=== PATIENT | female | born 1990 | race Caucasian/White ===

== ENCOUNTER 2024-07-06 20:15 | Outpatient (REF) | payer OTHER, SELFPAY ==
[2024-07-13 14:10] LABS: Age Gdln ACOG Testing Note (.); HPV Aptima Negative (Negative); IGP, Aptima HPV, rfx 16/18,45 Note (.)
== END 2024-07-06 20:16 | disposition home or self-care (01) ==
LOC: LAB 20:15
PROVIDERS: Visit Provider Obstetrics & Gynecology
DX: Z01.419 Encounter for gynecological examination (general) (routine) without abnormal findings (principal)
CPT/HCPCS: 87624; 88175

== ENCOUNTER 2025-06-18 15:32 | Outpatient (OUT) | payer OTHER, SELFPAY ==
--- OUTSIDE RECORDS SUMMARY | 2015-11-05 08:27 | XMS_ITS | Continuity of Care Document ---
Author [facility] Address [address] [place] [address] Phone Care Team Providers Care College Service Officer Name Role Phone Chris DOMINGUEZ, Higinio Unavailable Unavailable Allergies, Adverse Reactions, Alerts Substance Reaction Status Criticality No Known Drug Intolerances Active N o Information Medications Medication Instructions Dosage Effective Dates (start - stop) Status Comments Advair Diskus 250 mcg-50 mcg/dose powder for inhalation INHALE 1 PUFF BY INHALATION ROUTE 2 TIMES EVERY DAY IN THE MORNING AND EVENING APPROXIMATELY 12 HOURS APART 1.00 puff - Active Sprintec (28) 0.25 mg-35 mcg tablet take 1 tablet by oral route every day 1.00 tablet - Active albuterol sulfate HFA 90 mcg/actuation aerosol inhaler inhale 2 puff by inhalation route every 4 - 6 hours as needed - Active Singulair 10 mg tablet take 1 tablet by oral route every day in the evening 10 MG - Active Procedures Procedure Date URINALYSIS, AUTO, W/O SCOPE URINE TEST IMMUNIZATION ADMIN TDAP VACCINE >7 IM Doc meds verified w/pt or re TOBACCO NON-USER PREV VISIT, EST, AGE 18-39 OBTAINING PAP SMEAR BUNDLED SERVICE URINALYSIS, AUTO, W/O SCOPE OFFICE/OUTPATIENT VISIT, EST OFFICE/OUTPATIENT VISIT, EST OFFICE/OUTPATIENT VISIT, EST URINALYSIS, AUTO, W/O SCOPE URINE TEST URINALYSIS, AUTO, W/O SCOPE OFFICE/OUTPATIENT VISIT, EST URINALYSIS NONAUTO W/O SCOPE OFFICE/OUTPATIENT VISIT, EST PREV VISIT, EST, AGE 18-39 OBTAINING PAP SMEAR BUNDLED SERVICE Office/outpatient visit,est, mod 2011 OFFICE/OUTPATIENT VISIT, EST Office/outpatient visit,est, mod 2010 Office/outpatient visit,est, mod 2010 Office/outpatient visit,est, mod 2010 Infct antign, human papilvs, ampl Cult, pathgnc orgnsm, screen Chlamydia culture Screening Papanicolaou Smear Preventive checkup, est,18-39 yrs Office/outpatient visit,new, low 2010 Advance Directives Directive Yes / No Effective Date File Name No Information Encounters Encounter Description Practice Location Reason(s) For Visit Diagnoses Date Provider Providers Copied on Encounter [facility], [address] [place] [address], [id number] , tel:[phone] [facility] No Information 6 Chris Sylvester. [address] [place], [place], [id number], [place]. tel:[phone] [facility], [address] [place] [address], [id number] , [place] tel:[phone] [facility] No Information 5 No Information PREV VISIT, EST, AGE 18-39 [facility], [address] [place] [address], [id number] , [place] tel:[phone] [facility] PAP test (chief complaint) Cervical cancer screeningOral contraceptive prescribedRou burek physicl lab examRoutine Medical ExamHigh risk sexual behavior 4 Christie Rajan. [address] [place], [place], [id number], [place]. tel:[phone] Referring Provider: Mohini Soriano DNP, NP-C, [address] [place] [address] [facility] B, [place], [address]. tel:[phone] OFFICE/OUTPA TIENT VISIT, Anaqua Oacoma Haitaobei [facility], [address] [place] [address] [address], [place], [place], [id number] , [place] tel:[phone] Timoteo Vaughn [facility] burning on urination (chief complaint)c hronic conditions (chief complaint) AsthmaDyspare unia 7 4 Christie LITO AUTOMATIC PRESSER-C Mohini. [address] [place] [address] [facility] [address], [place], [place], [id number], [place]. tel:[phone] Referring Provider: Mohini COULTER, [address] [place] [address] B, [place], [address]. tel:[phone] OFFICE/OUTPA TIENT VISIT, Anaqua Oacoma Haitaobei [facility], [address] [place] [address] [address], [place], [place], [id number] , [place] tel:[phone] Timoteo Vaughn [facility] chronic conditions (chief complaint) Asthma 3201 3 Chrisite LITO Rajan. [address] [place] [address] B, [place], [place], [id number], [place]. tel:[phone] Referring Provider: Mohini COULTER, [address] [place] [address] B, [place], [address]. tel:[phone] OFFICE/OUTPA TIENT VISIT, Anaqua Oacoma Haitaobei [facility], [address] [place] [address] [address], [place], [place], [id number] , [place] tel: [phone] [facility] irregular periods (chief complaint) Post - coital bleedingVagin al odor 3 No Information OFFICE/OUTPA TIENT VISIT, Anaqua Oacoma Zarfo [facility], [address] [place] [address] [address], [place], [place], [address] , [place] tel: [phone] [facility] urinary frequency (chief complaint) Urinary frequency 3 Blickensderf er MEDICAL SOCIAL CONSULTANT [place]. [address], [place], [place], [address], [place]. tel:[phone] Referring Provider: [place] hernandez CNP, [address], [place], [address]. tel:[phone] OFFICE/OUTPA TIENT VISIT, [facility], [address] [place] [address] [address], [place], [place], [id number] , [place] tel:[phone] Timoteo Vaughn [facility] burning on urination (chief complaint) Urinary tract infection 2 Christie MROSE AUTOMATIC PRESSER-C Mohini. [facility] [address] [facility] [address], [place], [place], [id number], [place]. tel:[phone] Referring Provider: Mohini Soriano DNP AUTOMATIC PRESSER-C, Counts include 234 beds at the [facility] [address], [place], [address]. tel:[phone] PREV VISIT, [facility], AGE 18-39 [facility], [address] [place] [address] [address], [place], [place], [address] , [place] tel:[phone] Timoteo Vaughn [facility] preventive exam (chief complaint) Gynecological Examination Mar-0 2 Raz Ho. [facility], [place], [place], [id number], [place]. tel:[phone] Referring Provider: [place] hernandez CNP, [facility], [place], [address]. tel:[phone] Office/outpa tient visit,[facility], [facility], [address] [place] [address] [address], [place], [place], [id number] , [place] tel:[phone] Timoteo Vaughn [facility] chronic conditions (chief complaint)c hest pain (chief complaint)a llergies/ea r pain (chief complaint) AnxietyAsthma Epigastric painAllergic rhinitis Oct- 2 [facility] TORREY Ho. [facility], [place], [place], [address], [place]. tel:[phone] Referring Provider: [place] hernandez CNP, Counts include 234 beds at the [facility] [address], [place], [address]. tel:[phone] OFFICE/OUTPA TIENT VISIT, [facility] Zarfo [facility], [address] [place] [address] [address], [place], [place], [address] , tel:[phone] Timoteo Vaughn [facility] No Information 2 Denilson mary Ho. Counts include 234 beds at the [facility] [address], [place], [place], [address], [place]. tel:[phone] Referring Provider: [place] hernandez CNP, Counts include 234 beds at the [facility] [address] [facility] B, [place], [address]. tel:[phone] Office/outpa tient visit,[email or web address]] [employer] Oacoma Zarfo [facility], [address] [place] [address] [address], [place], [place], [address] , [place] [phone] Timoteo Vaughn [facility] chronic conditions (chief complaint) DEPRESSIONAnx iety 1 Raz Ho. Counts include 234 beds at the [facility] [address], [place], [place], [address], [place]. tel:[phone] Referring Provider: [place] hernandez CNP, Counts include 234 beds at the [facility] [address] [facility] B, [place], [address]. tel:[phone] Office/outpa tient visit,[email or web address]] [employer] Oacoma Zarfo [facility], [address] [place] [address] [address], [place], [place], [address] , [place] [phone] Timoteo Vaughn [facility] chronic conditions (chief complaint) AnxietyFatigu eDEPRESSION 1 Teressa Mak. [address], [address], [place]. tel:[phone] Referring Provider: Obdulio Gannon MD, [address], [address]. tel:[phone] Office/outpa tient visit,[email or web address]] [employer] Oacoma Zarfo [facility], [address] [place] [address] [address], [place], [place], [address] , [place] tel:[phone] [facility] anxiety (chief complaint) DEPRESSIONFat igue / Malaise 1 Teressa Mak. [address], [place], [address], [place]. tel:[phone] Referring Provider: Obdulio Gannon MD, [address], [place], [address]. [phone] Preventive checkup, [facility],18-39 [facility], [address] [place] [address] [address], [place], [place], [address] , tel: [phone] [facility] PAP test (chief complaint) Gynecological Examination 1 Sun Castillo. [facility], [place], [place], [address], . [phone] Referring Provider: Anna Britt, [address], [place], [address]. [phone] Office/outpa tient visit,[facility], [address] [place] [address] [address], [place], [place], [address] , tel: [phone] Timoteo Vaughn [facility] asthma (chief complaint) AsthmaAsthmaD EPRESSIONAnxi ety 1 Sun Castillo. [address], [place], [place], [address], . [phone] Referring Provider: Anna Britt, [address], [place], [address]. tel:[phone] Family History Family Member Type Diagnosis Age At Onset Father Problem (finding) No Family hist ory of No history of Hypertension Maternal grandfather Problem (finding) cancer of the e sophagus Mother Problem (finding) depression Paternal grandfather Problem (finding) Heart attack Brother x 3 Problem (finding) Alive and well Problem (finding) No family history of Al lergies Paternal grandmother Problem (finding) malignant neopl asm of lung Father Problem (finding) No Family hist ory of No history of Hyperlipidemia Immunizations Vaccine Date Status Comments Tdap administered Source: [place] un[place] Record Payers Payer name Insurance type Covered libertarian ID Shanna jaime(s) [facility] CI [id number] [facility] CI [id number] Social History Type Description Quantity Date Captured Comments Alcohol Use Details Unknown Caffeine Use Details Unknown Tobacco Use Status No Information Smoking Status No Information Sex Female Chief Complaint And Reason For Visit No Information Reason For Referral Reason For Referral No Information Plan Of Treatment Date Type Action Status Goal Depression screening. Due on due Goal URINALYSIS NONAU TO W/O SCOPE. Due on due Goal Pap liquid based for cytology. Due on due Goal OARRS. Due on du e Goal HPV, high+low-risk. Due on A due Goal COSMETOLOGY EDUCATOR/Breast exam. Due on due Goal Glucose. Due on due Goal Breast exam. Due on 015 due Goal H&P. Due on due Goal Influenza vaccine. Due on due Goal Influenza vaccine. Due on due Goal Tdap due Goal Breast exam. Due on 013 due Goal HPV (). Due on 4 due Goal Td vaccine. Due on 14 due Goal Breast exam. Due on 013 due Goal HPV (). Due on 4 due Goal Tdap. Due on due Goal H&P. Due on due Goal Influenza vaccine. Due on due Future Order: Lab Order Pap Liqu id Based For Cytology ([id number]), Collected on: Ordered History Of Present Illness Encounter Date Complaint History Of Prese nt Illness PAP test Currently pregna nt: no. Patient is not contemplating . The patient states she uses none for control. Last LMP was 02/28/2014. Her menses is regular with normal flow with a frequency of every 28 days. Negative for dysmenorrhea and menorrhagia. Negative for: breast discharge, breast lump(s) and breast pain. Positive for: breast self exam. Associated symptoms include difficulty falling sleep. Pertinent negatives include abnormal bleeding, anxiety, decreased libido, depression, dyspareunia, sexual dysfunction, sleep disturbances, urinary incontinence, urinary urgency, vaginal discharge and vaginal itching. She does not take calcium. She does not take Vitamin D. She does not take multivitamins. She does not take Folic acid.The patient states her exercise level is moderate. The patient does not use tobacco. She does drink alcohol. Additional information: Last pap 03/31/12. No Tdap in chart. Pt. would like Tdap today. Pt. is currently sexual axtive. Pt. does have new sexual partner. Does use condoms. Functional Status Date Functional Assessmen t No Information Instructions Date Instruction Additional Infor rich counseled on various control optionsshe decided on ocp-counseled on risks, benefitsno family history of clotting disorders and she does not smokept to f/u if negative side effects Related to Oral contraceptive prescribed will check for STI a nd f/u pending results Related to Routine physicl lab exam Pap/pelvic/breast ex am performedDiscussed daily multivitaminDiscussed importance of routine daily exerciseDiscussed importance of weight maintenance and obtaining optimal bmiVaccine schedule reviewed and updated-will update her tdap todaycounseled on safe sex practicesRoutine annual follow up recommended Related to Cervical cancer screening see my plan Related to Cervi elver cancer screening see my plan Related to Asthm a see my plan Related to Asthm a see plan details Related to Vagi nal odor Assessments Type Assessment Date No Information Patient Care Teams Name Effective Dates (start - stop) Status Members No Information
--- OUTSIDE RECORDS SUMMARY | 2025-06-07 09:40 | XMS_ITS | Encounter Summary ---
Author Organization [facility] Address [address], [address] [place] [address] Care Team Providers Care Anode Crew Supervisor Name Role Phone Skyler Kwon MD Primary Care Provider + Reason for Visit * ReasonCommentsCheck-UpPt presents for a check up and refills. Encounter Details DateTypeDepartmentCare Team (Latest Contact Info)Isnqplvyvyv56/13/2025 9:40 AM ESTOffice Visit [facility] [address] [place] [address] Georgia Nelson, VENETIAN BLIND MECHANIC - LOAF COUNTER [address] [place] [address] Hypertension, unspecified type (Primary Dx); Mild intermittent asthma, unspecified whether complicated; Depression with anxiety; Tachycardia; Class 2 severe obesity with serious comorbidity and body mass index (BMI) of 38.0 to 38.9 in adult,unspecified obesity type; Mild persistent asthma with acute exacerbation; H/O seasonal allergies Social History Tobacco UseTypesPacks/DayYears UsedDateSmoking Tobacco: NeverSmokeless Tobacco: NeverAlcohol UseStandard Drinks/WeekCommentsNo0 (1 standard drink = 0.6 oz pure alcohol)has a few drinks a monthOverall Financial Resource Strain (CARDIA)Answer Date RecordedHow hard is it for you to pay for the very basics like food, housing, medical care, and heating?Not very hard4PHQ-2AnswerDate RecordedPHQ-9 Total Mhplk19610/07/2023Hunger Vital SignAnswerDate RecordedWithin the past 12 months, you worried that your food would run out before you got the money to buymore.Never true10/07/2023Within the past 12 months, the food you bought just didn't last and you didn't have money to get more.Never true 10/07/2023RAPARE - TransportationAnswerDate RecordedLack of Transportation (Medical)Not on file10/07/2023In the past 12 months, has lack of transportation kept you from meetings, work, or from getting things needed for daily living?No 10/07/2023Housing Stability Vital SignAnswerDate RecordedUnable to Pay for Housing in the Last YearNot on file10/07/2023Number of Places Lived in the Last YearNot on file10/07/2023In the last 12 months, was there a time when you did not have a steady place to sleep or [place] ([place])?No 10/07/2023Food InsecurityAnswerDate RecordedWithin the past 12 months, you worried that your food would run out before you got the money to buymore.1 10/07/2023Within the past 12 months, the food you bought just didn't last and you didn't have money to get more.regnantCommentsNoSex and Gender InformationValueDate RecordedSex Assigned at IiopgXpliqp59/24/2025 4:03 PM EST Legal OdwPxydid17/10/2013 4:11 PM ESTGender IdentityNot on fileSexual OrientationNot on filedocumented as of this encounter Last Filed Vital Signs Vital SignReadingTime TakenCommentsBlood Zwalbejr255/9206/07/2025 9:57 AM EST Husev41837/13/2025 9:57 AM UXSWgebndzxzna88.2 ??C (97.1 ??F)06/07/2025 9:57 AM ESTRespiratory Youa540108/07/2024 9:57 AM ESTOxygen Yivguegodt25%06/07/2025 9:57 AM ESTInhaled Oxygen Concentration--Eezxol569.7 kg (233 lb)06/07/2025 9:57 AM CAFXuepdu980.1 cm (5' 5 )06/07/2025 9:57 AM ESTBody Mass Index38.7706/07/2025 9:57 AM ESTdocumented in this encounter Patient Instructions * Patient Instructions* Georgia Nelson APRN - CNP - 06/07/2025 10:22 AM EST Continue portion control, heart healthy diet Take inhaler 30 mins prior to bed to help with the sob/tightness Take Singular nightly * Attachments The following attachments cannot be sent through Care Everywhere. * BMI (Body Mass Index) (Cuban) * Calorie Restriction: General Info (Cuban) documented in this encounter Progress Notes * Georgia Nelson APRN - CNP - 06/07/2025 9:55 AM EST Images from the original note were not included. [facility] [address] [facility] [address] Dept: [phone] Loc: [phone] HPI: HPI Ayse Bass is a 35 y.o. female who presents today for follow up, has been out of Metoprolol, heart rate in office today 115. She is also having issues with more frequent asthma symptoms, Advair doesn't seem to be helping, she would like to try something different. She is having Fibroids removed next month and possible hysterectomy next year. She has lost weigh since our last visit, advised continue calorie restrictions, heart healthy diet. She has been having issues prior to bed, chesttightness/short of breath, she isn't using her rescue inhaler and not taking singular. She feels the ProAir does not help as much as the Ventolin Chief Complaint Patient presents with Check-Up Pt presents for a check up and refills. 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 Past Medical History: Diagnosis Date Asthma Past Surgical History: Procedure Laterality Date SECTION 10/03/2015 [facility] Family History Problem Relation Age of Onset High Blood Pressure Mother High Blood Pressure Father Heart Disease Father Social History Tobacco Use Smoking status: Never Smokeless tobacco: Never Substance Use Topics Alcohol use: No Comment: has a few drinks a month Current Outpatient Medications Medication Sig Dispense Refill HYDROcodone-acetaminophen (NORCO) 5-325 MG per tablet promethazine (PHENERGAN) 25 MG tablet Take 1 tablet by mouth every 6 hours as needed metoprolol tartrate (LOPRESSOR) 25 MG tablet Take 1 tablet by mouth 2 times daily 90 tablet 0 budesonide-formoterol (SYMBICORT) 160-4.5 MCG/ACT AERO Inhale 2 puffs into the lungs 2 times daily 30.6 g 1 albuterol sulfate HFA (VENTOLIN HFA) 108 (90 Base) MCG/ACT inhaler Inhale 2 puffs into the lungs 4 times daily as needed for Wheezing 18 g 0 montelukast (SINGULAIR) 10 MG tablet take 1 tablet by mouth once daily 90 tablet 1 buPROPion (WELLBUTRIN XL) 150 MG extended release tablet Take 1 tablet by mouth daily doxycycline hyclate (VIBRA-TABS) 100 MG tablet Take 1 tablet by mouth daily ibuprofen (ADVIL;MOTRIN) 600 MG tablet Take 1 tablet by mouth every 8 hours as needed metFORMIN (GLUCOPHAGE) 500 MG tablet Take 1 tablet by mouth 2 times daily (with meals) 60 tablet 2 fluticasone (FLONASE) 50 MCG/ACT nasal spray instill 1 spray into each nostril twice a day 48 g 0 ondansetron (ZOFRAN-ODT) 4 MG disintegrating tablet dissolve 1 tablet ON TONGUE every 8 hours if needed for nausea OR vomiting 30 tablet 0 No current facility-administered medications for this visit. Allergies Allergen Reactions Amoxicillin Adverse reaction of diarrhea, side effect and doesn't cure illness Health Maintenance Topic Date Due HIV screen Never done Hepatitis C screen Never done Hepatitis B vaccine (1 of 3 - 19+ 3-dose series) Never done Cervical cancer screen Never done Depression Monitoring 10/06/2024 Flu vaccine (1) 02/23/2025 COVID-19 Vaccine (1 - season) Never done Varicella vaccine (1 of 2 - 13+ 2-dose series) 11/13/2026 (Originally 2001) Pneumococcal 0-49 years Vaccine (1 of 2 - PCV) 11/13/2026 (Originally 2007) DTaP/Tdap/Td vaccine (1 - Tdap) 03/24/2027 (Originally 2007) HPV vaccine (No Doses Required) Completed Hepatitis A vaccine Aged Out Hib vaccine Aged Out Polio vaccine Aged Out Meningococcal (ACWY) vaccine Aged Out Meningococcal B vaccine Aged Out Depression Screen Discontinued ROS: Review of Systems Constitutional: Positive for fatigue. Negative for fever. HENT: Positive for congestion. Negative for ear pain, hearing loss, postnasal drip, sinus pain, tinnitus and trouble swallowing. Eyes: Negative for photophobia and visual disturbance. Respiratory: Positive for shortness of breath and wheezing. Negative for cough and chest tightness. Increased asthma symptoms Cardiovascular: Negative for chest pain, palpitations and leg swelling. Gastrointestinal: Negative for abdominal pain, constipation, diarrhea, nausea and vomiting. Endocrine: Negative for polydipsia, polyphagia and polyuria. Genitourinary: Negative for difficulty urinating, dysuria, frequency and urgency. Musculoskeletal: Negative for back pain, gait problem and neck pain. Skin: Negative for rash. Allergic/Immunologic: Negative for environmental allergies and food allergies. Neurological: Negative for dizziness, weakness, light-headedness, numbness and headaches. Hematological: Does not bruise/bleed easily. Psychiatric/Behavioral: Negative for agitation, confusion, dysphoric mood and sleep disturbance. The patient is not nervous/anxious and is not hyperactive. Clinical staff notes reviewed. Physical Exam: Physical Exam Vitals and nursing note reviewed. Constitutional: General: She is not in acute distress. Appearance: Normal appearance. She is well-developed. She is obese. She is not ill-appearing, toxic-appearing or diaphoretic. HENT: Head: Normocephalic and atraumatic. Right Ear: Tympanic membrane, ear canal and external ear normal. Left Ear: Tympanic membrane, ear canal and external ear normal. Nose: Nose normal. Mouth/Throat: Mouth: Mucous membranes are moist. Pharynx: Oropharynx is clear. Eyes: Extraocular Movements: Extraocular movements intact. Conjunctiva/sclera: Conjunctivae normal. Pupils: Pupils are equal, round, and reactive to light. Neck: Thyroid: No thyromegaly. Cardiovascular: Rate and Rhythm: Regular rhythm. Tachycardia present. Heart sounds: Normal heart sounds. Comments: Has been out of BP medication (metoprolol) Pulmonary: Effort: Pulmonary effort is normal. Breath sounds: Normal breath sounds. No wheezing or rales. Chest: Chest wall: No tenderness. Abdominal: General: Bowel sounds are normal. There is no distension. Palpations: Abdomen is soft. Tenderness: There is no abdominal tenderness. Genitourinary: Comments: deferred Musculoskeletal: General: No tenderness. Normal range of motion. Cervical back: Normal range of motion and neck supple. Right lower leg: No edema. Left lower leg: No edema. Skin: General: Skin is warm and dry. Capillary Refill: Capillary refill takes less than 2 seconds. Findings: No rash. Neurological: Mental Status: She is alert and oriented to person, place, and time. Psychiatric: Mood and Affect: Mood normal. Behavior: Behavior normal. Thought Content: Thought content normal. Judgment: Judgment normal. Continue portion control, heart healthy diet Take inhaler 30 mins prior to bed to help with the sob/tightness Take Singular nightly BP (!) 132/92 Pulse (!) 115 Temp 97.1 ??F (36.2 ??C) Resp 18 Ht 1.651 m (5' 5 ) Wt 105.7 kg (233 lb) SpO2 98% BMI 38.77 kg/m?? POCT: No results found for this visit on 06/07/25. Labs: No results found for: LABA1C Lab Results Component Value Date CHOL 216 12/02/2022 Lab Results Component Value Date HDL 76 (A) 12/02/2022 No components found for: LDLCALC Lab Results Component Value Date TRIG 230 12/02/2022 No results found for: CHOLHDL Lab Results Component Value Date WBC 8.8 12/02/2022 HGB 15.1 12/02/2022 HCT 45.5 12/02/2022 MCV 92.7 12/02/2022 PLT 443 12/02/2022 No results found for: INR , PROTIME Lab Results Component Value Date GLUCOSE 96 12/02/2022 CREATININE 0.54 12/02/2022 BUN 9 12/02/2022 NA 139 12/02/2022 K 4.3 12/02/2022 CL 102 12/02/2022 CO2 23 12/02/2022 Lab Results Component Value Date ALT 27 12/02/2022 AST 22 12/02/2022 ALKPHOS 103 12/02/2022 BILITOT 0.5 12/02/2022 No results found for: LABPROT , LABALBU No results found for: TSH , CBC Assessment and Plan: Ayse Manley was seen today for check-up. Diagnoses and all orders for this visit: Hypertension, unspecified type - metoprolol tartrate (LOPRESSOR) 25 MG tablet; Take 1 tablet by mouth 2 times daily Mild intermittent asthma, unspecified whether complicated - budesonide-formoterol (SYMBICORT) 160-4.5 MCG/ACT AERO; Inhale 2 puffs into the lungs 2 times daily Depression with anxiety Tachycardia - metoprolol tartrate (LOPRESSOR) 25 MG tablet; Take 1 tablet by mouth 2 times daily Class 2 severe obesity with serious comorbidity and body mass index (BMI) of 38.0 to 38.9 in adult,unspecified obesity type Mild persistent asthma with acute exacerbation - albuterol sulfate HFA (VENTOLIN HFA) 108 (90 Base) MCG/ACT inhaler; Inhale 2 puffs into the lungs4 times daily as needed for Wheezing - montelukast (SINGULAIR) 10 MG tablet; take 1 tablet by mouth once daily H/O seasonal allergies - montelukast (SINGULAIR) 10 MG tablet; take 1 tablet by mouth once daily Controlled Substance Monitoring: Acute and Chronic Pain Monitoring: RX Monitoring Periodic Controlled Substance Monitoring 07/05/2019 11:37 AM No signs of potential drug abuse or diversion identified. Data saved with a previous flowsheet row definition 1. Prior labs and health maintenance reviewed. 2. Discussed use, benefit, and side effects of prescribed medications. Barriers to medication compliance addressed. All her questionswere answered. Pt voiced understanding and agreed to treatment plan. Ayse will continue current medications,diet and exercise. Return in about 3 months (around 09/07/2025), or if symptoms worsen or fail to improve. Patient given educational materials - see patient instructions Patient Instructions Continue portion control, heart healthy diet Take inhaler 30 mins prior to bed to help with the sob/tightness Take Singular nightly documented in this encounter Plan of Treatment DateTypeDepartmentCare Team (Latest Contact Info)Tzdqqbyflpb72/12/2026 9:20 AM ESTOffice Visit [facility] [address] [place] [address] Georgia Nelson, MOR Tejada CNP [address] [place] [address] 3 MONTH F/Udocumented as of this encounter Visit Diagnoses Diagnosis Hypertension, unspecified type- Primary Mild intermittent asthma, unspecified whether complicated Depression with anxiety Dysthymic disorder Tachycardia Tachycardia, unspecified Class 2 severe obesity with serious comorbidity and body mass index (BMI) of 38.0 to 38.9 in adult,unspecified obesity type Mild persistent asthma with acute exacerbation Unspecified asthma, with exacerbation H/O seasonal allergies Other allergy, other than to medicinal agents documented in this encounter Care Teams Team MemberRelationshipSpecialtyStart DateEnd Date Skyler Kwon MD [address] [place] [address] PCP - GeneralFamily Medicine10/19/18documented as of this encounter
--- OUTSIDE RECORDS SUMMARY | 2025-06-18 13:50 | XMS_ITS | Encounter Summary ---
Author Organization [facility] Address [address] [place] [address] Care Team Providers Care Mammography Tech Name Role Phone Georgia Sage NP Primary Care Provider [phone] Reason for Visit * ReasonCommentsGynecologic ExamPre-op Visit Encounter Details DateTypeDepartmentCare Team (Latest Contact Info)Mohdtmzbwpd12/24/2025 1:50 PM ESTConsult SAIRA [facility]ak [facility] [address] [place] [address] Mick Coulter DO [address] Servando Novak, [facility]11 Pre-op examination; Adenomyosis; Cyst of ovary, unspecified laterality; PCOS (polycystic ovarian syndrome); Well woman exam with routine gynecological exam Social History Tobacco UseTypesPacks/DayYears UsedDateSmoking Tobacco: NeverSmokeless Tobacco: Never Tobacco Cessation:Counseling Given: Not Answered Alcohol UseStandard Drinks/WeekCommentsNot Currently0 (1 standard drink = 0.6 oz pure alcohol)CommentsNoSex and Gender InformationValueDate RecordedSex Assigned at BirthNot on fileLegal KcrPcwows76/15/2023 11:18 PM EDTGender IdentityNot on fileSexual OrientationNot on filedocumented as of this encounter Last Filed Vital Signs Vital SignReadingTime TakenCommentsBlood Uriujilb801/6806/18/2025 2:10 PM EST Pulse--Temperature--Respiratory Rate--Oxygen Saturation--Inhaled Oxygen Concentration--Tmqcgn168 kg (240 lb)06/18/2025 2:10 PM ESTHeight--Body Mass [...] DateEnd Date Georgia Sage, JUDE [address] [place] [address] PCP - GeneralFamily Zbsnlaqx23/14/24documented as of this encounter
--- OUTSIDE RECORDS SUMMARY | 2025-06-18 15:40 | XMS_ITS | Clinical Summary ---
Author Organization [facility] tem Address [id number] [address] [place] [address] Care Team Providers Care Supervisor [employer] Name Role Phone Georgia Nelson APRN-MOLDER FEEDER Primary Care P rovider Allergies Active AllergyReactionsCriticalityNoted QnfzRuzezlkjMsgrjsjpmmn61/27/2018 Adverse reaction of diarrhea, side effect and doesn't cure illness Medications MedicationSigDispense QuantityRefillsLast FilledStart DateEnd DateStatus albuterol sulfate 90 mcg/actuation aerosol powdr breath activated Inhale.Active mometasone/formoterol (DULERA INHL) Inhale.Active montelukast (SINGULAIR) 10 mg tablet Take 10 mg by mouth nightly.Active ondansetron ODT (ZOFRAN-ODT) 4 mg disintegrating tablet Indications:Non-intractable vomiting with nausea, unspecified vomiting type, Abdominal crampingDissolve 1 tablet (4 mg total) on tongue every 8 (eight) hours as needed for nausea or vomiting. 9 tablet 05/03/2019Active Additional Information Patient not taking.Reported on 05/01/2020 vitamins no.2 ( VITAMIN NO.2 ORAL) Take by mouth.Active albuterol (ACCUNEB) 0.63 mg/3 mL nebulizer solution Inhale 1 ampule by nebulization every 6 (six) hours as needed for wheezing. Active sertraline (ZOLOFT) 50 mg tablet Take 1 tablet (50 mg total) by mouth daily. 30 tablet Active valACYclovir (VALTREX) 500 mg tablet Take 1 tablet (500 mg total) by mouth daily. 30 tablet Active benzocaine-menthoL (CHLORASEPTIC SORE THROAT) 6-10 mg lozenge Dissolve 1 lozenge in the mouth every 2 (two) hours as needed for sore throat. 100 tablet 07/22/2022ctive albuterol (PROVENTIL HFA;VENTOLIN HFA) 90 mcg/actuation inhaler Indications:Mild persistent asthma, unspecified whether complicatedInhale 2 puffs every 4 (four) hours as needed for wheezing. 18 g ctive fluticasone propionate (FLONASE) 50 mcg/actuation nasal spray Administer 1 spray into each nostril in the morning. 16 g 07/22/2022ctive ibuprofen (MOTRIN) 600 mg tablet Take 1 tablet (600 mg total) by mouth every 8 (eight) hours as needed for pain or fever. 30 tablet 07/22/2022ctive acetaminophen (TYLENOL EXTRA STRENGTH) 500 mg tablet Take 2 tablets (1,000 mg total) by mouth every 6 (six) hours as needed for pain or fever. 30 tablet 07/22/2022ctive DULoxetine (CYMBALTA) 60 mg capsule Take 1 capsule (60 mg total) by mouth in the morning.Active lisinopril-hydroCHLOROthiazide (PRINZIDE,ZESTORETIC) 20-25 mg per tablet Take 1 tablet by mouth in the morning.Active metoprolol tartrate (LOPRESSOR) 25 mg tablet Take 1 tablet (25 mg total) by mouth in the morning and 1 tablet (25 mg total) before bedtime.Active methocarbamoL (ROBAXIN) 500 mg tablet Take 1 tablet (500 mg total) by mouth in the morning and 1 tablet (500 mg total) before bedtime. 20 tablet 4Active Active Problems ProblemNoted DateDiagnosed DateSusceptible to varicella (non-immune), currently uxlxrhro00/09/2020History of pclhiuu6905/03/2019Acute cystitis with hywygfksh00/01/2018Mild persistent ojgxlr4604/24/2016 Encounters DateTypeDepartmentCare QuqkQwvlultluyv20/15/2025 1:45 PM EDT - 05/09/2025 11:59 PM EDTHospital [facility] [address] [id number] Cyst of ovary, unspecified laterality Discharge Disposition: Home05/09/20254252Kuovzj25/09/2025 3:57 PM EDT - 05/03/2025 11:59 PM EDTHospital Encounter [facility] [address] [place] [id number] Hematuria, unspecified type Discharge Disposition: Home05/03/2025Travelfrom Last 3 Months Family History Medical HistoryRelationNameCommentsCancerFatherPROSTATEHeart attackFatherHigh CholesterolFatherHypertensionFatherEsophageal cancerMaternal Grandfather HypertensionMotherHeart attackPaternal GrandfatherLung cancerPaternal GrandmotherRelationNameStatusCommentsFatherAliveMaternal GrandfatherMotherAlive Paternal GrandfatherPaternal Grandmother Social History Tobacco UseTypesPacks/DayYears UsedDateSmoking Tobacco: NeverSmokeless Tobacco: Never Comments:at a young age Alcohol UseStandard Drinks/WeekCommentsNot Currently0 (1 standard drink = 0.6 oz pure alcohol)twice per monthAUDIT-CAnswerDate RecordedQ1: How often do you have a drink containing alcohol?Never12/20/2019Average Number of DrinksNot on file 12/20/2019Frequency of Binge DrinkingNot on file12/20/2019ChildcareAnswerDate XccddxqxLpxvpyzpkIddimth98/12/2019EmploymentAnswerDate RecordedEmploymentUnknown 01/04/2019Hunger ScreeningAnswerDate RecordedWithin the past 12 months we worried whether our food would run out before we got money to buy more.Never True01/07/2024Within the past 12 months the food we bought just didn't last and we didn't have money to get more.Never True4Purpose - LifeAnswerDate RecordedPurpose and direction in mdirGzflqgg01/25/2021CommentsNoSex and Gender InformationValueDate RecordedSex Assigned at BirthNot on fileLegal Sex Spswpr7802/28/2015 12:12 PM EDTGender IdentityNot on fileSexual OrientationNot on file Last Filed Vital Signs Vital SignReadingTime TakenCommentsBlood Bdpbexsx607/25740 10:15 AM EDT Altwf47001/14/2024 10:00 AM SAEZwezqneigkm79.8 ??C (98.3 ??F)01/07/2024 8:56 AM EDTRespiratory Sqap131001/07/2024 10:00 AM EDTOxygen Ttysogseye27%01/07/2024 10:15 AM EDTInhaled Oxygen Concentration--Jbmizw655.4 kg (250 lb)01/07/2024 8:56 AM UKTFpfbve621.1 cm (5' 5 )01/07/2024 8:56 AM EDTBody Mass Index41.6001/07/2024 8:56 AM EDT Plan of Treatment Health MaintenanceDue DateLast DoneCommentsDepression Rivgmjohr88/11/2000 DTaP,Tdap and Td Vaccines (1 - Tdap)2007Pap Smear, 10/06/2018Adult BMI Xijhgjpje22Tobacco Srfztkkon59/14/2025 01/07/2024Influenza Rdonhos55 Medical Devices Not on file Procedures Procedure NamePriorityDate/TimeAssociated DiagnosisCommentsUS PELVIC WITH PARSDDXNDGABPkwvgae61/15/2025 2:51 PM EDT Cyst of ovary, unspecified laterality CT ABDOMEN AND PELVIS WO TQEJKRBH28/09/2025 4:08 PM EDT Hematuria, unspecified type PAP TVKXQKkytywr10/14/2019 6:14 PM EDT Cervical smear, as part of routine gynecological examination from Last 3 Months or Most Recently Relevant to Health Maintenance Results * Ultrasound pelvic with transvaginal (05/09/2025 2:51 PM EDT)Anatomical Region LateralityModalityBody, PelvisUltrasoundSpecimen (Source)Anatomical Location / LateralityCollection Method / VolumeCollection TimeReceived Time05/10/2025 2:48 PM EDT Narrative 05/10/2025 2:50 PM EDT CLINICAL INFORMATION: Left ovarian cyst seen on CTA. Further characterization. COMPARISON: CT abdomen/pelvis dated 05/03/2025. FINDINGS: ?? Limited transabdominal and transvaginal ultrasound of the pelvis was performed. ? Suboptimal evaluation due to patient body habitus and overlying bowel gas. UTERUS: Size: 10.3 x 4.6 x 7.2 cm. Dual endometrial thickness: 1.0 cm. Heterogeneous myometrium. ?? OVARIES/ADNEXA: Right ovary: Size: 3.8 x 2.7 x 2.3 cm. No demonstrated worrisome/actionable lesion. Normal color Doppler flow. Left ovary: Size: 2.2 x 1.6 x 1.8 cm. No cystic focus appreciated. No demonstrated worrisome/actionable lesion. Normal color Doppler flow. ?? FREE FLUID: None. ? IMPRESSION: 1. ??Suboptimal evaluation due to overlying bowel gas and patient body habitus. 2. ??Unremarkable bilateral ovaries. No sonographic evidence of left adnexal cystic lesion. 3. ??Heterogeneous myometrium which may represent adenomyosis. Recommend clinical correlation. Finalized by Lisa Ramírez MD on 05/10/2025 2:50 PM Procedure Note Lisa Ramírez MD - 05/10/2025 CLINICAL INFORMATION: Left ovarian cyst seen on CTA. Further characterization. COMPARISON: CT abdomen/pelvis dated 05/03/2025. FINDINGS: Limited transabdominal and transvaginal ultrasound of the pelvis wasperformed. Suboptimal evaluation due to patient body habitus and overlying bowelgas. UTERUS: Size: 10.3 x 4.6 x 7.2 cm. Dual endometrial thickness: 1.0 cm. Heterogeneous myometrium. OVARIES/ADNEXA: Right ovary: Size: 3.8 x 2.7 x 2.3 cm. No demonstrated worrisome/actionable lesion. Normal color Doppler flow. Left ovary: Size: 2.2 x 1.6 x 1.8 cm. No cystic focus appreciated. No demonstrated worrisome/actionable lesion. Normal color Doppler flow. FREE FLUID: None. IMPRESSION: 1. Suboptimal evaluation due to overlying bowel gas and patient bodyhabitus. 2. Unremarkable bilateral ovaries. No sonographic evidence of leftadnexal cystic lesion. 3. Heterogeneous myometrium which may represent adenomyosis. Recommendclinical correlation. Finalized by Lisa Ramírez MD on 05/10/2025 2:50 PM Authorizing ProviderResult TypeResult StatusAmy Elizabeth Beatty [facility] US ORDERABLESFinal Result * CT abdomen and pelvis without contrast (05/03/2025 4:08 PM EDT)Anatomical RegionLateralityModalityBody, Abdomen, Body CoveraN/AComputed Tomography Specimen (Source)Anatomical Location / LateralityCollection Method / Volume Collection TimeReceived Time05/03/2025 5:17 PM EDT Narrative 05/03/2025 5:[address] ABDOMEN AND PELVIS WITHOUT CONTRAST COMPARISON: ??None. CLINICAL HISTORY: Hematuria, unspecified type. TECHNIQUE: Unenhanced axial images were obtained from the lung bases to the pubic symphysis with sagittal and coronal 2D reformatted images. Oral contrast administered: ??No. ??Automatic exposure control (AEC) was utilized. FINDINGS: ?? Evaluation of the abdomen and pelvis is significantly compromised without intravenous contrast, including but not limited to compromised evaluation of solid abdominal viscera and vasculature, decreased sensitivity in assessing for a malignant process including masses and lymphadenopathy, as well as decreased sensitivity in evaluating for infectious/inflammatory processes including abscesses. ??Ifclinical concern for occult pathology which may not be visualized on noncontrast CT, consider repeat scanning with intravenous contrast. ?? Lower chest: No evidence for focal consolidation. No pleural or pericardial effusion.. No hydronephrosis or urinary tract calculi. Gallbladder is contracted. Subcentimeter hypoattenuating left hepatic lobe lesion, too small to characterize but most likely a benign cyst or hemangioma. The liver, spleen, and pancreas demonstrate no acute abnormality given compromised evaluation without intravenous contrast. ??The adrenal glands appear within normal limits. There is no free intraperitoneal fluid or free intraperitoneal air. The appendix is visualized in the right lower quadrant and appears within normal limits. ?? There is no evidence for bowel obstruction. No evidence for enlarged lymph nodes in the abdomen or pelvis.. No abdominal aortic aneurysm. Prominent left ovary containing what appears to be a cystic structure measuring at least 2.5 cm, not well-characterized on noncontrast CT. No acute osseous abnormality. Small fat-containing right inguinal hernia. IMPRESSION: * ??No hydronephrosis or urinary tract calculi. * ??Asymmetric prominence of the left ovary with probable ovarian cyst, not well-characterized on noncontrast CT. Recommend follow-up pelvic ultrasound including transvaginal scanning for further evaluation. This can be performed as an outpatient unless patient has acute symptoms in this region. All CT scans at this facility use dose modulation, iterative reconstruction, and/or weight based dosing when appropriate to reduce radiation dose to as low as reasonably achievable. Finalized by Tho Melton MD on 05/03/2025 5:25 PM Procedure Note Tho Melton MD - 05/03/2025 CT ABDOMEN AND PELVIS WITHOUT CONTRAST COMPARISON: None. CLINICAL HISTORY: Hematuria, unspecified type. TECHNIQUE: Unenhanced axial images were obtained from the lung bases tothe pubic symphysis with sagittal and coronal 2D reformatted images. Oralcontrast administered: No. Automatic exposure control (AEC) wasutilized. FINDINGS: Evaluation of the abdomen and pelvis is significantly compromised without intravenous contrast, including but not limited to compromised evaluationof solid abdominal viscera and vasculature, decreased sensitivity inassessing for a malignant process including masses and lymphadenopathy, aswell as decreased sensitivity in evaluating for infectious/inflammatory processes including abscesses. If clinical concern for occult pathology which maynot be visualized on noncontrast CT, consider repeat scanning withintravenous contrast. Lower chest: No evidence for focal consolidation. No pleural orpericardial effusion.. No hydronephrosis or urinary tract calculi. Gallbladder is contracted. Subcentimeter hypoattenuating left hepatic lobe lesion, too small to characterize but most likely a benign cyst orhemangioma. The liver, spleen, and pancreas demonstrate no acuteabnormality given compromised evaluation without intravenous contrast.The adrenal glands appear within normal limits. There is no free intraperitoneal fluid or free intraperitoneal air. The appendix is visualized in the right lower quadrant and appears withinnormal limits. There is no evidence for bowel obstruction. No evidence for enlarged lymph nodes in the abdomen or pelvis.. No abdominal aortic aneurysm. Prominent left ovary containing what appears to be a cystic structuremeasuring at least 2.5 cm, not well-characterized on noncontrast CT. No acute osseous abnormality. Small fat-containing right inguinalhernia. IMPRESSION: * No hydronephrosis or urinary tract calculi. * Asymmetric prominence of the left ovary with probable ovarian cyst, notwell- characterized on noncontrast CT. Recommend follow-up pelvicultrasound including transvaginal scanning for further evaluation. Thiscan be performed as an outpatient unless patient has acute symptoms inthis region. All CT scans at this facility use dose modulation, iterativereconstruction, and/or weight based dosing when appropriate to reduceradiation dose to as low as reasonably achievable. Finalized by Tho Melton MD on 05/03/2025 5:25 PM Authorizing ProviderResult TypeResult StatusGilmerhemanth Sanford PAYROLL TAX SPECIALIST-CNPIMG CT ORDERABLESFinal Result * Pap Smear (10/06/2018 6:14 PM EDT)Specimen (Source)Anatomical Location / LateralityCollection Method / VolumeCollection TimeReceived TimeCervical TP 10/06/2018 6:14 PM EDT10/06/2018 6:53 PM EDT Narrative COPATH - 10/12/2018 1:[address] [facility] ? [address] [place] [address] ? [place] [address] ? Gynecologic Cytology Consultation ? Patient Name: AYSE PENNINGTON : 1990 (Age: 28) Gender: F Taken: 10/06/2018 Reported: 10/12/2018 Physician(s): Claudia Still CNP ([phone]) Copy To: ?? Med. Rec.#: [id number] Acct: # [id number] Final Cytologic Interpretation Cervical (with or without endocervical) ThinPrep: Satisfactory for evaluation. NEGATIVE FOR INTRAEPITHELIAL LESION OR MALIGNANCY. Comment: This specimen has been sent for HPV testing. The results are in a separate report. jmerrill/10/12/[address] [facility], [address] [place] [id number], License number: [id number]. Electronically Signed Out By ?KAYLA Shine (ASCP) Date of Last Menstrual Period: ? 09/30/2018 Other Clinical Conditions: Screening/Routine z01.419 Explosive Specialist exam wo/abn findings Source of Specimen ??Cervical (with or without endocervical) ThinPrep ? Thin Prep Pap (ADMISSION NURSE COORDINATOR) Fee Code(s): ?? G0145 The Pap test is a screening test with an inherent, but low, probability of error. The Pap test is primarily effective for the diagnosis and prevention of squamous cell carcinoma. Regular screening iscritical for prevention. ThinPrep liquid-based slides, which meet the Sole Layer Hand criteria for automated screening, have been screened by the [employer] [facility] (as of 04/11/07) along with an additional manual rescreening by a time signal wirer and, if indicated, by a pathologist.Claudia Still CNP 10/07/2018 Authorizing ProviderResult TypeResult StatusTrakay Still PAYROLL TAX SPECIALIST-[facility] PATHOLOGY/CYTOLOGY ORDERABLESFinal ResultPerforming OrganizationAddress City/State/ZIP CodePhone Number COPATH from Last 3 Months or Most Recently Relevant to Health Maintenance Insurance Care Teams Team MemberRelationshipSpecialtyStart DateEnd Date Georgia Nelson, PAYROLL TAX SPECIALIST-MOLDER FEEDER [address] [place] [address] [facility]05/09/25
--- OUTSIDE RECORDS SUMMARY | 2025-06-18 15:40 | XMS_ITS | Clinical Summary ---
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 Name Role Phone Unavailable Primary Care Provider Unavailabl e Source Comments The following information is NOT included in Care Everywhere downloads:Psychiatric notes, ECG results, Cardiac Rehab notes, Pulmonary Function notes, data from SmartForms (includes but not limited toPregnancy data,audiograms, eye exams, pre-surgical evaluation notes, well-child exam data).[facility] Allergies No known active allergies Medications MedicationSigDispense QuantityRefillsLast FilledStart DateEnd DateStatus chlorhexidine (PERIDEX) 0.12 % oral solution Take 15 mL by mouth 2 times daily for 10 days. Swish and spit 15ml BID after meals. Rinse for 30 seconds and then gently spit. Do not swallow. 473 mL 02/22/2024ctive Active Problems No known active problems Immunizations ImmunizationAdministration DatesNext DueInfluenza, unspecified formulation (CVX=88)05/08/2016 Social History Tobacco UseTypesPacks/DayYears UsedDateSmoking Tobacco: Never Assessed CommentsUnknownSex and Gender InformationValueDate RecordedSex Assigned at Not on fileLegal BwgXoqfvp01/02/2024 4:11 PM EDTGender IdentityNot on fileSexual OrientationNot on file Last Filed Vital Signs Vital SignReadingTime TakenCommentsBlood Qlkmrkbl216/8707 3:00 PM EDT Afpty694702/22/2024 3:00 PM EDTTemperature--Respiratory Rate--Oxygen Saturation-- Inhaled Oxygen Concentration--Arnbxb446.4 kg (250 lb)01/11/2024 3:32 PM EDT Mbrznp834.1 cm (5' 5 )01/11/2024 3:32 PM EDTBody Mass Index41.606 3:32 PM EDT Plan of Treatment Health MaintenanceDue DateLast DoneCommentsMammography (shared decision-making, age 35-39)1990Hepatitis C Egmcjfej75/11/2006Tdap Ltnvshz9405/05/2006 Hepatitis A (HAV) Vaccine (optional start 19+ years)2007Hepatitis B (HBV) Vaccine (1 of 3 - 19+ 3-dose series)2007Pap Smear2009HPV Vaccine (optional start 27-45 years)2015COVID-19 Vaccine (1 - 2024- season) 2025Influenza Vaccine (#1)Shingles (RZV) Vaccine (1 of 2)2038HIV YyogTgbbojpsd48/08/2020MammographyDiscontinuedPneumococcal Vaccine(s)Aged OutNo longer eligible based on patient's age to complete this topic Insurance * Guarantor: Gabriela Bass TypeRelation to PatientDate of BirthPhone Billing CmdmxybTrtlexetboiyjZdvz1990 [address] [place] [address]
--- OUTSIDE RECORDS SUMMARY | 2025-06-18 15:40 | XMS_ITS | Clinical Summary ---
Author Organization [facility] Address [address] [place] [address] Care Team Providers Care Clinical Registered Nurse Name Role Phone Georgia Sage NP Primary Care Provider [phone] Allergies Active AllergyReactionsCriticalityNoted QeugUylnackuCrwyhlmhbia92/27/2018 Adverse reaction of diarrhea, side effect and doesn't cure illness Medications MedicationSigDispense QuantityRefillsLast FilledStart DateEnd DateStatus metoprolol tartrate (Lopressor) 25 MG tablet Take 1 tablet by mouth in the morning and 1 tablet before bedtime.05/08/2024 Active Mometasone Furo-Formoterol Fum (Dulera) 50-5 MCG/ACT aerosol Inhale 50 mcg DailyActive buPROPion XL (Wellbutrin XL) 150 MG 24 hr tablet Indications:Weight loss counseling, encounter forTake 1 tablet (150 mg) by mouth Daily Do not crush, chew, or split. 30 tablet ctive metFORMIN XR (Glucophage-XR) 500 MG 24 hr tablet Indications:Weight loss counseling, encounter forTake 1 tablet (500 mg) by mouth in the morning and 1 tablet (500 mg) before bedtime. Do not crush, chew, or split.. 60 tablet ctive promethazine (Phenergan) 25 MG tablet Indications:Pelvic pain in femaleTake 1 tablet (25 mg) by mouth every 6 (six) hours if needed for nausea or vomiting for up to 20 doses 20 tablet 05/29/2025tive phentermine (Adipex-P) 37.5 MG tablet Indications:Encounter for weight managementTake 1 tablet (37.5 mg) by mouth in the morning. Take before meals. 90 tablet Discontinued(Therapy completed) docusate sodium (Colace) 100 MG capsule Indications:Constipation, unspecified constipation typeTake 1 capsule (100 mg) by mouth 2 (two) times a day as needed for constipation 30 capsule 50Expired HYDROcodone-acetaminophen ([place]) 5-325 MG tablet Indications:Pelvic pain in femaleTake 1 tablet by mouth every 6 (six) hours if needed for moderate pain or severe pain for up to 5 days 20 tablet Expired Encounters DateTypeDepartmentCare WqcnNtmujjjnhsv90/24/2025 1:50 [place] [id number] Mick Coulter DO Pre-op examination; Adenomyosis; Cyst of ovary, unspecified laterality; PCOS (polycystic ovarian syndrome); Well woman exam with routine gynecological exam06/18/2025[place] [address] Mick Coulter DO 05/29/2025 9:20 [place] [address] Lorene Beatty PA Pelvic pain in female (Primary Dx); Encounter for weight management; Follow-up encounter involving ovnhcltcol31/04/2025[place] [address] Lorene Beatty PA 05/28/20253732Eesoxm68/27/2025 9:50 [place] [address] Mick Coulter DO Cyst of ovary, unspecified laterality; Adenomyosis; PCOS (polycystic ovarian syndrome)05/21/2025[place] [address] Mick Coulter DO 05/17/20252870Wlnjzk66/21/2025Telephone [facility] [address] [place] [address] Hayley SinghZAHIDA 05/10/2025External Result Encounter [facility] [address] [place] [address] Lorene Beatty PA 05/08/2025 9:20 AM EDTOffice Visit [facility] [address] [place] [address] Lorene Beatty PA Cyst of ovary, unspecified augfuxdbus36/14/2025amboo flowsheet [facility] [address] [place] [address] oLrene Beatty PA from Last 3 Months Social History Tobacco UseTypesPacks/DayYears UsedDateSmoking Tobacco: NeverSmokeless Tobacco: Never Tobacco Cessation:Counseling Given: Not Answered Alcohol UseStandard Drinks/WeekCommentsNot Currently0 (1 standard drink = 0.6 oz pure alcohol)CommentsNoSex and Gender InformationValueDate RecordedSex Assigned at BirthNot on fileLegal OdcLetlpx62/15/2023 11:18 PM EDTGender IdentityNot on fileSexual OrientationNot on file Last Filed Vital Signs Vital SignReadingTime TakenCommentsBlood Vafbzadm208/6806/18/2025 2:10 PM EST Pulse--Temperature--Respiratory Rate--Oxygen Saturation--Inhaled Oxygen Concentration--Fgofoy981 kg (240 lb)06/18/2025 2:10 PM LDAYquzoc791.6 cm (5' 4 ) 06/08/2024 10:29 AM ESTBody Mass Index41. 10:29 AM EST Plan of Treatment Not on file Procedures Procedure NamePriorityDate/TimeAssociated DiagnosisCommentsUS PELVIS JIKWRTMXAYIY31/16/2025 2:51 PM EDT from Last 3 Months Results * US pelvis transvaginal (05/10/2025 2:51 PM EDT)Anatomical RegionLaterality ModalityPelvisUltrasoundSpecimen (Source)Anatomical Location / Laterality Collection Method / VolumeCollection TimeReceived Time05/10/2025 2:51 PM EDT Narrative 05/10/2025 2:50 PM EDT THIS EXAM WAS PERFORMED AT [facility] CLINICAL INFORMATION: Left ovarian cyst seen on CTA. Further characterization. COMPARISON: CT abdomen/pelvis dated 05/03/2025. FINDINGS: Limited transabdominal and transvaginal ultrasound of the pelvis was performed. Suboptimal evaluation due to patient body habitus [...] Doppler flow. FREE FLUID: None. IMPRESSION: 1. ??Suboptimal evaluation due to overlying bowel gas and patient body habitus. 2. ??Unremarkable bilateral ovaries. No sonographic evidence of left adnexal cystic lesion. 3. ??Heterogeneous myometrium which may represent adenomyosis. Recommend clinical correlation. Finalized by Lisa Ramírez MD on 05/10/2025 2:50 PM Procedure Note Radiology, Radiologist, MD - 05/10/2025 THIS EXAM WAS PERFORMED AT [facility] CLINICAL INFORMATION: Left ovarian cyst seen on [...] 05/10/2025 2:50 PM Authorizing ProviderResult TypeResult StatusAmy Jaci PAIMG US PROCEDURESFinal Result from Last 3 Months Insurance Care Teams Team MemberRelationshipSpecialtyStart DateEnd Date Gerogia Sage NP [address] [place] [address] PCP - GeneralFamily Oupgjzcq05/14/24
--- OUTSIDE RECORDS SUMMARY | 2025-06-18 15:40 | XMS_ITS | Encounter Summary ---
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 Primary Care Provider [phone] Encounter Details DateTypeDepartmentCare Team (Latest Contact Info)Xrtmliaasun20/24/2025amboo flowsheet [facility] [address] [place] [phone] Mick Coulter DO [address] Servando Novak, [facility] Social History Tobacco UseTypesPacks/DayYears UsedDateSmoking Tobacco: NeverSmokeless Tobacco: NeverAlcohol UseStandard Drinks/WeekCommentsNot Currently0 (1 standard drink = 0.6 oz pure alcohol)CommentsNoSex and Gender InformationValueDate RecordedSex Assigned at BirthNot on fileLegal JufLlrdwq64/15/2023 11:18 PM EDT Gender IdentityNot on fileSexual OrientationNot on filedocumented as of this encounter Plan of Treatment Not on file documented as of this encounter Visit Diagnoses Not on filedocumented in this encounter Care Teams Team MemberRelationshipSpecialtyStart DateEnd Date Georgia Sage, ROOM SERVICE FOOD SERVER [address] [place] [address] PCP - GeneralFamily Vektndhz09/14/24documented as of this encounter
--- OUTSIDE RECORDS SUMMARY | 2025-06-18 15:41 | XMS_ITS | CCD ---
Author Organization [facility] Care Team Providers Care Paraprofessional Aide Teacher Name Role Phone Skyler Nichols Primary Care Provider [phone] DIGNA GUEVARA Referring Unavailable SKYLER NICHOLS Primary Care Unavailabl e GEOVANNA ., MELIDA Consulting Unavailable SAUNDRAN ., MELIDA Attending Unavailable ROSIBEL KERN Primary Care Unavailable TAMLYN ., MELIDA Admitting Unavailable TAMISHANN ., MELIDA Attending Unavailable ROSIBEL KERN Primary Care Unavailable SAUNDRAN ., MELIDA Admitting Unavailable SAUNDRAN ., MELIDA Consulting Unavailable PAULO DIAZ Consulting Unavailable LAQUITA GORMAN Consulting Unavailable ELLA, NONE LISTED Primary Care Unavaila ble JACI ., LORENE Admitting Unavailable JACI ., LORENE Consulting Unavailable JACI ., LORENE Attending Unavailable Unavailable Primary Care Provider Unavailcamelia e PAIGE MATIAS Attending Unavailable PROVIDER, UNKNOWN Admitting Unavailable PAIGE MATIAS Attending Unavailable PROVIDER, UNKNOWN Admitting Unavailable Chu ROQUE, Rosibel Rice Primary Care Provider SHADY JESUS Referring Unavailable ROSIBEL GUSTAFSON Primary Care Unavail able LORENE AVERY Referring Unavailable ROSIBEL GUSTAFSON Primary Care Unavail able LORENE AVERY Attending Unavailable JACI, LORENE Attending Unavailable REMBERTO WATSON Attending Unavailable JACI, LORENE Attending Unavailable JACI, LORENE Attending Unavailable YFNPETROSY Attending Unavailable YFN, MICK Attending Unavailable YFN, MICK Attending Unavailable JACI, LORENE Attending Unavailable JACI, LORENE Attending Unavailable Allergies Allergy ClassificationReported Allergen(s)Allergy TypeDate of OnsetReaction(s) Facility (20 sources)Amoxicillin; Translations: [AMOXICILLIN]Drug [facility]zgu87-94-3458[facility] [place] [place] Medications Current Medications MedicationDrug Class(es)DatesSig (Normalized)Sig (Original)acetaminophen 325 mg oral tablet (3 sources)Start: 02-22-2024 End: 51-68-9271xbrl 2 tablets by mouth every six hours as needed for pain acetaminophen (TYLENOL) 325 mg tablet Take 2 Tablets by mouth every 6 hours as needed for Pain or Fever for up to 7 days. 56 Tablet 02/22/2024 02/29/2024 Activeacetaminophen 325 mg / HYDROcodone bitartrate 5 mg oral tablet (2 sources)Opioid AgonistStart: 05-08-2025 End: 52-24-8891ofjd 1 tablet by mouth every six hours for painHYDROcodone- acetaminophen ([place]) 5-325 MG tablet Indications: Cyst of ovary, unspecified laterality Take 1 tablet by mouth every 6 (six) hours if needed for moderate pain or severe pain for up to 5 days 20 tablet 05/08/2025 05/13/2025 Bmmlsi947 actuat albuterol 0.09 mg/actuat metered dose inhaler (1 source)beta2-Adrenergic AgonistStart: 50-82-0178gtpf 2 puff(s) by inhalation every six hours as needed for wheezingalbuterol sulfate HFA (PROVENTIL HFA) 108 (90 Base) MCG/ACT inhaler Inhale 2 puffs into the lungs every 6 hours as needed for Wheezing 1 Inhaler 3 10/19/2018 Ficifj22 hr buPROPion hydrochloride 150 mg extended release oral tablet (20 sources)AminoketoneStart: 06-08-2024 End: 95-29-2225fwnd 1 tablet by mouth once dailybuPROPion XL (Wellbutrin XL) 150 MG 24 hr tablet Indications: Weight loss counseling, encounter forTake 1 tablet (150 mg) by mouth Daily Do not crush, chew, or split. 30 tablet 11 06/08/2024 06/08/2025 Activechlorhexidine gluconate 1.2 mg/ml mouthwash (3 sources)Start: 02-22-2024 End: 23-78-5895zcteqhzkgbeba (PERIDEX) 0.12 % oral solution Take 15 mL by mouth 2 times daily for 10 days. Swish and spit 15ml BID after meals. Rinse for 30 seconds and then gently spit. Do not swallow. 473 mL 02/22/2024 03/03/2024 Activedoxycycline hyclate 100 mg oral tablet (20 sources)Tetracycline-class Drug End: 23-98-5884ifkq 1 tablet by mouth once dailydoxycycline (Vibra-Tabs) 100 MG tablet Take 1 tablet by mouth Daily 05/08/2025 Discontinuedfluticasone propionate 0.05 mg/actuat metered dose nasal spray (2 sources)CorticosteroidStart: 84-09-2046lizcypfffiu (FLONASE) 50 MCG/ACT nasal spray 1 spray by Nasal route 2 times daily 1 Bottle 1 09/23/2017 Dscmvf02 actuat formoterol fumarate 0.005 mg/actuat / mometasone furoate 0.2 mg/actuat metered dose inhaler (20 sources)Corticosteroid, beta2-Adrenergic AgonistStart: 06-14-1571xhxy 2 puff(s) by inhalation every twelve hoursmometasone-formoterol (DULERA) 200-5 MCG/ACT inhaler INHALE 2 PUFFS EVERY 12 HOURS 13 g 3 10/19/2018 ActiveMometasone Furo-Formoterol Fum (Dulera) 50-5 MCG/ACT aerosol Inhale 50 mcg Daily Active ibuprofen 600 mg oral tablet (3 sources)Nonsteroidal Anti-inflammatory DrugStart: 02-22-2024 End: 14-52-7072jevw 1 tablet by mouth every six hours as needed for pain ibuprofen (MOTRIN) 600 MG tablet Take 1 Tablet by mouth every 6 hours as needed for Pain for up to 7 days. 28 Tablet 02/22/2024 02/29/2024 Activeketorolac tromethamine 10 mg oral tablet (2 sources)Nonsteroidal Anti-inflammatory Drug, Cyclooxygenase InhibitorStart: 05-08-2025 End: 28-75-0947ixca 1 tablet by mouth every six hours for painketorolac (Toradol) 10 MG tablet Indications: Cyst of ovary, unspecified laterality Take 1 tablet (10 mg) by mouth every 6 (six) hours if needed for moderate pain for up to 5 days 20 tablet 05/08/2025 05/13/2025 Njstcb18 hr metFORMIN hydrochloride 500 mg extended release oral tablet (20 sources)BiguanideStart: 08-20-2022 End: 77-06-9527hnyp 1 tablet by mouth every twenty-four hours in the morning metFORMIN XR (Glucophage-XR) 500 MG 24 hr tablet Indications: Weight loss counseling, encounter forTake 1 tablet (500 mg) by mouth in the morning and 1 tablet (500 mg) before bedtime. Do not crush, chew, or split.. 60 tablet 11 06/08/2024 Activemetoprolol tartrate 25 mg oral tablet (20 sources)beta-Adrenergic BlockerStart: 98-48-5905sdtw 1 tablet by mouth in the morningmetoprolol tartrate (Lopressor) 25 MG tablet Take 1 tablet by mouth in the morning and 1 tablet before bedtime. 05/08/2024 ActivemetroNIDAZOLE 0.0075 mg/mg vaginal gel (10 sources)Nitroimidazole AntimicrobialStart: 12-14-2024 End: 26-60-0755wkhyxMPQFOWIP (Metrogel) 0.75 % vaginal gel Indications: BV (bacterial vaginosis) 1 applicator fulldaily for 5 days. 70 g 12/14/2024 05/08/2025 DiscontinuedStart: 07-06-2024 End: 69-68-5719bwwx 1 tablet by mouth in the morningmetroNIDAZOLE (Flagyl) 500 MG tablet Indications: Vaginal discharge Take 1 tablet (500 mg) by mouthin the morning and 1 tablet (500 mg) before bedtime. Do all this for 7 days. 14 tablet 07/06/2024 07/13/2024 Activemontelukast 10 mg oral tablet (1 source)Leukotriene Receptor AntagonistStart: 72-40-5655xtkp 1 tablet by mouth once dailymontelukast (SINGULAIR) 10 MG tablet take 1 tablet by mouth once daily 30 tablet 3 05/13/2017 Activenitrofurantoin, macrocrystals 25 mg / nitrofurantoin, monohydrate 75 mg oral capsule (1 source)Nitrofuran AntibacterialStart: 05-27-2019 End: 64-47-5502msvn 1 capsule by mouth twice dailynitrofurantoin, macrocrystal- monohydrate, (MACROBID) 100 MG capsule Indications: UTI symptoms , Urinary tract infection without hematuria, site unspecified Take 1 capsule by mouth 2 times daily for 7days 14 capsule 0 05/27/2019 06/03/2019 Activephenazopyridine hydrochloride 100 mg oral tablet (1 source)Start: 05-27-2019 End: 94-14-9705vsro 1 tablet by mouth three times daily as needed for pain phenazopyridine (PYRIDIUM) 100 MG tablet Indications: UTI symptoms , Urinary tract infection without hematuria, site unspecified Take 1 tablet by mouth 3 times daily as needed for Pain 9 tablet 0 05/27/2019 05/30/2019 Active phentermine hydrochloride 37.5 mg oral tablet (20 sources)Sympathomimetic Amine AnorecticStart: 11-28-2024 End: 57-00-1336gnhr 1 tablet by mouth before mealtimephentermine (Adipex-P) 37.5 MG tablet Indications: Encounter for weight management Take 1 tablet (37.5 mg) by mouth in the morning. Take before meals. 90 tablet 02/20/2025 05/29/2025 Discontinued (Therapy completed)Start: 07-06-2024 End: 57-41-7138nqqi 1 tablet by mouth before mealtimephentermine (Adipex-P) 37.5 MG tablet Indications: Encounter for weight management Take 1 tablet (37.5 mg) by mouth in the morning. Take before meals. 90 tablet 08/31/2024 08/31/2024 Discontinued (Other) Completed/Discontinued Medications MedicationDrug Class(es)DatesSig (Normalized)Sig (Original)docusate sodium 100 mg oral capsule (8 sources)Start: 02-20-2025 End: 70-52-2748mihh 1 capsule by mouth twice daily as needed for constipation docusate sodium (Colace) 100 MG capsule Indications: Constipation, unspecified constipation type Take 1 capsule (100 mg) by mouth 2 (two) times a day as needed for constipation 30 capsule 5 02/20/2025 05/21/2025 Expiredfluconazole 150 mg oral tablet (2 sources)Azole AntifungalStart: 07-06-2024 End: 47-16-7314wbjm 1 tablet by mouth oncefluconazole (Diflucan) 150 MG tablet Indications: Vaginal discharge Take 1 tablet (150 mg) by mouth1 (one) time for 1 dose 1 tablet 07/06/2024 07/06/2024 Problems Active Problems Problem ClassificationProblemDateDocumented DateEpisodic/Chronic Administrative/social admission (17 sources)Patient encounter status; Translations: [Dietary counseling and surveillance]56-33-7107UdfdqtxyBjeozz (2 sources)Mild persistent asthma; Translations: [Unspecified asthma, uncomplicated]Onset: 333795-75-7041HebzqluNiaesydck of teeth and jaw (12 sources)Tooth eruption disorder; Translations: [Disturbances in tooth eruption]Onset: 887579-00-5171ZvxffwvtJsyxfbgkgwqln (2 sources)Uterine adenomyosis; Translations: [Adenomyosis]17-76-5707Qlshnfe Genitourinary symptoms and ill-defined conditions (2 sources)Urinary symptoms ; Translations: [Hematuria, unspecified]Onset: 71-16-1251ZwofvfstPnvkwirltyf (5 sources)Residual hemorrhoidal skin tags; Translations: [RESIDUAL HEMORRHOIDAL SKIN TAGS]Onset: 58-66-3125TividqeuMmbzbkmsytkxl and screening for infectious disease (5 sources)Encounter for screening for human papillomavirus (HPV); Translations: [Exposure to sexually transmissible disorder]Onset: 369490-38-4551Euutqddy Inflammatory diseases of female pelvic organs (2 sources)Bacterial vaginosis; Translations: [Acute vaginitis]12-11-2024 EpisodicOther aftercare (1 source)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; Translations: [OTH CREATIVE LEAD CURRENT DRUG THERAPY]Onset: 15-29-6059SyexjiywYrtct aftercare (1 source)dedicated intermodal truck driver (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 hypoglycemic drugs; Translations: [CREATIVE LEAD USE ORAL HYPOGLYCEMIC DX]Onset: 53-82-7202NnpcbxgiMwpdz endocrine disorders (2 sources)Polycystic ovary syndrome; Translations: [Polycystic ovarian syndrome]10-73-3201PhivkqlNfnfy female genital disorders (2 sources)Vaginal discharge; Translations: [Other specified noninflammatory disorders of vagina]41-54-8960VqagzjbwBabuv female genital disorders (2 sources)Vaginal odor; Translations: [Other specified noninflammatory disorders of vagina]33-02-9329FztmoqrtBzvbf gastrointestinal disorders (2 sources)Constipation; Translations: [Constipation, unspecified]02-20-2025 EpisodicOther nutritional; endocrine; and metabolic disorders (3 sources)Weight increased; Translations: [Abnormal weight gain]08-03-2024 EpisodicOther screening for suspected conditions (not mental disorders or infectious disease) (4 sources)Encounter for screening for malignant neoplasm of cervix; Translations: [ENC SCREENING MALIG NEOPLASM CERV]Onset: 20-57-5433[place] Ovarian cyst (5 sources)Cyst of ovary; Translations: [Unspecified ovarian cyst, unspecified side]Onset: 004277-45-8376Ogkjncgl Past or Other Problems Problem ClassificationProblemDateDocumented DateEpisodic/ChronicOther lower respiratory disease (1 source)Cough; Translations: [Cough]Onset: 08-11-2017 Resolved: 506846-25-7478DfgajziuKwhncqk tract infections (1 source)Acute cystitis; Translations: [Acute cystitis with hematuria]Onset: 132041-46-7391Mbbjgoub Results Test NameValueInterpretationReference RangeFacilityUS PELVIC WITH TRANSVAGINALon 61-98-8128ZI PELVIC WITH TRANSVAGINALUS PELVIC WITH TRANSVAGINAL CLINICAL INFORMATION: Left ovarian cyst seen on [...] bowel gas and patient body habitus. 2. Unremarkable bilateral ovaries. No sonographic evidence of left adnexal cystic lesion. 3. Heterogeneous myometrium which may represent adenomyosis. Recommend clinical correlation. Finalized by Lisa Ramírez MD on 05/10/2025 2:50 PMNormalProMedica Ohio State Health SystemCT ABDOMEN AND PELVIS WO CONTon 48-84-1753UE ABDOMEN AND PELVIS WO CONTCT ABDOMEN AND PELVIS WO CONT CT ABDOMEN AND PELVIS WITHOUT CONTRAST COMPARISON: None. CLINICAL HISTORY: Hematuria, unspecified type. TECHNIQUE: Unenhanced axial images were obtained from the lung bases to the pubic symphysis with sagittal and coronal 2D reformatted images. Oral contrast administered: No. Automatic exposure control(AEC) was utilized. FINDINGS: Evaluation of the abdomen and pelvis is significantly compromised without intravenous contrast, including but not limited to compromised evaluation of solid abdominal viscera and vasculature, decreased sensitivity in assessing for a malignant process including masses and lymphadenopathy, as well asdecreased sensitivity in evaluating for infectious/inflammatory processes including abscesses. If clinical concern for occult pathology which may not be visualized on noncontrast CT, consider repeat scanning with intravenous contrast. Lower chest: No evidence for focal consolidation. No pleural or pericardial effusion.. No hydronephrosis or urinary tract calculi. Gallbladder is contracted. Subcentimeter hypoattenuating left hepatic lobe lesion, too small to characterize but most likely a benign cyst or hemangioma. The liver, spleen, and pancreas demonstrate no acute abnormality given compromised evaluation without intravenous contrast. The adrenal glands appear within normal limits. There is no free intraperitoneal fluid or free intraperitoneal air. The appendix is visualized in the right lower quadrant and appears within normal limits. There is no evidence for bowel obstruction. No evidence for enlarged lymph nodes in the abdomen or pelvis.. No abdominal aortic aneurysm. Prominent left ovary containing what appears to be a cystic structure measuring at least 2.5 cm, not well-characterized on noncontrast CT. No acute osseous abnormality. Small fat-containing right inguinal hernia. IMPRESSION: * No hydronephrosis or urinary tract calculi. * Asymmetric prominence of the left ovary with probable ovarian cyst, not well- characterized on noncontrast CT. Recommend follow-up pelvic ultrasound including transvaginal scanning for further evaluation. This can be performed as an outpatient unless patient has acute symptoms in this region. All CT scans at this facility use dose modulation, iterative reconstruction, and/or weight based dosing when appropriate to reduce radiation dose to as low as reasonably achievable. Finalized by Tho Melton MD on 05/03/2025 5:25 PMNormalProMedica Community Medical Center-ClovisUrinalysis macro (dipstick) panel (U)on 55-76-9042Fortwbsll, UANegative Negative - 4(70) +++ mg/dLNOMS HealthcareBlood, UAPositiveNegative - 50 Alexander/mcL NOMS HealthcareComment on above:traceClarity, UAClearNOMS HealthcareColor, UA AmberNOMS HealthcareGlucose, UANegativeNegative - 1999(110) ++++ mg/dLNOMS HealthcareInterpretation and review of laboratory resultsAbnormalNOIL Healthcare Ketones, UAPositiveNegative - 160(16) ++++ mg/dLNOMS HealthcareComment on above: traceLeukocytes, UANegativeNegative - 500+++ Chanelle/mcLNOMS HealthcareNitrite, UA NegativeNegative - PositiveNOMS HealthcarepH, UA8.55 - 9NOMS HealthcareProtein, UAPositiveNegative - 2000(20) ++++ mg/dLNOMS HealthcareComment on above:30 mg Spec Grav, UA1.0151 - 1.03NOMS HealthcareUrobilinogen, UA1.00.2 - 12 mg/dLNOMS HealthcareNOMS HealthcareIGP,APTIMA HPV,AGE GDLNon 12-35-5588QKF GDLN ACOG TESTINGNote.NOMS HealthcareComment on above:TESTS RESULT FLAG UNITS REF RANGE LAB Clinician Provided Cytology Information Source.............Cervix;Endocervix No. of containers..01 ThinPrep Vial Age Algo ACOG Carmen... FLAG LEGEND: L-Low Normal,H-High Normal,LL-Alert Low,HH-Alert High <-Panic Low,>-Panic High,A-Abnormal,AA-Critical Abnormal Performed at: 01 =[address] [place] [address] Gabriella Chris MD, HPV APTIMANegativeNegativeNOMS HealthcareComment on above:This nucleic acid amplification test detects fourteen high- risk HPV types (16,18,31,33,35,39,45,51,52,56,58,59,66,68) without differentiation. Performed at: [facility], [place] [id number] Security Nurse: Gabriella Chris MD, Phone: [phone] Performed at: [address], [place] [id number] Security Nurse: Gabriella Chris MD, Phone: [phone] IGP, APTIMA HPV, RFX 16/18,45Note.NOMS HealthcareComment on above:TESTS RESULT FLAG UNITS REF RANGE LAB DIAGNOSIS: 02 NEGATIVE FOR INTRAEPITHELIAL LESION OR MALIGNANCY. Specimen adequacy: 02 Satisfactory for evaluation. No endocervical component is identified. Performed by: Oleg Hampton, Disaster Recovery Coordinator (ASCP) . 02 Note: Note 02 The Pap smear is a screening test designed to aid in the detection of premalignant and malignant conditions of the uterine cervix. It is not a diagnostic procedure and should not be used as the sole means of detecting cervical cancer. Both false-positive and false-negative reports do occur. Test Methodology: Note 02 The EPIS(R) Statistical Reporting Analyst was unable to read this specimen. Therefore a manual review was performed. FLAG LEGEND: L-Low Normal,H-High Normal,LL-Alert Low,HH-Alert High <-Panic Low,>-Panic High,A-Abnormal,AA-Critical Abnormal Performed at: [address] [address] Gabriella Chris MD, HPV Genotype Reflex Note 02 Criteria not met, HPV Genotype not performed. Criteria not met, HPV Genotype not performed. BRUSH-SPATULA CERVIX ENDOCERVIX CLINISYNCNOMS HealthcareRECURRENT VAGINITIS (HTRX)on 36-62-9705OKMJNWZXN VAGINAE 30.744AbnormalNOMS HealthcareATOPOBIUM VAGINAEDetectedAbnormalNOMS Healthcare BVAB 2,3 (BACTERIAL VAGINOSIS ASSOCIATED BACTERIA 2, 3); MOBILUNCUS [id number] HealthcareBVAB 2,3 (BACTERIAL VAGINOSIS ASSOCIATED BACTERIA 2, 3); MOBILUNCUS SPPNot detectedNOMS HealthcareCANDIDA ALBICANS, PARAPSILOSIS, [id number] HealthcareCANDIDA ALBICANS, PARAPSILOSIS, TROPICALISNot detectedNOMS Healthcare KELLEN [id number] HealthcareCANDIDA GLABRATANot detectedNOMS Healthcare KELLEN [id number] HealthcareCANDIDA KRUSEINot detectedNOMS HealthcareCHLAMYDIA [id number] HealthcareCHLAMYDIA TRACHOMATISNot detectedNOMS Healthcare GARDNERELLA [id number] HealthcareGARDNERELLA VAGINALISNot detectedNOMS HealthcareInterpretation and review of laboratory resultsAbnormalNOMS Healthcare MEGASPHAERA (TYPES 1, 2)0NOMS HealthcareMEGASPHAERA (TYPES 1, 2)Not detectedNOMS HealthcareMYCOPLASMA [id number] HealthcareMYCOPLASMA GENITALIUMNot detected NOMS HealthcareNEISSERIA [id number] HealthcareNEISSERIA GONORRHOEAENot detectedNOMS HealthcareTRICHOMONAS [id number] HealthcareTRICHOMONAS VAGINALISNot detectedNOMS HealthcareNOMS HealthcareAddendum Noteon 02-23-2024 [employer] Authentication Interface Message TextAddended by: APRIL LINDSAY on: 02/23/2024 07:55 AM Modules accepted: MasterNoTimeline Labs / TLLroEcovision SystemAddendum Noteon 02-22-2024 [employer] Authentication Interface Message TextAddended by: APRIL LINDSAY on: 02/22/2024 04:24 PM Modules accepted: Orders, Level of ServiceNorm4-Telle YesweplayroEcovision System [employer] Authentication Interface Message TextAddended by: APRIL LINDSAY on: 02/22/2024 04:05 PM Modules accepted: OrdersNorm4-Telle YesweplayroEcovision SystemPatient Instructionson 59-45-8851Jrvemcsgvyrds Authentication Interface Message TextDental extraction Instructions Biting on Gauze to Control Bleeding Bleeding may occur for some time after you extraction. In most cases this bleeding can be easily controlled by placing a piece of clean gauze DIRECTLY over the empty tooth socket. Then make sure that you bite firmly on this gauze for 30 to 60 minutes. Use the gauze we supplied to you in the bag. Wash your hands with soap and water before touching the gauze and placing it in your mouth. Place the used gauze from your mouth in a plastic bag and dispose the bag in a trash container. Make sure to wash your hands again when you are done touching the used gauze and before touching anything else. If a small amount of bleeding continues after 45 minutes then repeat these instructions. Sometimes biting a tea bag may be helpful in controlling minor bleeding. Very light bleeding for 2 days is not uncommon. If heavy bleeding is still persistent during normal clinic hours than call the Clinic where the extraction was done to speak with an oral surgeon. [facility] [phone]. HELPING THE HEALING PROCESS AND STOPPING THE BLEEDING FOR THE NEXT 24 HOURS (1 DAY) AFTER THE EXTRACTION: DO NOT RINSE YOUR MOUTH OR SPIT 2. DO NOT DRINK ANY HOT LIQUIDS SUCH SOUP, COFFEE, TEA, HOT CHOCOLATE AVOID HEAVY LIFTING, BENDING OR OTHER STENUOUS EXERCISES SLEEP WITH 2 PILLOWS OR IN A RECLINER CHAIR. KEEPING HEAD ELEVATED WILL REDUCE SWELLING. SUTURE WILL DISSOLVE IN 7-10 DAYS FOR THE NEXT 72 HOURS (3 DAYS) AFTER THE EXTRACTION: DO NOT SMOKE OR DRINK ALCOHOL DO NOT DRINK OR SUCK FROM A STRAW OR ANYTHING ELSEDO NOT DRINK. Stitches may have been placed to help healing. Your surgeon will advise you if you need to return to have them removed. TOOTH BRUSHING On the day of the extraction it is best to avoid brushing the teeth right next to the extraction site. On the next day you can start brushing ALL your teeth but in a gentle fashion. Remember to not rinse strongly because it may cause you to start bleeding from the extraction site again. SWELLING AND PAIN After the extraction you may feel some pain and experience some swelling. An ice pack of unopened bag of frozen peas of corn applied to the area should keep the swelling down. Put the ice pack on you face for 10 minutes and then leave it off for the next 20 minutes. You can repeat this patter as you feel is necessary for up to 24 hours after the extraction. To avoid injury, make sure that adults or children avoid biting or chewing on their lips of cheeks, which may be numb following an extraction. If your pain or swelling seems to be getting worse or you feel as though something is not right then call your dentist, as directed above. ANTIBIOTICS AND PAIN MEDICATION If antibiotics have been prescribed then you should take them as directed; this includes taking all the antibiotic (or liquid) pills that were prescribed. If you don't finish them completely a serious infection could result. You may have little of no discomfort after the extraction. If you have minor pain then you may want to take acetaminophen (Tylenol) or ibuprofen (Motrin). It is very important that before taking any medications that you read and follow the directions and warnings that come with these products so you know whether they are right for you and you situation. If you have any questions on whether these medications are right for you, first talk to your doctor or pharmacist before taking the medication. Your surgeon may have given you a written prescription for pain relief. It is important that if you decide to take it you read and understand all the precautions, warnings and directions that come with the medication. If you have any questions on whether the medication is right for you, first talk to your doctor or pharmacist before taking the medication. The pain medication prescription that your dentist gave you may contain a narcotic (like codeine). If so, most narcotic pain medications may upset your stomach. If so, then it is best to take them with food. The pain medication prescription that you were given can also make you drowsy or make you act strangely. If so, you should limit or stop activities such as driving a motor vehicle, operate machinery or other activities that require your full attention. EATING AND DRINKING A soft or liquid diet may be best for you after a difficult extraction. For a simpler extraction just make sure you do your chewing with those teeth that are NOT near the extraction site. POSTOPERATIVE INSTRUCTION AFTER SEDATION / GENERAL ANESTHESIA If you had general anesthesia of IV sedation, do not drive or operate machinery for 24 hours. A responsible adult should be with you for the remainder of the day. When starting oral intake, be sure to consume CLEAR LIQUIDS first. Clear liquids consist of water, Sprite, te jacob, Jell-O, and non-pulp containing juices such as c (more content not included)...NormalThe Starr Regional Medical CenterEcovision SystemProgress Noteson [id number] Authentication Interface Message TextOMFS PATIENT VISIT CHIEF COMPLAINT: Pain and [place] Teeth HISTORY OF PRESENT ILLNESS: Pt is a 33yoF with pmhx of HTN, Asthma, and Depression, presenting to [facility] clinic from referral for eval/removal of #17. Pt endorses waxing and waning pain originating from the tooth listed on the referral that limits her ability to chew, function normally, and perform oral hygiene. PAST MEDICAL HISTORY: Asthma, HTN, Depression No past medical history on file. There is no problem list on file for this patient. REVIEW OF SYSTEMS: A 12-point review of systems was completed. Negative unless otherwise stated in HPI. MEDICATIONS: No current outpatient medications on file. No current facility-administered medications for this visit. ALLERGIES: Patient has no allergy information on record. SURGICAL HX: No past surgical history on file. SOCIAL HX: No Significant findings CLINICAL EXAMINATION Extraoral examination: No significant findings No s/s of infection, redness or tenderness to palpation No facial asymmetry or swelling No appreciable LAD No popping/clicking/crepitus of TMJ b/l No tenderness to palpation of temporalis or masseter asymptomatic function Range of motion WNL CN V and VII intact Inferior border of the mandible palpable Intraoral examination: Tenderness to palpation of gingiva covering tooth #17 which is not visible in the mouth, no purulent dischcarge noted upon palpation. Moist, pink mucosa Oropharynx clear No pathological soft lesions appreciated Oral cancer screen negative Occlusion stable Oral hygiene: fair RADIOGRAPHIC INTERPRETATION: [employer] Film taken on 01/11/2024, and Retained in our clinic files Impacted teeth #1 AND #16 noted Impacted tooth #17 noted DIAGNOSIS: Impacted wisdom teeth ASSESSMENT: Pt is a 33yoF with pmhx of HTN, Asthma, and Depression, presenting to [facility] clinic and requires removal of tooth #17 due to hx of waxing and waning pain originating from the tooth listed on the referral that limits her ability to chew, function normally, and perform oral hygiene. PLAN: Our plan is Surgical extraction of partial bony impacted tooth #17 under ALINA Lindsay DMDAllen County HospitalEcovision SystemTranscription Authentication Interface Message TextNoHenry County Hospital SystemTelephone Encounteron [phone] Authentication Interface Message TextPt currently has abscess around tooth 17 and is in severe pain. Pt is unable to chew due t pain. Pt has a lot of extra skin back near tooth and it often swells and pt bites on skin and it will bleed Pt has spread to left side jaw and down into throat as well Please call pt back at Phone numbers To [facility] SystemPOINT OF CARE GLUCOSEon [id number] [Mass/Vol]113 mg/dLCritically wora50-311HukBrecksville Va / Crille HospitalComment on above: Performed By: #### POCGLUC #### [facility] [address] [place] [address] Dr. Shilpa ThomasPREChacha HCG QUALon [id number], QUALNegativeNormalNEGATIVE The [facility] HospitalComment on above:Performed By: #### PREG #### [facility] [address] [place] [address] Dr. Shilpa Villanueva ACOG PANEL 2: 30 to 65on 11-04-2022..NormalBrecksville Va / Crille HospitalComment on above:Result Comment: Performed at: WBPerformed By: #### [id number] #### [facility] [address] [place] [address] Dr. Shilpa Marti Gdln ACOG Epydekc19-71JwslmlPbjCleveland Clinic Medina HospitalComment on above:Performed By: #### [id number] #### [facility] [address] [place] [address] Dr. Shilpa ThomasDIAGNOSIS:CommentGuernsey Memorial Hospital on above: Result Comment: NEGATIVE FOR INTRAEPITHELIAL LESION OR MALIGNANCY. THIS SPECIMEN WAS RESCREENED PART OF OUR HAMPER MAKER PROGRAM. Performed at: WBPerformed By: #### [id number] #### [facility] [address] [place] [address] Dr. Shilpa ThomasHPV AptimaNegativeNormalNegativeThe [facility] on above:Result Comment: This nucleic acid amplification test detects fourteen high-risk HPV types (16,18,31,33,35,39,45,51,52,56,58,59,66,68) without differentiation. Performed at: =GPerformed By: #### [id number] #### [facility] [address] [place] [address] Dr. Shilpa Han Genotype ReflexCommentGuernsey Memorial Hospital on above:Result Comment: Criteria not met, HPV Genotype not performed. Performed at: WBPerformed By: #### [id number] #### [facility] [address] [place] [address] Dr. Shilpa ThomasMethodology:CommentGuernsey Memorial Hospital on above: Result Comment: This liquid based ThinPrep(R) pap test was screened with the use of an image guided system. Performed at: WBPerformed By: #### [id number] #### [facility] [address] [place] [address] Dr. Shilpa ThomasNote:CommentNoMercy Memorial Hospital on above:Result Comment: The Pap smear is a screening test designed to aid in the detection of premalignant and malignant conditions of the uterine cervix. It is not a diagnostic procedure and should not be used as the sole means of detecting cervical cancer. Both false-positive and false-negative reports do occur. . Performed at: WBPerformed By: #### [id number] #### [facility] [address] [place] [address] Dr. Shilpa ThomasPerformed by:CommentGuernsey Memorial Hospital on above: Result Comment: Agapito Peacock, Disaster Recovery Coordinator (ASCP) Performed at: WBPerformed By: #### [id number] #### [facility] [address] [place] [address] Dr. Shilpa Matta reviewed by:CommentGuernsey Memorial Hospital on above:Result Comment: Liliya Mittal, Disaster Recovery Coordinator (ASCP) Performed at: WBPerformed By: #### [id number] #### [facility] [address] [place] [address] Dr. Shilpa ThomasSpecimen adequacy:CommentGuernsey Memorial Hospital on above:Result Comment: Satisfactory for evaluation. Endocervical and/or squamous metaplastic cells (endocervical component) are present. Performed at: WBPerformed By: #### [id number] #### [facility] [address] [place] [address] Dr. Shilpa ThomasUA w/Reflex Cultureon [id number] Acid,UrNegativeNormal NEGLima City HospitalComment on above:Performed By: #### UAX #### [facility] [address] [address] Security Nurse: Sandor Muir MDBilirubin, SemiQt,UrNegativeNormalNEGLima City HospitalComment on above:Performed By: #### UAX #### [facility] [address] [place] [address] Security Nurse: BETTY Brownolor (U)DARK YELLOWAbnormalYELMerAlmshouse San FranciscoComment on above:Performed By: #### UAX #### [facility] [address] [place] [address] Security Nurse: BETTY BrownomticoMicroscopic exam not performed based on chemical results unless requested inNKettering Health – Soin Medical Center Comment on above:Result Comment: original order.Performed By: #### UAX #### [facility] [address] [place] [address] Security Nurse: Sandor Muir MDGlucose Ql (U)NegativeNormalNEGLima City HospitalComment on above:Performed By: #### UAX #### [address] [address] Security Nurse: Sandor Muir MDHemoglobin, UrNegativeNormalNEGLima City HospitalComment on above:Performed By: #### UAX #### [address] [address] Security Nurse: Sandor Muir MDLeukocyte esterase Test strip Ql (U)Negative NormalNEGLima City HospitalComment on above:Performed By: #### UAX #### [address] [address] Security Nurse: Sandor Muir MDNitrite,UrNegativeNormalNEGLima City HospitalComment on above:Performed By: #### UAX #### [address] [address] Security Nurse: Aurora BrownH (U)7.5 [pH]Normal5.0-8.0Lima City HospitalComment on above:Performed By: #### UAX #### [address] [address] Security Nurse: AURORA Brownrotein Ql (U)NegativeNormalNEGLima City HospitalComment on above:Performed By: #### UAX #### [address] [address] Security Nurse: DALLIN Brownpecific gravity (U) [Rel density]1.020Normal 1.005-1.030Lima City HospitalComment on above:Performed By: #### UAX #### [address] [address] Security Nurse: Sandor Muir MDTurbidityCLEARNormalCLEARMerAlmshouse San FranciscoComment on above:Performed By: #### UAX #### [facility] [address] [place], [place] [id number] Security Nurse: Sandor Muir MDUrobilbrian,UrNormalNormalNORMMercy Los Robles Hospital & Medical CenterComment on above:Performed By: #### UAX #### [facility] [address] [place], [place] [id number] Security Nurse: Sandor Muir MDUrinalysis Reflex to Cultureon 05-27-2019 Bilirubin UrineNegativeNEGATIVEMercy Health- [place], KYColor, UADARK YELLOWAbnormal YELLOWMercy Health- [place], KYGlucose, UrNegativeNEGATIVEMercy Health- [place], [place] Interpretation and review of laboratory resultsAbnormalMercy Health- [place], [place] Ketones Ql (U)NegativeNEGATIVEMercy Health- [place], KYLeukocyte esterase Test strip Ql (U)NegativeNEGATIVEMercy Health- [place], KYNitrite, UrineNegativeNEGATIVEMercy Health- [place], KYpH, UA7.5[facility]- [place], KYProtein (U) [Mass/Vol]Negative NEGATIVEMercy Health- [place], KYSpecific Onaway, UA1.020[facility] Turbidity UACLEARCLEARMercy Health- [place], KYUrinalysis CommentsMicroscopic exam not performed based on chemical results unless requested in original order.[facility]- [place], KYUrine HgbNegativeNEGATIVEMercy Health- [place], KYUrobilinogen, Urine NormalNormalMercy Health- [place], [place] Vital Signs Date TimeVital SignValuePerforming DwqhrzloiIrsckged62-41-4211 09:52-0500Body mass index (BMI) [Ratio]40.3 kg/m2Lorene BARRETO Work Phone: [facility] HospitalZdafkatnrj90-13-7116 09:52-0500Body xrnnym485.5 kgLorene BARRETO Work Phone: [facility] HospitalBstotzwoyo09-64-2138 09:52-0500Diastolic blood mm[Hg]Lorene Jaci PA Work Phone: [facility] HospitalIpccskmygv48-35-8667 09:52-0500Systolic blood pvfzmact393 mm[Hg]Lorene BARRETO Work Phone: [phone]-[facility] HospitalQsbpbexsuy46-72-4965 10:06-0400Body mass index (BMI) [Ratio]40.34 kg/d0Gczju Yfn DO Work Phone: [facility] HospitalPbtxbyxwue14-90-1261 10:06-0400Body ptreuz270.59 kgCorey Yfn DO Work Phone: [phone] [place], [place] [address]Jsmivrnjpu86-34-5008 10:06-0400Diastolic blood elenyxkv01 mm[Hg]Mick Yfn DO Work Phone: [phone] [place], [place] [address]Yubdjikftg89-60-5898 10:06-0400Systolic blood caurxgis314 mm[Hg]Mickvernell Navaso DO Work Phone: [phone] [place], [place] [address]Erpktdmdaf09-97-7750 09:39-0400Body mass index (BMI) [Ratio]40.25 kg/m2Amy Jaci PA Work Phone: [phone] [place], [place] [address]Opyaykbnox57-20-8296 09:39-0400Body lgbbqa358.37 kgLorene Avery PA Work Phone: [phone] [place], [place] [address]Lyhvjrlgat82-92-7560 09:39-0400Diastolic blood yjrwedca13 mm[Hg]Lorene BARRETO Work Phone: [phone] [place], [place] [address]Wgzxwsfswe90-18-5538 09:39-0400Systolic blood tdlzdgec174 mm[Hg]Lorene BARRETO Work Phone: [phone] [place], [place] [address]Fzkzosfkot44-71-2359 13:40-0400Body mass index (BMI) [Ratio]40.9 kg/m2Lorene Avery PA Work Phone: [phone] [place], [place] [address]Shltbmphbb92-48-1653 13:40-0400Body .07 kgAmy Jaci PA Work Phone: [phone]-[facility] HospitalNhffmcwupy31-36-8244 13:40-0400Diastolic blood qekoqyxf22 mm[Hg]Lorene BARRETO Work Phone: [phone] [place], [place] [address]Kbtmjzymcq95-90-6066 13:40-0400Systolic blood qxigugtq643 mm[Hg]Lorene Avery PA Work Phone: [phone] [place], [place] [address]Tagfeykana24-86-5964 15:39-0400Body mass index (BMI) [Ratio]41.54 kg/q9FneudjxfRemberto Watson CARDIAC CATHETERIZATION TECHNICIAN Work Phone: [phone]-[facility] HospitalUltbybgpau02-33-2622 15:39-0400Body samjtl229.77 kgRemberto Walter CARDIAC CATHETERIZATION TECHNICIAN Work Phone: [phone] [place], [place] [address]Wbtqqramlv54-36-6025 15:39-0400Diastolic blood mydlvxfi92 mm[Hg]Remberto Walter CARDIAC CATHETERIZATION TECHNICIAN Work Phone: [phone] [place], [place] [address]Vbztsekckl21-78-2559 15:39-0400Systolic blood mgqsgyjj695 mm[Hg]Remberto Stephenserly CARDIAC CATHETERIZATION TECHNICIAN Work Phone: [phone] [place], [place] [address]Mffnyymnkd24-09-5779 13:18-0400Body mass index (BMI) [Ratio]41.54 kg/m2Amy [place] PA Work Phone: [phone] [place], [place] [address]Kmxibnghia60-00-5155 13:18-0400Body ypfgfe774.77 kgAmy [place] PA Work Phone: [phone] [place], [place] [address]Jzacmfzjpa72-19-6524 13:18-0400Diastolic blood udhwkpdq93 mm[Hg]Lorene Avery PA Work Phone: [phone] [place], [place] [address]Knslfnztxk15-46-5423 13:18-0400Systolic blood sdgqdebq042 mm[Hg]Lorene Avery PA Work Phone: [phone] [place], [place] [address]Oatlcqdked94-27-4176 13:40-0500Body mass index (BMI) [Ratio]43.74 kg/m2Amy [place] PA Work Phone: [phone] [place], [place] [address]Fuendgodzt96-42-3946 13:40-0500Body zouknb005.58 kgAmy [place] PA Work Phone: [phone]-[facility] HospitalJfgmarvvii26-97-4377 13:40-0500Diastolic blood xmlipiai61 mm[Hg]Lorene Avery PA Work Phone: [phone] [place], [place] [address]Dazofqlyqm50-06-6553 13:40-0500Systolic blood ewvclbnp141 mm[Hg]Lorene BARRETO Work Phone: [phone]-[facility] HospitalKjmgkzgnme31-83-7857 13:15-0500Body mass index (BMI) [Ratio]44.29 kg/m2Lorene Aminbeatriz BARRETO Work Phone: [phone]-[facility] HospitalEykrvgxloq97-27-6960 13:15-0500Body kmtaif203.03 kgLorene Aminbeatriz BARRETO Work Phone: [phone] [place], [place] [address]Ncerxofgad16-71-0112 13:15-0500Diastolic blood sssegxcr24 mm[Hg]Lorene Aminbeatriz BARRETO Work Phone: [phone] [place], [place] [address]Wwqfhbpgzl05-99-3225 13:15-0500Systolic blood muarnttk352 mm[Hg]Lorene Aminbeatriz BARRETO Work Phone: [phone] [place], [place] [address]Yzquqwtnvd28-84-7712 11:10-0500Body mass index (BMI) [Ratio]45.28 kg/v3Usucs Yfn DO Work Phone: [phone] [place], [place] [address]Afgdjdhmub13-30-3954 11:10-0500Body xitaoz026.66 kgCorey Yfn DO Work Phone: [phone] [place], [place] [address]Hdpxulzgey80-92-2194 11:10-0500Diastolic blood ihhhllsh11 mm[Hg]Mick Yfn DO Work Phone: [phone] [place], [place] [address]Gothrdpwdo58-51-7510 11:10-0500Systolic blood cwpymebk005 mm[Hg]Mick Yfn DO Work Phone: [phone] [place], [place] [address]Kgccvmfdct66-68-0671 10:29-0500Body brvuab034.6 cmCorey Yfn DO Work Phone: [phone] [place], [place] [address]Haxqjbxizn39-67-8563 10:29-0500Body mass index (BMI) [Ratio]45.28 kg/s0Gfybr Yfn DO Work Phone: [phone] [place] [address]-14-2024 10:29-0500Body doipno050.66 kgCorey Yfn DO Work Phone: [phone] [place] [address]-14-2024 10:29-0500Diastolic blood cqeffgtl44 mm[Hg]Mick Yfn DO Work Phone: NOSaint [facility] HospitalPfmpzqciyi85-76-3509 10:29-0500Systolic blood icptuttv002 mm[Hg]Mick Yfn DO Work Phone: NOSaint [facility] HospitalBjyhaqyoaq50-69-4135 15:00-0400Diastolic blood tnykvlfc80 mm[Hg]Paige Matias DDS Work Phone: DownwXkpoqn55-800582UzkaiWnlkor60-68-0666 15:00-0400Heart rate94 /minPaige Matias DDS Work Phone: BrvoiRwsrrv02-099611SytcnBkzlob39-09-6839 15:00-0400Systolic blood paahgwsp199 mm[Hg]Paige Matias DDS Work Phone: KiqhhMsekxd39-236528HilopLmvujk72-04-7384 15:32-0400Body mvnhou296.1 cm Paige Matias DDS Work Phone: SxujsJckbxm80-434331IjqrnKeblfv63-26-3181 15:32-0400Body mass index (BMI) [Ratio]41.6 kg/m2Paige Matias DDS Work Phone: IkighByqssg01-266651YzvnrLkmfvq83-33-1216 15:32-0400Body lgpcee946.4 kg Paige Matias DDS Work Phone: [facility] Encounters Encounter DateEncounter TypeCare ProviderFacilityStart: 05-29-2025 End: 38-00-1144Bxifhmmorgan BARRETO Work Phone: [facility]BGYNStart: 05-29-2025 End: 64-76-0938Xticypshyann BARRETO Work Phone: [facility]BGYNStart: 05-29-2025 End: 59-34-2154cauveeegvcHTQ RAMEYNot AvailableStart: 05-29-2025 End: 58-11-7260Wlgyiv outpatient visit 15 minutesLorene BARRETO Work Phone: [facility] OBGYNComment on above:Encounter for weight management; Follow-up encounter involving medicationStart: 05-21-2025 End: 94-37-1679Gwuylx flowsheetCorey Yfn DO Work Phone: [facility]BGYNStart: 05-21-2025 End: 53-86-9691Pppsen flowsheetCorey Yfn DO Work Phone: [facility]BGYNStart: 05-21-2025 End: 63-97-2800zgmrayzbysBULCL FAZIONot AvailableStart: 05-21-2025 End: 18-85-6587Jeekxb outpatient visit 15 minutesCorey Yfn DO Work Phone: [facility]BGYNComment on above:Cyst of ovary, unspecified laterality; Adenomyosis; PCOS (polycystic ovarian syndrome)Start: 05-09-2025 End: 60-27-8390pvjaudqfglPTQ Elizabeth AVERYCleveland Clinic [facility] HospitalStart: 05-08-2025 End: 08-20-3894Vjcxpz Axel BARRETO Work Phone: [facility]BGYNStart: 05-08-2025 End: 04-83-0459Fobvhs Axel BARRETO Work Phone: [facility]BGYNStart: 05-08-2025 End: 89-78-3833qiijwhpveuJVR RAMEYNot AvailableStart: 05-08-2025 End: 90-43-5751Owhncm outpatient visit 15 minutesLorene BARRETO Work Phone: [facility] OBGYNComment on above:Cyst of ovary, unspecified lateralityStart: 05-03-2025 End: 04-94-8845yyjjozgcjfRZIDDHColumbia Hospital for Women HospitalStart: 02-20-2025 End: 67-69-6448Sominu Axel BARRETO Work Phone: [facility]BGYNStart: 02-20-2025 End: 19-47-9197Klwivm Axel BARRETO Work Phone: [facility]BGYNStart: 02-20-2025 End: 53-63-4871ngixtdgcnsSKZ RAMEYNot AvailableStart: 02-20-2025 End: 12-39-4178Prldml outpatient visit 15 minutesAmy Jaci PA Work Phone: [facility] OBGYNComment on above:Encounter for weight management; Constipation, unspecified constipation typeStart: 12-11-2024 End: 54-13-7025Ekbfvx outpatient visit 15 minutesRemberto Watson NP Work Phone: [facility] BCP OBComment on above:Exposure to STD; BV (bacterial vaginosis); Vaginal odorStart: 12-11-2024 End: 35-44-9590ymigzmuhrlCLIVFYQR EBERLYNot AvailableStart: 12-11-2024 End: 51-52-7561Ispvpe Supriya Watson CARDIAC CATHETERIZATION TECHNICIAN Work Phone: [facility] OBStart: 12-11-2024 End: 94-43-4785Qfqdjd flowsRanjit Watson CARDIAC CATHETERIZATION TECHNICIAN Work Phone: [facility] OBStart: 11-28-2024 End: 30-15-3496Debtfs Axel Avery PA Work Phone: NOKD BCP OBStart: 11-28-2024 End: 22-15-3583Gsawec Axel Avery PA Work Phone: [facility] OBStart: 11-28-2024 End: 27-35-4150xifumvgurfKME RAMEYNot AvailableStart: 11-28-2024 End: 23-51-7512Xqeqyf outpatient visit 15 minutesAmy Jaci BARRETO Work Phone: [facility] BCP OBComment on above:Weight gain; Encounter for weight managementStart: 08-31-2024 End: 69-22-9571Nfccew Axel Avery PA Work Phone: [facility] OBStart: 08-31-2024 End: 65-04-5045Lsunsc flowsJayden Avery PA Work Phone: [facility]CP OBStart: 08-31-2024 End: 21-20-7177Vpmxwu outpatient visit 15 minutesAmy Jaci BARRETO Work Phone: [facility] BCP OBComment on above:Encounter for weight managementStart: 08-31-2024 End: 96-91-4133npgfgnkigcBRB RAMEYNot AvailableStart: 08-03-2024 End: 28-60-5351Yawgic flowsheetLorene BARRETO Work Phone: [facility] OBStart: 08-03-2024 End: 20-18-3196Qxmvkb flowsJayden BARRETO Work Phone: [facility] OBStart: 08-03-2024 End: 65-00-1323Iadkgir encounter procedureLorene BARRETO Work Phone: [facility] BCP OBComment on above:Weight gain; Encounter for weight managementStart: 08-03-2024 End: 48-74-3949lkedubalubRPQ RAMEYNot AvailableStart: 07-06-2024 End: 95-66-4209Zujjve flowsheetCorey Yfn DO Work Phone: [facility] OBStart: 07-06-2024 End: 99-09-4936Goohtn flowsheetCorey Yfn DO Work Phone: [facility] OBStart: 07-06-2024 End: 53-22-6717Djjfavnos Result EncounterCorey Yfn DO Work Phone: [facility] External Department UnsolicitedStart: 07-06-2024 End: 85-79-0913Oubfiiyu Result EncounterCorey Yfn DO Work Phone: [facility] External Department UnsolicitedStart: 07-06-2024 End: 80-17-6536caleayayxyOTFQR FAZIONot AvailableStart: 07-06-2024 End: 20-62-6027Jattvse encounter procedureCorey Yfn DO Work Phone: [facility] Work Phone: Start: 07-06-2024 End: 52-58-5599Qtptzlpp preventive med est patient 18-39 yrsCorey Yfn DO Work Phone: noms BCP OBComment on above:Well woman exam with routine gynecological exam; Weight loss counseling, encounter for; Exposure to STD; Vaginal discharge; Encounter for weight managementStart: 06-08-2024 End: 76-97-1276Lcbqlj flowsheetCorey Yfn DO Work Phone: [facility] BCP OBStart: 06-08-2024 End: 75-99-8221Ocejhj flowsheetCorey Yfn DO Work Phone: [facility] BCP OBStart: 06-08-2024 End: 03-66-0671lncaonusndNCBFC FAZIONot AvailableStart: 06-08-2024 End: 43-00-7041Cezoed outpatient visit 15 minutesCorey Yfn DO Work Phone: noms BCP OBComment on above:Weight loss counseling, encounter forStart: 02-22-2024 End: 22-66-6972Nyxlmgb encounter Gabby Matias DDS Work Phone: [employer] [facility]) Oral SurgeryComment on above:Tooth pain (Primary Dx)Tooth pain (Primary Dx); Abnormal tooth eruptionStart: 52-33-1144buyjijzktsXDAMSravan MATIAS Facility:[facility]Start: 01-11-2024 End: 73-21-5304Wgzcucz encounter Gabby Matias DDS Work Phone: [employer] ([facility]) Oral SurgeryComment on above:Abnormal tooth eruption (Primary Dx)Start: 56-78-6815wisynuoudsGCUYSravan MATIAS Facility:[facility]ROHealthStart: 12-15-2022 End: 73-48-2919furesymaizWQWZ TAMLYN .Facility:N8Lzjzx: 08-36-8613Zbnkumcxd for preprocedural cardiovascular examinationTODD GEOVANNA SethSamaritan North Health Centertart: 11-19-2022 End: 43-92-4868rdjftxbsptDMAF TAMLYN .Facility:X1Arlvz: 11-19-2022 End: 04-00-4208Crbpmeetb for preprocedural cardiovascular examinationMELIDA AUSTIN .Facility:H8Vymfd: 10-27-2022 End: 34-58-9566yumupguwrsZZ NONE LISTED REQUESTFacility:A1Zuejl: 05-27-2019 End: 38-78-0911Hhgrxhi encounter procedureDARA ISMAELToledo Hospitaltart: 05-27-2019 End: 28-12-7707Qcnayrcnvo hospital visit by physicianSkyler Rivero [place] LAB DOCTORComment on above:UTI symptoms Procedures DateProcedureProcedure DetailPerforming ClinicianStart: 15-62-7304Hwjfo dip stick/tablet rgnt non-auto w/o micrscpRemberto Watson CARDIAC CATHETERIZATION TECHNICIAN Work Phone: Start: 06-67-4200MXDNFJMVT VAGINITIS (HTRX)Mick Yfn DO Work Phone: Start: 79-54-1023LCF,APTIMA HPV,AGE GDLNCorey Yfn DO Work Phone: Start: 58-85-2215kmsmdrmrls, erupted tooth or exposed root (elevation and/or forceps removal)April Quick DMD Work Phone: Start: 76-40-9168avpyzsitn radiographic imageForrest Quick DMD Work Phone: Start: 94-99-4032Rpmqm dip stick/tablet rgnt auto w/o microscopyDARA PEOPLES HOSPITALStart: 14-00-2606Ikfln dip stick/tablet rgnt auto w/o microscopyFormerly [facility] Work Phone: Plan of Treatment DateCare ActivityDetailAuthorStart: 55-20-3419Ibylfcuj (RZV) Vaccine (1 of 2) Shingles (RZV) Vaccine (1 of 2)[facility]HealthStart: 24-37-5860PBfF/Tdap/Td vaccine (1 - Tdap)DTaP/Tdap/Td vaccine (1 - Tdap)[facility] [place]Comment on above: Postponed from 2007 (Not Indicated)Start: 06-25-2025 End: 20-70-6928Zkezayv encounter kgprdcgvy25/01/2025 9:30 AM EST Office Visit [facility] [address] [place] [id number] Lorene Avery PA [address] [place] [address] [facility]: 06-18[facility]2025 End: 70-54-2658Abhdfkt encounter ttwtekbzh77/24/2025 1:50 PM EST Consult [facility] [address] [address] [place] [phone] Mick Coulter DO [address] [address] [place] [address] [facility]: 05-23-2025 End: 25-56-2373Dreepnh encounter nwarvregh96/29/2025 9:40 AM EDT Office Visit [facility] [address] [place] [address] Lorene Avery, PA [address] [place] [address] [facility]: 05-21-2025 End: 27-89-8165BDTPBVSU Lab Routine PCOS (polycystic ovarian syndrome) Expected: 05/21/2025 (Approximate), Expires: 05/21/2026[facility] HealthcareComment on above: Expected: 05/21/2025 (Approximate), Expires: 05/21/2026Start: 05-09-2025 End: 42-50-3779Rbgyaklxbdmr / ancillary services msmojzdmki47/15/2025 11:00 AM EDT Ancillary Procedure [facility] [address] [facility] [place] [phone] [facility]: 05-08-2025 End: 65-33-1583BZ PelvisUS Pelvis w/ TV Imaging Routine Cyst of ovary, unspecified laterality Expected: 05/08/2025, Expires: 11/06/2025[facility] Work Phone: comment on above:Expected: 05/08/2025, Expires: 11/06/2025Start: 02-20-2025 End: 46-75-8028Sgeyzye encounter /29/2025 1:30 PM EDT Office Visit [facility] [address] [facility] [place] [phone] Lorene Avery, PA [address] [place] [address] [place], [place] [id number] [facility] OBStart: 12-11-2024 End: 70-98-1908Pjmpajj encounter xlyqmjwwt06/19/2025 3:30 PM EDT Office Visit [facility] [address] [facility] [place] [address] Remberto Watson, CARDIAC CATHETERIZATION TECHNICIAN [address] [facility] [place] [address] ArrivedNOIL BCP OBComment on above: ArrivedStart: 11-28-2024 End: 45-88-4883Slhqnhe encounter tddnshkho57/06/2025 1:00 PM EDT Office Visit [facility] [address] [facility] [place] [address] Lorene Avery, PA [address] [facility] [place] [address] [facility] OBStart: 08-31-2024 End: 41-87-8761Vmdveua encounter oaafnqaey36/06/2025 1:30 PM EST Office Visit [facility] [address] [facility] [place] [address] Lorene Avery, PA [address] [place] [address] [place] [address] ArrivedNOMS BCP OBComment on above:ArrivedStart: 08-03-2024 End: 44-48-0013Wiyrtxy encounter procedureNOMS BCP OBComment on above:Arrived Start: 07-06-2024 End: 33-95-8635Smcofha encounter melqnlvin23/12/2024 10:20 AM EST Office Visit [facility] [address] [facility] [place] [phone] Mick Coulter, DO [address] [facility] [place] [address] [facility] OBStart: 45-62-5184Efiodjhlp vaccination Influenza Vaccine (#1)[facility]: 02-22-2024 End: 59-32-0772Gkusgtu encounter /30/2024 3:00 PM EDT Office Visit [facility] [address] [place] [address] Paige Matias, DDS [address] [place] [address] [facility]: 12-47-1496VYVGZ-19 Vaccine ( season)COVID-19 Vaccine ( season)[facility] Start: 06-41-0741Kvkfhvpzm vaccinationFlu vaccine (#1)[facility]: 25-73-4732QMS Vaccine (optional start 27-45 years)HPV Vaccine (optional start 27-45 years)[facility]: 52-25-8696Baytow[place] cancer screenCervical cancer screenBethesda North Hospital: 84-42-1033Tataxxvwm for malignant neoplasm of cervixPap SmearMetroHealthStart: 02-49-9427Xmumayodd A (HAV) Vaccine (optional start 19+ years)Hepatitis A (HAV) Vaccine (optional start 19+ years)[facility] Start: 33-59-3582Dcvbefbli B vaccinationHepatitis B (HBV) Vaccine (1 of 3 - 19+ 3-dose series)[facility]: 02-78-0686Zzjetwyoz C screeningHepatitis C AntibodyMetroHealthStart: 14-79-6530Bapnzmn + diphtheria + acellular pertussis vaccine (product)Tdap BoosterMetroHealthStart: 48-00-4652YRU screenHIV screen [facility]: 05-51-6564Trotosvsq Vaccine (1 of 2 - 13+ 2-dose series)Varicella Vaccine (1 of 2 - 13+ 2-dose series)[facility]: 14-36-7098Rwwhxmbrtoct 0-64 years Vaccine (1 of 1 - PPSV23)Pneumococcal 0-64 years Vaccine (1 of 1 - PPSV23)[facility]: 36-30-0529Kcwqmcdvu for malignant neoplasm of breastMammography shared decision making (35 through 39 years)[facility]HealthCBC W Auto Differential panel - BloodCBC and differential Lab Routine PCOS (polycystic ovarian syndrome) Ordered: 05/21/2025[facility] HealthcareComment on above:Ordered: 05/21/2025HLAMYDIA TRACHOMATIS (GENITO/STI) CHLAMYDIA TRACHOMATIS (GENITO/STI) Lab Routine Exposure to STD Ordered: 07/06/2024[facility] HealthcareComment on above:Ordered: 07/06/2024HLAMYDIA TRACHOMATIS (GENITO/STI)CHLAMYDIA TRACHOMATIS (GENITO/STI) Lab Routine Exposure to STD Ordered: 12/11/2024[facility] HealthcareComment on above:Ordered: 12/11/2024 Cytology Cervical or vaginal smear or scraping studyPap Smear Pathology and Cytology Routine Well woman exam with routine gynecological exam Ordered: [facility] Healthcare Work Phone: comment on above:Ordered: 07/06/2024HEA-sulfateDHEA- sulfate Lab Routine PCOS (polycystic ovarian syndrome) Ordered: 05/21/2025[facility] HealthcareComment on above:Ordered: 05/21/2025Follicle stimulating hormone Follicle stimulating hormone Lab Routine PCOS (polycystic ovarian syndrome) Ordered: 05/21/2025[facility] HealthcareComment on above:Ordered: 05/21/2025hCG, quantitative, pregnancyhCG, quantitative, Lab Routine PCOS (polycystic ovarian syndrome) Ordered: 05/21/2025[facility] Healthcare Work Phone: comment on above:Ordered: 05/21/2025Hemoglobin A1c/Hemoglobin.total in BloodHemoglobin A1c Lab Routine Cyst of ovary, unspecified laterality Adenomyosis Ordered: 05/21/2025[place] HealthcareComment on above:Ordered: 05/21/2025Human papilloma virus DNA [Presence] in Unspecified specimen by Probe with amplificationHPV DNA probe, amplified Microbiology Routine Well woman exam with routine gynecological exam Ordered: 07/06/2024[facility] HealthcareComment on above:Ordered: 07/06/2024Luteinizing hormoneLuteinizing hormone Lab Routine PCOS (polycystic ovarian syndrome) Ordered: 05/21/2025[facility] HealthcareComment on above:Ordered: 05/21/2025Neisseria gonorrhoeae DNA [Presence] in Unspecified specimen by ROME with probe detectionNeisseria gonorrhea DNA probe, direct Lab Routine Exposure to STD Ordered: 07/06/2024[facility] HealthcareComment on above:Ordered: 07/06/2024Neisseria gonorrhoeae DNA [Presence] in Unspecified specimen by ROME with probe detectionNeisseria gonorrhea DNA probe, direct Lab Routine Exposure to STD Ordered: 12/11/2024[facility] HealthcareComment on above:Ordered: 12/11/2024SURESWAB(R) ADVANCED VAGINITIS PLUS, TMASURESWAB(R) ADVANCED VAGINITIS PLUS, TMA Pathology and Cytology Routine Vaginal discharge Ordered: 07/06/2024[facility] HealthcareComment on above:Ordered: 07/06/2024SURESWAB(R) ADVANCED VAGINITIS PLUS, TMASURESWAB(R) ADVANCED VAGINITIS PLUS, TMA Pathology and Cytology Routine Exposure to STD BV (bacterial vaginosis) Vaginal odor Ordered: 12/11/2024[facility] Healthcare Work Phone: comment on above:Ordered: 12/11/2024Thyrotropin [Units/volume] in Serum or PlasmaTSH Lab Routine PCOS (polycystic ovarian syndrome) Ordered: 05/21/2025[facility] HealthcareComment on above:Ordered: 05/21/2025 Thyroxine (T4) free [Mass/volume] in Serum or PlasmaT4, free Lab Routine PCOS (polycystic ovarian syndrome) Ordered: 05/21/2025[facility] HealthcareComment on above:Ordered: 05/21/2025 Immunizations Immunization DateImmunizationNotesCare FzppdbdmDsghkqji28-36-0463mobhiomdm virus vaccine, unspecified formulationPaige Matias DDS Work Phone: [facility] Payers DatePayer CategoryPayerPolicy ID2021Medicaid [id number] Health Insurance [id number] [id number] 13-03-7048QkrmkynMEOFBDB [facility] xxxxxxxxxxxx 2018-Present [phone] [address] [place] [address]zjlzzjbyzosx [id number] [id number] 2.0.1.053518.3.57[id number] 2.0.1.029760.3.57[id number] 2.0.1.828177.3.57[id number] 2.840.1.203259.3.57[id number] 2.0.1.489130.3.57[id number] 2.16840.1.408515.3.57[id number] 2.840.1.113733.3.57[id number] 2.16.840.1.992859.3.57[id number] 2.16.840.1.721031.3.57[id number] 2.16.840.1.183298.3.57[id number] 2.16.840.1.692002.3.57[id number] 2.16.840.1.823906.3.57[id number] 2.16.840.1.597097.3.57[id number] 2.16.840.1.255619.3.57[id number] 2.16.840.1.037321.3.57[id number] 2.16.840.1.890172.3.579.[id number] 2.16.0.1.310547.3.57[id number] 2..1.099031.3.579.2.[id number] Social History DateTypeDetailFacilityStart: 01-22-2128Vleatsu smoking status NHISNever smoker [facility]: 89-28-8372Golqqow intakeNoBethesda [facility] Hospital: 44-84-1833Aiuphen Commenthas a few drinks a monthBethesda North Hospital: 83-38-6929Hda Assigned At BirthNot on [facility] smoking status NHISTobacco smoking consumption unknownNOMS HealthcareStart: 10-07-2022 [facility] Clinical Notes 01-11-2024 to 05-29-2025 Note Date & DtflCsprDilbtfys05-70-3941 History of Present illness Narrative* MARY LOU King - 05/29/2025 9:20 AM EST Reason for Appointment: Patient ID: Ayse Bass is a 35 y.o. female who presents for No chief complaint on file. Patient presents today for Weight Management Consult. MEDICATIONS Current Outpatient Medications Medication Instructions buPROPion XL (WELLBUTRIN XL) 150 mg, Oral, Daily, Do not crush, chew, or split. metFORMIN XR (GLUCOPHAGE-XR) 500 mg, Oral, 2 times daily, Do not crush, chew, or split. metoprolol tartrate (Lopressor) 25 MG tablet 1 tablet, 2 times daily Mometasone Furo-Formoterol Fum (Dulera) 50-5 MCG/ACT aerosol 50 mcg, Daily phentermine (ADIPEX-P) 37.5 mg, Oral, Daily before breakfast ALLERGIES Allergies Allergen Reactions Amoxicillin Adverse reaction of diarrhea, side effect and doesn't cure illness PROBLEMS Active Ambulatory Problems Diagnosis Date Noted No Active Ambulatory Problems Resolved Ambulatory Problems Diagnosis Date Noted No Resolved Ambulatory Problems No Additional Past Medical History HISTORY PAST MEDICAL HISTORY SOCIAL HISTORY No past medical history on file. Social History Tobacco Use Smoking status: Not on file Smokeless tobacco: Not on file Substance Use Topics Alcohol use: Not on file Drug use: Not on file FAMILY HISTORY No family history on file. SURGICAL HISTORY Past Surgical History: Procedure Laterality Date SECTION, LOW TRANSVERSE 12/04/2020 TUBAL LIGATION Bilateral 12/04/2020 REVIEW OF SYSTEMS Review of Systems: Review of Systems Constitutional: Negative. HENT: Negative. Eyes: Negative. Respiratory: Negative. Cardiovascular: Negative. Gastrointestinal: Negative. Genitourinary: Positive for pelvic pain. Musculoskeletal: Negative. Skin: Negative. Neurological: Negative. All other systems reviewed and are negative. Hematological: Negative. Endocrine: Negative. Allergic/Immunologic: Negative. OBJECTIVE Objective: Physical Exam Constitutional: Appearance: Normal appearance. She is well-developed. Cardiovascular: Rate and Rhythm: Normal rate and regular rhythm. Pulmonary: Effort: Pulmonary effort is normal. Breath sounds: Normal breath sounds. Abdominal: General: Bowel sounds are normal. There is no distension. Palpations: Abdomen is soft. Tenderness: There is no abdominal tenderness. There is no guarding or rebound. Musculoskeletal: General: No swelling. Normal range of motion. Right lower leg: No edema. Left lower leg: No edema. Neurological: Mental Status: She is alert and oriented to person, place, and time. Skin: General: Skin is warm and dry. Psychiatric: Mood and Affect: Mood normal. Behavior: Behavior normal. Vitals and nursing note reviewed. Exam conducted with a house director present. Vitals: Estimated body mass index is 40.34 kg/m as calculated from the following: Height as of 06/08/24: 5' 4 . Weight as of 05/21/25: 235 lb. BP: Patient's last menstrual period was 05/11/2025 (approximate). Assessment/Plan ICD-10-CM 1. Encounter for weight management Z76.89 2. Follow-up encounter involving medication Z79.899 Patient presents to office today for 3 month follow up Adipex. Patient voiced that she has not taken Adipex for about 2-3 weeks due to other issues going on and being scheduled for an upcoming surgery. Patient voiced that she thinks she would like to take a little time off and focus on healing fromsurgeries & after she has healed would like to readdress weight management. Documented by Hayley Singh LPN on behalf of: MARY LOU King documented in this encounterChristian [id number] History of Present illness Narrative* Hayley Singh LPN - 05/21/2025 9:50 AM EDT Reason for Appointment: Patient ID: Ayse Bass is a 35 y.o. female who presents for ovary cyst Patient presents today for Consult appointment. MEDICATIONS Current Outpatient Medications Medication Instructions buPROPion XL (WELLBUTRIN XL) 150 mg, Oral, Daily, Do not crush, chew, or split. docusate sodium (COLACE) 100 mg, Oral, 2 times daily PRN metFORMIN XR (GLUCOPHAGE-XR) 500 mg, Oral, 2 times daily, Do not crush, chew, or split. metoprolol tartrate (Lopressor) 25 MG tablet 1 tablet, 2 times daily Mometasone Furo-Formoterol Fum (Dulera) 50-5 MCG/ACT aerosol 50 mcg, Daily phentermine (ADIPEX-P) 37.5 mg, Oral, Daily before breakfast ALLERGIES Allergies Allergen Reactions Amoxicillin Adverse reaction of diarrhea, side effect and doesn't cure illness PROBLEMS Active Ambulatory Problems Diagnosis Date Noted No Active Ambulatory Problems Resolved Ambulatory Problems Diagnosis Date Noted No Resolved Ambulatory Problems No Additional Past Medical History HISTORY PAST MEDICAL HISTORY SOCIAL HISTORY History reviewed. No pertinent past medical history. Social History Tobacco Use Smoking status: Not on file Smokeless tobacco: Not on file Substance Use Topics Alcohol use: Not on file Drug use: Not on file FAMILY HISTORY No family history on file. SURGICAL HISTORY Past Surgical History: Procedure Laterality Date SECTION, LOW TRANSVERSE 12/04/2020 TUBAL LIGATION Bilateral 12/04/2020 REVIEW OF SYSTEMS Review of Systems: Review of Systems Constitutional: Negative. Negative for fever. HENT: Negative. Eyes: Negative. Respiratory: Negative. Cardiovascular: Negative. Gastrointestinal: Negative. Negative for nausea and vomiting. Genitourinary: Positive for pelvic pain. Negative for dysuria and frequency. Musculoskeletal: Negative. Negative for arthralgias and myalgias. Skin: Negative. Neurological: Negative. Negative for headaches. All other systems reviewed and are negative. Hematological: Negative. Endocrine: Negative. Allergic/Immunologic: Negative. OBJECTIVE Objective: OBGyn Exam Vitals: Estimated body mass index is 40.34 kg/m as calculated from the following: Height as of 06/08/24: 5' 4 . Weight as of this encounter: 235 lb. BP: 110/66 Patient's last menstrual period was 05/11/2025 (approximate). Assessment/Plan ICD-10-CM 1. Cyst of ovary, unspecified laterality N83.209 2. Adenomyosis N80.03 Patinet presents to office today to review US results and discuss plan of care. Discussed with patient that with what US showed a diagnostic scope would be beneficial to see if this is what is causing pain. Informed patient that this could not be causing the pain and it would not be a guaranteed. Patient to have labs drawn and placed on scheduled DX Lap/ Hysteroscopy D&C. Documented by Hayley Singh LPN on behalf of: Mick Coulter DO documented in this encounterChristian [id number] History of Present illness Narrative* MARY LOU King - 05/08/2025 9:20 AM EDT Reason for Appointment: Patient ID: Ayse Bass is a 35 y.o. female who presents for Follow-up Patient presents today for Acute Visit. Follow up urgent care visit for back pain and lower abd pain MEDICATIONS Current Outpatient Medications Medication Instructions buPROPion XL (WELLBUTRIN XL) 150 mg, Oral, Daily, Do not crush, chew, or split. docusate sodium (COLACE) 100 mg, Oral, 2 times daily PRN HYDROcodone-acetaminophen ([place]) 5-325 MG tablet 1 tablet, Oral, Every 6 hours PRN ketorolac (TORADOL) 10 mg, Oral, Every 6 hours PRN metFORMIN XR (GLUCOPHAGE-XR) 500 mg, Oral, 2 times daily, Do not crush, chew, or split. metoprolol tartrate (Lopressor) 25 MG tablet 1 tablet, 2 times daily Mometasone Furo-Formoterol Fum (Dulera) 50-5 MCG/ACT aerosol 50 mcg, Daily phentermine (ADIPEX-P) 37.5 mg, Oral, Daily before breakfast ALLERGIES Allergies[1] PROBLEMS Active Ambulatory Problems Diagnosis Date Noted No Active Ambulatory Problems Resolved Ambulatory Problems Diagnosis Date Noted No Resolved Ambulatory Problems No Additional Past Medical History HISTORY PAST MEDICAL HISTORY SOCIAL HISTORY Medical History[2] Social History Tobacco Use Smoking status: Not on file Smokeless tobacco: Not on file Substance Use Topics Alcohol use: Not on file Drug use: Not on file FAMILY HISTORY Family History[3] SURGICAL HISTORY Surgical History[4] REVIEW OF SYSTEMS Review of Systems: Review of Systems Constitutional: Negative. HENT: Negative. Eyes: Negative. Respiratory: Negative. Cardiovascular: Negative. Gastrointestinal: Positive for abdominal pain. Llq Genitourinary: Negative. Musculoskeletal: Positive for back pain. Skin: Negative. Neurological: Negative. All other systems reviewed and are negative. Hematological: Negative. Endocrine: Negative. Allergic/Immunologic: Negative. OBJECTIVE Objective: Physical Exam Constitutional: Appearance: Normal appearance. She is normal weight. HENT: Head: Normocephalic. Cardiovascular: Rate and Rhythm: Normal rate. Pulses: Normal pulses. Pulmonary: Effort: Pulmonary effort is normal. Breath sounds: Normal breath sounds. Abdominal: General: Bowel sounds are normal. Palpations: Abdomen is soft. Tenderness: There is abdominal tenderness. Comments: llq Musculoskeletal: General: Normal range of motion. Comments: Left flank pain Neurological: General: No focal deficit present. Mental Status: She is alert and oriented to person, place, and time. Skin: General: Skin is warm. Psychiatric: Mood and Affect: Mood normal. Behavior: Behavior normal. Thought Content: Thought content normal. Judgment: Judgment normal. Vitals and nursing note reviewed. Vitals: Estimated body mass index is 40.25 kg/m as calculated from the following: Height as of 24: 5' 4 . Weight as of this encounter: 234 lb 8 oz. BP: 132/90 Patient's last menstrual period was 04/06/2025 (approximate). ASSESSMENT & PLAN ICD-10-CM 1. Cyst of ovary, unspecified laterality N83.209 US Pelvis w/ TV ketorolac (Toradol) 10 MG tablet HYDROcodone-acetaminophen ([place]) 5-325 MG tablet Patient presents for left ovarian cyst and back pain. Pt exhibiting pain to left lower lumbar and tenderness to llq. She has report of CT abd and pelvis showing a 2 cm ovarian cyst with recommendation for follow up US. We will order pelvic US today and follow up in several weeks. Patient given small script or toradal and norco. She will call if pain worsens or follow up as scheduled Documented by MARY LOU King on behalf of: MARY LOU King [1] Allergies Allergen Reactions Amoxicillin Adverse reaction of diarrhea, side effect and doesn't cure illness [2] No past medical history on file. [3] No family history on file. [4] Past Surgical History: Procedure Laterality Date SECTION, LOW TRANSVERSE 12/04/2020 TUBAL LIGATION Bilateral 12/04/2020 documented in this encounterChristian [id number] History of Present illness Narrative* MARY LOU King - 02/20/2025 1:30 PM EDT Reason for Appointment: Patient ID: Ayse Bass is a 34 y.o. female who presents for Weight Management Patient presents today for Weight Management Consult. MEDICATIONS Current Outpatient Medications Medication Instructions buPROPion XL (WELLBUTRIN XL) 150 mg, Oral, Daily, Do not crush, chew, or split. docusate sodium (COLACE) 100 mg, Oral, 2 times daily PRN doxycycline (Vibra-Tabs) 100 MG tablet 1 tablet, Daily metFORMIN XR (GLUCOPHAGE-XR) 500 mg, Oral, 2 times daily, Do not crush, chew, or split. metoprolol tartrate (Lopressor) 25 MG tablet 1 tablet, 2 times daily metroNIDAZOLE (Metrogel) 0.75 % vaginal gel 1 applicator full daily for 5 days. Mometasone Furo-Formoterol Fum (Dulera) 50-5 MCG/ACT aerosol 50 mcg, Daily phentermine (ADIPEX-P) 37.5 mg, Oral, Daily before breakfast ALLERGIES Allergies Allergen Reactions Amoxicillin Adverse reaction of diarrhea, side effect and doesn't cure illness PROBLEMS Active Ambulatory Problems Diagnosis Date Noted No Active Ambulatory Problems Resolved Ambulatory Problems Diagnosis Date Noted No Resolved Ambulatory Problems No Additional Past Medical History HISTORY PAST MEDICAL HISTORY SOCIAL HISTORY No past medical history on file. Social History Tobacco Use Smoking status: Not on file Smokeless tobacco: Not on file Substance Use Topics Alcohol use: Not on file Drug use: Not on file FAMILY HISTORY No family history on file. SURGICAL HISTORY Past Surgical History: Procedure Laterality Date SECTION, LOW TRANSVERSE 12/04/2020 TUBAL LIGATION Bilateral 12/04/2020 REVIEW OF SYSTEMS Review of Systems: Review of Systems Constitutional: Negative. HENT: Negative. Eyes: Negative. Respiratory: Negative. Cardiovascular: Negative. Gastrointestinal: Negative. Genitourinary: Negative. Musculoskeletal: Negative. Skin: Negative. Neurological: Negative. All other systems reviewed and are negative. Hematological: Negative. Endocrine: Negative. Allergic/Immunologic: Negative. OBJECTIVE Objective: Physical Exam Constitutional: Appearance: Normal appearance. She is normal weight. HENT: Head: Normocephalic. Cardiovascular: Rate and Rhythm: Normal rate. Pulses: Normal pulses. Pulmonary: Effort: Pulmonary effort is normal. Breath sounds: Normal breath sounds. Abdominal: Palpations: Abdomen is soft. Musculoskeletal: General: Normal range of motion. Neurological: General: No focal deficit present. Mental Status: She is alert and oriented to person, place, and time. Psychiatric: Mood and Affect: Mood normal. Behavior: Behavior normal. Thought Content: Thought content normal. Judgment: Judgment normal. Vitals and nursing note reviewed. Vitals: Estimated body mass index is 40.9 kg/m as calculated from the following: Height as of 24: 5' 4 . Weight as of this encounter: 238 lb 4 oz. BP: 126/80 No LMP recorded. ASSESSMENT & PLAN ICD-10-CM 1. Encounter for weight management Z76.89 phentermine (Adipex-P) 37.5 MG tablet 2. Constipation, unspecified constipation type K59.00 docusate sodium (Colace) 100 MG capsule Patient presents today for Adipex prescription. Patient desires additional weigh loss and she is currently taking metformin along with working out. Weight and blood pressure has been captured and it has been discussed/reiterated the importance of keeping a food journal, proper nutrition/diet, and exercise regimen. Patient verbalized understanding. Patient has lost more than 5% of her initial bodyweight Follow Up: Patient is to follow up in 3 months Documented by MARY LOU King on behalf of: MARY LOU King documented in this encounterChristian [id number] History of Present illness Narrative* Remberto Watson NP - 12/11/2024 3:30 PM EDT Reason for Appointment: Patient ID: Ayse Bass is a 34 y.o. female who presents for STI Screening (Pt present today for cx's. Pt tested +BV on 06/2024 and feels it has not gone away.) Patient presents today for STD Check. MEDICATIONS Current Outpatient Medications Medication Instructions buPROPion XL (WELLBUTRIN XL) 150 mg, Oral, Daily, Do not crush, chew, or split. doxycycline (Vibra-Tabs) 100 MG tablet 1 tablet, Daily metFORMIN XR (GLUCOPHAGE-XR) 500 mg, Oral, 2 times daily, Do not crush, chew, or split. metoprolol tartrate (Lopressor) 25 MG tablet 1 tablet, 2 times daily Mometasone Furo-Formoterol Fum (Dulera) 50-5 MCG/ACT aerosol 50 mcg, Daily phentermine (ADIPEX-P) 37.5 mg, Oral, Daily before breakfast ALLERGIES Allergies Allergen Reactions Amoxicillin Adverse reaction of diarrhea, side effect and doesn't cure illness PROBLEMS Active Ambulatory Problems Diagnosis Date Noted No Active Ambulatory Problems Resolved Ambulatory Problems Diagnosis Date Noted No Resolved Ambulatory Problems No Additional Past Medical History HISTORY PAST MEDICAL HISTORY SOCIAL HISTORY No past medical history on file. Social History Tobacco Use Smoking status: Not on file Smokeless tobacco: Not on file Substance Use Topics Alcohol use: Not on file Drug use: Not on file FAMILY HISTORY No family history on file. SURGICAL HISTORY Past Surgical History: Procedure Laterality Date SECTION, LOW TRANSVERSE 12/04/2020 TUBAL LIGATION Bilateral 12/04/2020 REVIEW OF SYSTEMS Review of Systems: Review of Systems Constitutional: Negative. HENT: Negative. Eyes: Negative. Respiratory: Negative. Cardiovascular: Negative. Gastrointestinal: Negative. Genitourinary: Positive for vaginal discharge. Musculoskeletal: Negative. Skin: Negative. Neurological: Negative. All other systems reviewed and are negative. Hematological: Negative. Endocrine: Negative. Allergic/Immunologic: Negative. OBJECTIVE Objective: Physical Exam Constitutional: Appearance: Normal appearance. Genitourinary: Right Adnexa: not tender and no mass present. Left Adnexa: not tender and no mass present. No cervical discharge. Breasts: Breasts are soft. Right: Normal. Left: Normal. HENT: Head: Normocephalic. Nose: Nose normal. Mouth/Throat: Mouth: Mucous membranes are moist. Cardiovascular: Rate and Rhythm: Normal rate. Pulmonary: Effort: Pulmonary effort is normal. Abdominal: General: Bowel sounds are normal. Palpations: Abdomen is soft. Musculoskeletal: General: Normal range of motion. Cervical back: Normal range of motion. Neurological: General: No focal deficit present. Mental Status: She is alert. Skin: General: Skin is warm and dry. Psychiatric: Mood and Affect: Mood normal. Vitals and nursing note reviewed. Exam conducted with a house director present. Vitals: Estimated body mass index is 41.54 kg/m as calculated from the following: Height as of 06/08/24: 5' 4 . Weight as of 11/28/24: 242 lb. BP: Patient's last menstrual period was 11/01/2024 (approximate). ASSESSMENT & PLAN ICD-10-CM 1. Exposure to STD Z20.2 POCT urinalysis dipstick manually resulted SURESWAB(R) ADVANCED VAGINITIS PLUS, TMA CHLAMYDIA TRACHOMATIS (GENITO/STI) Neisseria gonorrhea DNA probe, direct 2. BV (bacterial vaginosis) N76.0 SURESWAB(R) ADVANCED VAGINITIS PLUS, TMA B96.89 3. Vaginal odor N89.8 SURESWAB(R) ADVANCED VAGINITIS PLUS, TMA Pt states BV has not gone away completely since her last visit w/our office in 06/2024. Pt complains of having some odor and vaginal discharge w/some vaginal itching every time she showers. Pt statesgurpreet has the same partner for 7 years and has always had BV/UTI issues in the past. Pt just finishedher menstrual cycle 3 days ago. Pt is requesting cultures at today's visit. Cx's were collected by Remberto and Urine was collected and tested for UTI. Patient with concerns for recurrent BV additional treatment may be indicated after cultures return. Documented by Bianca Cardozo MA on behalf of: Remberto Watson NP documented in this encounterChristian [id number] History of Present illness Narrative* MARY LOU King - 11/28/2024 1:00 PM EDT Reason for Appointment: Patient ID: Ayse Bass is a 34 y.o. female who presents for Weight Management (Pt present today for Adipex #5 visit.) Patient presents today for a weight management consultation. Patient has been prescribed Adipex andgurpreet is here for her 2nd prescription. Today's Vitals: Estimated body mass index is 41.54 kg/m as calculated from the following: Height as of 24: 5' 4 . Weight as of this encounter: 242 lb. Previous Weight/BMI: Wt Readings from Last 2 Encounters: 11/28/24 242 lb 08/31/24 254 lb 12.8 oz BMI Readings from Last 2 Encounters: 11/28/24 41.54 kg/m 08/31/24 43.74 kg/m Allergies as of 11/28/2024 - Reviewed 11/28/2024 Allergen Reaction Noted Amoxicillin 05/21/2018 No past medical history on file. Past Surgical History: Procedure Laterality Date SECTION, LOW TRANSVERSE 12/04/2020 TUBAL LIGATION Bilateral 12/04/2020 Assessment/Plan Encounter Diagnosis Name Primary? Weight gain Adipex: Patient presents today for 5th Adipex prescription. Patients weight and blood pressure has been captured and discussed with the patient. I have discussed/reiterated the importance of keeping a food journal, proper nutrition/diet, and exercise regimen while taking Adipex. Patient verbalized understanding and was given a printed prescription signed by provider to take to their local pharmacy. Follow Up: Patient is to return to the office in 3 months for further evaluation to assess patient progress. Weight and blood pressure will need to be obtained in order for patient to receive 7th prescription. Documented by: Bianca Cardozo MA on behalf of MARY LOU King documented in this encounterChristian [id number] History of Present illness Narrative* MARY LOU King - 08/31/2024 1:30 PM EST Reason for Appointment: Patient ID: Ayse Bass is a 34 y.o. female who presents for encounter for weight management Patient presents today for Weight Management Consult. MEDICATIONS Current Outpatient Medications Medication Instructions buPROPion XL (WELLBUTRIN XL) 150 mg, Oral, Daily, Do not crush, chew, or split. doxycycline (Vibra-Tabs) 100 MG tablet 1 tablet, Daily metFORMIN XR (GLUCOPHAGE-XR) 500 mg, Oral, 2 times daily, Do not crush, chew, or split. metoprolol tartrate (Lopressor) 25 MG tablet 1 tablet, 2 times daily Mometasone Furo-Formoterol Fum (Dulera) 50-5 MCG/ACT aerosol 50 mcg, Daily ALLERGIES Allergies Allergen Reactions Amoxicillin Adverse reaction of diarrhea, side effect and doesn't cure illness PROBLEMS Active Ambulatory Problems Diagnosis Date Noted No Active Ambulatory Problems Resolved Ambulatory Problems Diagnosis Date Noted No Resolved Ambulatory Problems No Additional Past Medical History HISTORY PAST MEDICAL HISTORY SOCIAL HISTORY History reviewed. No pertinent past medical history. Social History Tobacco Use Smoking status: Not on file Smokeless tobacco: Not on file Substance Use Topics Alcohol use: Not on file Drug use: Not on file FAMILY HISTORY No family history on file. SURGICAL HISTORY History reviewed. No pertinent surgical history. REVIEW OF SYSTEMS Review of Systems: Review of Systems Constitutional: Negative. HENT: Negative. Eyes: Negative. Respiratory: Negative. Cardiovascular: Negative. Gastrointestinal: Negative. Genitourinary: Negative. Musculoskeletal: Negative. Skin: Negative. Neurological: Negative. All other systems reviewed and are negative. Hematological: Negative. Endocrine: Negative. Allergic/Immunologic: Negative. OBJECTIVE Objective: Physical Exam Constitutional: Appearance: Normal appearance. She is normal weight. HENT: Head: Normocephalic. Cardiovascular: Rate and Rhythm: Normal rate. Pulses: Normal pulses. Pulmonary: Effort: Pulmonary effort is normal. Breath sounds: Normal breath sounds. Abdominal: Palpations: Abdomen is soft. Musculoskeletal: General: Normal range of motion. Neurological: General: No focal deficit present. Mental Status: She is alert and oriented to person, place, and time. Psychiatric: Mood and Affect: Mood normal. Behavior: Behavior normal. Thought Content: Thought content normal. Judgment: Judgment normal. Vitals and nursing note reviewed. Vitals: Estimated body mass index is 43.74 kg/m as calculated from the following: Height as of 24: 5' 4 . Weight as of this encounter: 254 lb 12.8 oz. BP: 124/76 Patient's last menstrual period was 08/20/2024 (approximate). ASSESSMENT & PLAN ICD-10-CM 1. Encounter for weight management Z76.89 DISCONTINUED: phentermine (Adipex-P) 37.5 MG tablet DISCONTINUED: phentermine (Adipex-P) 37.5 MG tablet Patient presents today for Adipex prescription. Patient desires additional weigh loss and she is currently taking metformin along with working out to achieve further results. Weight and blood pressure has been captured and it has been discussed/reiterated the importance of keeping a food journal, proper nutrition/diet, and exercise regimen. Patient verbalized understanding. Patient continues to lose weight monthy, we will send in a 90 day supply and pt will follow up in 3 months Follow Up: Follow up in 3 moths for weight loss assessment Documented by MARY LOU King on behalf of: MARY LOU King documented in this encounterChristian [id number] History of Present illness Narrative* Bianca Cardozo MA - 08/03/2024 1:00 PM EST Reason for Appointment: Patient ID: Ayse Bass is a 34 y.o. female who presents for Weight Management (Pt present today for Adipex #2 visit) Patient presents today for a weight management consultation. Patient has been prescribed Adipex andshe is here for her 2nd prescription. Today's Vitals: Estimated body mass index is 45.28 kg/m as calculated from the following: Height as of 06/08/24: 5' 4 . Weight as of 07/06/24: 263 lb 12.8 oz. Previous Weight/BMI: Wt Readings from Last 2 Encounters: 07/06/24 263 lb 12.8 oz 06/08/24 263 lb 12.8 oz BMI Readings from Last 2 Encounters: 07/06/24 45.28 kg/m 06/08/24 45.28 kg/m Allergies as of 08/03/2024 - Reviewed 08/03/2024 Allergen Reaction Noted Amoxicillin 05/21/2018 No past medical history on file. No past surgical history on file. Assessment/Plan Encounter Diagnosis Name Primary? Weight gain Adipex: Patient presents today for 2nd Adipex prescription. Patients weight and blood pressure has been captured and discussed with the patient. I have discussed/reiterated the importance of keeping a food journal, proper nutrition/diet, and exercise regimen while taking Adipex. Patient verbalized understanding and was given a printed prescription signed by provider to take to their local pharmacy. Follow Up: Patient is to return to the office in 1 month for further evaluation to assess patient progress. Weight and blood pressure will need to be obtained in order for patient to receive 3rd prescription. Documented by: Bianca Cardozo MA on behalf of MARY LOU King documented in this encounterChristian [id number] History of Present illness Narrative* Olinda Galdamez LPN - 07/06/2024 10:20 AM EST Reason for Appointment: Patient ID: Ayse Bass is a 34 y.o. female who presents for Well Women Visit and Encounterfor Weight management (Adipex #1) Patient presents today for Annual Exam. and Weight Management Consult. MEDICATIONS Current Outpatient Medications Medication Instructions buPROPion XL (WELLBUTRIN XL) 150 mg, Oral, Daily, Do not crush, chew, or split. doxycycline (Vibra-Tabs) 100 MG tablet 1 tablet, Daily metFORMIN XR (GLUCOPHAGE-XR) 500 mg, Oral, 2 times daily, Do not crush, chew, or split. metoprolol tartrate (Lopressor) 25 MG tablet 1 tablet, 2 times daily Mometasone Furo-Formoterol Fum (Dulera) 50-5 MCG/ACT aerosol 50 mcg, Daily phentermine (ADIPEX-P) 37.5 mg, Oral, Daily before breakfast ALLERGIES Allergies Allergen Reactions Amoxicillin Adverse reaction of diarrhea, side effect and doesn't cure illness PROBLEMS Active Ambulatory Problems Diagnosis Date Noted No Active Ambulatory Problems Resolved Ambulatory Problems Diagnosis Date Noted No Resolved Ambulatory Problems No Additional Past Medical History HISTORY PAST MEDICAL HISTORY SOCIAL HISTORY History reviewed. No pertinent past medical history. Social History Tobacco Use Smoking status: Not on file Smokeless tobacco: Not on file Substance Use Topics Alcohol use: Not on file Drug use: Not on file FAMILY HISTORY No family history on file. SURGICAL HISTORY History reviewed. No pertinent surgical history. REVIEW OF SYSTEMS Review of Systems: Review of Systems Constitutional: Negative. HENT: Negative. Eyes: Negative. Respiratory: Negative. Cardiovascular: Negative. Gastrointestinal: Negative. Genitourinary: Positive for vaginal discharge. Musculoskeletal: Negative. Skin: Negative. Neurological: Negative. All other systems reviewed and are negative. Hematological: Negative. Endocrine: Negative. Allergic/Immunologic: Negative. OBJECTIVE Objective: Physical Exam Constitutional: Appearance: Normal appearance. She is well-developed. Genitourinary: Vulva normal. Breasts: Breasts are soft. Right: Normal. Left: Normal. Cardiovascular: Rate and Rhythm: Normal rate and regular rhythm. Pulmonary: Effort: Pulmonary effort is normal. Breath sounds: Normal breath sounds. Abdominal: General: Bowel sounds are normal. There is no distension. Palpations: Abdomen is soft. Tenderness: There is no abdominal tenderness. There is no guarding or rebound. Musculoskeletal: General: No swelling. Normal range of motion. Right lower leg: No edema. Left lower leg: No edema. Neurological: Mental Status: She is alert and oriented to person, place, and time. Skin: General: Skin is warm and dry. Psychiatric: Mood and Affect: Mood normal. Behavior: Behavior normal. Vitals and nursing note reviewed. Exam conducted with a house director present. Vitals: Estimated body mass index is 45.28 kg/m as calculated from the following: Height as of 24: 5' 4 . Weight as of this encounter: 263 lb 12.8 oz. BP: 120/70 Patient's last menstrual period was 06/09/2024. ASSESSMENT & PLAN ICD-10-CM 1. Well woman exam with routine gynecological exam Z01.419 Pap Smear HPV DNA probe, amplified 2. Weight loss counseling, encounter for Z71.3 3. Exposure to STD Z20.2 CHLAMYDIA TRACHOMATIS (GENITO/STI) Neisseria gonorrhea DNA probe, direct 4. Vaginal discharge N89.8 SURESWAB(R) ADVANCED VAGINITIS PLUS, TMA 5. Encounter for weight management Z76.89 phentermine (Adipex-P) 37.5 MG tablet Annual Exam: Patient presents today for an annual exam. Patient states she is doing well and has complaints of vaginal odor. Cultures obtained, rx for flagyl and diflucan faxed to pharmacy. . Pap was obtained without difficulty. Orders Placed This Encounter Procedures HPV DNA probe, amplified CHLAMYDIA TRACHOMATIS (GENITO/STI) Neisseria gonorrhea DNA probe, direct Follow Up: Patient is to return in one year for annual unless needed otherwise. Documented by Olinda Galdamez LPN on behalf of: Mick Coulter DO documented in this encounterChristian [id number] History of Present illness Narrative* Hayley Singh LPN - 06/08/2024 10:10 AM EST Reason for Appointment: Patient ID: Ayse Bass is a 34 y.o. female who presents for encounter for weight loss medication Patient presents today for Consult appointment. and Weight Management Consult. MEDICATIONS Current Outpatient Medications Medication Instructions doxycycline (Vibra-Tabs) 100 MG tablet 1 tablet, Oral, Daily metFORMIN XR (GLUCOPHAGE-XR) 500 mg, Every 24 hours metoprolol tartrate (Lopressor) 25 MG tablet 1 tablet, 2 times daily Mometasone Furo-Formoterol Fum (Dulera) 50-5 MCG/ACT aerosol 50 mcg, Inhalation, Daily ALLERGIES Allergies Allergen Reactions Amoxicillin Adverse reaction of diarrhea, side effect and doesn't cure illness PROBLEMS Active Ambulatory Problems Diagnosis Date Noted No Active Ambulatory Problems Resolved Ambulatory Problems Diagnosis Date Noted No Resolved Ambulatory Problems No Additional Past Medical History HISTORY PAST MEDICAL HISTORY SOCIAL HISTORY History reviewed. No pertinent past medical history. Social History Tobacco Use Smoking status: Not on file Smokeless tobacco: Not on file Substance Use Topics Alcohol use: Not on file Drug use: Not on file FAMILY HISTORY No family history on file. SURGICAL HISTORY History reviewed. No pertinent surgical history. REVIEW OF SYSTEMS Review of Systems: Review of Systems All other systems reviewed and are negative. OBJECTIVE Objective: Physical Exam Constitutional: Appearance: Normal appearance. She is well-developed. Cardiovascular: Rate and Rhythm: Normal rate and regular rhythm. Pulmonary: Effort: Pulmonary effort is normal. Breath sounds: Normal breath sounds. Abdominal: General: Bowel sounds are normal. There is no distension. Palpations: Abdomen is soft. Tenderness: There is no abdominal tenderness. There is no guarding or rebound. Musculoskeletal: General: No swelling. Normal range of motion. Right lower leg: No edema. Left lower leg: No edema. Neurological: Mental Status: She is alert and oriented to person, place, and time. Skin: General: Skin is warm and dry. Psychiatric: Mood and Affect: Mood normal. Behavior: Behavior normal. Vitals and nursing note reviewed. Exam conducted with a house director present. Vitals: Estimated body mass index is 45.28 kg/m as calculated from the following: Height as of this encounter: 5' 4 . Weight as of this encounter: 263 lb 12.8 oz. BP: 118/76 Patient's last menstrual period was 05/04/2024. ASSESSMENT & PLAN ICD-10-CM 1. Weight loss counseling, encounter for Z71.3 Patient presents today to discuss weight management and mental health. Patient voiced that she previously stopped her medication and was dismissed by her PCP. Discussed with patient that Prozac and Wellbutrin work well for mental health and weight loss. Discussed Adipex as well and what could be done after completing Adipex regimen. Patient voiced that she stopped medication as she was having different side effects with acne and weight and wanted to start with a clean slate. Discussed with patient coping methods and mindfulness. Return to clinic in 1 month for Adipex #1 and Annual. Documented by Hayley Singh LPN on behalf of: Mick Coulter DO documented in this encounterChristian [id number] Note* Addendum Note - April Lindsay DMD - 02/23/2024 7:55 AM EDTAddended by: APRIL LINDSAY on: 02/23/2024 07:55 AM Modules accepted: Orders [id number] Miscellaneous Notes* Addendum Note - April Lindsay DMD - 02/23/2024 7:55 AM EDTAddended by: APRIL LINDSAY on: 02/23/2024 07:55 AM Modules accepted: Orders * Addendum Note - April Lindsay DMD - 02/22/2024 4:24 PM EDTAddended by: APRIL LINDSAY on: 02/22/2024 04:24 PM Modules accepted: Orders, Level of Service * Addendum Note - April Lindsay DMD - 02/22/2024 4:05 PM EDTAddended by: APRIL LINDSAY on: 02/22/2024 04:05 PM Modules accepted: Orders documented in this [id number] Note* Addendum Note - April Lindsay DMD - 02/22/2024 4:24 PM EDTAddended by: APRIL LINDSAY on: 02/22/2024 04:24 PM Modules accepted: Orders, Level of Service [id number] Note* Addendum Note - April Lindsay DMD - 02/22/2024 4:24 PM EDTAddended by: APRIL LINDSAY on: 02/22/2024 04:24 PM Modules accepted: Orders, Level of Service [id number] Miscellaneous Notes* Addendum Note - April Lindsay DMD - 02/22/2024 4:24 PM EDTAddended by: APRLI LINDSAY on: 02/22/2024 04:24 PM Modules accepted: Orders, Level of Service * Addendum Note - April Lindsay DMD - 02/22/2024 4:05 PM EDTAddended by: APRIL LINDSAY on: 02/22/2024 04:05 PM Modules accepted: Orders documented in this [id number] NoteORAL SURGERY PROCEDURE ROOM NOTE [facility] Surgical Product(s): Extract soft tissue impacted # 17 PMH: Reviewed, no change. Antibiotic prophylaxis indicated/taken: not applicable Discussed risks, benefits, and alternatives of treatment. All of the patient's questions were answered, and informed consent was obtained: yes Pre-op Diagnosis: Tooth pain [[id number]] Caries and Impacted wisdom teeth PROCEDURE TIME OUT CHECK LIST 1. Radiograph is correctly matched to the patient,diagnostic quality, correctly oriented for laterality: Yes 2. Time out performed confirming correct surgical site and/or involved teeth verified by the patient and the surgeon: Yes Anesthesia: 20% topical Benzocaine paste on oral mucosa, 2% Xylocaine with 1/100,000 epinephrine: 1 carpules, and 4% Articaine with 1/100,000 epinephrine 2 carpules, infiltration administration only Attending: Paige Matias DDS Resident: April Lindsay DMD Assistants: MANUEL Rene Procedure in Detail: Local anesthesia administered via LL CHUCK/LB block w/xylocaine and local infiltration w/articaine to site of intended extraction. Soft tissue released and FTMP flap created around teeth # 17. Created buccal trough and sectioned tooth into 2 pieces. Tooth # 17 was elevated and delivered with forceps. Sockets curetted to remove any dental follicles, pathology, or bone/root fragments. Irrigated sockets thoroughly w/NS. CHUCK visualized intact. Placed 3-0 chromic gut suture to re-approximate tissue primarily. Sites hemostatic. Gauze placed over extraction sites. Complications: none Specimens: None Estimated blood loss: Minimal (<5 ml) Disposition: Home [facility]MD[facility] Note* Addendum Note - April Lindsay DMD - 02/22/2024 4:05 PM EDTAddended by: APRIL LINDSAY on: 02/22/2024 04:05 PM Modules accepted: [facility] [id number] Note* Addendum Note - April Lindsay DMD - 02/22/2024 4:05 PM EDTAddended by: APRIL LIDNSAY on: 02/22/2024 04:05 PM Modules accepted: [id number] Note* Addendum Note - April Lindsay DMD - 02/22/2024 4:05 PM EDTAddended by: APRIL LINDSAY on: 02/22/2024 04:05 PM Modules accepted: [facility] [id number] History of Present illness Narrative* April Lindsay DMD - 02/22/2024 4:05 PM EDT ORAL SURGERY PROCEDURE ROOM NOTE [facility] Surgical Product(s): Extract soft tissue impacted # 17 PMH: Reviewed, no change. Antibiotic prophylaxis indicated/taken: not applicable Discussed risks, benefits, and alternatives of treatment. All of the patient s questions were answered, and informed consent was obtained: yes Pre-op Diagnosis: Tooth pain [[id number]] Caries and Impacted wisdom teeth PROCEDURE TIME OUT CHECK LIST 1. Radiograph is correctly matched to the patient,diagnostic quality, correctly oriented for laterality: Yes 2. Time out performed confirming correct surgical site and/or involved teeth verified by the patient and the surgeon: Yes Anesthesia: 20% topical Benzocaine paste on oral mucosa, 2% Xylocaine with 1/100,000 epinephrine: 1carpules, and 4% Articaine with 1/100,000 epinephrine 2 carpules, infiltration administration only Attending: Paige Matias DDS Resident: April Lindsay DMD Assistants: MANUEL Rene Procedure in Detail: Local anesthesia administered via LL CHUCK/LB block w/xylocaine and local infiltration w/articaine tosite of intended extraction. Soft tissue released and FTMP flap created around teeth # 17. Created buccal trough and sectioned tooth into 2 pieces. Tooth # 17 was elevated and delivered with forceps.Sockets curetted to remove any dental follicles, pathology, or bone/root fragments. Irrigated sockets thoroughly w/NS. CHUCK visualized intact. Placed 3-0 chromic gut suture to re-approximate tissue primarily. Sites hemostatic. Gauze placed over extraction sites. Complications: none Specimens: None Estimated blood loss: Minimal (<5 ml) Disposition: Home April Lindsay DMD documented in this [id number] Miscellaneous Notes* Addendum Note - April Lindsay DMD - 02/22/2024 4:05 PM EDTAddended by: APRIL LINDSAY on: 02/22/2024 04:05 PM Modules accepted: Orders documented in this [id number] Instructions* Patient Instructions* April Lindsay DMD - 02/22/2024 3:52 PM EDT Dental extraction Instructions Biting on Gauze to Control Bleeding Bleeding may occur for some time after you extraction. In most cases this bleeding can be easily controlled by placing a piece of clean gauze DIRECTLY over the empty tooth socket. Then make sure thatyou bite firmly on this gauze for 30 to 60 minutes. Use the gauze we supplied to you in the bag. Wash your hands with soap and water before touching the gauze and placing it in your mouth. Place the used gauze from your mouth in a plastic bag and dispose the bag in a trash container. Make sure to wash your hands again when you are done touching the used gauze and before touching anything else. If a small amount of bleeding continues after 45 minutes then repeat these instructions. Sometimes biting a tea bag may be helpful in controlling minor bleeding. Very light bleeding for 2 days is not uncommon. If heavy bleeding is still persistent during normal clinic hours than call the Clinic where the extraction was done to speak with an oral surgeon. [facility] [phone]. HELPING THE HEALING PROCESS AND STOPPING THE BLEEDING FOR THE NEXT 24 HOURS (1 DAY) AFTER THE EXTRACTION: DO NOT RINSE YOUR MOUTH OR SPIT 2. DO NOT DRINK ANY HOT LIQUIDS SUCH SOUP, COFFEE, TEA, HOT CHOCOLATE AVOID HEAVY LIFTING, BENDING OR OTHER STENUOUS EXERCISES SLEEP WITH 2 PILLOWS OR IN A RECLINER CHAIR. KEEPING HEAD ELEVATED WILL REDUCE SWELLING. SUTURE WILL DISSOLVE IN 7-10 DAYS FOR THE NEXT 72 HOURS (3 DAYS) AFTER THE EXTRACTION: DO NOT SMOKE OR DRINK ALCOHOL DO NOT DRINK OR SUCK FROM A STRAW OR ANYTHING ELSEDO NOT DRINK. Stitches may have been placed to help healing. Your surgeon will advise you if you need to return to have them removed. TOOTH BRUSHING On the day of the extraction it is best to avoid brushing the teeth right next to the extraction site. On the next day you can start brushing ALL your teeth but in a gentle fashion. Remember to not rinse strongly because it may cause you to start bleeding from the extraction site again. SWELLING AND PAIN After the extraction you may feel some pain and experience some swelling. An ice pack of unopened bag of frozen peas of corn applied to the area should keep the swelling down. Put the ice pack on youface for 10 minutes and then leave it off for the next 20 minutes. You can repeat this patter as you feel is necessary for up to 24 hours after the extraction. To avoid injury, make sure that adults or children avoid biting or chewing on their lips of cheeks, which may be numb following an extraction. If your pain or swelling seems to be getting worse or you feel as though something is not right then call your dentist, as directed above. ANTIBIOTICS AND PAIN MEDICATION If antibiotics have been prescribed then you should take them as directed; this includes taking allthe antibiotic (or liquid) pills that were prescribed. If you don't finish them completely a serious infection could result. You may have little of no discomfort after the extraction. If you have minor pain then you may wantto take acetaminophen (Tylenol) or ibuprofen (Motrin). It is very important that before taking any medications that you read and follow the directions and warnings that come with these products so you know whether they are right for you and you situation. If you have any questions on whether these medications are right for you, first talk to your doctor or pharmacist before taking the medication. Your surgeon may have given you a written prescription for pain relief. It is important that if youdecide to take it you read and understand all the precautions, warnings and directions that come with the medication. If you have any questions on whether the medication is right for you, first talk to your doctor or pharmacist before taking the medication. The pain medication prescription that your dentist gave you may contain a narcotic (like codeine). If so, most narcotic pain medications may upset your stomach. If so, then it is best to take them with food. The pain medication prescription that you were given can also make you drowsy or make you act strangely. If so, you should limit or stop activities such as driving a motor vehicle, operate machinery or other activities that require your full attention. EATING AND DRINKING A soft or liquid diet may be best for you after a difficult extraction. For a simpler extraction just make sure you do your chewing with those teeth that are NOT near the extraction site. POSTOPERATIVE INSTRUCTION AFTER SEDATION / GENERAL ANESTHESIA If you had general anesthesia of IV sedation, do not drive or operate machinery for 24 hours. A responsible adult should be with you for the remainder of the day. When starting oral intake, be sure to consume CLEAR LIQUIDS first. Clear liquids consist of water, Sprite, te jacob, Jell-O, and non-pulp containing juices such as cranberry and apple juice. Once tolerating clear-liquids, you may advance your diet. Be sure to follow the specific diet instructions from your doctor according to the type of surgery you have had. It is important that you take any narcotic containing pain medications with food. Patients should not participate in any strenuous activity. Standing and sitting up too quickly following surgery can also result in dizziness and exacerbate these problems. It is also important that patients be supervised for an appropriate amount of time following sedation in order to ensure that they remain safe in the post- operative period. Under NO circumstances should a patient drive the day of surgery or participate in any important decisions. NAUSEA & VOMITING Nausea is not uncommon after surgery. Sometimes pain medications may be the cause. In the event of nausea and/or vomiting following surgery, do not take anything by mouth for at least an hour including the prescribed medicine. You should then sip on Coke, tea, or te jacob. You should sip slowly over a 15- minute period. When the nausea subsides, you can begin taking solid foods and the prescribed medicine. You may take the anti-nausea medication if prescribed. If the above is not helpful, contact your surgeon. Please if you have any questions or concerns please contact us: [facility] . Ask for the behavioral health specialist marketing rotation associate (after hours). asset recovery specialist Clinic Hours: Mon-Fri 8:30 am to 4:30 pm. documented in this [id number] Instructions* Patient Instructions* April Lindsay DMD - 02/22/2024 3:52 PM EDT Dental extraction Instructions Biting on Gauze to Control Bleeding Bleeding may occur for some time after you extraction. In most cases this bleeding can be easily controlled by placing a piece of clean gauze DIRECTLY over the empty tooth socket. Then make sure thatyou bite firmly on this gauze for 30 to 60 minutes. Use the gauze we supplied to you in the bag. Wash your hands with soap and water before touching the gauze and placing it in your mouth. Place the used gauze from your mouth in a plastic bag and dispose the bag in a trash container. Make sure to wash your hands again when you are done touching the used gauze and before touching anything else. If a small amount of bleeding continues after 45 minutes then repeat these instructions. Sometimes biting a tea bag may be helpful in controlling minor bleeding. Very light bleeding for 2 days is not uncommon. If heavy bleeding is still persistent during normal clinic hours than call the Clinic where the extraction was done to speak with an oral surgeon. [facility] [phone]. HELPING THE HEALING PROCESS AND STOPPING THE BLEEDING FOR THE NEXT 24 HOURS (1 DAY) AFTER THE EXTRACTION: DO NOT RINSE YOUR MOUTH OR SPIT 2. DO NOT DRINK ANY HOT LIQUIDS SUCH SOUP, COFFEE, TEA, HOT CHOCOLATE AVOID HEAVY LIFTING, BENDING OR OTHER STENUOUS EXERCISES SLEEP WITH 2 PILLOWS OR IN A RECLINER CHAIR. KEEPING HEAD ELEVATED WILL REDUCE SWELLING. SUTURE WILL DISSOLVE IN 7-10 DAYS FOR THE NEXT 72 HOURS (3 DAYS) AFTER THE EXTRACTION: DO NOT SMOKE OR DRINK ALCOHOL DO NOT DRINK OR SUCK FROM A STRAW OR ANYTHING ELSEDO NOT DRINK. Stitches may have been placed to help healing. Your surgeon will advise you if you need to return to have them removed. TOOTH BRUSHING On the day of the extraction it is best to avoid brushing the teeth right next to the extraction site. On the next day you can start brushing ALL your teeth but in a gentle fashion. Remember to not rinse strongly because it may cause you to start bleeding from the extraction site again. SWELLING AND PAIN After the extraction you may feel some pain and experience some swelling. An ice pack of unopened bag of frozen peas of corn applied to the area should keep the swelling down. Put the ice pack on youface for 10 minutes and then leave it off for the next 20 minutes. You can repeat this patter as you feel is necessary for up to 24 hours after the extraction. To avoid injury, make sure that adults or children avoid biting or chewing on their lips of cheeks, which may be numb following an extraction. If your pain or swelling seems to be getting worse or you feel as though something is not right then call your dentist, as directed above. ANTIBIOTICS AND PAIN MEDICATION If antibiotics have been prescribed then you should take them as directed; this includes taking allthe antibiotic (or liquid) pills that were prescribed. If you don't finish them completely a serious infection could result. You may have little of no discomfort after the extraction. If you have minor pain then you may wantto take acetaminophen (Tylenol) or ibuprofen (Motrin). It is very important that before taking any medications that you read and follow the directions and warnings that come with these products so you know whether they are right for you and you situation. If you have any questions on whether these medications are right for you, first talk to your doctor or pharmacist before taking the medication. Your surgeon may have given you a written prescription for pain relief. It is important that if youdecide to take it you read and understand all the precautions, warnings and directions that come with the medication. If you have any questions on whether the medication is right for you, first talk to your doctor or pharmacist before taking the medication. The pain medication prescription that your dentist gave you may contain a narcotic (like codeine). If so, most narcotic pain medications may upset your stomach. If so, then it is best to take them with food. The pain medication prescription that you were given can also make you drowsy or make you act strangely. If so, you should limit or stop activities such as driving a motor vehicle, operate machinery or other activities that require your full attention. EATING AND DRINKING A soft or liquid diet may be best for you after a difficult extraction. For a simpler extraction just make sure you do your chewing with those teeth that are NOT near the extraction site. POSTOPERATIVE INSTRUCTION AFTER SEDATION / GENERAL ANESTHESIA If you had general anesthesia of IV sedation, do not drive or operate machinery for 24 hours. A responsible adult should be with you for the remainder of the day. When starting oral intake, be sure to consume CLEAR LIQUIDS first. Clear liquids consist of water, Sprite, te jacob, Jell-O, and non-pulp containing juices such as cranberry and apple juice. Once tolerating clear-liquids, you may advance your diet. Be sure to follow the specific diet instructions from your doctor according to the type of surgery you have had. It is important that you take any narcotic containing pain medications with food. Patients should not participate in any strenuous activity. Standing and sitting up too quickly following surgery can also result in dizziness and exacerbate these problems. It is also important that patients be supervised for an appropriate amount of time following sedation in order to ensure that they remain safe in the post- operative period. Under NO circumstances should a patient drive the day of surgery or participate in any important decisions. NAUSEA & VOMITING Nausea is not uncommon after surgery. Sometimes pain medications may be the cause. In the event of nausea and/or vomiting following surgery, do not take anything by mouth for at least an hour including the prescribed medicine. You should then sip on Coke, tea, or te jacob. You should sip slowly over a 15- minute period. When the nausea subsides, you can begin taking solid foods and the prescribed medicine. You may take the anti-nausea medication if prescribed. If the above is not helpful, contact your surgeon. Please if you have any questions or concerns please contact us: [facility] . Ask for the behavioral health specialist marketing rotation associate (after hours). asset recovery specialist Clinic Hours: Mon-Fri 8:30 am to 4:30 pm. documented in this [id number] Instructions* Patient Instructions* April Lindsay DMD - 02/22/2024 3:52 PM EDT Dental extraction Instructions Biting on Gauze to Control Bleeding Bleeding may occur for some time after you extraction. In most cases this bleeding can be easily controlled by placing a piece of clean gauze DIRECTLY over the empty tooth socket. Then make sure thatyou bite firmly on this gauze for 30 to 60 minutes. Use the gauze we supplied to you in the bag. Wash your hands with soap and water before touching the gauze and placing it in your mouth. Place the used gauze from your mouth in a plastic bag and dispose the bag in a trash container. Make sure to wash your hands again when you are done touching the used gauze and before touching anything else. If a small amount of bleeding continues after 45 minutes then repeat these instructions. Sometimes biting a tea bag may be helpful in controlling minor bleeding. Very light bleeding for 2 days is not uncommon. If heavy bleeding is still persistent during normal clinic hours than call the Clinic where the extraction was done to speak with an oral surgeon. [facility] [phone]. HELPING THE HEALING PROCESS AND STOPPING THE BLEEDING FOR THE NEXT 24 HOURS (1 DAY) AFTER THE EXTRACTION: DO NOT RINSE YOUR MOUTH OR SPIT 2. DO NOT DRINK ANY HOT LIQUIDS SUCH SOUP, COFFEE, TEA, HOT CHOCOLATE AVOID HEAVY LIFTING, BENDING OR OTHER STENUOUS EXERCISES SLEEP WITH 2 PILLOWS OR IN A RECLINER CHAIR. KEEPING HEAD ELEVATED WILL REDUCE SWELLING. SUTURE WILL DISSOLVE IN 7-10 DAYS FOR THE NEXT 72 HOURS (3 DAYS) AFTER THE EXTRACTION: DO NOT SMOKE OR DRINK ALCOHOL DO NOT DRINK OR SUCK FROM A STRAW OR ANYTHING ELSEDO NOT DRINK. Stitches may have been placed to help healing. Your surgeon will advise you if you need to return to have them removed. TOOTH BRUSHING On the day of the extraction it is best to avoid brushing the teeth right next to the extraction site. On the next day you can start brushing ALL your teeth but in a gentle fashion. Remember to not rinse strongly because it may cause you to start bleeding from the extraction site again. SWELLING AND PAIN After the extraction you may feel some pain and experience some swelling. An ice pack of unopened bag of frozen peas of corn applied to the area should keep the swelling down. Put the ice pack on youface for 10 minutes and then leave it off for the next 20 minutes. You can repeat this patter as you feel is necessary for up to 24 hours after the extraction. To avoid injury, make sure that adults or children avoid biting or chewing on their lips of cheeks, which may be numb following an extraction. If your pain or swelling seems to be getting worse or you feel as though something is not right then call your dentist, as directed above. ANTIBIOTICS AND PAIN MEDICATION If antibiotics have been prescribed then you should take them as directed; this includes taking allthe antibiotic (or liquid) pills that were prescribed. If you don't finish them completely a serious infection could result. You may have little of no discomfort after the extraction. If you have minor pain then you may wantto take acetaminophen (Tylenol) or ibuprofen (Motrin). It is very important that before taking any medications that you read and follow the directions and warnings that come with these products so you know whether they are right for you and you situation. If you have any questions on whether these medications are right for you, first talk to your doctor or pharmacist before taking the medication. Your surgeon may have given you a written prescription for pain relief. It is important that if youdecide to take it you read and understand all the precautions, warnings and directions that come with the medication. If you have any questions on whether the medication is right for you, first talk to your doctor or pharmacist before taking the medication. The pain medication prescription that your dentist gave you may contain a narcotic (like codeine). If so, most narcotic pain medications may upset your stomach. If so, then it is best to take them with food. The pain medication prescription that you were given can also make you drowsy or make you act strangely. If so, you should limit or stop activities such as driving a motor vehicle, operate machinery or other activities that require your full attention. EATING AND DRINKING A soft or liquid diet may be best for you after a difficult extraction. For a simpler extraction just make sure you do your chewing with those teeth that are NOT near the extraction site. POSTOPERATIVE INSTRUCTION AFTER SEDATION / GENERAL ANESTHESIA If you had general anesthesia of IV sedation, do not drive or operate machinery for 24 hours. A responsible adult should be with you for the remainder of the day. When starting oral intake, be sure to consume CLEAR LIQUIDS first. Clear liquids consist of water, Sprite, te jacob, Jell-O, and non-pulp containing juices such as cranberry and apple juice. Once tolerating clear-liquids, you may advance your diet. Be sure to follow the specific diet instructions from your doctor according to the type of surgery you have had. It is important that you take any narcotic containing pain medications with food. Patients should not participate in any strenuous activity. Standing and sitting up too quickly following surgery can also result in dizziness and exacerbate these problems. It is also important that patients be supervised for an appropriate amount of time following sedation in order to ensure that they remain safe in the post- operative period. Under NO circumstances should a patient drive the day of surgery or participate in any important decisions. NAUSEA & VOMITING Nausea is not uncommon after surgery. Sometimes pain medications may be the cause. In the event of nausea and/or vomiting following surgery, do not take anything by mouth for at least an hour including the prescribed medicine. You should then sip on Coke, tea, or te jacob. You should sip slowly over a 15- minute period. When the nausea subsides, you can begin taking solid foods and the prescribed medicine. You may take the anti-nausea medication if prescribed. If the above is not helpful, contact your surgeon. Please if you have any questions or concerns please contact us: [facility] . Ask for the behavioral health specialist marketing rotation associate (after hours). asset recovery specialist Clinic Hours: Mon-Fri 8:30 am to 4:30 pm. documented in this [id number] NoteI was personally present for the atkins portions of the procedure. NAHEED Lesterhe [facility]07-01-2024 History of Present illness Narrative* Paige Matias DDS - 01/24/2024 10:19 AM EDT I was personally present for the atkins portions of the procedure. Paige Matias DDS * April Lindsay DMD - 01/11/2024 8:06 PM EDT [facility] PATIENT VISIT CHIEF COMPLAINT: Pain and [place] Teeth HISTORY OF PRESENT ILLNESS: Pt is a 33yoF with pmhx of HTN, Asthma, and Depression, presenting to [facility] clinic from referral for eval/removal of #17. Pt endorses waxing and waning pain originating from the tooth listed on the referral that limits her ability to chew, function normally, and perform oral hygiene. PAST MEDICAL HISTORY: Asthma, HTN, Depression No past medical history on file. There is no problem list on file for this patient. REVIEW OF SYSTEMS: A 12-point review of systems was completed. Negative unless otherwise stated in HPI. MEDICATIONS: No current outpatient medications on file. No current facility-administered medications for this visit. ALLERGIES: Patient has no allergy information on record. SURGICAL HX: No past surgical history on file. SOCIAL HX: No Significant findings CLINICAL EXAMINATION Extraoral examination: No significant findings No s/s of infection, redness or tenderness to palpation No facial asymmetry or swelling No appreciable LAD No popping/clicking/crepitus of TMJ b/l No tenderness to palpation of temporalis or masseter asymptomatic function Range of motion WNL CN V and VII intact Inferior border of the mandible palpable Intraoral examination: Tenderness to palpation of gingiva covering tooth #17 which is not visible in the mouth, no purulent dischcarge noted upon palpation. Moist, pink mucosa Oropharynx clear No pathological soft lesions appreciated Oral cancer screen negative Occlusion stable Oral hygiene: fair RADIOGRAPHIC INTERPRETATION: [employer] Film taken on 01/11/2024, and Retained in our clinic files Impacted teeth #1 & #16 noted Impacted tooth #17 noted DIAGNOSIS: Impacted wisdom teeth ASSESSMENT: Pt is a 33yoF with pmhx of HTN, Asthma, and Depression, presenting to [facility] clinic and requires removal of tooth #17 due to hx of waxing and waning pain originating from the tooth listed on the referral that limits her ability to chew, function normally, and perform oral hygiene. PLAN: Our plan is Surgical extraction of partial bony impacted tooth #17 under ALINA Lindsay DMD * Pooja Brady - 01/11/2024 3:34 PM EDT Images from the original note were not included. documented in this [id number] History of Present illness Narrative* April Lindsay DMD - 01/11/2024 8:06 PM EDT [facility] PATIENT VISIT CHIEF COMPLAINT: Pain and [place] Teeth HISTORY OF PRESENT ILLNESS: Pt is a 33yoF with pmhx of HTN, Asthma, and Depression, presenting to [facility] clinic from referral for eval/removal of #17. Pt endorses waxing and waning pain originating from the tooth listed on the referral that limits her ability to chew, function normally, and perform oral hygiene. PAST MEDICAL HISTORY: Asthma, HTN, Depression No past medical history on file. There is no problem list on file for this patient. REVIEW OF SYSTEMS: A 12-point review of systems was completed. Negative unless otherwise stated in HPI. MEDICATIONS: No current outpatient medications on file. No current facility-administered medications for this visit. ALLERGIES: Patient has no allergy information on record. SURGICAL HX: No past surgical history on file. SOCIAL HX: No Significant findings CLINICAL EXAMINATION Extraoral examination: No significant findings No s/s of infection, redness or tenderness to palpation No facial asymmetry or swelling No appreciable LAD No popping/clicking/crepitus of TMJ b/l No tenderness to palpation of temporalis or masseter asymptomatic function Range of motion WNL CN V and VII intact Inferior border of the mandible palpable Intraoral examination: Tenderness to palpation of gingiva covering tooth #17 which is not visible in the mouth, no purulent dischcarge noted upon palpation. Moist, pink mucosa Oropharynx clear No pathological soft lesions appreciated Oral cancer screen negative Occlusion stable Oral hygiene: fair RADIOGRAPHIC INTERPRETATION: [employer] Film taken on 01/11/2024, and Retained in our clinic files Impacted teeth #1 & #16 noted Impacted tooth #17 noted DIAGNOSIS: Impacted wisdom teeth ASSESSMENT: Pt is a 33yoF with pmhx of HTN, Asthma, and Depression, presenting to [facility] clinic and requires removal of tooth #17 due to hx of waxing and waning pain originating from the tooth listed on the referral that limits her ability to chew, function normally, and perform oral hygiene. PLAN: Our plan is Surgical extraction of partial bony impacted tooth #17 under ALINA Lindsay DMD * Pooja Brady - 01/11/2024 3:34 PM EDT Images from the original note were not included. [facility] Diagnosis Abnormal tooth eruption- Primary Disturbances in tooth eruption [facility] Diagnosis Abnormal tooth eruption- Primary Disturbances in tooth eruption [facility]* Diagnosis Tooth pain- Primary Unspecified disorder of the teeth and supporting structures [facility]* Diagnosis Tooth pain- Primary Unspecified disorder of the teeth and supporting structures [facility]* Diagnosis Tooth pain- Primary Unspecified disorder of the teeth and supporting structures [facility]* Diagnosis Tooth pain- Primary Unspecified disorder of the teeth and supporting structures Abnormal tooth eruption Disturbances in tooth eruption [facility]* Diagnosis Tooth pain- Primary Unspecified disorder of the teeth and supporting structures Abnormal tooth eruption Disturbances in tooth eruption [facility]* Diagnosis Weight loss counseling, encounter for [facility] Diagnosis Well woman exam with routine gynecological exam Routine gynecological examination Weight loss counseling, encounter for Exposure to STD Vaginal discharge Leukorrhea, not specified as infective Encounter for weight management [facility] Diagnosis Weight gain Other symptoms concerning nutrition, metabolism, and development Encounter for weight management [facility] Diagnosis Encounter for weight management [facility] Diagnosis Weight gain Other symptoms concerning nutrition, metabolism, and development Encounter for weight management [facility] Diagnosis Exposure to STD BV (bacterial vaginosis) Unspecified vaginitis and vulvovaginitis Vaginal odor Unspecified symptom associated with female genital organs [facility] Diagnosis Encounter for weight management Constipation, unspecified constipation type [facility]* Diagnosis Cyst of ovary, unspecified laterality [facility]* Diagnosis Cyst of ovary, unspecified laterality Adenomyosis Endometriosis of uterus PCOS (polycystic ovarian syndrome) Polycystic ovaries [facility]* Diagnosis Encounter for weight management Follow-up encounter involving medication documented in this encounter [facility] Diagnosis UTI symptoms Advance Directives No Advanced Directives Records FoundDocuments on File TypeDate RecordedPatient RepresentativeExplanationAdvance Directives and Living WillPower of [employer] Official Summary Purpose Family History No Family History Records FoundNo Family History Records FoundNo Family History Records FoundNo Family History Records FoundNo Family History Records FoundNo Family History Records Found Reason for Referral SpecialtyDiagnoses / ProceduresReferred By ContactReferred To ContactOral Surgery Diagnoses Tooth pain Procedures SURG EXTRACTION ERUPTED TOOTH Paige Matias, DDS [address] [place] [address] Referral IDStatusReasonStart DateExpiration DateVisits RequestedVisits [id number] Scheduling Instructions If your in-clinic procedure was not scheduled for you today, please call (option 2) during normal business hours (8 am to 5 pm) on to schedule. Please allow 4 weeks time between the day of your consult to scheduling your procedure to allow the system time to process the order and receive insurance authorization. If your insurance denies all or part of your procedure, you will be contacted with [id number] costs or next steps. All self-pay payments will need to be collected in full prior to having the procedure. Please arrive 30 minutes prior to your procedure. If you are having a local anesthesia procedure: No diet restrictions the day before or day of the procedure. You may take your normal medications as instructed. No covid testing needed. You may drive yourself home afterward. If you are prescribed anxiety reducing medications for the procedure: You also MUST have a warehouse associate driver/escort >18yrs old present to take you home after. If your provider has proposed an IV sedation procedure: Please refer to the instructions given to you at your consult appointment. You will receive a call from a nurse roughly 1 week prior to your procedure to go over any/all instructions. QuestionAnswer What is the procedure for? Dental Please specify: Extractions Please specify: Surgical Extraction Surgical Extraction--please list tooth number(s): #17 Is Sedation Needed? Local Anesthesia Procedure Length: 60 Which area is this procedure for? Clinic Additional Source Comments INFORMATION SOURCE (unrecogn ized section and content) DATE CREATED AUTHOR 05/28/2019 [facility] DATE CREATED AUTHOR AUTHOR'S ORGANIZ ATION 01/01/2023 [facility] DATE CREATED AUTHOR AUTHOR'S ORGANIZ ATION 02/29/2024 [facility] DATE CREATED AUTHOR AUTHOR'S ORGANIZ ATION 05/06/2025 [facility] DATE CREATED AUTHOR AUTHOR'S ORGANIZ ATION 05/11/2025 [facility] DATE CREATED AUTHOR AUTHOR'S ORGANIZ ATION 05/30/2025 [facility] EPIC Reason for Visit (unrecogniz ed section and content) ReasonCommentsProcedureReasonCommentsProcedureReasonCommentsencounter for weight loss medicationReasonCommentsWell Women VisitEncounter for Weight management Adipex #1ReasonCommentsWeight ManagementPt present today for Adipex #2 visit ReasonCommentsencounter for weight managementReasonCommentsWeight ManagementPt present today for Adipex #5 visit.ReasonCommentsSTI ScreeningPt present today for cx's. Pt tested +BV on 06/2024 and feels it has not gone away.ReasonComments Weight ManagementReasonCommentsFollow-upReasonCommentsovary cyst Care Teams (unrecognized sec tion and content) Team MemberRelationshipSpecialtyStart DateEnd Date Rosibel Kern, CARDIAC CATHETERIZATION TECHNICIAN [address] [place] [address] PCP - [facility]06/08/24Te MemberRelationshipSpecialtyStart Date End Date Rosibel Kern NP [address] [place] [address] PCP - [facility]06/08/24Te MemberRelationshipSpecialtyStart Date End Date Rosibel Kern CARDIAC CATHETERIZATION TECHNICIAN [address] [place] [address] PCP - [facility]06/08/24Te MemberRelationshipSpecialtyStart Date End Date Rosibel Kern CARDIAC CATHETERIZATION TECHNICIAN [address] [place] [address] PCP - [facility]06/08/24Te MemberRelationshipSpecialtyStart Date End Date Rosibel Kern, CARDIAC CATHETERIZATION TECHNICIAN [address] [place] [address] PCP - [facility]06/08/24Te MemberRelationshipSpecialtyStart Date End Date Rosibel Kern CARDIAC CATHETERIZATION TECHNICIAN [address] [place] [address] PCP - GeneralFamily Jumpsauc45/14/24Team MemberRelationshipSpecialtyStart Date End Date Rosibel Kern, CARDIAC CATHETERIZATION TECHNICIAN [address] [place] [address] PCP - GeneralFamily Vclhbkhc97/14/24Team MemberRelationshipSpecialtyStart Date End Date Rosibel Kern, CARDIAC CATHETERIZATION TECHNICIAN [address] [place] [address] PCP - GeneralFamily [id number]/14/24Team MemberRelationshipSpecialtyStart Date End Date Rosibel Kern, CARDIAC CATHETERIZATION TECHNICIAN [address] [place] [address] PCP - GeneralFamily Jrszhbza13/14/24Team MemberRelationshipSpecialtyStart Date End Date Rosibel Kern, CARDIAC CATHETERIZATION TECHNICIAN [address] [place] [address] PCP - GeneralFamily Lilvnlmf86/14/24Team MemberRelationshipSpecialtyStart Date End Date Rosibel Kern, CARDIAC CATHETERIZATION TECHNICIAN [address] [place] [address] PCP - GeneralFamily [id number]/14/24Team MemberRelationshipSpecialtyStart Date End Date Rosibel Kern, CARDIAC CATHETERIZATION TECHNICIAN [address] [place] [address] PCP - GeneralFamily Nzxhwkvb34/14/24Team MemberRelationshipSpecialtyStart Date End Date Rosibel Kern, CARDIAC CATHETERIZATION TECHNICIAN [address] [place] [address] [facility] - [facility]06/08/24Te MemberRelationshipSpecialtyStart Date End Date Rosibel Kern, CARDIAC CATHETERIZATION TECHNICIAN [address] [place] [address] [facility]06/08/24Te MemberRelationshipSpecialtyStart Date End Date Rosibel Kern, CARDIAC CATHETERIZATION TECHNICIAN [address] [place] [address] [facility]06/08/24Te MemberRelationshipSpecialtyStart Date End Date Rosibel Kern, CARDIAC CATHETERIZATION TECHNICIAN [address] [place] [address] [facility]06/08/24Te MemberRelationshipSpecialtyStart Date End Date Rosibel Kern, CARDIAC CATHETERIZATION TECHNICIAN [address] [place] [address] [facility]06/08/24 FOR RECORDS PERTAINING TO PATIENTS WHO ARE OR HAVE BEEN ENROLLED IN A CHEMICAL DEPENDENCY/SUBSTANCEABUSE PROGRAM, SOME INFORMATION MAY BE OMITTED. This clinical summary was aggregated from multiple sources. Caution should be exercised in using it in the provision of clinical care. This summary normalizes information from multiple sources, and as a consequence, information in this document may materially change the coding, format and clinical context of patient data. In addition, data may be omitted in some cases. CLINICAL DECISIONS SHOULD BE BASED ON THE PRIMARY CLINICAL RECORDS. [facility]. provides no warranty or guarantee of the accuracy or completeness of information in this document.
[2025-06-18 16:10] LABS: Hematocrit 38.7 % (36.0-48.0); Hemoglobin 12.7 g/dL (12.0-16.0); Immature Granulocytes Abs Auto 0.03 10^3/uL (0.00-0.03); Immature Granulocytes Pct Auto 0.3 % (0.0-0.5); Lymphocytes Absolute Auto 1.9 10^3/uL (1.2-3.8); Mean Corpuscular HGB Conc 32.8 g/dL (29.9-35.2); Mean Corpuscular Hemoglobin 31.4 pg (26.7-34.0); Mean Corpuscular Volume 95.8 fL (81.0-99.0); Platelet Count 401 10^3/uL (150-450); Red Blood Count 4.04 10^6/uL (4.20-5.40); White Blood Count 8.7 10^3/uL (4.0-11.0)
[2025-06-18 16:26] LABS: Thyroid Stimulating Hormone 2.074 uIU/mL (0.358-3.740)
[2025-06-20 04:09] LABS: FSH 4.3 mIU/mL (.)
== END 2025-06-18 15:33 | disposition home or self-care (01) ==
PROVIDERS: PCP Obstetrics & Gynecology; Visit Provider Obstetrics & Gynecology
DX: E28.2 Polycystic ovarian syndrome (principal)
CPT/HCPCS: 36415; 82626; 82627; 83001; 83002; 83036; 84439; 84443; 84702; 85025

== ENCOUNTER 2025-06-18 20:38 | Outpatient (REF) | payer OTHER, SELFPAY ==
--- OUTSIDE RECORDS SUMMARY | 2015-11-05 08:27 | XMS_ITS | Continuity of Care Document ---
Author [facility] [employer] Address [address] [facility] [place] [address] Phone Care Team Providers Care Mixing And Dispensing Supervisor Name Role Phone Chris DOMINGUEZ, Higinio Unavailable [...] Diagnoses Date Provider Providers Copied on Encounter [facility], [address] [place] [address], [id number] , tel:[phone] [facility] No Information 6 Chris Sylvester. [address], [place], [id number], [place]. tel:[phone] [facility], [address] [place] [address], [id number] , [place] tel:[phone] [facility] No Information 5 No Information PREV VISIT, EST, AGE 18-39 [facility], [address] [place] [address], [id number] , [place] tel:[phone] [facility] PAP test (chief complaint) Cervical cancer screeningOral contraceptive prescribedRou burke physicl lab examRoutine Medical ExamHigh risk sexual behavior 4 Christie Rajan. [address] [place], [place], [id number], [place]. tel:[phone] Referring Provider: Mohini Soriano DNP, NP-C, [address] [place] [address] [facility], [place], [address]. tel:[phone] OFFICE/OUTPA TIENT VISIT, [facility], [address] [place] [address] [address], [place], [place], [id number] , [place] tel:[phone] [facility] burning on urination (chief complaint)c hronic conditions (chief complaint) AsthmaDyspare unia 7 4 Christie LITO JOB HAND-C Mohini. [address] [place] [address] [facility], [place], [place], [id number], [place]. tel:[phone] Referring Provider: Mohini COULTER, [address] [place] [address] B, [place], [address]. tel:[phone] OFFICE/OUTPA TIENT VISIT, [facility], [address] [place] [address] [address], [place], [place], [id number] , [place] [phone] [facility] chronic conditions (chief complaint) Asthma 3201 3 Christie LITO Rajan. [address] [place] [address] B, [place], [place], [id number], [place]. tel:[phone] Referring Provider: Mohini COULTER, [address] [place] [address] B, [place], [address]. tel:[phone] OFFICE/OUTPA TIENT VISIT, [facility], [address] [place] [address] [address], [place], [place], [id number] , [place] tel: [phone] [facility] irregular periods (chief complaint) Post - coital bleedingVagin al odor 3 No Information OFFICE/OUTPA TIENT VISIT, [facility] [facility], [address] [place] [address] [address], [place], [place], [id number] , [place] tel: [phone] [facility] urinary frequency (chief complaint) Urinary frequency 3 Blickensderf er SONG WRITER [place]. [address], [place], [place], [id number], [place]. tel:[phone] Referring Provider: [place] hernandez CNP, [address], [place], [address]. tel:[phone] OFFICE/OUTPA TIENT VISIT, [facility], [address] [place] [address] [address], [place], [place], [id number] , [place] tel:[phone] [facility] burning on urination (chief complaint) Urinary tract infection 2 Christie MORSE JOB HAND-C [facility]. [facility] [address] [address], [place], [place], [id number], [place]. tel:[phone] Referring Provider: Mohini Soriano DNP JOB HAND-C, [facility] [address], [place], [address]. tel:[phone] PREV VISIT, [facility], AGE 18-39 [facility], [address] [place] [address] [address], [place], [place], [id number] , [place] tel:[phone] [facility] preventive exam (chief complaint) Gynecological Examination Mar-0 2 Raz Ho. [facility], [place], [place], [id number], [place]. tel:[phone] Referring Provider: [place] hernandez CNP, [facility], [place], [address]. tel:[phone] Office/outpa [facility]ient visit,[facility], [facility], [address] [place] [address] [address], [place], [place], [id number] , [place] tel:[phone] [facility] chronic conditions (chief complaint)c hest pain (chief complaint)a llergies/ea r pain (chief complaint) AnxietyAsthma Epigastric painAllergic rhinitis Oct- 2 [facility]. [facility], [place], [place], [id number], [place]. tel:[phone] Referring Provider: [place] hernandez CNP, [facility] [address], [place], [address]. tel:[phone] OFFICE/OUTPA TIENT VISIT, [facility], [address] [place] [address] [address], [place], [place], [id number] , tel:[phone] [facility] No Information 2 Denilson mary Ho. [facility] [address], [place], [place], [id number], [place]. tel:[phone] Referring Provider: [place] hernandez CNP, [facility] [address] [facility], [place], [address]. tel:[phone] Office/outpa tient visit,[facility] Ogilvie [facility], [address] [place] [address] [address], [place], [place], [id number] , [place] [phone] [facility] chronic conditions (chief complaint) DEPRESSIONAnx iety 1 Raz Ho. [facility] [address], [place], [place], [id number], [place]. tel:[phone] Referring Provider: [place] hernandez CNP, [facility] [address] [facility], [place], [address]. tel:[phone] Office/outpa tient visit,[facility] Ogilvie [facility], [address] [place] [address] [address], [place], [place], [id number] , [place] [phone] [facility] chronic conditions (chief complaint) AnxietyFatigu eDEPRESSION 1 Teressa Mak. [address], [address], [place]. tel:[phone] Referring Provider: Obdulio Gannon MD, [address], [address]. tel:[phone] Office/outpa tient visit,[facility] [employer] Ogilvie [facility], [address] [place] [address] [address], [place], [place], [id number] , [place] tel:[phone] [facility] anxiety (chief complaint) DEPRESSIONFat igue / Malaise 1 Teressa Mak. [address], [place], [address], [place]. tel:[phone] Referring Provider: Obdulio Gannon MD, [address], [place], [address]. [phone] Preventive checkup, [facility],18-39 [facility], [address] [place] [address] [address], [place], [place], [id number] , tel: [phone] [facility] PAP test (chief complaint) Gynecological Examination 1 Sun Castillo. [facility], [place], [place], [id number], . [phone] Referring Provider: Anna Britt, [address], [place], [address]. [phone] Office/outpa tient visit,[facility], [address] [place] [address] [address], [place], [place], [id number] , tel: [phone] [facility] asthma (chief complaint) AsthmaAsthmaD EPRESSIONAnxi ety 1 Sun Castillo. [address], [place], [place], [id number], . [phone] Referring Provider: Anna Britt, [address], [place], [address]. tel:[phone] Family History Family Member Type Diagnosis Age [...] Record Payers Payer name Insurance type Covered republican ID Shanna jaime(s) [facility] CI [id number] [facility] CI [id number] Social History Type Description Quantity Date Captured [...] HPV, high+low-risk. 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 Due on due Goal Glucose. Due on due Goal Breast exam. Due on 015 due Goal H&P. Due on due Goal Influenza vaccine. Due on due Goal Influenza vaccine. Due on due Goal Tdap due Goal Breast exam. Due on 013 due Goal HPV (). Due on 4 due Goal H&P. Due on due Goal Breast exam. Due on 013 due Goal HPV (). Due on 4 due Goal Td vaccine. Due on 14 due Goal Tdap. Due on due Goal Influenza vaccine. Due on due Future Order: Lab Order Pap Liqu id Based For Cytology ([id number]), Collected on: Ordered History Of Present Illness [...]
--- OUTSIDE RECORDS SUMMARY | 2025-06-07 09:40 | XMS_ITS | Encounter Summary ---
Author Organization [facility] Address [address], [address] [place] [address] Care Team Providers Care Locum Tenens Name Role Phone Skyler Kwon MD Primary Care Provider + Reason for Visit * ReasonCommentsCheck-UpPt presents for a check up and refills. Encounter Details DateTypeDepartmentCare Team (Latest Contact Info)Udlskeindsg76/13/2025 9:40 AM ESTOffice Visit [facility] [address] [place] [address] Georgia Nelson, JOIST SETTER - BURNISHER AND BUMPER [address] [place] [address] Hypertension, unspecified type (Primary Dx); Mild intermittent [...] care, and heating?Not very hard4PHQ-2AnswerDate RecordedPHQ-9 Total Dtknw37010/07/2023Hunger Vital SignAnswerDate RecordedWithin the past 12 months, [...] steady place to sleep or slept in [place] (including now)?No 10/07/2023Food InsecurityAnswerDate RecordedWithin the past 12 months, you worried that your food would run out before you got the money to buymore.1 10/07/2023Within the past 12 months, the food you bought just didn't last and you didn't have money to get more.regnantCommentsNoSex and Gender InformationValueDate RecordedSex Assigned at JomzbVbbkgo38/24/2025 4:03 PM EST Legal QfyFachpz98/10/2013 4:11 PM ESTGender IdentityNot on fileSexual OrientationNot on filedocumented as of this encounter Last Filed Vital Signs Vital SignReadingTime TakenCommentsBlood Vrvsqngk351/9206/07/2025 9:57 AM EST Olvmo77658/13/2025 9:57 AM SKEBjcogxvrwze99.2 ??C (97.1 ??F)06/07/2025 9:57 AM ESTRespiratory Vttk234308/07/2024 9:57 AM ESTOxygen Talxcjelzd24%06/07/2025 9:57 AM ESTInhaled Oxygen Concentration--Qyvxtg693.7 kg (233 lb)06/07/2025 9:57 AM XZYChzgyy914.1 cm (5' 5 )06/07/2025 9:57 AM ESTBody [...] Care Everywhere. * BMI (Body Mass Index) (Cambodian) * Calorie Restriction: General Info (Cambodian) documented in this encounter Progress Notes * Georgia Nelson APRN - CNP - 06/07/2025 9:55 AM EST Images from the original note were not included. 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 Past Medical History: Diagnosis Date Asthma Past Surgical History: Procedure Laterality Date SECTION 10/03/2015 [facility] Family History Problem Relation Age of Onset [...] Plan of Treatment DateTypeDepartmentCare Team (Latest Contact Info)Zobmnmuudgi64/12/2026 9:20 AM ESTOffice Visit [facility] [address] [place] [address] Georgia Nelson, MOR Tejada CNP [address] [place] [address] 3 MONTH F/Udocumented as of this encounter [...] Kwon MD [address] [place] [address] PCP - GeneralFamily Medicine10/19/18documented as of this encounter
--- OUTSIDE RECORDS SUMMARY | 2025-06-18 13:50 | XMS_ITS | Encounter Summary ---
Author Organization [facility] Address [address] [place] [address] Care Team Providers Care Director Of Pharmacy Name Role Phone Georgia Sage NP Primary Care Provider [phone] Reason for Visit * ReasonCommentsGynecologic ExamPre-op Visit Encounter Details DateTypeDepartmentCare Team (Latest Contact Info)Paupmopfwsh35/24/2025 1:50 PM ESTConsult SAIR[facility] [address] [place] [address] Mick Coulter DO [address] Servando Novak, [facility] Pre-op examination; Adenomyosis; Cyst of ovary, unspecified laterality; PCOS (polycystic ovarian syndrome); Well woman exam with routine gynecological exam Social History Tobacco UseTypesPacks/DayYears UsedDateSmoking Tobacco: NeverSmokeless Tobacco: Never Tobacco Cessation:Counseling Given: Not Answered Alcohol UseStandard Drinks/WeekCommentsNot Currently0 (1 standard drink = 0.6 oz pure alcohol)CommentsNoSex and Gender InformationValueDate RecordedSex Assigned at BirthNot on fileLegal VnoGpmmou10/15/2023 11:18 PM EDTGender IdentityNot on fileSexual OrientationNot on filedocumented as of this encounter Last Filed Vital Signs Vital SignReadingTime TakenCommentsBlood Pkcjhkyc374/6806/18/2025 2:10 PM EST Pulse--Temperature--Respiratory Rate--Oxygen Saturation--Inhaled Oxygen Concentration--Gwzziv578 kg (240 lb)06/18/2025 2:10 PM ESTHeight--Body Mass Index41. 10:29 AM ESTdocumented in this encounter Plan of Treatment NameTypePriorityAssociated DiagnosesOrder SchedulePap SmearPathology and CytologyRoutine Well woman exam with routine gynecological exam Ordered: 06/18/2025HPV DNA probe, amplifiedMicrobiologyRoutine Well woman exam with routine gynecological exam Ordered: 06/18/2025documented as of this encounter Visit Diagnoses Diagnosis Pre-op examination Adenomyosis Endometriosis of uterus Cyst of ovary, unspecified laterality PCOS (polycystic ovarian syndrome) Polycystic ovaries Well woman exam with routine gynecological exam Routine gynecological examination documented in this encounter Care Teams Team MemberRelationshipSpecialtyStart DateEnd Date Georgia Sage, JUDE [address] [place] [address] PCP - GeneralFamily Kayfzugh60/14/24documented as of this encounter
--- OUTSIDE RECORDS SUMMARY | 2025-06-18 20:41 | XMS_ITS | CCD ---
Author Organization [facility] Care Team Providers Care Bathing Suit Maker Name Role Phone Skyler Nichols Primary Care Provider [phone] DIGNA GUEVARA Referring Unavailable SKYLER NICHOLS Primary Care Unavailabl e GEOVANNA ., MELIDA Consulting Unavailable SAUNDRAN ., MELIDA Attending Unavailable ROSIBEL KERN Primary Care Unavailable TAMLYN ., MELIDA Admitting Unavailable TAMISHANN ., MELIDA Attending Unavailable ROSIBEL KERN Primary Care Unavailable SAUNDRAN ., MELIDA Admitting Unavailable SAUNDRAN ., MELIDA Consulting Unavailable PAULO DIAZ Consulting Unavailable LAQUITA GORMAN Consulting Unavailable LELA, NONE LISTED Primary Care Unavaila ble JACI [...] of OnsetReaction(s) Facility (20 sources)Amoxicillin; Translations: [AMOXICILLIN]Drug Crtzkop76-73-3117[facility] [place] [place] Medications Current Medications MedicationDrug Class(es)DatesSig (Normalized)Sig (Original)acetaminophen 325 mg oral tablet (3 sources)Start: 02-22-2024 End: 18-72-5600zrqc 2 tablets by mouth every six hours as needed for pain acetaminophen (TYLENOL) 325 mg tablet Take 2 Tablets by mouth every 6 hours as needed for Pain or Fever for up to 7 days. 56 Tablet 02/22/2024 02/29/2024 Activeacetaminophen 325 mg / HYDROcodone bitartrate 5 mg oral tablet (2 sources)Opioid AgonistStart: 05-08-2025 End: 04-53-9168tilq 1 tablet by mouth every six hours for painHYDROcodone- acetaminophen ([place]) 5-325 MG tablet Indications: Cyst of ovary, unspecified laterality Take 1 tablet by mouth every 6 (six) hours if needed for moderate pain or severe pain for up to 5 days 20 tablet 05/08/2025 05/13/2025 Sakywf475 actuat albuterol 0.09 mg/actuat metered dose inhaler (1 source)beta2-Adrenergic AgonistStart: 42-44-3874hqps 2 puff(s) by inhalation every six hours as needed for wheezingalbuterol sulfate HFA (PROVENTIL HFA) 108 (90 Base) MCG/ACT inhaler Inhale 2 puffs into the lungs every 6 hours as needed for Wheezing 1 Inhaler 3 10/19/2018 Rjwyjr66 hr buPROPion hydrochloride 150 mg extended release oral tablet (20 sources)AminoketoneStart: 06-08-2024 End: 42-72-0576uyrr 1 tablet by mouth once dailybuPROPion XL (Wellbutrin XL) 150 MG 24 hr tablet Indications: Weight loss counseling, encounter forTake 1 tablet (150 mg) by mouth Daily Do not crush, chew, or split. 30 tablet 11 06/08/2024 06/08/2025 Activechlorhexidine gluconate 1.2 mg/ml mouthwash (3 sources)Start: 02-22-2024 End: 85-70-8069okuqcvsejlzuc (PERIDEX) 0.12 % oral solution Take 15 mL by mouth 2 times daily for 10 days. Swish and spit 15ml BID after meals. Rinse for 30 seconds and then gently spit. Do not swallow. 473 mL 02/22/2024 03/03/2024 Activedoxycycline hyclate 100 mg oral tablet (20 sources)Tetracycline-class Drug End: 09-51-8125scqw 1 tablet by mouth once dailydoxycycline (Vibra-Tabs) 100 MG tablet Take 1 tablet by mouth Daily 05/08/2025 Discontinuedfluticasone propionate 0.05 mg/actuat metered dose nasal spray (2 sources)CorticosteroidStart: 58-51-6004qdljhuesuep (FLONASE) 50 MCG/ACT nasal spray 1 spray by Nasal route 2 times daily 1 Bottle 1 09/23/2017 Mridxz08 actuat formoterol fumarate 0.005 mg/actuat / mometasone furoate 0.2 mg/actuat metered dose inhaler (20 sources)Corticosteroid, beta2-Adrenergic AgonistStart: 07-26-4316yuwf 2 puff(s) by inhalation every twelve hoursmometasone-formoterol (DULERA) 200-5 MCG/ACT inhaler INHALE 2 PUFFS EVERY 12 HOURS 13 g 3 10/19/2018 ActiveMometasone Furo-Formoterol Fum (Dulera) 50-5 MCG/ACT aerosol Inhale 50 mcg Daily Active ibuprofen 600 mg oral tablet (3 sources)Nonsteroidal Anti-inflammatory DrugStart: 02-22-2024 End: 35-03-5472gvvt 1 tablet by mouth every six hours as needed for pain ibuprofen (MOTRIN) 600 MG tablet Take 1 Tablet by mouth every 6 hours as needed for Pain for up to 7 days. 28 Tablet 02/22/2024 02/29/2024 Activeketorolac tromethamine 10 mg oral tablet (2 sources)Nonsteroidal Anti-inflammatory Drug, Cyclooxygenase InhibitorStart: 05-08-2025 End: 25-63-1245jhvx 1 tablet by mouth every six hours for painketorolac (Toradol) 10 MG tablet Indications: Cyst of ovary, unspecified laterality Take 1 tablet (10 mg) by mouth every 6 (six) hours if needed for moderate pain for up to 5 days 20 tablet 05/08/2025 05/13/2025 Yenxyk03 hr metFORMIN hydrochloride 500 mg extended release oral tablet (20 sources)BiguanideStart: 08-20-2022 End: 55-82-2833wdel 1 tablet by mouth every twenty-four hours in the morning metFORMIN XR (Glucophage-XR) 500 MG 24 hr tablet Indications: Weight loss counseling, encounter forTake 1 tablet (500 mg) by mouth in the morning and 1 tablet (500 mg) before bedtime. Do not crush, chew, or split.. 60 tablet 11 06/08/2024 Activemetoprolol tartrate 25 mg oral tablet (20 sources)beta-Adrenergic BlockerStart: 25-30-4447shxp 1 tablet by mouth in the morningmetoprolol tartrate (Lopressor) 25 MG tablet Take 1 tablet by mouth in the morning and 1 tablet before bedtime. 05/08/2024 ActivemetroNIDAZOLE 0.0075 mg/mg vaginal gel (10 sources)Nitroimidazole AntimicrobialStart: 12-14-2024 End: 53-51-6354zcrgeKSNAAMSY (Metrogel) 0.75 % vaginal gel Indications: BV (bacterial vaginosis) 1 applicator fulldaily for 5 days. 70 g 12/14/2024 05/08/2025 DiscontinuedStart: 07-06-2024 End: 55-78-3753xcos 1 tablet by mouth in the morningmetroNIDAZOLE (Flagyl) 500 MG tablet Indications: Vaginal discharge Take 1 tablet (500 mg) by mouthin the morning and 1 tablet (500 mg) before bedtime. Do all this for 7 days. 14 tablet 07/06/2024 07/13/2024 Activemontelukast 10 mg oral tablet (1 source)Leukotriene Receptor AntagonistStart: 19-44-6857sjhv 1 tablet by mouth once dailymontelukast (SINGULAIR) 10 MG tablet take 1 tablet by mouth once daily 30 tablet 3 05/13/2017 Activenitrofurantoin, macrocrystals 25 mg / nitrofurantoin, monohydrate 75 mg oral capsule (1 source)Nitrofuran AntibacterialStart: 05-27-2019 End: 71-45-9725xlvg 1 capsule by mouth twice dailynitrofurantoin, macrocrystal- monohydrate, (MACROBID) 100 MG capsule Indications: UTI symptoms , Urinary tract infection without hematuria, site unspecified Take 1 capsule by mouth 2 times daily for 7days 14 capsule 0 05/27/2019 06/03/2019 Activephenazopyridine hydrochloride 100 mg oral tablet (1 source)Start: 05-27-2019 End: 71-32-3523appk 1 tablet by mouth three times daily as needed for pain phenazopyridine (PYRIDIUM) 100 MG tablet Indications: UTI symptoms , Urinary tract infection without hematuria, site unspecified Take 1 tablet by mouth 3 times daily as needed for Pain 9 tablet 0 05/27/2019 05/30/2019 Active phentermine hydrochloride 37.5 mg oral tablet (20 sources)Sympathomimetic Amine AnorecticStart: 11-28-2024 End: 67-13-6952chkv 1 tablet by mouth before mealtimephentermine (Adipex-P) 37.5 MG tablet Indications: Encounter for weight management Take 1 tablet (37.5 mg) by mouth in the morning. Take before meals. 90 tablet 02/20/2025 05/29/2025 Discontinued (Therapy completed)Start: 07-06-2024 End: 31-27-6314jehm 1 tablet by mouth before mealtimephentermine (Adipex-P) 37.5 MG tablet Indications: Encounter for weight management Take 1 tablet (37.5 mg) by mouth in the morning. Take before meals. 90 tablet 08/31/2024 08/31/2024 Discontinued (Other) Completed/Discontinued Medications MedicationDrug Class(es)DatesSig (Normalized)Sig (Original)docusate sodium 100 mg oral capsule (8 sources)Start: 02-20-2025 End: 94-38-4639xevn 1 capsule by mouth twice daily as needed for constipation docusate sodium (Colace) 100 MG capsule Indications: Constipation, unspecified constipation type Take 1 capsule (100 mg) by mouth 2 (two) times a day as needed for constipation 30 capsule 5 02/20/2025 05/21/2025 Expiredfluconazole 150 mg oral tablet (2 sources)Azole AntifungalStart: 07-06-2024 End: 73-28-1002sdsx 1 tablet by mouth oncefluconazole (Diflucan) 150 MG tablet Indications: Vaginal discharge Take 1 tablet (150 mg) by mouth1 (one) time for 1 dose 1 tablet 07/06/2024 07/06/2024 Problems Active Problems Problem ClassificationProblemDateDocumented DateEpisodic/Chronic Administrative/social admission (17 sources)Patient encounter status; Translations: [Dietary counseling and surveillance]95-95-4183BghseyalBxrsei (2 sources)Mild persistent asthma; Translations: [Unspecified asthma, uncomplicated]Onset: 667359-85-2462DedcwzhPgdprksaw of teeth and jaw (12 sources)Tooth eruption disorder; Translations: [Disturbances in tooth eruption]Onset: 950618-73-7132BvlhjoegLsarurmvpfaqh (2 sources)Uterine adenomyosis; Translations: [Adenomyosis]19-44-3387Vksbdbm Genitourinary symptoms and ill-defined conditions (2 sources)Urinary symptoms ; Translations: [Hematuria, unspecified]Onset: 14-17-1710ZvlwlcfkRfhtzpwpvzi (5 sources)Residual hemorrhoidal skin tags; Translations: [RESIDUAL HEMORRHOIDAL SKIN TAGS]Onset: 36-48-6743WrnkcaerHognqjusebrcc and screening for infectious disease (5 sources)Encounter for screening for human papillomavirus (HPV); Translations: [Exposure to sexually transmissible disorder]Onset: 386349-43-3270Ykmifnmp Inflammatory diseases of female pelvic organs (2 sources)Bacterial vaginosis; Translations: [Acute vaginitis]12-11-2024 EpisodicOther aftercare (1 source)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; Translations: [OTH 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 CURRENT DRUG THERAPY]Onset: 19-46-8208ByuwlplgFqzjg aftercare (1 source)roasterman (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 hypoglycemic drugs; Translations: [AIRPLANE WOODWORKER USE ORAL HYPOGLYCEMIC DX]Onset: 89-77-6884MhejrkytEzwps endocrine disorders (2 sources)Polycystic ovary syndrome; Translations: [Polycystic ovarian syndrome]86-51-1474EuceisbYlhvm female genital disorders (2 sources)Vaginal discharge; Translations: [Other specified noninflammatory disorders of vagina]57-86-3810UlzaabuyOfymo female genital disorders (2 sources)Vaginal odor; Translations: [Other specified noninflammatory disorders of vagina]79-26-6004JfqkrabeLjdfm gastrointestinal disorders (2 sources)Constipation; Translations: [Constipation, unspecified]02-20-2025 EpisodicOther nutritional; endocrine; and metabolic disorders (3 sources)Weight increased; Translations: [Abnormal weight gain]08-03-2024 EpisodicOther screening for suspected conditions (not mental disorders or infectious disease) (4 sources)Encounter for screening for malignant neoplasm of cervix; Translations: [ENC SCREENING MALIG NEOPLASM CERV]Onset: 44-39-3000Xsfknvqi Ovarian cyst (5 sources)Cyst of ovary; Translations: [Unspecified ovarian cyst, unspecified side]Onset: 403052-26-6832Yizdzgtb Past or Other Problems Problem ClassificationProblemDateDocumented DateEpisodic/ChronicOther lower respiratory disease (1 source)Cough; Translations: [Cough]Onset: 08-11-2017 Resolved: 858474-64-2170UxqlxjoeVhwruch tract infections (1 source)Acute cystitis; Translations: [Acute cystitis with hematuria]Onset: 339362-02-4818Xnuyiszo Results Test NameValueInterpretationReference RangeFacilityUS PELVIC WITH TRANSVAGINALon 06-08-4664CK PELVIC WITH TRANSVAGINALUS PELVIC WITH TRANSVAGINAL CLINICAL [...] Lisa Ramírez MD on 05/10/2025 2:50 PMNormalProMedica Miami Valley HospitalCT ABDOMEN AND PELVIS WO CONTon 53-26-1607ZZ ABDOMEN AND PELVIS WO CONTCT ABDOMEN AND [...] Tho Melton MD on 05/03/2025 5:25 PMNormalProMedica Mount Zion CampusUrinalysis macro (dipstick) panel (U)on 84-84-9003Seksgqlvw, UANegative Negative - 4(70) +++ mg/dLNOMS HealthcareBlood, UAPositiveNegative - 50 Alexander/mcL NOMS HealthcareComment on above:traceClarity, UAClearNOMS HealthcareColor, UA AmberNOMS HealthcareGlucose, UANegativeNegative - 1999(110) ++++ mg/dLNOMS HealthcareInterpretation and review of laboratory resultsAbnormalNOWY Healthcare Ketones, UAPositiveNegative - 160(16) ++++ mg/dLNOMS HealthcareComment on above: traceLeukocytes, UANegativeNegative - 500+++ Chanelle/mcLNOMS HealthcareNitrite, UA NegativeNegative - PositiveNOMS HealthcarepH, UA8.55 - 9NOMS HealthcareProtein, UAPositiveNegative - 2000(20) ++++ mg/dLNOMS HealthcareComment on above:30 mg Spec Grav, UA1.0151 - 1.03NOMS HealthcareUrobilinogen, UA1.00.2 - 12 mg/dLNOMS HealthcareNOMS HealthcareIGP,APTIMA HPV,AGE GDLNon 81-08-0471YZT GDLN ACOG TESTINGNote.NOMS HealthcareComment on above:TESTS RESULT FLAG UNITS REF RANGE LAB Clinician Provided Cytology Information Source.............Cervix;Endocervix No. of containers..01 ThinPrep Vial Age Algo ACOG Carmen... FLAG LEGEND: L-Low Normal,H-High Normal,LL-Alert Low,HH-Alert High <-Panic Low,>-Panic High,A-Abnormal,AA-Critical Abnormal Performed at: 01 =[address] [place] [address] Gabriella Chris MD, HPV APTIMANegativeNegativeNOMS HealthcareComment on above:This nucleic acid amplification test detects fourteen high- risk HPV types (16,18,31,33,35,39,45,51,52,56,58,59,66,68) without differentiation. Performed at: =[facility], [place] [id number] Shop Router: Gabriella Chris MD, Phone: [phone] Performed at: [address], [place] [id number] Shop Router: Gabriella Chris MD, Phone: [phone] IGP, APTIMA HPV, RFX 16/18,45Note.NOMS HealthcareComment on above:TESTS RESULT FLAG UNITS REF RANGE LAB DIAGNOSIS: 02 NEGATIVE FOR INTRAEPITHELIAL LESION OR MALIGNANCY. Specimen adequacy: 02 Satisfactory for evaluation. No endocervical component is identified. Performed by: Oleg Hampton, It Application Development Manager (ASCP) . 02 Note: Note 02 The Pap smear is a screening test designed to aid in the detection of premalignant and malignant conditions of the uterine cervix. It is not a diagnostic procedure and should not be used as the sole means of detecting cervical cancer. Both false-positive and false-negative reports do occur. Test Methodology: Note 02 The [employer](R) Systems Support Specialist was unable to read this specimen. Therefore a manual review was performed. FLAG LEGEND: L-Low Normal,H-High Normal,LL-Alert Low,HH-Alert High <-Panic Low,>-Panic High,A-Abnormal,AA-Critical Abnormal Performed at: [address] [address] Gabriella Chris MD, HPV Genotype Reflex Note 02 Criteria not met, HPV Genotype not performed. Criteria not met, HPV Genotype not performed. BRUSH-SPATULA CERVIX ENDOCERVIX CLINISYNCNOMS HealthcareRECURRENT VAGINITIS (HTRX)on 81-15-2826CNAFBUNOD VAGINAE 30.744AbnormalNOMS HealthcareATOPOBIUM VAGINAEDetectedAbnormalNOMS Healthcare BVAB 2,3 (BACTERIAL VAGINOSIS ASSOCIATED BACTERIA 2, 3); MOBILUNCUS HTT3KLIT HealthcareBVAB 2,3 (BACTERIAL VAGINOSIS ASSOCIATED BACTERIA 2, 3); MOBILUNCUS SPPNot detectedNOMS HealthcareCANDIDA ALBICANS, PARAPSILOSIS, QNOCDODFCP6EHHQ HealthcareCANDIDA ALBICANS, PARAPSILOSIS, TROPICALISNot detectedNOMS Healthcare KELLEN HWRQQNZJ6VGFM HealthcareCANDIDA GLABRATANot detectedNOMS Healthcare KELLEN YOHVAP4ZSNC HealthcareCANDIDA KRUSEINot detectedNOMS HealthcareCHLAMYDIA ERFFBXUPLWE2FYBF HealthcareCHLAMYDIA TRACHOMATISNot detectedNOMS Healthcare GARDNERELLA IZQMIJITD8HEPB HealthcareGARDNERELLA VAGINALISNot detectedNOMS HealthcareInterpretation and review of laboratory resultsAbnormalNOMS Healthcare MEGASPHAERA (TYPES 1, 2)0NOMS HealthcareMEGASPHAERA (TYPES 1, 2)Not detectedNOMS HealthcareMYCOPLASMA PHDFQHRAME5WZYJ HealthcareMYCOPLASMA GENITALIUMNot detected NOMS HealthcareNEISSERIA AKKVWSGRADS5IAFP HealthcareNEISSERIA GONORRHOEAENot detectedNOMS HealthcareTRICHOMONAS DPBACWZXX6WEHG HealthcareTRICHOMONAS VAGINALISNot detectedNOMS HealthcareNOMS HealthcareAddendum Noteon 02-23-2024 Currency Exchange Specialist Authentication Interface Message TextAddended by: APRIL LINDSAY on: 02/23/2024 07:55 AM Modules accepted: MasterNoVILOOProTrema Group SystemAddendum Noteon 02-22-2024 Currency Exchange Specialist Authentication Interface Message TextAddended by: APRIL LINDSAY on: 02/22/2024 04:24 PM Modules accepted: Orders, Level of ServiceNormTrader Same Movie MouthroTrema Group System Currency Exchange Specialist Authentication Interface Message TextAddended by: APRIL LINDSAY on: 02/22/2024 04:05 PM Modules accepted: OrdersNormTrader Same Movie MouthroTrema Group SystemPatient Instructionson 84-01-2100Axzjginsxacxc Authentication Interface Message TextDental extraction Instructions Biting [...] done to speak with an oral surgeon. [facility] [phone]. HELPING THE HEALING PROCESS AND STOPPING THE [...] such as c (more content not included)...NormalThe [facility], [place], Operated By Covenant HealthTrema Group SystemProgress Noteson 18-69-2587Dnvtwtylwxrcw Authentication Interface Message TextOMFS PATIENT VISIT CHIEF COMPLAINT: Pain and Goehner Teeth HISTORY OF PRESENT ILLNESS: Pt is a 33yoF with pmhx of HTN, Asthma, and Depression, presenting to [facility] clinic from referral for eval/removal of #17. [...] of HTN, Asthma, and Depression, presenting to [facility] clinic and requires removal of tooth #17 due to hx of waxing and waning pain originating from the tooth listed on the referral that limits her ability to chew, function normally, and perform oral hygiene. PLAN: Our plan is Surgical extraction of partial bony impacted tooth #17 under ALINA Lindsay DMDWichita County Health CenterTrema Group SystemTranscription Authentication Interface Message TextNoParkview Health Montpelier Hospital SystemTelephone Encounteron [phone] Authentication Interface Message TextPt currently has abscess [...] call pt back at Phone numbers To [facility] SystemPOINT OF CARE GLUCOSEon 54-95-0630Kwxqegx [Mass/Vol]113 mg/dLCritically maxn34-879FsbKindred Hospital DaytonComment on above: Performed By: #### POCGLUC #### [facility] [address] [place] [address] Dr. Shilpa ThomasPREChacha HCG QUALon 55-39-5933WPMBYPRWN, QUALNegativeNormalNEGATIVE The [facility] Rittman Medical CenterComment on above:Performed By: #### PREG #### [facility] [address] [place] [address] Dr. Shilpa Villanueva ACOG PANEL 2: 30 to 65on 11-04-2022..NormalKindred Hospital DaytonComment on above:Result Comment: Performed at: WBPerformed By: #### [id number] #### [facility] [address] [place] [address] Dr. Shilpa Marti Gdln ACOG Wgqndnu10-03ZoeiceIiiHolzer Health SystemComment on above:Performed By: #### [id number] #### [facility] [address] [place] [address] Dr. Shilpa ThomasDIAGNOSIS:CommentMercy Health St. Charles Hospital on above: Result Comment: NEGATIVE FOR INTRAEPITHELIAL LESION OR MALIGNANCY. THIS SPECIMEN WAS RESCREENED PART OF OUR POLICE DETENTION ATTENDANT PROGRAM. Performed at: WBPerformed By: #### [id number] #### [facility] [address] [place] [address] Dr. Shilpa ThomasHPV AptimaNegativeNormalNegativeThe [facility] on above:Result Comment: This nucleic acid amplification test detects fourteen high-risk HPV types (16,18,31,33,35,39,45,51,52,56,58,59,66,68) without differentiation. Performed at: =GPerformed By: #### [id number] #### [facility] [address] [place] [address] Dr. Shilpa Han Genotype ReflexCommentMercy Health St. Charles Hospital on above:Result Comment: Criteria not met, HPV Genotype not performed. Performed at: WBPerformed By: #### [id number] #### [facility] [address] [place] [address] Dr. Shilpa ThomasMethodology:CommentMercy Health St. Charles Hospital on above: Result Comment: This liquid based ThinPrep(R) pap test was screened with the use of an image guided system. Performed at: WBPerformed By: #### [id number] #### [facility] [address] [place] [address] Dr. Shilpa ThomasNote:CommentNoUC Health on above:Result Comment: The Pap smear is a screening test designed to aid in the detection of premalignant and malignant conditions of the uterine cervix. It is not a diagnostic procedure and should not be used as the sole means of detecting cervical cancer. Both false-positive and false-negative reports do occur. . Performed at: WBPerformed By: #### [id number] #### [facility] [address] [place] [address] Dr. Shilpa ThomasPerformed by:CommentMercy Health St. Charles Hospital on above: Result Comment: Agapito Peacock, It Application Development Manager (ASCP) Performed at: WBPerformed By: #### [id number] #### [facility] [address] [place] [address] Dr. Shilpa Matta reviewed by:CommentMercy Health St. Charles Hospital on above:Result Comment: Liliya Mittal, It Application Development Manager (ASCP) Performed at: WBPerformed By: #### [id number] #### [facility] [address] [place] [address] Dr. Shilpa ThomasSpecimen adequacy:CommentMercy Health St. Charles Hospital on above:Result Comment: Satisfactory for evaluation. Endocervical and/or squamous metaplastic cells (endocervical component) are present. Performed at: WBPerformed By: #### [id number] #### [facility] [address] [place] [address] Dr. Shilpa ThomasUA w/Reflex Cultureon 84-98-3302Vcaifbozjkm Acid,UrNegativeNormal NEGFairfield Medical CenterComment on above:Performed By: #### UAX #### [facility] [address] [address] Shop Router: Sandor Muir MDBilirubin, SemiQt,UrNegativeNormalNEGFairfield Medical CenterComment on above:Performed By: #### UAX #### [facility] [address] [place] [address] Shop Router: BETTY Brownolor (U)DARK YELLOWAbnormalYELMerHerrick CampusComment on above:Performed By: #### UAX #### [facility] [address] [place] [address] Shop Router: BETTY BrownomticoMicroscopic exam not performed based on chemical results unless requested inNMercy Health Perrysburg Hospital Comment on above:Result Comment: original order.Performed By: #### UAX #### [facility] [address] [place] [address] Shop Router: Sandor Muir MDGlucose Ql (U)NegativeNormalNEGFairfield Medical CenterComment on above:Performed By: #### UAX #### [address] [address] Shop Router: Sandor Muir MDHemoglobin, UrNegativeNormalNEGFairfield Medical CenterComment on above:Performed By: #### UAX #### [address] [address] Shop Router: Sandor Muir MDLeukocyte esterase Test strip Ql (U)Negative NormalNEGFairfield Medical CenterComment on above:Performed By: #### UAX #### [address] [address] Shop Router: Sandor Muir MDNitrite,UrNegativeNormalNEGFairfield Medical CenterComment on above:Performed By: #### UAX #### [address] [address] Shop Router: Aurora BrownH (U)7.5 [pH]Normal5.0-8.0Fairfield Medical CenterComment on above:Performed By: #### UAX #### [address] [address] Shop Router: AURORA Brownrotein Ql (U)NegativeNormalNEGFairfield Medical CenterComment on above:Performed By: #### UAX #### [address] [address] Shop Router: DALLIN Brownpecific gravity (U) [Rel density]1.020Normal 1.005-1.030Fairfield Medical CenterComment on above:Performed By: #### UAX #### [address] [address] Shop Router: Sandor Muir MDTurbidityCLEARNormalCLEARMerHerrick CampusComment on above:Performed By: #### UAX #### [facility] [address] [place], [place] [id number] Shop Router: Sandor Muir MDUrobilbrian,UrNormalNormalNORMMercy Banning General HospitalComment on above:Performed By: #### UAX #### [facility] [address] [place], [place] [id number] Shop Router: Sandor Muir MDUrinalysis Reflex to Cultureon 05-27-2019 Bilirubin UrineNegativeNEGATIVEMercy Health- [place], KYColor, UADARK YELLOWAbnormal YELLOWMercy Health- [place], KYGlucose, UrNegativeNEGATIVEMercy Health- [place], [place] Interpretation and review of laboratory resultsAbnormalMercy Health- [place], [place] Ketones Ql (U)NegativeNEGATIVEMercy Health- [place], KYLeukocyte esterase Test strip Ql (U)NegativeNEGATIVEMercy Health- [place], KYNitrite, UrineNegativeNEGATIVEMercy Health- [place], KYpH, UA7.5[facility]- [place], KYProtein (U) [Mass/Vol]Negative NEGATIVEMercy Health- [place], KYSpecific Lucas, UA1.020[facility] [place] Turbidity UACLEARCLEARMercy Health- [place], KYUrinalysis CommentsMicroscopic exam not performed based on chemical results unless requested in original order.[facility] [place], [place]Urine HgbNegativeNEGATIVEMercy Health- [place], [place]Urobilinogen, Urine NormalNormalMercy Health- [place], [place] Vital Signs Date TimeVital SignValuePerforming BqcjpkpntDnvpdntg31-42-7706 09:52-0500Body mass index (BMI) [Ratio]40.3 kg/m2Lorene BARRETO Work Phone: [facility] HealthcareBjwjkakdss87-65-8768 09:52-0500Body .5 kgLorene BARERTO Work Phone: [facility] HealthcareAykwdsqmik60-38-1899 09:52-0500Diastolic blood tspymrhb76 mm[Hg]Lorene Jaci PA Work Phone: [facility] HealthcareEnapgqftxr59-30-1312 09:52-0500Systolic blood slzzfuna972 mm[Hg]Lorene BARRETO Work Phone: [phone]-Critical access hospitalThree Rivers HealthcareDeusfdnxbi53-25-7341 10:06-0400Body mass index (BMI) [Ratio]40.34 kg/n4Plzka Yfn DO Work Phone: [facility] HealthcareCyjuytzhse43-84-6694 10:06-0400Body xzhoum700.59 kgCorey Yfn DO Work Phone: [phone] [place], [place] [address]Lumwamgtfv63-04-8381 10:06-0400Diastolic blood mgmotsrf46 mm[Hg]Mick Yfn DO Work Phone: [phone])134-[address] [place], [place] [address]Orzgitnshp82-59-3457 10:06-0400Systolic blood mm[Hg]Mickvernell Navaso DO Work Phone: [phone] [place], [place] [address]Vqwozhxjgg06-65-4694 09:39-0400Body mass index (BMI) [Ratio]40.25 kg/m2Amy Jaci PA Work Phone: [phone] [place], [place] [address]Hgekgbdipz58-15-5146 09:39-0400Body xepfow548.37 kgLorene Avery PA Work Phone: [phone] [place], [place] [address]Zjxxcpnwut54-91-1613 09:39-0400Diastolic blood lvpbuytt29 mm[Hg]Lorene BARRETO Work Phone: [phone] [place], [place] [address]Uozqnkcqdv27-10-3931 09:39-0400Systolic blood uqwyqpya982 mm[Hg]Lorene BARRETO Work Phone: [phone] [place], [place] [address]Iejnfxtsmt86-34-2055 13:40-0400Body mass index (BMI) [Ratio]40.9 kg/m2Lorene Avery PA Work Phone: [phone] [place], [place] [address]Xllgpwehvk01-12-9399 13:40-0400Body offkvu832.07 kgAmy Jaci PA Work Phone: [phone]-Critical access hospital9[facility] HealthcareAunsvpvqjq55-81-9878 13:40-0400Diastolic blood mm[Hg]Lorene BARRETO Work Phone: [phone] [place], [place] [address]Mtymdlaenu20-15-2414 13:40-0400Systolic blood zpmroczo014 mm[Hg]Lorene Avery PA Work Phone: [phone])360-[address] [place], [place] [address]Vbjbfaiesv77-37-1840 15:39-0400Body mass index (BMI) [Ratio]41.54 kg/o1CdhtanzqRemberto Watson SHOE SPRAYER Work Phone: [phone]-Critical access hospital9[facility] HealthcareWuhozdufqp40-21-3882 15:39-0400Body vaovel944.77 kgRemberto Walter SHOE SPRAYER Work Phone: [phone])236-[address] [place], [place] [address]Cdwwgdsbow27-22-8084 15:39-0400Diastolic blood mm[Hg]Remberto Walter SHOE SPRAYER Work Phone: [phone] [place], [place] [address]Mgbfpoqkyc31-04-7443 15:39-0400Systolic blood sxejefln904 mm[Hg]Remberto Stephenserly SHOE SPRAYER Work Phone: [phone] [place], [place] [address]Gupjerxlfc42-73-6975 13:18-0400Body mass index (BMI) [Ratio]41.54 kg/m2Amy [place] G[place] PA Work Phone: [phone] [place], [place] [address]Dteqjlyeyv61-15-7930 13:18-0400Body vwledu984.77 kgAmy [place] PA Work Phone: [phone] [place], [place] [address]Ezcevwkrzw68-43-3003 13:18-0400Diastolic blood doagnpid51 mm[Hg]Lorene Avery PA Work Phone: [phone])019-[address] [place], [place] [address]Eweitxtyqt72-38-3830 13:18-0400Systolic blood lkfbojeh180 mm[Hg]Lorene Avery PA Work Phone: [phone])016-[address] [place], [place] [address]Ypcjvudkyq74-57-7245 13:40-0500Body mass index (BMI) [Ratio]43.74 kg/m2Amy [place] PA Work Phone: [phone] [place], [place] [address]Hdvmlzjvtd05-55-8759 13:40-0500Body oxyrsf289.58 kgAmy [place] PA Work Phone: [phone]-Critical access hospital6[facility] HealthcareGhuldenavo28-19-3009 13:40-0500Diastolic blood gkpolwdj83 mm[Hg]Lorene Avery PA Work Phone: 1(722)146-[address] [place], [place] [address]Awadiygqtc53-56-2691 13:40-0500Systolic blood ixvvdmdw494 mm[Hg]Lorene BARRETO Work Phone: [phone]-Critical access hospital7[facility] HealthcareNmtndntpkg11-73-8917 13:15-0500Body mass index (BMI) [Ratio]44.29 kg/m2Lorene Aminbeatriz BARRETO Work Phone: [phone]-Critical access hospital7[facility] HealthcareNhyeeicrtd78-15-7555 13:15-0500Body jhtagb235.03 kgLorene Aminbeatriz BARRETO Work Phone: [phone])603-[address] [place], [place] [address]Dlgwrirkhs82-17-3503 13:15-0500Diastolic blood laeqpuuz95 mm[Hg]Lorene Aminbeatriz BARRTEO Work Phone: [phone] [place], [place] [address]Gkmgsatirj09-13-0282 13:15-0500Systolic blood zxbjzbco395 mm[Hg]Lorene Aminbeatriz BARRETO Work Phone: [phone] [place], [place] [address]Hpbloacooc05-63-4114 11:10-0500Body mass index (BMI) [Ratio]45.28 kg/u9Qycpw Yfn DO Work Phone: [phone] [place], [place] [address]Whupajxqcj15-59-5050 11:10-0500Body djfigv588.66 kgCorey Yfn DO Work Phone: [phone] [place], [place] [address]Mzuwkhlfaf09-97-9418 11:10-0500Diastolic blood vgutrtkb10 mm[Hg]Mick Yfn DO Work Phone: [phone])399-[address] [place], [place] [address]Rrvhjjedko20-45-3934 11:10-0500Systolic blood qyzkyqzy593 mm[Hg]Mick Yfn DO Work Phone: 1([phone] [place], [place] [address]Ypgblpbytj00-64-1578 10:29-0500Body sdbmib411.6 cmCorey Yfn DO Work Phone: [phone])256-[address] [place], [place] [address]Myijwrtkix57-35-6266 10:29-0500Body mass index (BMI) [Ratio]45.28 kg/l6Sudno Yfn DO Work Phone: [phone] [place] [address]-14-2024 10:29-0500Body ulxvuy289.66 kgCorey Yfn DO Work Phone: [phone] [place] [address]-14-2024 10:29-0500Diastolic blood dnyuztbl04 mm[Hg]Mick Yfn DO Work Phone: [facility]-SullivanEchrtydnqq43-19-0147 10:29-0500Systolic blood nielvqdt470 mm[Hg]Mick Yfn DO Work Phone: [facility]-SullivanAtmldveaxt47-78-3947 15:00-0400Diastolic blood vyamhfrt42 mm[Hg]Paige Matias DDS Work Phone: TmyfeLolmqg24-856914OelwqUgexjt62-18-1640 15:00-0400Heart rate94 /minPaige Matias DDS Work Phone: JuqwxRdybyl93-861171CmjxsUnvnjh06-49-4893 15:00-0400Systolic blood lshuxorq343 mm[Hg]Paige Matias DDS Work Phone: IiheySvkoxk86-930978LyotrVqleoe58-24-3238 15:32-0400Body ittzyy059.1 cm Paige Matias DDS Work Phone: FixqgOkrbtc87-452248GphfiOdezit79-13-1716 15:32-0400Body mass index (BMI) [Ratio]41.6 kg/m2Paige Matias DDS Work Phone: KmqaxRdwbax82-464531XaeqbUmfvju25-46-7437 15:32-0400Body .4 kg Paige Matias DDS Work Phone: [facility] Encounters Encounter DateEncounter TypeCare ProviderFacilityStart: 05-29-2025 End: 51-87-4323Tfdxzrmorgan BARRETO Work Phone: [facility]YNStart: 05-29-2025 End: 30-98-1742Etaoyoshyann BARRETO Work Phone: [facility]BGYNStart: 05-29-2025 End: 22-69-9822hlndzqdybqSFE RAMEYNot AvailableStart: 05-29-2025 End: 36-40-4832Znycgn outpatient visit 15 minutesLorene BARRETO Work Phone: [facility] OBGYNComment on above:Encounter for weight management; Follow-up encounter involving medicationStart: 05-21-2025 End: 14-04-5912Jqyvsc flowsheetCorey Yfn DO Work Phone: [facility]BGYNStart: 05-21-2025 End: 24-80-0365Kqsuuh flowsheetCorey Yfn DO Work Phone: [facility]BGYNStart: 05-21-2025 End: 18-26-2707mrldsvfpqrKBQVH FAZIONot AvailableStart: 05-21-2025 End: 37-49-2672Kacvwb outpatient visit 15 minutesCorey Yfn DO Work Phone: [facility]BGYNComment on above:Cyst of ovary, unspecified laterality; Adenomyosis; PCOS (polycystic ovarian syndrome)Start: 05-09-2025 End: 05-59-6481lcayplixkhBUP Elizabeth AVERYMet[facility]Health [facility] HospitalStart: 05-08-2025 End: 65-32-0635Bhybnn Axel BARRETO Work Phone: [facility]BGYNStart: 05-08-2025 End: 25-50-1875Qxzqhl Axel BARRETO Work Phone: [facility]BGYNStart: 05-08-2025 End: 36-41-6042hoedcauttbEMV RAMEYNot AvailableStart: 05-08-2025 End: 80-86-5756Yffimp outpatient visit 15 minutesLorene BARRETO Work Phone: [facility] OBGYNComment on above:Cyst of ovary, unspecified lateralityStart: 05-03-2025 End: 96-39-5192pnsaomzsyrLGHMCGSt. Elizabeths Hospital HospitalStart: 02-20-2025 End: 31-56-0960Lgujbk Axel BARRETO Work Phone: [facility]BGYNStart: 02-20-2025 End: 67-90-4418Nadhxs Axel BARRETO Work Phone: [facility]BGYNStart: 02-20-2025 End: 71-80-9687bqwmxkjfsbFUI RAMEYNot AvailableStart: 02-20-2025 End: 04-93-0619Ctrcwz outpatient visit 15 minutesAmy Jaci PA Work Phone: NOKF [facility] OBGYNComment on above:Encounter for weight management; Constipation, unspecified constipation typeStart: 12-11-2024 End: 47-00-7252Xzlzbr outpatient visit 15 minutesRemberto Watson NP Work Phone: [facility]CP OBComment on above:Exposure to STD; BV (bacterial vaginosis); Vaginal odorStart: 12-11-2024 End: 56-82-3045xvmbvvupwwMSJYMFZT EBERLYNot AvailableStart: 12-11-2024 End: 49-40-6950Mihlkv Supriya Watson SHOE SPRAYER Work Phone: [facility] OBStart: 12-11-2024 End: 75-78-3143Portkj flowsRanjit Watson SHOE SPRAYER Work Phone: [facility] OBStart: 11-28-2024 End: 11-75-8277Wkesdu Axel Avery PA Work Phone: NOHT BCP OBStart: 11-28-2024 End: 14-20-9916Nyecqs Axel Avery PA Work Phone: [facility] OBStart: 11-28-2024 End: 82-41-5957seraeiatawKWO RAMEYNot AvailableStart: 11-28-2024 End: 08-56-7498Fdwdgw outpatient visit 15 minutesAmy Jaci BARRETO Work Phone: [facility] OBComment on above:Weight gain; Encounter for weight managementStart: 08-31-2024 End: 74-77-8055Vxmcoe Axel Avery PA Work Phone: [facility] OBStart: 08-31-2024 End: 66-98-2477Nljzbu flowsJayden Avery PA Work Phone: [facility] OBStart: 08-31-2024 End: 02-59-2802Vxwctm outpatient visit 15 minutesAmy Jaci BARRETO Work Phone: [facility] OBComment on above:Encounter for weight managementStart: 08-31-2024 End: 82-45-9322nlttvtmfzdQXX RAMEYNot AvailableStart: 08-03-2024 End: 45-84-3619Dgzdxk flowsheetLorene BARRETO Work Phone: [facility] OBStart: 08-03-2024 End: 29-36-0676Bwyxtf flowsJayden BARRETO Work Phone: [facility] OBStart: 08-03-2024 End: 41-37-3672Gdhkhwp encounter procedureLorene BARRETO Work Phone: [facility] OBComment on above:Weight gain; Encounter for weight managementStart: 08-03-2024 End: 50-08-2546moitwjnuebLOR RAMEYNot AvailableStart: 07-06-2024 End: 69-50-4903Gbjqak flowsheetCorey Yfn DO Work Phone: [facility] OBStart: 07-06-2024 End: 31-08-5843Ewbpvd flowsheetCorey Yfn DO Work Phone: [facility] OBStart: 07-06-2024 End: 97-70-7475Ameijdtql Result EncounterCorey Yfn DO Work Phone: [facility] External Department UnsolicitedStart: 07-06-2024 End: 59-38-5637Tkpdbnug Result EncounterCorey Yfn DO Work Phone: [facility] External Department UnsolicitedStart: 07-06-2024 End: 23-51-2259ndpjsgvwixSTNWZ FAZIONot AvailableStart: 07-06-2024 End: 95-53-1942Budzylb encounter procedureCorey Yfn DO Work Phone: [facility] Work Phone: Start: 07-06-2024 End: 18-77-0947Rsgovjaj preventive med est patient 18-39 yrsCorey Yfn DO Work Phone: noms BCP OBComment on above:Well woman exam with routine gynecological exam; Weight loss counseling, encounter for; Exposure to STD; Vaginal discharge; Encounter for weight managementStart: 06-08-2024 End: 86-98-9765Meyofc flowsheetCorey Yfn DO Work Phone: [facility]CP OBStart: 06-08-2024 End: 58-15-1457Jxwwvt flowsheetCorey Yfn DO Work Phone: [facility] OBStart: 06-08-2024 End: 99-18-5809ebyorbhuiiTWUFX FAZIONot AvailableStart: 06-08-2024 End: 11-16-2097Pnpyci outpatient visit 15 minutesCorey Yfn DO Work Phone: [facility] BCP OBComment on above:Weight loss counseling, encounter forStart: 02-22-2024 End: 81-97-2983Bpnrlfp encounter Gabby Matias DDS Work Phone: [facility] SurgeryComment on above:Tooth pain (Primary Dx)Tooth pain (Primary Dx); Abnormal tooth eruptionStart: 35-25-1697jgnqwgmmpuNGRBSravan MATIAS Facility:[facility]Start: 01-11-2024 End: 57-13-9417Dujzfme encounter Gabby Matias DDS Work Phone: [facility] SurgeryComment on above:Abnormal tooth eruption (Primary Dx)Start: 91-11-3259yrmfuhcjowKEYXSravan MATIAS Facility:[facility]HealthStart: 12-15-2022 End: 33-08-1574wnwobsutgbPDPP TAMLYN .Facility:N1Tflzd: 68-56-2394Hzrxsykye for preprocedural cardiovascular examinationTODD GEOVANNA SethAultman Orrville Hospitaltart: 11-19-2022 End: 28-11-3259ggnfjbostcDBZV TAMLYN .Facility:O3Dnuil: 11-19-2022 End: 20-72-0321Zmznpumcc for preprocedural cardiovascular examinationMELIDA AUSTIN .Facility:B6Avbwh: 10-27-2022 End: 92-67-6806wmyuemesyzMG NONE LISTED REQUESTFacility:J4Lcvrk: 05-27-2019 End: 49-43-2540Ppsxaya encounter procedureDARA ISMAELHenry County Hospitaltart: 05-27-2019 End: 49-73-5206Zpkdqmvqjk hospital visit by physicianSkyler Rivero [place] LAB DOCTORComment on above:UTI symptoms Procedures DateProcedureProcedure DetailPerforming ClinicianStart: 37-79-2570Gysnl dip stick/tablet rgnt non-auto w/o micrscpRemberto Watson SHOE SPRAYER Work Phone: Start: 98-76-3076LORUHLXAN VAGINITIS (HTRX)Mick Yfn DO Work Phone: Start: 23-50-7872ZKE,APTIMA HPV,AGE GDLNCorey Yfn DO Work Phone: Start: 31-80-2227rtprbrqbeq, erupted tooth or exposed root (elevation and/or forceps removal)April Quick DMD Work Phone: Start: 08-77-4670bdywezdxb radiographic imageForrest Quick DMD Work Phone: Start: 06-52-7355Kzscl dip stick/tablet rgnt auto w/o microscopyDARA [facility] HOSPITALStart: 44-50-0336Ulvan dip stick/tablet rgnt auto w/o microscopySouthwest Regional Rehabilitation Center Work Phone: Plan of Treatment DateCare ActivityDetailAuthorStart: 45-89-9126Ikyqwjbg (RZV) Vaccine (1 of 2) Shingles (RZV) Vaccine (1 of 2)[facility]HealthStart: 33-82-6738CSkT/Tdap/Td vaccine (1 - Tdap)DTaP/Tdap/Td vaccine (1 - Tdap)[facility] [place], KYComment on above: Postponed from 2007 (Not Indicated)Start: 06-25-2025 End: 17-99-2587Pnepagg encounter xvqcyfqci81/01/2025 9:30 AM EST Office Visit [facility] [address] [place] [address] Lorene Avery PA [address] [place] [address] [facility]YNStart: 06-18-2025 End: 63-01-4012Opuvooc encounter hwhettldr00/24/2025 1:50 PM EST Consult [facility] [address] [address] Mick Coulter DO [address] [place] [address] [facility]YNStart: 05-23-2025 End: 73-67-6827Wcgkvjs encounter hvvkiqboe62/29/2025 9:40 AM EDT Office Visit [facility] [address] [place] [address] Lorene Avery, PA [address] [place] [address] [facility]YNStart: 05-21-2025 End: 46-96-4693VBEBQKQV Lab Routine PCOS (polycystic ovarian syndrome) Expected: 05/21/2025 (Approximate), Expires: 05/21/2026[facility] HealthcareComment on above: Expected: 05/21/2025 (Approximate), Expires: 05/21/2026Start: 05-09-2025 End: 03-75-5030Brxzvkcywqos / ancillary services fdvvvuughz40/15/2025 11:00 AM EDT Ancillary Procedure [facility] [address] [place] [address] [facility]BGYNStart: 05-08-2025 End: 44-11-0268PK PelvisUS Pelvis w/ TV Imaging Routine Cyst of ovary, unspecified laterality Expected: 05/08/2025, Expires: 11/06/2025[facility] Work Phone: comment on above:Expected: 05/08/2025, Expires: 11/06/2025Start: 02-20-2025 End: 98-16-7794Fkbkbog encounter rwptiprfb65/29/2025 1:30 PM EDT Office Visit [facility] [address] [place] [address] Lorene Avery, PA [address] [place] [address] [place], [place] [address] [facility] OBStart: 12-11-2024 End: 32-49-5859Uiwgttw encounter pmsmeazzm70/19/2025 3:30 PM EDT Office Visit [facility] [address] [address] Remberto Watson, SHOE SPRAYER [address] [place] [address] ArrivedNOWY BCP OBComment on above: ArrivedStart: 11-28-2024 End: 74-61-5448Gevewlh encounter pywnjnmrp94/06/2025 1:00 PM EDT Office Visit [facility] [address] [place] [address] Lorene Avery, PA [address] [place] [address] [facility] OBStart: 08-31-2024 End: 97-69-0142Yfdghuw encounter xbkziaexi64/06/2025 1:30 PM EST Office Visit [facility] [address] [place] [address] Lorene Avery, PA [address] [place] [address] [place] [address] ArrivedNOMS BCP OBComment on above:ArrivedStart: 08-03-2024 End: 96-21-6022Mcyhkzd encounter procedureNOMS BCP OBComment on above:Arrived Start: 07-06-2024 End: 14-84-1692Swwjrkm encounter obvykltze92/12/2024 10:20 AM EST Office Visit [facility] [address] [place] [phone] Mick Coulter, DO [address] [place] [address] [facility] OBStart: 73-30-8262Ivwegnxpn vaccination Influenza Vaccine (#1)[facility]Start: 02-22-2024 End: 49-72-1210Lusqdae encounter vwiegnccc46/30/2024 3:00 PM EDT Office Visit [facility] [address] [place] [address] Paige Matias, DDS [address] [place] [address] [facility] SurgeryStart: 90-02-8859NTUWI-19 Vaccine ( season)COVID-19 Vaccine ( season)[facility] Start: 95-84-1385Peenxltne vaccinationFlu vaccine (#1)[facility]: 17-35-7707PFZ Vaccine (optional start 27-45 years)HPV Vaccine (optional start 27-45 years)[facility]HealthStart: 27-76-3681Jlropdsp cancer screenCervical cancer screenBrown Memorial Hospital: 55-27-5862Kwtpugoxn for malignant neoplasm of cervixPap SmearMetroHealthStart: 10-50-0795Dczuzvlbp A (HAV) Vaccine (optional start 19+ years)Hepatitis A (HAV) Vaccine (optional start 19+ years)[facility] Start: 29-15-8996Bmhjeoyhd B vaccinationHepatitis B (HBV) Vaccine (1 of 3 - 19+ 3-dose series)[facility]HealthStart: 50-86-6328Judrksfyx C screeningHepatitis C AntibodyMetroHealthStart: 14-28-3789Mnuwwck + diphtheria + acellular pertussis vaccine (product)Tdap BoosterMetroHealthStart: 68-40-7783WPO screenHIV screen [facility]: 97-33-5614Czgvyycea Vaccine (1 of 2 - 13+ 2-dose series)Varicella Vaccine (1 of 2 - 13+ 2-dose series)[facility]: 27-21-0741Pybofeayozza 0-64 years Vaccine (1 of 1 - PPSV23)Pneumococcal 0-64 years Vaccine (1 of 1 - PPSV23)[facility]: 53-15-5795Uejsgtejv for malignant neoplasm of breastMammography shared decision making (35 through 39 years)[facility]roHealthCBC W Auto Differential panel - BloodCBC and differential Lab Routine PCOS (polycystic ovarian syndrome) Ordered: 05/21/2025[facility] HealthcareComment on above:Ordered: 05/21/2025HLAMYDIA TRACHOMATIS (GENITO/STI) CHLAMYDIA TRACHOMATIS (GENITO/STI) Lab Routine Exposure to STD Ordered: 07/06/2024[facility] HealthcareComment on above:Ordered: 07/06/2024HLAMYDIA TRACHOMATIS (GENITO/STI)CHLAMYDIA TRACHOMATIS (GENITO/STI) Lab Routine Exposure to STD Ordered: 12/11/2024[facility] HealthcareComment on above:Ordered: 12/11/2024 Cytology Cervical or vaginal smear or scraping studyPap Smear Pathology and Cytology Routine Well woman exam with routine gynecological exam Ordered: [facility] Work Phone: comment on above:Ordered: 07/06/2024HEA-sulfateDHEA- sulfate Lab Routine PCOS (polycystic ovarian syndrome) Ordered: 05/21/2025[facility] HealthcareComment on above:Ordered: 05/21/2025Follicle stimulating hormone Follicle stimulating hormone Lab Routine PCOS (polycystic ovarian syndrome) Ordered: 05/21/2025[facility] HealthcareComment on above:Ordered: 05/21/2025hCG, quantitative, pregnancyhCG, quantitative, Lab Routine PCOS (polycystic ovarian syndrome) Ordered: 05/21/2025[facility] Work Phone: comment on above:Ordered: 05/21/2025Hemoglobin A1c/Hemoglobin.total in BloodHemoglobin A1c Lab Routine Cyst of ovary, unspecified laterality Adenomyosis Ordered: 05/21/2025[place] HealthcareComment on above:Ordered: 05/21/2025Human papilloma virus DNA [Presence] in Unspecified specimen by Probe with amplificationHPV DNA probe, amplified Microbiology Routine Well woman exam with routine gynecological exam Ordered: 07/06/2024[facility] HealthcareComment on above:Ordered: 07/06/2024Luteinizing hormoneLuteinizing hormone Lab Routine PCOS (polycystic ovarian syndrome) Ordered: 05/21/2025[facility] HealthcareComment on above:Ordered: 05/21/2025Neisseria gonorrhoeae DNA [Presence] in Unspecified specimen by ROME with probe detectionNeisseria gonorrhea DNA probe, direct Lab Routine Exposure to STD Ordered: 07/06/2024[facility] HealthcareComment on above:Ordered: 07/06/2024Neisseria gonorrhoeae DNA [Presence] in Unspecified specimen by ROME with probe detectionNeisseria gonorrhea DNA probe, direct Lab Routine Exposure to STD Ordered: 12/11/2024[facility] HealthcareComment on above:Ordered: 12/11/2024SURESWAB(R) ADVANCED VAGINITIS PLUS, TMASURESWAB(R) ADVANCED VAGINITIS PLUS, TMA Pathology and Cytology Routine Vaginal discharge Ordered: 07/06/2024[facility] HealthcareComment on above:Ordered: 07/06/2024SURESWAB(R) ADVANCED VAGINITIS PLUS, TMASURESWAB(R) ADVANCED VAGINITIS PLUS, TMA Pathology and Cytology Routine Exposure to STD BV (bacterial vaginosis) Vaginal odor Ordered: 12/11/2024[facility] Work Phone: comment on above:Ordered: 12/11/2024Thyrotropin [Units/volume] in Serum or PlasmaTSH Lab Routine PCOS (polycystic ovarian syndrome) Ordered: 05/21/2025[facility] HealthcareComment on above:Ordered: 05/21/2025 Thyroxine (T4) free [Mass/volume] in Serum or PlasmaT4, free Lab Routine PCOS (polycystic ovarian syndrome) Ordered: 05/21/2025[facility] HealthcareComment on above:Ordered: 05/21/2025 Immunizations Immunization DateImmunizationNotesCare ObjjnercIcjoexuj20-72-7355xizwbtlxm virus vaccine, unspecified formulationPaige Matias DDS Work Phone: [facility] Payers DatePayer CategoryPayerPolicy ID2021Medicaid [id number] Health Insurance [id number] [id number] [facility] xxxxxxxxxxxx 2018-Present [phone] [address] [place] [address]krgmhpaqlwnf [id number] [id number] 2.0.1.425635.3.57[id number] 2.0.1.233537.3.57[id number] 2.0.1.635624.3.57[id number] 2.840.1.797237.3.57[id number] 2.0.1.687900.3.579.[id number] 2.16840.1.484238.3.579.[id number] 2.840.1.766759.3.579.[id number] 2.16.840.1.619413.3.57[id number] 2.16.840.1.947506.3.579.[id number] 2.16.840.1.752715.3.579.2.259[id number] 2.16.840.1.487533.3.579.[id number] 2.16.840.1.524652.3.57[id number] 2.16.840.1.197689.3.57[id number] 2.16.840.1.524213.3.57[id number] 2.16.840.1.959411.3.579.2.881075-69-0689Kfjcnyt4873308 2.16.840.1.231558.3.579.[id number] 2.16.0.1.966453.3.57[id number] 2..1.131788.3.579.2.155[id number] Social History DateTypeDetailFacilityStart: 53-20-3326Ijwggwd smoking status NHISNever smoker [facility]: 98-98-2540Tbwafqd intakeNoBrown Memorial Hospital: 20-11-9256Uachqau Commenthas a few drinks a monthBrown Memorial Hospital: 33-16-2882Cgn Assigned At BirthNot on [facility] NHISTobacco smoking consumption unknownNOMS HealthcareStart: 10-07-2022 [facility] Clinical Notes 01-11-2024 to 05-29-2025 Note Date & ZimqJfbcHzglvohl30-07-0310 History of Present illness Narrative* MARY LOU [...] nursing note reviewed. Exam conducted with a aircraft cabin cleaner present. Vitals: Estimated body mass index is [...] of: MARY LOU King documented in this encounterThree Rivers HealthcareBvqztzwyrz31-15-2063 History of Present illness Narrative* Hayley Singh [...] of: Mick Coulter DO documented in this encounterThree Rivers He[id number] History of Present illness Narrative* MARY LOU Kign - 05/08/2025 9:20 AM EDT Reason for Appointment: Patient ID: yAse Bass is a 35 y.o. female who presents for Follow-up Patient presents today for Acute Visit. Follow up urgent care visit for back pain and lower abd pain MEDICATIONS Current Outpatient Medications Medication Instructions buPROPion XL (WELLBUTRIN XL) 150 mg, Oral, Daily, Do not crush, chew, or split. docusate sodium (COLACE) 100 mg, Oral, 2 times daily PRN HYDROcodone-acetaminophen ([place]) 5-325 MG tablet 1 tablet, Oral, Every [...] TV ketorolac (Toradol) 10 MG tablet HYDROcodone-acetaminophen ([place]) 5-325 MG tablet Patient presents for left [...] TUBAL LIGATION Bilateral 12/04/2020 documented in this encounterThree Rivers HealthcareAnkhklkcko88-63-5776 History of Present illness Narrative* MARY LOU [...] of: MARY LOU King documented in this encounterThree Rivers HealthcareNkqhcylcks52-22-4731 History of Present illness Narrative* Remberto Watson [...] nursing note reviewed. Exam conducted with a aircraft cabin cleaner present. Vitals: Estimated body mass index is [...] of: Remberto Watson NP documented in this encounterThree Rivers HealthcareQwmvcwkjla53-34-4776 History of Present illness Narrative* MARY LOU [...] of MARY LOU King documented in this encounterThree Rivers HealthcareXepgiiswak23-80-1800 History of Present illness Narrative* MARY LOU [...] of: MARY LOU King documented in this encounterThree Rivers HealthcareOrjwqdvenu27-29-5062 History of Present illness Narrative* Bianca Cardozo [...] of MARY LOU King documented in this encounterThree Rivers HealthcareYrxcespnmi85-10-4054 History of Present illness Narrative* Olinda Galdamez [...] nursing note reviewed. Exam conducted with a aircraft cabin cleaner present. Vitals: Estimated body mass index is [...] of: Mick Coulter DO documented in this encounterThree Rivers HealthcareTujpvztfjg39-61-4276 History of Present illness Narrative* Hayley Singh [...] nursing note reviewed. Exam conducted with a aircraft cabin cleaner present. Vitals: Estimated body mass index is [...] of: Mick Coulter DO documented in this encounterThree Rivers HealthcareWpikhcdxiv63-63-5529 Note* Addendum Note - April Lindsay DMD - 02/23/2024 7:55 AM EDTAddended by: APRIL LINDSAY on: 02/23/2024 07:55 AM Modules accepted: Orders [id number] Miscellaneous Notes* Addendum Note - April Lindsay [...] PM Modules accepted: Orders documented in this [id number] Note* Addendum Note - April Lindsay DMD - 02/22/2024 4:24 PM EDTAddended by: APRIL LINDSAY on: 02/22/2024 04:24 PM Modules accepted: Orders, Level of Service JzftjBfjjny77-94-8793 Note* Addendum Note - April Lindsay DMD - 02/22/2024 4:24 PM EDTAddended by: APRIL LINDSAY on: 02/22/2024 04:24 PM Modules accepted: Orders, Level of Service SgarbXuwsep02-53-3964 Miscellaneous Notes* Addendum Note - April Lindsay DMD - 02/22/2024 4:24 PM EDTAddended by: APRIL LINDSAY on: 02/22/2024 04:24 PM Modules accepted: Orders, Level of Service * Addendum Note - April Lindsay DMD - 02/22/2024 4:05 PM EDTAddended by: APRIL LINDSAY on: 02/22/2024 04:05 PM Modules accepted: Orders documented in this [id number] NoteORAL SURGERY PROCEDURE ROOM NOTE [facility] Surgical Product(s): Extract soft tissue impacted # 17 PMH: Reviewed, no change. Antibiotic prophylaxis indicated/taken: not applicable Discussed risks, benefits, and alternatives of treatment. All of the patient's questions were answered, and informed consent was obtained: yes Pre-op Diagnosis: Tooth pain [[id number]] Caries and Impacted wisdom teeth PROCEDURE TIME [...] Minimal (<5 ml) Disposition: [facility] Note* Addendum Note - April Lindsay DMD - 02/22/2024 4:05 PM EDTAddended by: APRIL LINDSAY on: 02/22/2024 04:05 PM Modules accepted: [facility] CenterSpmxfVfemks19-04-0897 Note* Addendum Note - April Lindsay DMD - 02/22/2024 4:05 PM EDTAddended by: APRIL LINDSAY on: 02/22/2024 04:05 PM Modules accepted: Orders [id number] Note* Addendum Note - April Lindsay DMD - 02/22/2024 4:05 PM EDTAddended by: APRIL LINDSAY on: 02/22/2024 04:05 PM Modules accepted: Orders [facility] CenterGkidxRwehna82-99-7068 History of Present illness Narrative* April Lindsay DMD - 02/22/2024 4:05 PM EDT ORAL SURGERY PROCEDURE ROOM NOTE [facility] Surgical Product(s): Extract soft tissue impacted # 17 PMH: Reviewed, no change. Antibiotic prophylaxis indicated/taken: not applicable Discussed risks, benefits, and alternatives of treatment. All of the patient s questions were answered, and informed consent was obtained: yes Pre-op Diagnosis: Tooth pain [[id number]] Caries and Impacted wisdom teeth PROCEDURE TIME [...] Home April Lindsay DMD documented in this [id number] Miscellaneous Notes* Addendum Note - April Lindsay DMD - 02/22/2024 4:05 PM EDTAddended by: APRIL LINDSAY on: 02/22/2024 04:05 PM Modules accepted: Orders documented in this [id number] Instructions* Patient Instructions* April Lindsay DMD - [...] done to speak with an oral surgeon. [facility] [phone]. HELPING THE HEALING PROCESS AND STOPPING THE [...] any questions or concerns please contact us: [facility] . Ask for the morals squad police officer commissions analyst (after hours). plastic sheeting cutter Clinic Hours: Mon-Fri 8:30 am to 4:30 pm. documented in this [id number] Instructions* Patient Instructions* April Lindsay DMD - [...] done to speak with an oral surgeon. [facility] [phone]. HELPING THE HEALING PROCESS AND STOPPING THE [...] any questions or concerns please contact us: [facility] . Ask for the morals squad police officer commissions analyst (after hours). plastic sheeting cutter Clinic Hours: Mon-Fri 8:30 am to 4:30 pm. documented in this [id number] Instructions* Patient Instructions* April Lindsay DMD - [...] done to speak with an oral surgeon. [facility] [phone]. HELPING THE HEALING PROCESS AND STOPPING THE [...] any questions or concerns please contact us: [facility] . Ask for the morals squad police officer commissions analyst (after hours). plastic sheeting cutter Clinic Hours: Mon-Fri 8:30 am to 4:30 pm. documented in this [id number] NoteI was personally present for the atkins portions of the procedure. NAHEED Lesterhe [facility]07-01-2024 History of Present illness Narrative* Paige Matias DDS - 01/24/2024 10:19 AM EDT I was personally present for the atkins portions of the procedure. Paige Matias DDS * April Lindsay DMD - 01/11/2024 8:06 PM EDT OMFS PATIENT VISIT CHIEF COMPLAINT: Pain and Goehner Teeth HISTORY OF PRESENT ILLNESS: Pt is [...] of HTN, Asthma, and Depression, presenting to [facility] clinic and requires removal of tooth #17 [...] note were not included. documented in this [id number] History of Present illness Narrative* April Lindsay DMD - 01/11/2024 8:06 PM EDT OMFS PATIENT VISIT CHIEF COMPLAINT: Pain and Goehner Teeth HISTORY OF PRESENT ILLNESS: Pt is a 33yoF with pmhx of HTN, Asthma, and Depression, presenting to [facility] clinic from referral for eval/removal of #17. [...] RecordedPatient RepresentativeExplanationAdvance Directives and Living WillPower of Asbestos Siding Mechanic Summary Purpose Family History No Family History Records FoundNo Family History Records FoundNo Family History Records FoundNo Family History Records FoundNo Family History Records FoundNo Family History Records Found Reason for Referral SpecialtyDiagnoses / ProceduresReferred By ContactReferred To ContactOral Surgery Diagnoses Tooth pain Procedures SURG EXTRACTION ERUPTED TOOTH Paige Matias, DDS [address] [place] [address] Referral IDStatusReasonStart DateExpiration DateVisits RequestedVisits [id number] Scheduling Instructions If your in-clinic procedure was [...] your procedure, you will be contacted with ahq-kp-hjqmgek costs or next steps. All self-pay payments [...] the procedure: You also MUST have a swing driver/escort >18yrs old present to take you [...] section and content) DATE CREATED AUTHOR 05/28/2019 [facility] DATE CREATED AUTHOR AUTHOR'S ORGANIZ ATION 01/01/2023 [facility] DATE CREATED AUTHOR AUTHOR'S ORGANIZ ATION 02/29/2024 [facility] DATE CREATED AUTHOR AUTHOR'S ORGANIZ ATION 05/06/2025 [facility] DATE CREATED AUTHOR AUTHOR'S ORGANIZ ATION 05/11/2025 [facility] DATE CREATED AUTHOR AUTHOR'S ORGANIZ ATION 05/30/2025 [facility] EPIC Reason for Visit (unrecogniz [...] content) Team MemberRelationshipSpecialtyStart DateEnd Date Rosibel Kern, SHOE SPRAYER [address] [place] [place] [address] [facility]06/08/24Te MemberRelationshipSpecialtyStart Date End Date Rosibel Kern NP [address] [place] [address] PCP - [facility]06/08/24Te MemberRelationshipSpecialtyStart Date End Date Rosibel Kern SHOE SPRAYER [address] [place] [address] PCP - [facility]06/08/24Te MemberRelationshipSpecialtyStart Date End Date Rosibel Kern SHOE SPRAYER [address] [place] [address] PCP - [facility]06/08/24Te MemberRelationshipSpecialtyStart Date End Date Rosibel Kern, SHOE SPRAYER [address] [place] [address] PCP - [facility]06/08/24Te MemberRelationshipSpecialtyStart Date End Date Rosibel Kern SHOE SPRAYER [address] [place] [address] PCP - GeneralFamily Lmkspwsg09/14/24Team MemberRelationshipSpecialtyStart Date End Date Rosibel Kern, SHOE SPRAYER [address] [place] [address] PCP - GeneralFamily Qleeosqt66/14/24Team MemberRelationshipSpecialtyStart Date End Date Rosibel Kern, SHOE SPRAYER [address] [place] [address] PCP - GeneralFamily Xxpipgzj51/14/24Team MemberRelationshipSpecialtyStart Date End Date Rosibel Kern, SHOE SPRAYER [address] [place] [address] PCP - GeneralFamily Lnnasgud84/14/24Team MemberRelationshipSpecialtyStart Date End Date Rosibel Kern, SHOE SPRAYER [address] [place] [address] PCP - GeneralFamily Kxjvamhs74/14/24Team MemberRelationshipSpecialtyStart Date End Date Rosibel Kern, SHOE SPRAYER [address] [place] [address] PCP - GeneralFamily Tpnjczud33/14/24Team MemberRelationshipSpecialtyStart Date End Date Rosibel Kern, SHOE SPRAYER [address] [place] [address] PCP - GeneralFamily Zdhtycoi02/14/24Team MemberRelationshipSpecialtyStart Date End Date Rosibel Kern, SHOE SPRAYER [address] [place] [address] [facility]06/08/24Te MemberRelationshipSpecialtyStart Date End Date Roisbel Kern, SHOE SPRAYER [address] [place] [address] [facility]06/08/24Te MemberRelationshipSpecialtyStart Date End Date Rosibel Kern, SHOE SPRAYER [address] [place] [address] [facility]06/08/24Te MemberRelationshipSpecialtyStart Date End Date Rosibel Kern, SHOE SPRAYER [address] [place] [address] [facility]06/08/24Te MemberRelationshipSpecialtyStart Date End Date Rosibel Kern, SHOE SPRAYER [address] [place] [address] [facility]06/08/24 FOR RECORDS PERTAINING TO PATIENTS WHO ARE [...] BE BASED ON THE PRIMARY CLINICAL RECORDS. [facility] [employer] [facility]. provides no warranty or guarantee of the accuracy or completeness of information in this document.
--- OUTSIDE RECORDS SUMMARY | 2025-06-18 20:43 | XMS_ITS | Clinical Summary ---
Author Organization [facility] Healthcare Address [address] [place] [address] Care Team Providers Care Automatic Nailing Machine Feeder Name Role Phone Georgia Sage NP Primary Care Provider [phone] Allergies Active AllergyReactionsCriticalityNoted ZwrzCtizfxtwEuercztryyb65/27/2018 Adverse reaction of diarrhea, side effect and [...] day as needed for constipation 30 capsule Expired HYDROcodone-acetaminophen ([place]) 5-325 MG tablet Indications:Pelvic pain in femaleTake 1 tablet by mouth every 6 (six) hours if needed for moderate pain or severe pain for up to 5 days 20 tablet Expired Encounters DateTypeDepartmentCare FknpPleuxctfiod42/24/2025 1:50 PM [place] [address] Mick Coulter DO Pre-op examination; Adenomyosis; Cyst of ovary, unspecified laterality; PCOS (polycystic ovarian syndrome); Well woman exam with routine gynecological exam06/18/2025linisync Result Encounter [facility] External Department Unsolicited Mick Coulter, DO 06/18/2025amb flowsheet [facility] [address] [place] [address] Mick Coulter, 05/29/2025 9:20 AM [place]Office [place] [address] Lorene Beatty PA Pelvic pain in female (Primary Dx); Encounter for weight management; Follow-up encounter involving tpbdmpilee69/04/2025ambmorgan flowsheet [facility] [address] [place] [address] Lorene Beatty PA 05/28/20252707Nbzxdp46/27/2025 9:50 AM EDTOffice [place] [phone] Mick Coulter, DO Cyst of ovary, unspecified laterality; Adenomyosis; PCOS (polycystic ovarian syndrome)05/21/2025amboo flowsheet [facility] [address] [place] [address] Mick Coulter DO 05/17/20253245Runttk58/21/2025Telephone [facility] [address] [address] Hayley Singh LPN 05/10/2025External Result Encounter [facility] [address] [place] [address] [place] [address] Lorene Beatty PA 05/08/2025 9:20 AM EDTOffice Visit [facility] [address] [place] [address] [place] [address] Lorene Beatty PA Cyst of ovary, unspecified ufjpjfxsbx05/14/2025amboo flowsheet [facility] [address] [place] [address] [place] [address] Lorene Beatty PA from Last 3 Months Social History Tobacco UseTypesPacks/DayYears UsedDateSmoking Tobacco: NeverSmokeless Tobacco: Never Tobacco Cessation:Counseling Given: Not Answered Alcohol UseStandard Drinks/WeekCommentsNot Currently0 (1 standard drink = 0.6 oz pure alcohol)CommentsNoSex and Gender InformationValueDate RecordedSex Assigned at BirthNot on fileLegal GbbOpishe26/15/2023 11:18 PM EDTGender IdentityNot on fileSexual OrientationNot on file Last Filed Vital Signs Vital SignReadingTime TakenCommentsBlood Jluqowhq993/6806/18/2025 2:10 PM EST Pulse--Temperature--Respiratory Rate--Oxygen Saturation--Inhaled Oxygen Concentration--Wjxwec219 kg (240 lb)06/18/2025 2:10 PM QJCVgvnjy693.6 cm (5' 4 ) 06/08/2024 10:29 AM ESTBody Mass Index41. 10:29 AM EST Plan of Treatment Not on file Procedures Procedure NamePriorityDate/TimeAssociated DiagnosisCommentsALL THYROXINE (T4) YGVOTcfyiep50/24/2025 3:49 PM EST TBH PREG QUANT ILYDexidgz35/24/2025 3:49 PM EST ALL THYROID STIM NTHVCKBFaejzbi49/24/2025 3:49 PM EST MLR HEMOGLOBIN N0VSjfvprn99/24/2025 3:49 PM EST ALL CBC WITH AUTO FYZXZoumndj62/24/2025 3:49 PM EST US PELVIS SPQPVACVLYVE54/16/2025 2:51 PM EDT from Last 3 Months Results * TBH PREG QUANT HCG (06/18/2025 3:49 PM EST)ComponentValueRef RangeTest Method Analysis TimePerformed AtPathologist SignatureHCG QUANTITATIVE<1mIU/mLTBH Comment: 5-50 ? 0.2-1 WEEK 50-500 ? 1-2 WEEKS 100-5,000 ?2-3 WEEKS 500-10,000 ? 3-4 WEEKS 1,000-50,000 ?? 4-5 WEEKS 10,000-100,000 5-6 WEEKS 15,000-200,000 6-8 WEEKS 10,000-100,000 2-3 MONTHS Specimen (Source)Anatomical Location / LateralityCollection Method / Volume Collection TimeReceived Time06/18/2025 3:49 PM EST06/18/2025 3:59 PM EST Narrative [facility] - 06/18/2025 4:27 PM EST Authorizing ProviderResult TypeResult StatusCorey Yfn DOCLINISYNCFinal Result Performing OrganizationAddressCity/State/ZIP CodePhone Number [facility] * MLR HEMOGLOBIN A1C (06/18/2025 3:49 PM EST)ComponentValueRef RangeTest Method Analysis TimePerformed AtPathologist SignatureGLYCOHEMOGLOBIN A1C5.44.5 - 6.2 %TBHComment: ADA RECOMMENDED LIMIT 4.0 - 6.0 ADA THERAPEUTIC TARGET < 7.0 ACTION SUGGESTED > 7.0 ESTIMATED AVERAGE ODXZFTB599bf/dLTBHSpecimen (Source)Anatomical Location / LateralityCollection Method / VolumeCollection TimeReceived Time06/18/2025 3:49 PM EST06/18/2025 3:59 PM EST Narrative [facility] - 06/18/2025 4:27 PM EST Authorizing ProviderResult TypeResult StatusCorey Yfn DOCLINISYNCFinal Result Performing OrganizationAddressCity/State/ZIP CodePhone Number [facility] * ALL THYROXINE (T4) FREE (06/18/2025 3:49 PM EST)ComponentValueRef RangeTest MethodAnalysis TimePerformed AtPathologist SignatureFREE T40.810.76 - 1.46 ng/dLTBHSpecimen (Source)Anatomical Location / LateralityCollection Method / VolumeCollection TimeReceived Time06/18/2025 3:49 PM EST06/18/2025 3:59 PM EST Narrative [facility] - 06/18/2025 5:03 PM EST Authorizing ProviderResult TypeResult StatusCorey Yfn DOCLINISYNCFinal Result Performing OrganizationAddressCity/State/ZIP CodePhone Number [facility] * ALL THYROID STIM HORMONE (06/18/2025 3:49 PM EST)ComponentValueRef RangeTest MethodAnalysis TimePerformed AtPathologist SignatureTHYROID STIMULATING HORMONE2.0740.358 - 3.740 uIU/mLTBHSpecimen (Source)Anatomical Location / LateralityCollection Method / VolumeCollection TimeReceived Time06/18/2025 3:49 PM EST06/18/2025 3:59 PM EST Narrative [facility] - 06/18/2025 4:27 PM EST Authorizing ProviderResult TypeResult StatusCorey Yfn DOCLINISYNCFinal Result Performing OrganizationAddressty/State/ZIP CodePhone Number [facility] * (ABNORMAL) ALL CBC WITH AUTO DIFF (06/18/2025 3:49 PM EST)ComponentValueRef RangeTest MethodAnalysis TimePerformed AtPathologist SignatureTBH WBC8.74.0 - 11.0 10 3/uLTBHTBH RBC4.04(L)4.20 - 5.40 10 6/uLTBHTBH HGB12.712.0 - 16.0 g/dL TBHTBH HCT38.736.0 - 48.0 %TBHTBH MCV95.881.0 - 99.0 fLTBHTBH MCH31.426.7 - 34.0 pgTBHTBH MCHC32.829.9 - 35.2 g/dLTBHTBH RDW12.711.0 - 15.0 %TBHTBH KRD061 150 - 450 10 3/uLTBHTBH MPV8.8(L)9.5 - 13.5 fLTBHNEUTROPHILS PERCENT AUTO68.2 43.0 - 75.0 %TBHLYMPHOCYTES PERCENT AUTO21.320.5 - 60.0 %TBHMONOCYTES PERCENT AUTO5.61.7 - 12.0 %TBHTBH EO %3.90.9 - 7.0 %TBHBASOPHILS PERCENT AUTO0.70.2 - 2.0 %TBHIMMATURE GRANULOCYTES PCT AUTO0.30.0 - 0.5 %TBHNEUTROPHILS ABSOLUTE AUTO5.91.4 - 6.5 10 3/uLTBHLYMPHOCYTES ABSOLUTE AUTO1.91.2 - 3.8 10 3/uLTBH MONOCYTES ABSOLUTE AUTO0.50.3 - 0.8 10 3/uLTBHTBH EO #0.30.0 - 0.7 10 3/uLTBH BASOPHILS ABSOLUTE AUTO0.10.0 - 0.1 10 3/uLTBHIMMATURE GRANULOCYTES ABS AUTO 0.030.00 - 0.03 10 3/uLTBHSpecimen (Source)Anatomical Location / Laterality Collection Method / VolumeCollection TimeReceived Time06/18/2025 3:49 PM EST 06/18/2025 3:59 PM EST Narrative [facility] - 06/18/2025 4:12 PM EST Authorizing ProviderResult TypeResult StatusCorey Yfn DOCLINISYNCFinal Result Performing OrganizationAddressCity/State/ZIP CodePhone Number [facility] * pelvis transvaginal (05/10/2025 2:51 PM EDT)Anatomical RegionLaterality [...] DateEnd Date Georgia Sage, [address] [place] [address] PCP - GeneralFamily Wvkqqbhw45/14/24
--- OUTSIDE RECORDS SUMMARY | 2025-06-18 20:43 | XMS_ITS | Encounter Summary ---
Author Organization [facility] Address [address] [place] [address] Care Team Providers Care Embossing Machine Operator Name Role Phone Georgia Sage NP Primary Care Provider [phone] Encounter Details DateTypeDepartmentCare Team (Latest Contact Info)Admpukyzqhh43/24/2025linisync Result Encounter [facility] External Department Unsolicited Mick Coulter, DO [address] [place], [place] [address] Social History Tobacco UseTypesPacks/DayYears UsedDateSmoking Tobacco: NeverSmokeless Tobacco: NeverAlcohol UseStandard Drinks/WeekCommentsNot Currently0 (1 standard drink = 0.6 oz pure alcohol)CommentsNoSex and Gender InformationValueDate RecordedSex Assigned at BirthNot on fileLegal EepXrfnaz47/15/2023 11:18 PM EDT Gender IdentityNot on fileSexual OrientationNot on filedocumented as of this encounter Plan of Treatment Not on file documented as of this encounter Procedures Procedure NamePriorityDate/TimeAssociated DiagnosisCommentsTBH PREG QUANT HCG Cxkdznt1606/18/2025 3:49 PM EST MLR HEMOGLOBIN W0UBfmlzck19/24/2025 3:49 PM EST ALL THYROXINE (T4) PHRZXkurgie01/24/2025 3:49 PM EST ALL THYROID STIM RVMGRBZUoirtro43/24/2025 3:49 PM EST ALL CBC WITH AUTO KKIEFfnyktk29/24/2025 3:49 PM EST documented in this encounter Results * ALL THYROXINE (T4) FREE (06/18/2025 3:49 PM EST)ComponentValueRef RangeTest MethodAnalysis TimePerformed AtPathologist SignatureFREE T40.810.76 - 1.46 ng/dLTBHSpecimen (Source)Anatomical Location / LateralityCollection Method / VolumeCollection TimeReceived Time06/18/2025 3:49 PM EST06/18/2025 3:59 PM EST Narrative [facility] - 06/18/2025 5:03 PM EST Authorizing ProviderResult TypeResult StatusCorey Yfn DOCLINISYNCFinal Result Performing OrganizationAddressCity/State/ZIP CodePhone Number [facility] * TBH PREG QUANT HCG (06/18/2025 3:49 [...] Yfn DOCLINISYNCFinal Result Performing OrganizationAddressCity/State/ZIP CodePhone Number [facility] * ALL THYROID STIM HORMONE (06/18/2025 3:49 PM EST)ComponentValueRef RangeTest MethodAnalysis TimePerformed AtPathologist SignatureTHYROID STIMULATING HORMONE2.0740.358 - 3.740 uIU/mLTBHSpecimen (Source)Anatomical Location / LateralityCollection Method / VolumeCollection TimeReceived Time06/18/2025 3:49 PM EST06/18/2025 3:59 PM EST Narrative [facility] - 06/18/2025 4:27 PM EST Authorizing ProviderResult TypeResult StatusCorey Yfn DOCLINISYNCFinal Result Performing OrganizationAddressCity/State/ZIP CodePhone Number [facility] * MLR HEMOGLOBIN A1C (06/18/2025 3:49 PM EST)ComponentValueRef RangeTest Method Analysis TimePerformed AtPathologist SignatureGLYCOHEMOGLOBIN A1C5.44.5 - 6.2 %TBHComment: ADA RECOMMENDED LIMIT 4.0 - 6.0 ADA THERAPEUTIC TARGET < 7.0 ACTION SUGGESTED > 7.0 ESTIMATED AVERAGE EEQSXYF766ly/dLTBHSpecimen (Source)Anatomical Location / LateralityCollection Method / VolumeCollection TimeReceived Time06/18/2025 3:49 PM EST06/18/2025 3:59 PM EST Narrative [facility] - 06/18/2025 4:27 PM EST Authorizing ProviderResult TypeResult StatusCorey Yfn DOCLINISYNCFinal Result Performing OrganizationAddressCity/State/ZIP CodePhone Number [facility] * (ABNORMAL) ALL CBC WITH AUTO DIFF (06/18/2025 3:49 PM EST)ComponentValueRef RangeTest MethodAnalysis TimePerformed AtPathologist SignatureTBH WBC8.74.0 - 11.0 10 3/uLTBHTBH RBC4.04(L)4.20 - 5.40 10 6/uLTBHTBH HGB12.712.0 - 16.0 g/dL TBHTBH HCT38.736.0 - 48.0 %TBHTBH MCV95.881.0 - 99.0 fLTBHTBH MCH31.426.7 - 34.0 pgTBHTBH MCHC32.829.9 - 35.2 g/dLTBHTBH RDW12.711.0 - 15.0 %TBHTBH XEH345 150 - 450 10 3/uLTBHTBH MPV8.8(L)9.5 - [...] DOCLINISYNCFinal Result Performing OrganizationAddressCity/State/ZIP CodePhone Number [facility] documented in this encounter Visit Diagnoses Not on filedocumented in this encounter Care Teams Team MemberRelationshipSpecialtyStart DateEnd Date Georgia Sage, [address] [place] [address] PCP - GeneralFamily Ddtayqyk44/14/24documented as of this encounter
--- OUTSIDE RECORDS SUMMARY | 2025-06-18 20:43 | XMS_ITS | Clinical Summary ---
Author Organization [facility] Address [address], [address] [place] [address] Care Team Providers Care Pick Up Worker Name Role Phone Skyler Kwon MD Primary Care Provider + Allergies Active AllergyReactionsCriticalityNoted RnooCdmiyrsiPbecypkjwlb66/27/2018 Adverse reaction of diarrhea, side effect and doesn't cure illness Medications MedicationSigDispense QuantityRefillsLast FilledStart DateEnd DateStatus ondansetron (ZOFRAN-ODT) 4 MG disintegrating tablet Indications:Shortness of breath,BMI 40.0-44.9, adult (HCC),Nauseadissolve 1 tablet ON TONGUE every 8 hours if needed for nausea OR vomiting 30 tablet 09/15/2022ctive fluticasone (FLONASE) 50 MCG/ACT nasal spray Indications:H/O seasonal allergiesinstill 1 spray into each nostril twice a day 48 g 05/24/2023ctive metFORMIN (GLUCOPHAGE) 500 MG tablet Take 1 tablet by mouth 2 times daily (with meals) 60 tablet ctive ibuprofen (ADVIL;MOTRIN) 600 MG tablet Take 1 tablet by mouth every 8 hours as rnywyl6007/22/2022ctive doxycycline hyclate (VIBRA-TABS) 100 MG tablet Take 1 tablet by mouth dailyActive buPROPion (WELLBUTRIN XL) 150 MG extended release tablet Take 1 tablet by mouth daily06/08/2024ctive HYDROcodone-acetaminophen (NORCO) 5-325 MG per tablet 05/29/2025tive promethazine (PHENERGAN) 25 MG tablet Take 1 tablet by mouth every 6 hours as azjcdt385Active metoprolol tartrate (LOPRESSOR) 25 MG tablet Indications:Hypertension, unspecified type,TachycardiaTake 1 tablet by mouth 2 times daily 90 tablet 5Active albuterol sulfate HFA (VENTOLIN HFA) 108 (90 Base) MCG/ACT inhaler Indications:Mild persistent asthma with acute exacerbationInhale 2 puffs into the lungs 4 times daily as needed for Wheezing 18 g 5Active montelukast (SINGULAIR) 10 MG tablet Indications:Mild persistent asthma with acute exacerbation,H/O seasonal allergiestake 1 tablet by mouth once daily 90 tablet 5Active SYMBICORT 160-4.5 MCG/ACT AERO Indications:Mild intermittent asthma, unspecified whether complicatedInhale 2 puffs into the lungs 2 times daily 10.2 g 5Active montelukast (SINGULAIR) 10 MG tablet Indications:H/O seasonal allergies,Mild persistent asthma with acute exacerbationtake 1 tablet by mouth once daily 90 tablet /Discontinued(REORDER) albuterol sulfate (PROAIR RESPICLICK) 108 (90 Base) MCG/ACT aerosol powder inhalation Indications:Shortness of breath,Mild persistent asthma with acute exacerbation Inhale 2 puffs into the lungs every 6 hours as needed for Wheezing or Shortness of Breath 3 each Discontinued(Alternate therapy) albuterol sulfate HFA (VENTOLIN HFA) 108 (90 Base) MCG/ACT inhaler Indications:Mild persistent asthma with acute exacerbationInhale 2 puffs into the lungs 4 times daily as needed for Wheezing 18 g Discontinued fluticasone-salmeterol (ADVAIR DISKUS) 250-50 MCG/ACT AEPB diskus inhaler Indications:Mild intermittent asthma, unspecified whether complicatedInhale 1 puff into the lungs in the morning and 1 puff in the evening. 60 each Discontinued(Alternate therapy) metoprolol tartrate (LOPRESSOR) 25 MG tablet Indications:Hypertension, unspecified type,TachycardiaTAKE 1 TABLET BY MOUTH 2 TIMES A DAY 90 tablet Discontinued(REORDER) budesonide-formoterol (SYMBICORT) 160-4.5 MCG/ACT AERO Indications:Mild intermittent asthma, unspecified whether complicatedInhale 2 puffs into the lungs 2 times daily 30.6 g Discontinued(Cost of medication) Active Problems ProblemNoted DateDiagnosed DateMorbid obesity with BMI of 40.0-44.9, adult 06/07/2025lass 2 severe obesity with serious comorbidity and body mass index (BMI) of 38.0 to 38.9 in adult06/07/2025Unspecified fall, initial encounter 01/07/2024Left knee pain01/07/2024Spinal stenosis, lumbar region without neurogenic dirysnbswoam14/13/2024Other prison (current) drug therapy 12/23/2022Long term (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 hypoglycemic drugs12/23/2022 Eroedsxsrsw37/01/2023Mild persistent asthma with acute khljetahpxok82/30/2016 Resolved Problems ProblemNoted DateDiagnosed DateResolved DateContusion of knee and lower leg, left, initial xemrdjxfz86/08/20234701Uhtf77Encounter for screening for malignant neoplasm of pbxeom46cute cystitis with seexoacpp98ough Encounters DateTypeDepartmentCare EbxdOcfjfqeqner96/13/2025 9:40 AM ESTOffice Visit [facility] [address] [place] [address] Georgia Nelson, CLEAN RICE GRADER AND REEL TENDER - CORPORATE COMMUNICATIONS SPECIALIST Hypertension, unspecified type (Primary Dx); Mild intermittent asthma, unspecified whether complicated; Depression with anxiety; Tachycardia; Class 2 severe obesity with serious comorbidity and body mass index (BMI) of 38.0 to 38.9 in adult,unspecified obesity type; Mild persistent asthma with acute exacerbation; H/O seasonal allergiesfrom Last 3 Months Immunizations ImmunizationAdministration DatesNext DueInfluenza Virus Oetbveh7205/08/2016 Influenza, FLUCELVAX, (age 6 mo+), MDCK, Quadv PF, 0.5mL05/08/2016 Family History Medical HistoryRelationNameCommentsHeart DiseaseFatherHigh Blood PressureFather High Blood PressureMotherRelationNameStatusCommentsFatherAliveMotherAlive Social History Tobacco UseTypesPacks/DayYears UsedDateSmoking Tobacco: NeverSmokeless Tobacco: Never Tobacco Cessation:Counseling Given: Not Answered Alcohol UseStandard Drinks/WeekCommentsNo0 (1 standard drink = 0.6 oz pure alcohol)has a few drinks a monthOverall Financial Resource Strain (CARDIA)Answer Date RecordedHow hard is it for you to pay for the very basics like food, housing, medical care, and heating?Not very hard10/07/2023HQ-2AnswerDate RecordedPHQ-9 Total Lentf01510/07/2023Hunger Vital SignAnswerDate RecordedWithin the past 12 months, [...] steady place to sleep or slept in ashelter (including now)?No 10/07/2023Food InsecurityAnswerDate RecordedWithin the past 12 months, you worried that your food would run out before you got the money to buymore.1 10/07/2023Within the past 12 months, the food you bought just didn't last and you didn't have money to get more.regnantCommentsNoSex and Gender InformationValueDate RecordedSex Assigned at MiipwYtbvbb63/24/2025 4:03 PM EST Legal WobPnmcfi21/10/2013 4:11 PM ESTGender IdentityNot on fileSexual OrientationNot on file Last Filed Vital Signs Vital SignReadingTime TakenCommentsBlood Ilkkhiul345/9211 9:57 AM EST Kcmar11413/13/2025 9:57 AM NASPxsqnmlcvzy80.2 ??C (97.1 ??F)06/07/2025 9:57 AM ESTRespiratory Eybg515708/07/2024 9:57 AM ESTOxygen Kdqtokhomi00%06/07/2025 9:57 AM ESTInhaled Oxygen Concentration--Iubqrh638.7 kg (233 lb)06/07/2025 9:57 AM WKBQrpzsn872.1 cm (5' 5 )06/07/2025 9:57 AM ESTBody Mass Index38.7706/07/2025 9:57 AM EST Plan of Treatment DateTypeDepartmentCare Team (Latest Contact Info)Wvwdruwkayr19/12/2026 9:20 AM ESTOffice [facility] [address] [place] [address] Georgia Nelson, CLEAN RICE GRADER AND REEL TENDER - CORPORATE COMMUNICATIONS SPECIALIST [address] [place] [address] 3 MONTH F/UHealth MaintenanceDue DateLast DoneCommentsHIV ketixj3905/05/2003 Hepatitis C ykpimk3805/05/2006Hepatitis B vaccine (1 of 3 - 19+ 3-dose series) 2007Pap smear2009Cervical cancer pcawpm6005/05/2018HPV (without or with Pap)2018Depression Ubmldjffer48Flu vaccine (#1) , 05/08/2016COVID-19 Vaccine (1 - season)2025 Pneumococcal 0-49 years Vaccine (1 of 2 - PCV)11/13/2026Postponed from 2007 (Patient Refused)Varicella vaccine (1 of 2 - 13+ 2-dose series) 11/13/2026Postponed from 2001 (Patient Refused)DTaP/Tdap/Td vaccine (1 - Tdap)03/24/2027Postponed from 2007 (Not Indicated)Depression Screen Dujxvhyijmid59/14/2024HPV vaccine (No Doses Required)CompletedHepatitis A vaccineAged OutNo longer eligible based on patient's age to complete this topic Hib vaccineAged OutNo longer eligible based on patient's age to complete this topicMeningococcal (ACWY) vaccineAged OutNo longer eligible based on patient's age to complete this topicMeningococcal B vaccineAged OutNo longer eligible based on patient's age to complete this topicPolio vaccineAged OutNo longer eligible based on patient's age to complete this topic Insurance Care Teams Team MemberRelationshipSpecialtyStart DateEnd Date Skyler Kwon MD [address] [place] [address] PCP - GeneralFawily Medicine10/19/18
--- OUTSIDE RECORDS SUMMARY | 2025-06-18 20:43 | XMS_ITS | Clinical Summary ---
Author Organization [employer] [facility] Address [facility] [id number] [place] [address] Care Team Providers Care Manager Environmental Health Name Role Phone Georgia Nelson APRN-LOG INSPECTOR Primary Care P rovider Allergies Active AllergyReactionsCriticalityNoted KozkAmoogvqnLnpiyftfroj34/27/2018 Adverse reaction of diarrhea, side effect and [...] ProblemNoted DateDiagnosed DateSusceptible to varicella (non-immune), currently vtgdiuga00/09/2020History of xirvsti2905/03/2019Acute cystitis with qrfsojnbe83/01/2018Mild persistent invthg4704/24/2016 Encounters DateTypeDepartmentCare ZwafEelwpmxussj92/15/2025 1:45 PM EDT - 05/09/2025 11:59 PM EDTHospital Encounter [facility] [address] [phone] Cyst of ovary, unspecified laterality Discharge Disposition: Home05/09/20259459Avkmlx25/09/2025 3:57 PM EDT - 05/03/2025 11:59 PM EDTHospital Encounter [facility] [address] [place] [phone] Hematuria, unspecified type Discharge Disposition: Home05/03/2025Travelfrom Last [...] file 12/20/2019Frequency of Binge DrinkingNot on file12/20/2019ChildcareAnswerDate JnrpcvbsXjtqpawrdDrvzvwh78/12/2019EmploymentAnswerDate RecordedEmploymentUnknown 01/04/2019Hunger ScreeningAnswerDate RecordedWithin the past 12 months we worried whether our food would run out before we got money to buy more.Never True01/07/2024Within the past 12 months the food we bought just didn't last and we didn't have money to get more.Never True4Purpose - LifeAnswerDate RecordedPurpose and direction in spuhGzrfiyj64/25/2021CommentsNoSex and Gender InformationValueDate RecordedSex Assigned at BirthNot on fileLegal Sex Xqegur3702/28/2015 12:12 PM EDTGender IdentityNot on fileSexual OrientationNot on file Last Filed Vital Signs Vital SignReadingTime TakenCommentsBlood Catedihh585/75070 10:15 AM EDT Chjbe59528/14/2024 10:00 AM NBWXdhdrriiive60.8 ??C (98.3 ??F)01/07/2024 8:56 AM EDTRespiratory Shlb294001/07/2024 10:00 AM EDTOxygen Ogerqvenxy66%01/07/2024 10:15 AM EDTInhaled Oxygen Concentration--Bvjhcq629.4 kg (250 lb)01/07/2024 8:56 AM KPFHeapoj099.1 cm (5' 5 )01/07/2024 8:56 AM EDTBody Mass Index41.6001/07/2024 8:56 AM EDT Plan of Treatment Health MaintenanceDue DateLast DoneCommentsDepression Fpkkmeyxf35/11/2000 DTaP,Tdap and Td Vaccines (1 - Tdap)2007Pap Smear, 10/06/2018Adult BMI Gwjralysw20Tobacco Vqmsjaqrq47/14/2025 01/07/2024Influenza Dnurjqg18 Medical Devices Not on file Procedures Procedure NamePriorityDate/TimeAssociated DiagnosisCommentsUS PELVIC WITH IJYHSKNXKISWMzeuyfz17/15/2025 2:51 PM EDT Cyst of ovary, unspecified laterality CT ABDOMEN AND PELVIS WO FXTEDQFA17/09/2025 4:08 PM EDT Hematuria, unspecified type PAP EKBKMRhfkual87/14/2019 6:14 PM EDT Cervical smear, as part [...] adenomyosis. Recommend clinical correlation. Finalized by Lisa Rmaírez MD on 05/10/2025 2:50 PM Procedure Note [...] PM Authorizing ProviderResult TypeResult StatusAmy Elizabeth Beatty [facility] US ORDERABLESFinal Result * CT [...] 5:25 PM Authorizing ProviderResult TypeResult StatusGilmerhemanth Sanford ELECT[employer]ICIAN CRANE MAINTENANCE-CNPIMG CT ORDERABLESFinal Result * Pap Smear (10/06/2018 6:14 PM EDT)Specimen (Source)Anatomical Location / LateralityCollection Method / VolumeCollection TimeReceived TimeCervical TP 10/06/2018 6:14 PM EDT10/06/2018 6:53 PM EDT Narrative COPATH - 10/12/2018 1:29 PM EDT [facility] ? [address] [place] [address] ? [place] [address] ? Gynecologic Cytology Consultation ? Patient Name: AYSE PENNINGTON : 1990 (Age: 28) Gender: F Taken: 10/06/2018 Reported: 10/12/2018 Physician(s): Claudia Still CNP ([phone]) Copy To: ?? Med. Rec.#: [id number] Acct: # [id number] Final Cytologic Interpretation Cervical (with or without endocervical) ThinPrep: Satisfactory for evaluation. NEGATIVE FOR INTRAEPITHELIAL LESION OR MALIGNANCY. Comment: This specimen has been sent for HPV testing. The results are in a separate report. jmerrill/10/12/2018 Interpretation performed at [facility], [address] [place] [id number], License number: [id number]. Electronically Signed Out By ?KAYLA Shine (ASCP) Date of Last Menstrual Period: ? 09/30/2018 Other Clinical Conditions: Screening/Routine z01.419 Manager Environmental Health exam wo/abn findings Source of Specimen ??Cervical (with or without endocervical) ThinPrep ? Thin Prep Pap (TAPE CONTROLLED MACHINE STITCHER) Fee Code(s): ?? G0145 The Pap test is a screening test with an inherent, but low, probability of error. The Pap test is primarily effective for the diagnosis and prevention of squamous cell carcinoma. Regular screening iscritical for prevention. ThinPrep liquid-based slides, which meet the Field Administrator criteria for automated screening, have been screened by the RecorridoPrep Imaging System (as of 04/11/07) along with an additional manual rescreening by a gem technician and, if indicated, by a pathologist.Claudia Still CNP 10/07/2018 Authorizing ProviderResult TypeResult StatusTrakay Still ELECTRICIAN CRANE MAINTENANCE-[facility] PATHOLOGY/CYTOLOGY ORDERABLESFinal ResultPerforming OrganizationAddress City/State/ZIP CodePhone Number COPATH from Last 3 Months or Most Recently Relevant to Health Maintenance Insurance Care Teams Team MemberRelationshipSpecialtyStart DateEnd Date Georgia Nelson, ELECTRICIAN CRANE MAINTENANCE-LOG INSPECTOR [address] [place] [address] [facility]05/09/25
--- OUTSIDE RECORDS SUMMARY | 2025-06-18 20:43 | XMS_ITS | Encounter Summary ---
Author Organization [facility] Address [address] [place] [address] Care Team Providers Care Tea Taster Name Role Phone Georgia Sage CUSTODIAL MANAGER Primary Care Provider [phone] Encounter Details DateTypeDepartmentCare Team (Latest Contact Info)Pegbxmghatp89/24/2025amboo flowsheet [facility] [address] [phone] Mick Coulter DO [address] Servando Novak, [facility] Social History Tobacco UseTypesPacks/DayYears UsedDateSmoking Tobacco: NeverSmokeless Tobacco: NeverAlcohol UseStandard Drinks/WeekCommentsNot Currently0 (1 standard drink = 0.6 oz pure alcohol)CommentsNoSex and Gender InformationValueDate RecordedSex Assigned at BirthNot on fileLegal UbgJostoe98/15/2023 11:18 PM EDT Gender IdentityNot on fileSexual OrientationNot on filedocumented as of this encounter Plan of Treatment Not on file documented as of this encounter Visit Diagnoses Not on filedocumented in this encounter Care Teams Team MemberRelationshipSpecialtyStart DateEnd Date Georgia Sage, CUSTODIAL MANAGER [address] [place] [address] PCP - GeneralFamily Txkxerjg73/14/24documented as of this encounter
--- OUTSIDE RECORDS SUMMARY | 2025-06-18 20:43 | XMS_ITS | Clinical Summary ---
Author Organization [facility] Address [address] [facility] [address] [place] [address] Care Team Providers Care Government Relations Manager Name Role Phone Unavailable Primary Care Provider Unavailabl e Source Comments The following information is NOT included in Care Everywhere downloads:Psychiatric notes, ECG results, Cardiac Rehab notes, Pulmonary Function notes, data from SmartForms (includes but not limited toPregnancy data,audiograms, eye exams, pre-surgical evaluation notes, well-child exam data).[facility] Allergies No known active allergies [...] InformationValueDate RecordedSex Assigned at Not on fileLegal DddErmcth75/02/2024 4:11 PM EDTGender IdentityNot on fileSexual OrientationNot on file Last Filed Vital Signs Vital SignReadingTime TakenCommentsBlood Mtrqjmbw147/8707 3:00 PM EDT Pinhw053302/22/2024 3:00 PM EDTTemperature--Respiratory Rate--Oxygen Saturation-- Inhaled Oxygen Concentration--Pjxape940.4 kg (250 lb)01/11/2024 3:32 PM EDT Anvxrv387.1 cm (5' 5 )01/11/2024 3:32 PM EDTBody Mass Index41.606 3:32 PM EDT Plan of Treatment Health MaintenanceDue DateLast DoneCommentsMammography (shared decision-making, age 35-39)1990Hepatitis C Vgfushjv58/11/2006Tdap Zrinvcg4905/05/2006 Hepatitis A (HAV) Vaccine (optional start 19+ years)2007Hepatitis B (HBV) Vaccine (1 of 3 - 19+ 3-dose series)2007Pap Smear2009HPV Vaccine (optional start 27-45 years)2015COVID-19 Vaccine (1 - 2024- season) 2025Influenza Vaccine (#1)Shingles (RZV) Vaccine (1 of 2)2038HIV NxulLsikfkwsj56/08/2020MammographyDiscontinuedPneumococcal Vaccine(s)Aged OutNo longer eligible based on patient's age to complete this topic Insurance * Guarantor: Gabriela Bass TypeRelation to PatientDate of BirthPhone Billing LoomjiwFqozbuxxejshlNawr1990 [address] [place] [address]
== END 2025-06-18 20:39 | disposition home or self-care (01) ==
LOC: LAB 20:38
PROVIDERS: PCP Obstetrics & Gynecology; Visit Provider Obstetrics & Gynecology
DX: Z01.419 Encounter for gynecological examination (general) (routine) without abnormal findings (principal); E28.2 Polycystic ovarian syndrome
CPT/HCPCS: 36415; 82626; 82627; 83001; 83002; 83036; 84439; 84443; 84702; 85025; 88175

== ENCOUNTER 2025-07-06 12:38 | Outpatient (OUT) | payer OTHER, SELFPAY ==
--- OUTSIDE RECORDS SUMMARY | 2025-07-06 12:43 | XMS_ITS | CCD ---
Author Organization [facility] Care Team Providers Care Defensive Driving Instructor Name Role Phone Skyler Nichols Primary Care Provider [phone] DIGNA GUEVARA Referring Unavailable SKYLER NICHOLS Primary [...] of OnsetReaction(s) Facility (20 sources)Amoxicillin; Translations: [AMOXICILLIN]Drug [facility]vcxz85-89-3571[facility] [place] [place] Medications Current Medications MedicationDrug Class(es)DatesSig (Normalized)Sig (Original)acetaminophen 325 mg oral tablet (3 sources)Start: 02-22-2024 End: 29-73-1364lxmm 2 tablets by mouth every six hours as needed for pain acetaminophen (TYLENOL) 325 mg tablet Take 2 Tablets by mouth every 6 hours as needed for Pain or Fever for up to 7 days. 56 Tablet 02/22/2024 02/29/2024 Activeacetaminophen 325 mg / HYDROcodone bitartrate 5 mg oral tablet (2 sources)Opioid AgonistStart: 05-08-2025 End: 70-98-1191plcv 1 tablet by mouth every six hours for painHYDROcodone- acetaminophen (Snyder) 5-325 MG tablet Indications: Cyst of ovary, unspecified laterality Take 1 tablet by mouth every 6 (six) hours if needed for moderate pain or severe pain for up to 5 days 20 tablet 05/08/2025 05/13/2025 Xixqjj207 actuat albuterol 0.09 mg/actuat metered dose inhaler (1 source)beta2-Adrenergic AgonistStart: 19-61-7730zbmo 2 puff(s) by inhalation every six hours as needed for wheezingalbuterol sulfate HFA (PROVENTIL HFA) 108 (90 Base) MCG/ACT inhaler Inhale 2 puffs into the lungs every 6 hours as needed for Wheezing 1 Inhaler 3 10/19/2018 Lfrhdv08 hr buPROPion hydrochloride 150 mg extended release oral tablet (20 sources)AminoketoneStart: 06-08-2024 End: 42-07-3101rowl 1 tablet by mouth once dailybuPROPion XL (Wellbutrin XL) 150 MG 24 hr tablet Indications: Weight loss counseling, encounter forTake 1 tablet (150 mg) by mouth Daily Do not crush, chew, or split. 30 tablet 11 06/08/2024 06/08/2025 Activechlorhexidine gluconate 1.2 mg/ml mouthwash (3 sources)Start: 02-22-2024 End: 67-02-5638etfqyobznxsga (PERIDEX) 0.12 % oral solution Take 15 mL by mouth 2 times daily for 10 days. Swish and spit 15ml BID after meals. Rinse for 30 seconds and then gently spit. Do not swallow. 473 mL 02/22/2024 03/03/2024 Activedoxycycline hyclate 100 mg oral tablet (20 sources)Tetracycline-class Drug End: 26-33-2620zjiq 1 tablet by mouth once dailydoxycycline (Vibra-Tabs) 100 MG tablet Take 1 tablet by mouth Daily 05/08/2025 Discontinuedfluticasone propionate 0.05 mg/actuat metered dose nasal spray (2 sources)CorticosteroidStart: 48-85-5047kfslbwzfnjv (FLONASE) 50 MCG/ACT nasal spray 1 spray by Nasal route 2 times daily 1 Bottle 1 09/23/2017 Vzmxrh07 actuat formoterol fumarate 0.005 mg/actuat / mometasone furoate 0.2 mg/actuat metered dose inhaler (20 sources)Corticosteroid, beta2-Adrenergic AgonistStart: 09-31-7373hbvb 2 puff(s) by inhalation every twelve hoursmometasone-formoterol (DULERA) 200-5 MCG/ACT inhaler INHALE 2 PUFFS EVERY 12 HOURS 13 g 3 10/19/2018 ActiveMometasone Furo-Formoterol Fum (Dulera) 50-5 MCG/ACT aerosol Inhale 50 mcg Daily Active ibuprofen 600 mg oral tablet (3 sources)Nonsteroidal Anti-inflammatory DrugStart: 02-22-2024 End: 47-87-4696esah 1 tablet by mouth every six hours as needed for pain ibuprofen (MOTRIN) 600 MG tablet Take 1 Tablet by mouth every 6 hours as needed for Pain for up to 7 days. 28 Tablet 02/22/2024 02/29/2024 Activeketorolac tromethamine 10 mg oral tablet (2 sources)Nonsteroidal Anti-inflammatory Drug, Cyclooxygenase InhibitorStart: 05-08-2025 End: 39-79-2478zklq 1 tablet by mouth every six hours for painketorolac (Toradol) 10 MG tablet Indications: Cyst of ovary, unspecified laterality Take 1 tablet (10 mg) by mouth every 6 (six) hours if needed for moderate pain for up to 5 days 20 tablet 05/08/2025 05/13/2025 Mntvei59 hr metFORMIN hydrochloride 500 mg extended release oral tablet (20 sources)BiguanideStart: 08-20-2022 End: 83-39-9614knyo 1 tablet by mouth every twenty-four hours in the morning metFORMIN XR (Glucophage-XR) 500 MG 24 hr tablet Indications: Weight loss counseling, encounter forTake 1 tablet (500 mg) by mouth in the morning and 1 tablet (500 mg) before bedtime. Do not crush, chew, or split.. 60 tablet 11 06/08/2024 Activemetoprolol tartrate 25 mg oral tablet (20 sources)beta-Adrenergic BlockerStart: 58-17-7873vkaa 1 tablet by mouth in the morningmetoprolol tartrate (Lopressor) 25 MG tablet Take 1 tablet by mouth in the morning and 1 tablet before bedtime. 05/08/2024 ActivemetroNIDAZOLE 0.0075 mg/mg vaginal gel (10 sources)Nitroimidazole AntimicrobialStart: 12-14-2024 End: 66-81-1433nyzodSZGAZRUR (Metrogel) 0.75 % vaginal gel Indications: BV (bacterial vaginosis) 1 applicator fulldaily for 5 days. 70 g 12/14/2024 05/08/2025 DiscontinuedStart: 07-06-2024 End: 48-01-3958qhxa 1 tablet by mouth in the morningmetroNIDAZOLE (Flagyl) 500 MG tablet Indications: Vaginal discharge Take 1 tablet (500 mg) by mouthin the morning and 1 tablet (500 mg) before bedtime. Do all this for 7 days. 14 tablet 07/06/2024 07/13/2024 Activemontelukast 10 mg oral tablet (1 source)Leukotriene Receptor AntagonistStart: 69-37-1166iaqo 1 tablet by mouth once dailymontelukast (SINGULAIR) 10 MG tablet take 1 tablet by mouth once daily 30 tablet 3 05/13/2017 Activenitrofurantoin, macrocrystals 25 mg / nitrofurantoin, monohydrate 75 mg oral capsule (1 source)Nitrofuran AntibacterialStart: 05-27-2019 End: 51-77-7453yxol 1 capsule by mouth twice dailynitrofurantoin, macrocrystal- monohydrate, (MACROBID) 100 MG capsule Indications: UTI symptoms , Urinary tract infection without hematuria, site unspecified Take 1 capsule by mouth 2 times daily for 7days 14 capsule 0 05/27/2019 06/03/2019 Activephenazopyridine hydrochloride 100 mg oral tablet (1 source)Start: 05-27-2019 End: 51-86-0923dbud 1 tablet by mouth three times daily as needed for pain phenazopyridine (PYRIDIUM) 100 MG tablet Indications: UTI symptoms , Urinary tract infection without hematuria, site unspecified Take 1 tablet by mouth 3 times daily as needed for Pain 9 tablet 0 05/27/2019 05/30/2019 Active phentermine hydrochloride 37.5 mg oral tablet (20 sources)Sympathomimetic Amine AnorecticStart: 11-28-2024 End: 36-85-6002gwlq 1 tablet by mouth before mealtimephentermine (Adipex-P) 37.5 MG tablet Indications: Encounter for weight management Take 1 tablet (37.5 mg) by mouth in the morning. Take before meals. 90 tablet 02/20/2025 05/29/2025 Discontinued (Therapy completed)Start: 07-06-2024 End: 99-56-9774opqe 1 tablet by mouth before mealtimephentermine (Adipex-P) 37.5 MG tablet Indications: Encounter for weight management Take 1 tablet (37.5 mg) by mouth in the morning. Take before meals. 90 tablet 08/31/2024 08/31/2024 Discontinued (Other) Completed/Discontinued Medications MedicationDrug Class(es)DatesSig (Normalized)Sig (Original)docusate sodium 100 mg oral capsule (8 sources)Start: 02-20-2025 End: 39-83-3021oali 1 capsule by mouth twice daily as needed for constipation docusate sodium (Colace) 100 MG capsule Indications: Constipation, unspecified constipation type Take 1 capsule (100 mg) by mouth 2 (two) times a day as needed for constipation 30 capsule 5 02/20/2025 05/21/2025 Expiredfluconazole 150 mg oral tablet (2 sources)Azole AntifungalStart: 07-06-2024 End: 16-07-5423hbtm 1 tablet by mouth oncefluconazole (Diflucan) 150 MG tablet Indications: Vaginal discharge Take 1 tablet (150 mg) by mouth1 (one) time for 1 dose 1 tablet 07/06/2024 07/06/2024 Problems Active Problems Problem ClassificationProblemDateDocumented DateEpisodic/Chronic Administrative/social admission (17 sources)Patient encounter status; Translations: [Dietary counseling and surveillance]48-98-0980ShshpeinMpnoeh (2 sources)Mild persistent asthma; Translations: [Unspecified asthma, uncomplicated]Onset: 799375-82-3151CvspotfMsbnortla of teeth and jaw (12 sources)Tooth eruption disorder; Translations: [Disturbances in tooth eruption]Onset: 784357-72-8078IqvisprySekmylaokxuog (2 sources)Uterine adenomyosis; Translations: [Adenomyosis]51-09-2483Dthnrvk Genitourinary symptoms and ill-defined conditions (2 sources)Urinary symptoms ; Translations: [Hematuria, unspecified]Onset: 90-09-2714CaimnravQjhwpkdbqit (5 sources)Residual hemorrhoidal skin tags; Translations: [RESIDUAL HEMORRHOIDAL SKIN TAGS]Onset: 19-31-0381PdnuveikXibsrpcdbbjit and screening for infectious disease (5 sources)Encounter for screening for human papillomavirus (HPV); Translations: [Exposure to sexually transmissible disorder]Onset: 443176-90-7936Pazinxfa Inflammatory diseases of female pelvic organs (2 sources)Bacterial vaginosis; Translations: [Acute vaginitis]12-11-2024 EpisodicOther aftercare (1 source)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; Translations: [OTH HAIR MACHINE OPERATOR CURRENT DRUG THERAPY]Onset: 84-15-6488BstjgacjIairj aftercare (1 source)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 (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 hypoglycemic drugs; Translations: [HAIR MACHINE OPERATOR USE ORAL HYPOGLYCEMIC DX]Onset: 78-43-4843MgfslgcaEofbw endocrine disorders (2 sources)Polycystic ovary syndrome; Translations: [Polycystic ovarian syndrome]82-68-9792EdvkvsvUhujw female genital disorders (2 sources)Vaginal discharge; Translations: [Other specified noninflammatory disorders of vagina]87-33-9827QforyfyiIgsqn female genital disorders (2 sources)Vaginal odor; Translations: [Other specified noninflammatory disorders of vagina]66-83-5689CrchidwhMfqdp gastrointestinal disorders (2 sources)Constipation; Translations: [Constipation, unspecified]02-20-2025 EpisodicOther nutritional; endocrine; and metabolic disorders (3 sources)Weight increased; Translations: [Abnormal weight gain]08-03-2024 EpisodicOther screening for suspected conditions (not mental disorders or infectious disease) (4 sources)Encounter for screening for malignant neoplasm of cervix; Translations: [ENC SCREENING MALIG NEOPLASM CERV]Onset: 43-02-2299Sgvqikmc Ovarian cyst (5 sources)Cyst of ovary; Translations: [Unspecified ovarian cyst, unspecified side]Onset: 508746-90-9445Nwsrdjxb Past or Other Problems Problem ClassificationProblemDateDocumented DateEpisodic/ChronicOther lower respiratory disease (1 source)Cough; Translations: [Cough]Onset: 08-11-2017 Resolved: 688362-02-7087HtcmsiixUmrpzku tract infections (1 source)Acute cystitis; Translations: [Acute cystitis with hematuria]Onset: 689196-11-5147Amklwezl Results Test NameValueInterpretationReference RangeFacilityUS PELVIC WITH TRANSVAGINALon 66-72-2719CU PELVIC WITH TRANSVAGINALUS PELVIC WITH TRANSVAGINAL CLINICAL [...] Lisa Ramírez MD on 05/10/2025 2:50 PMNormalProMedica Morrow County HospitalCT ABDOMEN AND PELVIS WO CONTon 68-27-4340RK ABDOMEN AND PELVIS WO CONTCT ABDOMEN AND [...] Tho Melton MD on 05/03/2025 5:25 PMNormalProMedica San Jose Medical CenterUrinalysis macro (dipstick) panel (U)on 63-56-2617Acgyjihae, UANegative Negative - 4(70) +++ mg/dLNOMS HealthcareBlood, UAPositiveNegative - 50 Alexander/mcL NOMS HealthcareComment on above:traceClarity, UAClearNOMS HealthcareColor, UA AmberNOMS HealthcareGlucose, UANegativeNegative - 1999(110) ++++ mg/dLNOMS HealthcareInterpretation and review of laboratory resultsAbnormalNONJ Healthcare Ketones, UAPositiveNegative - 160(16) ++++ mg/dLNOMS HealthcareComment on above: traceLeukocytes, UANegativeNegative - 500+++ Chanelle/mcLNOMS HealthcareNitrite, UA NegativeNegative - PositiveNOMS HealthcarepH, UA8.55 - 9NOMS HealthcareProtein, UAPositiveNegative - 2000(20) ++++ mg/dLNOMS HealthcareComment on above:30 mg Spec Grav, UA1.0151 - 1.03NOMS HealthcareUrobilinogen, UA1.00.2 - 12 mg/dLNOMS HealthcareNOMS HealthcareIGP,APTIMA HPV,AGE GDLNon 85-30-1536KIL GDLN ACOG TESTINGNote.NOMS HealthcareComment on above:TESTS RESULT FLAG UNITS REF RANGE LAB Clinician Provided Cytology Information Source.............Cervix;Endocervix No. of containers..01 ThinPrep Vial Age Algo ACOG Carmen... FLAG LEGEND: L-Low Normal,H-High Normal,LL-Alert Low,HH-Alert High <-Panic Low,>-Panic High,A-Abnormal,AA-Critical Abnormal Performed at: 01 =[address] [place] [address] Gabriella Chris MD, HPV APTIMANegativeNegativeNOMS HealthcareComment on above:This nucleic acid amplification test detects fourteen high- risk HPV types (16,18,31,33,35,39,45,51,52,56,58,59,66,68) without differentiation. Performed at: =[facility], [place] [id number] Adult Caregiver: Gabriella Chris MD, Phone: [phone] Performed at: [address], [place] [id number] Adult Caregiver: Gabriella Chris MD, Phone: [phone] IGP, APTIMA HPV, RFX 16/18,45Note.NOMS HealthcareComment on above:TESTS RESULT FLAG UNITS REF RANGE LAB DIAGNOSIS: 02 NEGATIVE FOR INTRAEPITHELIAL LESION OR MALIGNANCY. Specimen adequacy: 02 Satisfactory for evaluation. No endocervical component is identified. Performed by: Oleg Hmapton, Heavy Equipment Sales Associate (ASCP) . 02 Note: Note 02 The Pap smear is a screening test designed to aid in the detection of premalignant and malignant conditions of the uterine cervix. It is not a diagnostic procedure and should not be used as the sole means of detecting cervical cancer. Both false-positive and false-negative reports do occur. Test Methodology: Note 02 [employer]) Api Architect was unable to read this specimen. Therefore a manual review was performed. FLAG LEGEND: L-Low Normal,H-High Normal,LL-Alert Low,HH-Alert High <-Panic Low,>-Panic High,A-Abnormal,AA-Critical Abnormal Performed at: [address] [address] Gabriella Chris MD, HPV Genotype Reflex Note 02 Criteria not met, HPV Genotype not performed. Criteria not met, HPV Genotype not performed. BRUSH-SPATULA CERVIX ENDOCERVIX CLINISYNCNOMS HealthcareRECURRENT VAGINITIS (HTRX)on 90-55-2382AWCHIWENX VAGINAE 30.744AbnormalNOMS HealthcareATOPOBIUM VAGINAEDetectedAbnormalNOMS Healthcare BVAB 2,3 (BACTERIAL VAGINOSIS ASSOCIATED BACTERIA 2, 3); MOBILUNCUS MMS4TKLU HealthcareBVAB 2,3 (BACTERIAL VAGINOSIS ASSOCIATED BACTERIA 2, 3); MOBILUNCUS SPPNot detectedNOMS HealthcareCANDIDA ALBICANS, PARAPSILOSIS, KCCXKDRDEK1HTHD HealthcareCANDIDA ALBICANS, PARAPSILOSIS, TROPICALISNot detectedNOMS Healthcare KELLEN UNUDNJFX2ZRYL HealthcareCANDIDA GLABRATANot detectedNOMS Healthcare KELLEN LUOLGW0JMTK HealthcareCANDIDA KRUSEINot detectedNOMS HealthcareCHLAMYDIA KJZFKRSAXSH3RMEZ HealthcareCHLAMYDIA TRACHOMATISNot detectedNOMS Healthcare GARDNERELLA KQOTCXANM8ZYDT HealthcareGARDNERELLA VAGINALISNot detectedNOMS HealthcareInterpretation and review of laboratory resultsAbnormalNOMS Healthcare MEGASPHAERA (TYPES 1, 2)0NOMS HealthcareMEGASPHAERA (TYPES 1, 2)Not detectedNOMS HealthcareMYCOPLASMA GKJIVHWJCN4UKNO HealthcareMYCOPLASMA GENITALIUMNot detected NOMS HealthcareNEISSERIA GIMDJFBFNDT9LUEB HealthcareNEISSERIA GONORRHOEAENot detectedNOMS HealthcareTRICHOMONAS EELRUXTWT3JXYF HealthcareTRICHOMONAS VAGINALISNot detectedNOMS HealthcareNOMS HealthcareAddendum Noteon 02-23-2024 Power Brake Operator Authentication Interface Message TextAddended by: APRIL LINDSAY on: 02/23/2024 07:55 AM Modules accepted: MasterNoRestorandoroAVA.ai SystemAddendum Noteon 02-22-2024 Power Brake Operator Authentication Interface Message TextAddended by: APRIL LINDSAY on: 02/22/2024 04:24 PM Modules accepted: Orders, Level of ServiceNormYoombae Vurv TechnologyroAVA.ai System Power Brake Operator Authentication Interface Message TextAddended by: APRIL LINDSAY on: 02/22/2024 04:05 PM Modules accepted: OrdersNormYoombae Vurv TechnologyroAVA.ai SystemPatient Instructionson 34-55-5458Pkzsavomdusyj Authentication Interface Message TextDental extraction Instructions Biting [...] done to speak with an oral surgeon. [facility] [phone]. HELPING THE HEALING PROCESS AND STOPPING THE [...] such as c (more content not included)...NormalThe Saint Thomas - Midtown HospitalAVA.ai SystemProgress Noteson 04-20-1460Ahdyitruoyuop Authentication Interface Message TextOMFS PATIENT VISIT CHIEF COMPLAINT: Pain and Moody Teeth HISTORY OF PRESENT ILLNESS: Pt is a 33yoF with pmhx of HTN, Asthma, and Depression, presenting to [facility] clinic from referral for eval/removal of #17. [...] of HTN, Asthma, and Depression, presenting to [facility] clinic and requires removal of tooth #17 due to hx of waxing and waning pain originating from the tooth listed on the referral that limits her ability to chew, function normally, and perform oral hygiene. PLAN: Our plan is Surgical extraction of partial bony impacted tooth #17 under ALINA Lindsay DMDAnthony Medical CenterAVA.ai SystemTranscription Authentication Interface Message TextNoProvidence Hospital SystemTelephone Encounteron 07-28-8136Ntjrceqdqonxm Authentication Interface Message TextPt currently has abscess [...] call pt back at Phone numbers To [facility] SystemPOINT OF CARE GLUCOSEon 90-85-9924Hjclckg [Mass/Vol]113 mg/dLCritically mgvz67-363CcwEast Liverpool City HospitalComment on above: Performed By: #### POCGLUC #### [facility] [address] [place] [address] Dr. Shilpa ThomasPREChacha HCG QUALon 06-47-5474JMWSJTEMV, QUALNegativeNormalNEGATIVE The [facility] CompanyComment on above:Performed By: #### PREG #### [facility] [address] [place] [address] Dr. Shilpa Villanueva ACOG PANEL 2: 30 to 65on 11-04-2022..NormalEast Liverpool City HospitalComment on above:Result Comment: Performed at: WBPerformed By: #### [id number] #### [facility] [address] [place] [address] Dr. Shilpa Marti Gdln ACOG Okzkbmm36-42LlhffuQeyCleveland Clinic Akron GeneralComment on above:Performed By: #### [id number] #### [facility] [address] [place] [address] Dr. Shilpa ThomasDIAGNOSIS:CommentMercy Health St. [facility] on above: Result Comment: NEGATIVE FOR INTRAEPITHELIAL LESION OR MALIGNANCY. THIS SPECIMEN WAS RESCREENED PART OF OUR WARRANTY MANAGER PROGRAM. Performed at: WBPerformed By: #### [id number] #### [facility] [address] [place] [address] Dr. Shilpa ThomasHPV AptimaNegativeNormalNegativeThe [facility] on above:Result Comment: This nucleic acid amplification test detects fourteen high-risk HPV types (16,18,31,33,35,39,45,51,52,56,58,59,66,68) without differentiation. Performed at: =GPerformed By: #### [id number] #### [facility] [address] [place] [address] Dr. Shilpa Han Genotype ReflexCommentMercy Health St. [facility] Hospital on above:Result Comment: Criteria not met, HPV Genotype not performed. Performed at: WBPerformed By: #### [id number] #### [facility] [address] [place] [address] Dr. Shilpa ThomasMethodology:CommentMercy Health St. Elizabeth [facility] Hospital on above: Result Comment: This liquid based ThinPrep(R) pap test was screened with the use of an image guided system. Performed at: WBPerformed By: #### [id number] #### [facility] [address] [place] [address] Dr. Shilpa ThomasNote:CommentNoParkwood Hospital on above:Result Comment: The Pap smear is a screening test designed to aid in the detection of premalignant and malignant conditions of the uterine cervix. It is not a diagnostic procedure and should not be used as the sole means of detecting cervical cancer. Both false-positive and false-negative reports do occur. . Performed at: WBPerformed By: #### [id number] #### [facility] [address] [place] [address] Dr. Shilpa ThomasPerformed by:CommentMercy Health St. [facility] Hospital on above: Result Comment: Agapito Peacock, Heavy Equipment Sales Associate (ASCP) Performed at: WBPerformed By: #### [id number] #### [facility] [address] [place] [address] Dr. Shilpa Matta reviewed by:CommentMercy Health St. [facility] on above:Result Comment: Liliya Mittal, Heavy Equipment Sales Associate (ASCP) Performed at: WBPerformed By: #### [id number] #### [facility] [address] [place] [address] Dr. Shilpa ThomasSpecimen adequacy:CommentMercy Health St. [facility] on above:Result Comment: Satisfactory for evaluation. Endocervical and/or squamous metaplastic cells (endocervical component) are present. Performed at: WBPerformed By: #### [id number] #### [facility] [address] [place] [address] Dr. Shilpa ThomasUA w/Reflex Cultureon 54-99-8180Doylcmuktjk Acid,UrNegativeNormal NEGSelect Medical Specialty Hospital - Southeast OhioComment on above:Performed By: #### UAX #### [facility] [address] [address] Adult Caregiver: Sandor Muir MDBilirubin, SemiQt,UrNegativeNormalNEGSelect Medical Specialty Hospital - Southeast OhioComment on above:Performed By: #### UAX #### [facility] [address] [place] [address] Adult Caregiver: BETTY Brownolor (U)DARK YELLOWAbnormalYELMerPomona Valley Hospital Medical CenterComment on above:Performed By: #### UAX #### [facility] [address] [place] [address] Adult Caregiver: BETTY BrownomticoMicroscopic exam not performed based on chemical results unless requested inNSelect Medical Specialty Hospital - [facility]ron Comment on above:Result Comment: original order.Performed By: #### UAX #### [facility] [address] [place] [address] Adult Caregiver: Sandor Muir MDGlucose Ql (U)NegativeNormalNEGSelect Medical Specialty Hospital - Southeast OhioComment on above:Performed By: #### UAX #### [address] [address] Adult Caregiver: Sandor Muir MDHemoglobin, UrNegativeNormalNEGSelect Medical Specialty Hospital - Southeast OhioComment on above:Performed By: #### UAX #### [address] [address] Adult Caregiver: Sandor Muir MDLeukocyte esterase Test strip Ql (U)Negative NormalNEGSelect Medical Specialty Hospital - Southeast OhioComment on above:Performed By: #### UAX #### [address] [address] Adult Caregiver: Sandor Muir MDNitrite,UrNegativeNormalNEGSelect Medical Specialty Hospital - Southeast OhioComment on above:Performed By: #### UAX #### [address] [address] Adult Caregiver: Aurora BrownH (U)7.5 [pH]Normal5.0-8.0[facility] - Southeast OhioComment on above:Performed By: #### UAX #### [address] [address] Adult Caregiver: AURORA Brownrotein Ql (U)NegativeNormalNEGSelect Medical Specialty Hospital - Southeast OhioComment on above:Performed By: #### UAX #### [address] [address] Adult Caregiver: DALLIN Brownpecific gravity (U) [Rel density]1.020Normal 1.005-1.030[facility] - Southeast OhioComment on above:Performed By: #### UAX #### [address] [address] Adult Caregiver: Sandor Muir MDTurbidityCLEARNormalCLEARMerPomona Valley Hospital Medical CenterComment on above:Performed By: #### UAX #### [facility] [address] [place], [place] [id number] Adult Caregiver: Sandor Muir MDUrobilbrian,UrNormalNormalNORMMercy Chino Valley Medical CenterComment on above:Performed By: #### UAX #### [facility] [address] [place], [place] [id number] Adult Caregiver: Sandor Muir MDUrinalysis Reflex to Cultureon 05-27-2019 Bilirubin UrineNegativeNEGATIVEMercy Health- [place], KYColor, UADARK YELLOWAbnormal YELLOWMercy Health- [place], KYGlucose, UrNegativeNEGATIVEMercy Health- [place], [place] Interpretation and review of laboratory resultsAbnormalMercy Health- [place], [place] Ketones Ql (U)NegativeNEGATIVEMercy Health- [place], KYLeukocyte esterase Test strip Ql (U)NegativeNEGATIVEMercy Health- [place], KYNitrite, UrineNegativeNEGATIVEMercy Health- [place], KYpH, UA7.5[facility]- [place], KYProtein (U) [Mass/Vol]Negative NEGATIVEMercy Health- [place], KYSpecific Berkley, UA1.020[facility] [place] Turbidity UACLEARCLEARMercy Health- [place], KYUrinalysis CommentsMicroscopic exam not performed based on chemical results unless requested in original order.[facility]- [place], KYUrine HgbNegativeNEGATIVEMercy Health- [place], KYUrobilinogen, Urine NormalNormalMercy Health- [place], [place] Vital Signs Date TimeVital SignValuePerforming AgqigjcrlXlrjhmmv98-01-8831 09:52-0500Body mass index (BMI) [Ratio]40.3 kg/m2Lorene BARRETO Work Phone: [facility] HospitalQaozyzetjl44-53-2601 09:52-0500Body .5 kgLorene BARRETO Work Phone: [facility] HospitalFmeglwglsy14-93-8925 09:52-0500Diastolic blood sxievyba43 mm[Hg]Lorene Jaci PA Work Phone: [facility] HospitalPygtzztqdd29-46-1854 09:52-0500Systolic blood bdpiynfb017 mm[Hg]Lorene BARRETO Work Phone: [phone] by [facility] HospitalRjjwillhpz73-97-2469 10:06-0400Body mass index (BMI) [Ratio]40.34 kg/v1Dbuqm Yfn DO Work Phone: [facility] HospitalErzyqhpmap11-02-5237 10:06-0400Body tirclv855.59 kgCorey Yfn DO Work Phone: [phone] [place], [place] [address]Ucvlxrmrgm54-48-9902 10:06-0400Diastolic blood zoazvaii89 mm[Hg]Mick Yfn DO Work Phone: [phone] [place], [place] [address]Ukixexbdfw85-09-1588 10:06-0400Systolic blood tizyblup197 mm[Hg]Mickvernell Navaso DO Work Phone: [phone] [place], [place] [address]Wvqxbwnfhd15-05-3023 09:39-0400Body mass index (BMI) [Ratio]40.25 kg/m2Amy Jaci PA Work Phone: [phone] [place], [place] [address]Rhhkxbpuhi17-17-2904 09:39-0400Body .37 kgLorene Avery PA Work Phone: [phone] [place], [place] [address]Jfaiwdgetf97-37-7732 09:39-0400Diastolic blood uzawyxdr61 mm[Hg]Lorene BARRETO Work Phone: [phone] [place], [place] [address]Ipnszxjrpu40-65-8484 09:39-0400Systolic blood qwjruife686 mm[Hg]Lorene BARRETO Work Phone: [phone] [place], [place] [address]Xaceouqkmm40-03-8396 13:40-0400Body mass index (BMI) [Ratio]40.9 kg/m2Lorene Avery PA Work Phone: [phone] [place], [place] [address]Zvwyogkwqp24-48-2579 13:40-0400Body entkqi307.07 kgAmy Jaci PA Work Phone: [phone] by [facility] HospitalDzkiohkrmw00-19-9599 13:40-0400Diastolic blood fabpdrky32 mm[Hg]Lorene BARRETO Work Phone: [phone])563-[address] [place], [place] [address]Gawlnzftud41-00-9955 13:40-0400Systolic blood vmpggnua462 mm[Hg]Lorene Avery PA Work Phone: [phone] [place], [place] [address]Zjsagpzrtb71-38-5013 15:39-0400Body mass index (BMI) [Ratio]41.54 kg/b3MzsirkomRemberto Watson [employer] Work Phone: [phone] by [facility] HospitalXyexfllkgk35-76-1375 15:39-0400Body sqdjou973.77 kgRemberto Walter [employer] Work Phone: [phone] [place], [place] [address]Tdjwpjwkou60-32-3338 15:39-0400Diastolic blood ygkrhwgn55 mm[Hg]Remberto Walter [employer] Work Phone: [phone] [place], [place] [address]Rvsmbdspnq08-13-0675 15:39-0400Systolic blood dasstubf805 mm[Hg]Remberto Stephenserly [employer] Work Phone: [phone] [place], [place] [address]Yfdjzqybla14-53-5418 13:18-0400Body mass index (BMI) [Ratio]41.54 kg/m2Amy Lagrange PA Work Phone: [phone] [place], [place] [address]Jyfmwwxnzs78-98-5300 13:18-0400Body .77 kgAmy Lagrange PA Work Phone: [phone] [place], [place] [address]Igkppbdeko56-81-9085 13:18-0400Diastolic blood aloagynq78 mm[Hg]Lorene Avery PA Work Phone: [phone] [place], [place] [address]Ccxpjetuok06-72-0415 13:18-0400Systolic blood mm[Hg]Lorene Avery PA Work Phone: [phone] [place], [place] [address]Olpfhuvqwy11-08-2408 13:40-0500Body mass index (BMI) [Ratio]43.74 kg/m2Amy Lagrange PA Work Phone: [phone] [place], [place] [address]Fhgsdlnlat55-07-9129 13:40-0500Body btzixi636.58 kgAmy Lagrange PA Work Phone: [phone]-Replaced by [facility] HospitalFbfyossvnb79-64-6058 13:40-0500Diastolic blood mm[Hg]Lorene Avery PA Work Phone: [phone] [place], [place] [address]Cvmplrbkcj37-23-3882 13:40-0500Systolic blood jibtphhg767 mm[Hg]Lorene BARRETO Work Phone: [phone] by [facility] HospitalCesmeogqxw03-53-2830 13:15-0500Body mass index (BMI) [Ratio]44.29 kg/m2Lorene Aminbeatriz BARRETO Work Phone: [phone] by [facility] HospitalAoggoavasa85-37-8732 13:15-0500Body .03 kgLorene Aminbeatriz BARRETO Work Phone: [phone] [place], [place] [address]Gvmsuuzdpi64-43-4930 13:15-0500Diastolic blood kpejzlku40 mm[Hg]Lorene Aminbeatriz BARRETO Work Phone: [phone] [place], [place] [address]Rhfimtsmfc07-55-9776 13:15-0500Systolic blood wukyseoj706 mm[Hg]Lorene Aminbeatriz BARRETO Work Phone: [phone] [place], [place] [address]Jhdnhrtsqy29-08-9698 11:10-0500Body mass index (BMI) [Ratio]45.28 kg/m2Pbdkn Yfn DO Work Phone: [phone] [place], [place] [address]Lgzmlctvtm23-60-5997 11:10-0500Body etmyhe287.66 kgCorey Yfn DO Work Phone: [phone] [place], [place] [address]Xujntucdvg00-96-1207 11:10-0500Diastolic blood ehdhmrcc37 mm[Hg]Mick Yfn DO Work Phone: [phone] [place], [place] [address]Pwbbfgbcdb01-59-7446 11:10-0500Systolic blood zfufrthe914 mm[Hg]Mick Yfn DO Work Phone: [phone] [place], [place] [address]Rvlzmcgppf08-94-7834 10:29-0500Body cifaul925.6 cmCorey Yfn DO Work Phone: [phone] [place], [place] [address]Crpcvczthq47-13-2844 10:29-0500Body mass index (BMI) [Ratio]45.28 kg/y8Weuoy Yfn DO Work Phone: [phone] [place] [address]-14-2024 10:29-0500Body uxxuqb353.66 kgCorey Yfn DO Work Phone: [phone] [place] [address]-14-2024 10:29-0500Diastolic blood ekahebkd35 mm[Hg]Mick Yfn DO Work Phone: [facility] LouisOhednyzrbi12-62-4994 10:29-0500Systolic blood mm[Hg]Mick Yfn DO Work Phone: [facility] LouisCpdqgwxbdf79-69-6530 15:00-0400Diastolic blood gqvowwdm59 mm[Hg]Paige Matias DDS Work Phone: [phone] 15:00-0400Heart rate94 /minPaige Matias DDS Work Phone: [phone] 15:00-0400Systolic blood mm[Hg]Paige Matias DDS Work Phone: [phone] 15:32-0400Body maqnse750.1 cm Paige Matias DDS Work Phone: [phone] 15:32-0400Body mass index (BMI) [Ratio]41.6 kg/m2Paige Matias DDS Work Phone: DazexJijxhw63-798338CqdhlBmhpqi88-04-9154 15:32-0400Body ypcpcp791.4 kg Paige Matias DDS Work Phone: [facility] Encounters Encounter DateEncounter TypeCare ProviderFacilityStart: 05-29-2025 End: 73-27-7512Wqaekfmorgan BARRETO Work Phone: [facility] [place] [facility]YNStart: 05-29-2025 End: 19-08-4544Czzzhtshyann BARRETO Work Phone: [facility]YNStart: 05-29-2025 End: 55-49-6384qyrmjegjtsKAJ RAMEYNot AvailableStart: 05-29-2025 End: 66-41-8368Houogi outpatient visit 15 minutesLorene BARRETO Work Phone: [facility] [place] [facility]BGYNComment on above:Encounter for weight management; Follow-up encounter involving medicationStart: 05-21-2025 End: 47-02-1913Gfzquk flowsheetCorey Yfn DO Work Phone: [facility] [place] [facility]BGYNStart: 05-21-2025 End: 01-99-8896Cqpoab flowsheetCorey Yfn DO Work Phone: [facility] [place] [facility]BGYNStart: 05-21-2025 End: 08-50-3126hqeaweruicTBNAJ FAZIONot AvailableStart: 05-21-2025 End: 70-27-7250Lpelhq outpatient visit 15 minutesCorey Yfn DO Work Phone: [facility]BGYNComment on above:Cyst of ovary, unspecified laterality; Adenomyosis; PCOS (polycystic ovarian syndrome)Start: 05-09-2025 End: 11-83-4040cgzcmryxqlGNF Elizabeth AVERYPaulding County Hospital HospitalStart: 05-08-2025 End: 41-82-5807Uqokbk Axel BARRETO Work Phone: [facility] [place] [facility]BGYNStart: 05-08-2025 End: 49-14-8645Lchuks Axel BARRETO Work Phone: [facility] [place] [facility]BGYNStart: 05-08-2025 End: 60-21-7783xhafbfejqaUGC RAMEYNot AvailableStart: 05-08-2025 End: 15-06-9873Umqlkp outpatient visit 15 minutesLorene BARRETO Work Phone: [facility] [place] [facility]BGYNComment on above:Cyst of ovary, unspecified lateralityStart: 05-03-2025 End: 38-62-7322eeijrftdhzJAALDEMedStar [facility] Center HospitalStart: 02-20-2025 End: 20-51-1320Rjmqve Axel BARRETO Work Phone: [facility]YNStart: 02-20-2025 End: 83-10-0458Sqqhyh Axel BARRETO Work Phone: [facility]YNStart: 02-20-2025 End: 34-32-3456wyfmyvekexBDA RAMEYNot AvailableStart: 02-20-2025 End: 29-27-2574Cprlvq outpatient visit 15 minutesAmy Jaci PA Work Phone: [facility] [place] [facility]BGYNComment on above:Encounter for weight management; Constipation, unspecified constipation typeStart: 12-11-2024 End: 97-70-2595Hzftzx outpatient visit 15 minutesRemberto Watson NP Work Phone: [facility] BCP OBComment on above:Exposure to STD; BV (bacterial vaginosis); Vaginal odorStart: 12-11-2024 End: 37-48-9211yugvgafegbPSNZVRJQ EBERLYNot AvailableStart: 12-11-2024 End: 01-24-4816Buefnc Supriya Watson [employer] Work Phone: [facility] OBStart: 12-11-2024 End: 89-83-2853Hjyoko flowsRanjit Watson INS[employer] Work Phone: [facility] OBStart: 11-28-2024 End: 28-36-2492Hinuno Axel Avery PA Work Phone: [facility] BCP OBStart: 11-28-2024 End: 57-17-5275Mpvmku Axel Avery PA Work Phone: [facility] OBStart: 11-28-2024 End: 88-95-1792ohchnfijgzABR RAMEYNot AvailableStart: 11-28-2024 End: 23-73-4547Wgbwsz outpatient visit 15 minutesAmy Jaci BARRETO Work Phone: [facility]CP OBComment on above:Weight gain; Encounter for weight managementStart: 08-31-2024 End: 72-92-5238Kcxwjt Axel Avery PA Work Phone: [facility] OBStart: 08-31-2024 End: 43-98-6085Odgisd flowsJayden Avery PA Work Phone: [facility] OBStart: 08-31-2024 End: 12-20-0161Pjvnwv outpatient visit 15 minutesAmy Jaci BARRETO Work Phone: [facility]CP OBComment on above:Encounter for weight managementStart: 08-31-2024 End: 55-67-6008nuhxryycioWYL RAMEYNot AvailableStart: 08-03-2024 End: 53-28-6782Bonhal flowsheetLorene BARRETO Work Phone: [facility] OBStart: 08-03-2024 End: 76-72-7840Oqdbwg flowsJayden BARRETO Work Phone: [facility] OBStart: 08-03-2024 End: 88-95-2096Zqrxhcx encounter procedureLorene BARRETO Work Phone: [facility]CP OBComment on above:Weight gain; Encounter for weight managementStart: 08-03-2024 End: 20-29-9529dqslfbzlbdEAT RAMEYNot AvailableStart: 07-06-2024 End: 46-03-4033Ojhjiu flowsheetCorey Yfn DO Work Phone: [facility] OBStart: 07-06-2024 End: 60-47-9416Pkphas flowsheetCorey Yfn DO Work Phone: [facility] OBStart: 07-06-2024 End: 44-70-3279Qrqbxmvif Result EncounterCorey Yfn DO Work Phone: [facility] External Department UnsolicitedStart: 07-06-2024 End: 47-76-7002Fnmalfrw Result EncounterCorey Yfn DO Work Phone: [facility] External Department UnsolicitedStart: 07-06-2024 End: 23-71-6074blgolnbjhzPNIRW FAZIONot AvailableStart: 07-06-2024 End: 16-02-3922Kiealmb encounter procedureCorey Yfn DO Work Phone: [facility] Work Phone: Start: 07-06-2024 End: 19-83-4106Dlenrliq preventive med est patient 18-39 yrsCorey Yfn DO Work Phone: noms BCP OBComment on above:Well woman exam with routine gynecological exam; Weight loss counseling, encounter for; Exposure to STD; Vaginal discharge; Encounter for weight managementStart: 06-08-2024 End: 87-11-6497Midbkl flowsheetCorey Yfn DO Work Phone: [facility] BCP OBStart: 06-08-2024 End: 34-30-1299Eoooye flowsheetCorey Yfn DO Work Phone: [facility] BCP OBStart: 06-08-2024 End: 11-58-1371wtvsxikrpbMQSQG FAZIONot AvailableStart: 06-08-2024 End: 96-75-6708Zzwdmb outpatient visit 15 minutesCorey Yfn DO Work Phone: [facility] BCP OBComment on above:Weight loss counseling, encounter forStart: 02-22-2024 End: 33-66-5919Xyvttse encounter Gabby Matias DDS Work Phone: [facility] SurgeryComment on above:Tooth pain (Primary Dx)Tooth pain (Primary Dx); Abnormal tooth eruptionStart: 53-05-7776kdbdslawxnTIMQSravan MATIAS Facility:[facility]Start: 01-11-2024 End: 61-98-3108Tjxsufk encounter Gabby Matias DDS Work Phone: [facility] SurgeryComment on above:Abnormal tooth eruption (Primary Dx)Start: 66-61-5710cbujhmlljiDRSLSravan MATIAS Facility:[facility]HealthStart: 12-15-2022 End: 23-78-9324wsnkavdqtwOUOQ TAMLYN .Facility:Q7Itsue: 34-77-1149Etfpmxwdd for preprocedural cardiovascular examinationTODD GEOVANNA SethSelect Medical Specialty Hospital - Akrontart: 11-19-2022 End: 91-48-4771dbejxcmewkUUGF TAMLYN .Facility:H4Cykaa: 11-19-2022 End: 82-10-3706Wxlbmvydf for preprocedural cardiovascular examinationMELIDA AUSTIN .Facility:V8Vxvot: 10-27-2022 End: 93-40-4814ustznzpmuxQE NONE LISTED REQUESTFacility:R2Lxcwb: 05-27-2019 End: 08-63-1072Csmrbni encounter procedureDARA ISMAELAkron Children's Hospitaltart: 05-27-2019 End: 15-55-3821Breeysvvca hospital visit by physicianSkyler Rivero [place] LAB DOCTORComment on above:UTI symptoms Procedures DateProcedureProcedure DetailPerforming ClinicianStart: 06-93-2898Etiwl dip stick/tablet rgnt non-auto w/o micrscpRemberto Watson [employer] Work Phone: Start: 52-07-4247YKDEWDJVP VAGINITIS (HTRX)Mick Yfn DO Work Phone: Start: 27-67-3887QJI,APTIMA HPV,AGE GDLNCorey Yfn DO Work Phone: Start: 85-75-4885rzxrglasiz, erupted tooth or exposed root (elevation and/or forceps removal)April Quick DMD Work Phone: Start: 47-12-8134qxavcisbo radiographic imageForrest Quick DMD Work Phone: Start: 74-28-8377Tupes dip stick/tablet rgnt auto w/o microscopyDARA [facility]OSPITALStart: 64-17-6902Rcdzg dip stick/tablet rgnt auto w/o microscopyHenry Ford Kingswood [facility] Work Phone: Plan of Treatment DateCare ActivityDetailAuthorStart: 93-16-0528Hexgwexa (RZV) Vaccine (1 of 2) Shingles (RZV) Vaccine (1 of 2)[facility]HealthStart: 61-39-1266OPrS/Tdap/Td vaccine (1 - Tdap)DTaP/Tdap/Td vaccine (1 - Tdap)[facility], [place]Comment on above: Postponed from 2007 (Not Indicated)Start: 06-25-2025 End: 97-08-3563Fapmnps encounter ifqswezja66/01/2025 9:30 AM EST Office Visit [facility] [address] [address] Lorene Avery PA [address] [place] [address] [facility] [place] [facility]YNStart: 06-18-2025 End: 97-86-3123Wfthwvn encounter fszpbzkuj15/24/2025 1:50 PM EST Consult [facility] [address] [phone] Mick Coulter DO [address] [place] [address] [facility]YNStart: 05-23-2025 End: 04-93-5279Cnvbzir encounter /29/2025 9:40 AM EDT Office Visit [facility] [address] [place] [address] Lorene Avery, PA [address] [place] [address] [facility]Start: 05-21-2025 End: 51-95-3384WGRCQJOZ Lab Routine PCOS (polycystic ovarian syndrome) Expected: 05/21/2025 (Approximate), Expires: 05/21/2026[facility] HealthcareComment on above: Expected: 05/21/2025 (Approximate), Expires: 05/21/2026Start: 05-09-2025 End: 80-51-4038Iyxjdaicuoqb / ancillary services galglnllrh41/15/2025 11:00 AM EDT Ancillary Procedure [facility] [address] [address] [facility] [place] [facility]YNStart: 05-08-2025 End: 76-75-3623UC PelvisUS Pelvis w/ TV Imaging Routine Cyst of ovary, unspecified laterality Expected: 05/08/2025, Expires: 11/06/2025[facility] Work Phone: comment on above:Expected: 05/08/2025, Expires: 11/06/2025Start: 02-20-2025 End: 29-09-6506Iubwyvv encounter khvmocijw10/29/2025 1:30 PM EDT Office Visit [facility] [address] [place] [address] Lorene Avery, PA [address] [place] [address] [place], [place] [address] [facility] OBStart: 12-11-2024 End: 47-15-0810Hoqqaqr encounter ysshbbypl61/19/2025 3:30 PM EDT Office Visit [facility] [address] [address] Remberto Watson, [employer] [address] [place] [address] ArrivedNONJ BCP OBComment on above: ArrivedStart: 11-28-2024 End: 10-04-3569Amvlgmn encounter pkiaqlrwj70/06/2025 1:00 PM EDT Office Visit [facility] [address] [facility] [address] Lorene Avery, PA [address] [place] [address] [facility] OBStart: 08-31-2024 End: 56-95-3445Fttfxve encounter ktczyrwve68/06/2025 1:30 PM EST Office Visit [facility] [address] [facility] [address] Lorene Avery, PA [address] [place] [address] [place] [address] ArrivedNOMS BCP OBComment on above:ArrivedStart: 08-03-2024 End: 71-76-5311Plrihvw encounter procedureNOMS BCP OBComment on above:Arrived Start: 07-06-2024 End: 41-13-0325Acqfzgy encounter zpfehdcph96/12/2024 10:20 AM EST Office Visit [facility] [address] [facility] [phone] Mick Coulter, DO [address] [place] [address] [facility] BCP OBStart: 81-87-8771Nketiifoj vaccination Influenza Vaccine (#1)[facility]Start: 02-22-2024 End: 18-79-5737Mknkote encounter plyycetrb22/30/2024 3:00 PM EDT Office Visit [facility] [address] [place] [address] Paige Matias, DDS [address] [place] [address] [facility] SurgeryStart: 51-21-2524QDRKM-19 Vaccine ( season)COVID-19 Vaccine ( season)[facility] Start: 58-71-5417Ptxvaoojn vaccinationFlu vaccine (#1)[facility]: 87-14-3298XXI Vaccine (optional start 27-45 years)HPV Vaccine (optional start 27-45 years)[facility]HealthStart: 55-79-1997Dhvatsqk cancer screenCervical cancer screenAkron Children's Hospital: 34-22-1950Yqrmkrzen for malignant neoplasm of cervixPap SmearMetroHealthStart: 96-55-5251Gskvuwpda A (HAV) Vaccine (optional start 19+ years)Hepatitis A (HAV) Vaccine (optional start 19+ years)[facility] Start: 31-81-4566Txddeamys B vaccinationHepatitis B (HBV) Vaccine (1 of 3 - 19+ 3-dose series)[facility]HealthStart: 98-86-7861Ifftrlugg C screeningHepatitis C AntibodyMetroHealthStart: 28-89-5258Ksqlttx + diphtheria + acellular pertussis vaccine (product)Tdap BoosterMetroHealthStart: 21-50-1731SLT screenHIV screen [facility]: 04-64-0384Jusmxkvsx Vaccine (1 of 2 - 13+ 2-dose series)Varicella Vaccine (1 of 2 - 13+ 2-dose series)[facility]: 15-25-6883Vwrbdweedtkz 0-64 years Vaccine (1 of 1 - PPSV23)Pneumococcal 0-64 years Vaccine (1 of 1 - PPSV23)[facility]: 34-52-3781Pxhdwabaa for malignant neoplasm of breastMammography shared decision making (35 through 39 years)[facility]roHealthCBC W Auto Differential panel - BloodCBC and differential Lab Routine PCOS (polycystic ovarian syndrome) Ordered: 05/21/2025[facility] HealthcareComment on above:Ordered: 05/21/2025HLAMYDIA TRACHOMATIS (GENITO/STI) CHLAMYDIA TRACHOMATIS (GENITO/STI) Lab Routine Exposure to STD Ordered: 07/06/2024[facility] HealthcareComment on above:Ordered: 07/06/2024HLAMYDIA TRACHOMATIS (GENITO/STI)CHLAMYDIA TRACHOMATIS (GENITO/STI) Lab Routine Exposure to STD Ordered: 12/11/2024[facility] HealthcareComment on above:Ordered: 12/11/2024 Cytology Cervical or vaginal smear or scraping studyPap Smear Pathology and Cytology Routine Well woman exam with routine gynecological exam Ordered: [facility] Work Phone: comment on above:Ordered: 07/06/2024HEA-sulfateDHEA- sulfate Lab Routine PCOS (polycystic ovarian syndrome) Ordered: 05/21/2025[facility] HealthcareComment on above:Ordered: 05/21/2025Follicle stimulating hormone Follicle stimulating hormone Lab Routine PCOS (polycystic ovarian syndrome) Ordered: 05/21/2025[facility] HealthcareComment on above:Ordered: 05/21/2025hCG, quantitative, pregnancyhCG, quantitative, Lab Routine PCOS (polycystic ovarian syndrome) Ordered: 05/21/2025[facility] Work Phone: comment on above:Ordered: 05/21/2025Hemoglobin A1c/Hemoglobin.total in BloodHemoglobin A1c Lab Routine Cyst of ovary, unspecified laterality Adenomyosis Ordered: 05/21/2025[place] HealthcareComment on above:Ordered: 05/21/2025Human papilloma virus DNA [Presence] in Unspecified specimen by Probe with amplificationHPV DNA probe, amplified Microbiology Routine Well woman exam with routine gynecological exam Ordered: 07/06/2024[facility] HealthcareComment on above:Ordered: 07/06/2024Luteinizing hormoneLuteinizing hormone Lab Routine PCOS (polycystic ovarian syndrome) Ordered: 05/21/2025[facility] HealthcareComment on above:Ordered: 05/21/2025Neisseria gonorrhoeae DNA [Presence] in Unspecified specimen by ROME with probe detectionNeisseria gonorrhea DNA probe, direct Lab Routine Exposure to STD Ordered: 07/06/2024[facility] HealthcareComment on above:Ordered: 07/06/2024Neisseria gonorrhoeae DNA [Presence] in Unspecified specimen by ROME with probe detectionNeisseria gonorrhea DNA probe, direct Lab Routine Exposure to STD Ordered: 12/11/2024[facility] HealthcareComment on above:Ordered: 12/11/2024SURESWAB(R) ADVANCED VAGINITIS PLUS, TMASURESWAB(R) ADVANCED VAGINITIS PLUS, TMA Pathology and Cytology Routine Vaginal discharge Ordered: 07/06/2024[facility] HealthcareComment on above:Ordered: 07/06/2024SURESWAB(R) ADVANCED VAGINITIS PLUS, TMASURESWAB(R) ADVANCED VAGINITIS PLUS, TMA Pathology and Cytology Routine Exposure to STD BV (bacterial vaginosis) Vaginal odor Ordered: 12/11/2024[facility] Work Phone: comment on above:Ordered: 12/11/2024Thyrotropin [Units/volume] in Serum or PlasmaTSH Lab Routine PCOS (polycystic ovarian syndrome) Ordered: 05/21/2025[facility] HealthcareComment on above:Ordered: 05/21/2025 Thyroxine (T4) free [Mass/volume] in Serum or PlasmaT4, free Lab Routine PCOS (polycystic ovarian syndrome) Ordered: 05/21/2025[facility] HealthcareComment on above:Ordered: 05/21/2025 Immunizations Immunization DateImmunizationNotesCare FnpefdssXfkgqnrj87-84-3536pntcosbgi virus vaccine, unspecified formulationPaige Matias DDS Work Phone: [facility] Payers DatePayer CategoryPayerPolicy ID2021Medicaid [id number] Health Insurance [id number] [id number] [facility] xxxxxxxxxxxx 2018-Present [phone] [address] [place] [address]xnjfmftmsnnt [id number] [id number] [id number]ty9144100 2.0.1.925448.3.579.2.48694-51-4243Wjiaxyq6119739 2.0.1.417321.3.579.2.36519-84-6334Dzxmejb2169438 2.840.1.994795.3.579.2.1[id number] 2.0.1.702394.3.579.[id number] 2.16840.1.688249.3.579.2.27001-06-7627Eagprxx863181237 2.840.1.889541.3.579.2.[id number] 2.16.840.1.421588.3.579.2.754716-00-8555Alfqixg14972553 2.16.840.1.160433.3.579.[id number] 2.16.840.1.702364.3.579.2.500790-63-6879Ypskuhd67823593 2.16.840.1.200484.3.579.2.423289-05-5424Fcxfdpu46192785 2.16.840.1.055276.3.579.2.723146-73-0075Qginizx0690897 2.16.840.1.247580.3.579.2.741460-36-7095Qnmhlfg7465766 2.16.840.1.805338.3.579.2.769313-63-2476Gacbmoa0025016 2.16.840.1.950297.3.579.2.419869-07-3804Skqgfbq8731951 2.16.840.1.005998.3.579.2.908726-90-7643Hxizyma8694666 2.16.0.1.312119.3.579.2.366801-38-4195Ydgkbei3276237 2..1.396242.3.579.[id number] Social History DateTypeDetailFacilityStart: 99-24-7668Fxsoxao smoking status NHISNever smoker [facility]: 89-77-2536Nsqhbaj intakeNoAkron Children's Hospital: 22-73-5327Sydfspp Commenthas a few drinks a monthAkron Children's Hospital: 90-79-9827Tcl Assigned At BirthNot on [facility] smoking status NHISTobacco smoking consumption unknownNOMS HealthcareStart: 10-07-2022 [facility] Clinical Notes 01-11-2024 to 05-29-2025 Note Date & UlhrPzrhWhrhmhlo44-35-4186 History of Present illness Narrative* MARY LOU [...] nursing note reviewed. Exam conducted with a ux interaction designer present. Vitals: Estimated body mass index is [...] of: MARY LOU King documented in this encounterTexas [facility] HospitalKpnsggrndq20-70-6977 History of Present illness Narrative* Hayley Singh [...] of: Mick Coulter DO documented in this encounterTexas County Memorial HospitalRethvprcre87-35-0524 History of Present illness Narrative* MARY LOU [...] mg, Oral, 2 times daily PRN HYDROcodone-acetaminophen (Snyder) 5-325 MG tablet 1 tablet, Oral, Every [...] TV ketorolac (Toradol) 10 MG tablet HYDROcodone-acetaminophen (Snyder) 5-325 MG tablet Patient presents for left [...] TUBAL LIGATION Bilateral 12/04/2020 documented in this encounterTexas County Memorial HospitalVeirahtmrk48-52-1333 History of Present illness Narrative* MARY LOU [...] of: MARY LOU King documented in this encounterTexas County Memorial HospitalQdksgfxdmc68-82-1776 History of Present illness Narrative* Remberto Watson [...] nursing note reviewed. Exam conducted with a ux interaction designer present. Vitals: Estimated body mass index is [...] of: Remberto Watson NP documented in this encounterTexas County Memorial HospitalPgddvfccqq33-79-7524 History of Present illness Narrative* MARY LOU [...] of MARY LOU King documented in this encounterTexas County Memorial HospitalVkygnkuzgo71-37-2555 History of Present illness Narrative* MARY LOU [...] of: MARY LOU King documented in this encounterTexas County Memorial HospitalCvxvdqcmwc72-45-9170 History of Present illness Narrative* Bianca Cardozo [...] of MARY LOU King documented in this encounterTexas County Memorial HospitalGsdmdjqhhy86-74-5667 History of Present illness Narrative* Olinda Galdamez [...] nursing note reviewed. Exam conducted with a ux interaction designer present. Vitals: Estimated body mass index is [...] of: Mick Coulter DO documented in this encounterTexas County Memorial HospitalTernrkiswm74-20-3776 History of Present illness Narrative* Hayley Singh [...] nursing note reviewed. Exam conducted with a ux interaction designer present. Vitals: Estimated body mass index is [...] of: Mick Coulter DO documented in this encounterTexas County Memorial HospitalMmukopabbf40-57-9292 Note* Addendum Note - April Lindsay DMD - 02/23/2024 7:55 AM EDTAddended by: APRIL LINDSAY on: 02/23/2024 07:55 AM Modules accepted: Orders FzqnhCbbosf63-44-0422 Miscellaneous Notes* Addendum Note - April Lindsay [...] PM Modules accepted: Orders documented in this d[id number] Note* Addendum Note - April Lindsay DMD - 02/22/2024 4:24 PM EDTAddended by: APRIL LINDSAY on: 02/22/2024 04:24 PM Modules accepted: Orders, Level of Service JhlxpQacvuz15-35-7377 Note* Addendum Note - April Lindsay DMD - 02/22/2024 4:24 PM EDTAddended by: APRIL LINDSAY on: 02/22/2024 04:24 PM Modules accepted: Orders, Level of Service YgpnhBpqptl00-81-5160 Miscellaneous Notes* Addendum Note - April Lindsay DMD - 02/22/2024 4:24 PM EDTAddended by: APRIL LINDSAY on: 02/22/2024 04:24 PM Modules accepted: Orders, Level of Service * Addendum Note - April Lindsay DMD - 02/22/2024 4:05 PM EDTAddended by: APRIL LINDSAY on: 02/22/2024 04:05 PM Modules accepted: Orders documented in this [id number] NoteORAL SURGERY PROCEDURE ROOM NOTE [facility] Product(s): Extract soft tissue impacted # 17 PMH: Reviewed, no change. Antibiotic prophylaxis indicated/taken: not applicable Discussed risks, benefits, and alternatives of treatment. All of the patient's questions were answered, and informed consent was obtained: yes Pre-op Diagnosis: Tooth pain [141294] Caries and Impacted wisdom teeth PROCEDURE TIME [...] 2 carpules, infiltration administration only Attending: Paige Maitas DDS Resident: April Lindsay DMD Assistants: MANUEL [...] Minimal (<5 ml) Disposition: [facility]* Addendum Note - April Lindsay DMD - 02/22/2024 4:05 PM EDTAddended by: APRIL LINDSAY on: 02/22/2024 04:05 PM Modules accepted: Orders [facility]y [facility] HospitalCtfrtQcnrnc23-34-7349 Note* Addendum Note - April Lindsay DMD - 02/22/2024 4:05 PM EDTAddended by: APRIL LINDSAY on: 02/22/2024 04:05 PM Modules accepted: Orders [facility] HospitalAjnabEusriz62-90-3384 Note* Addendum Note - April Lindsay DMD - 02/22/2024 4:05 PM EDTAddended by: APRIL LINDSYA on: 02/22/2024 04:05 PM Modules accepted: Orders ary [facility] HospitalFuwrcUrrhjg82-26-7168 History of Present illness Narrative* April Lindsay DMD - 02/22/2024 4:05 PM EDT ORAL SURGERY PROCEDURE ROOM NOTE [facility] Product(s): Extract soft tissue impacted # 17 PMH: Reviewed, no change. Antibiotic prophylaxis indicated/taken: not applicable Discussed risks, benefits, and alternatives of treatment. All of the patient s questions were answered, and informed consent was obtained: yes Pre-op Diagnosis: Tooth pain [735096] Caries and Impacted wisdom teeth PROCEDURE TIME [...] Home April Lindsay DMD documented in this qqxbpqyhpSsrgkHppqyn76-02-6350 Miscellaneous Notes* Addendum Note - April Lindsay DMD - 02/22/2024 4:05 PM EDTAddended by: APRIL LINDSAY on: 02/22/2024 04:05 PM Modules accepted: Orders documented in this [id number] Instructions* Patient Instructions* April Lindsay DMD - [...] done to speak with an oral surgeon. [facility] [phone]. HELPING THE HEALING PROCESS AND STOPPING THE [...] any questions or concerns please contact us: [facility] . Ask for the behavioral assistant data center solutions architect (after hours). surgery technician Clinic Hours: Mon-Fri 8:30 am to 4:30 pm. documented in this [id number] Instructions* Patient Instructions* April Lindsay DMD - [...] done to speak with an oral surgeon. [facility] [phone]. HELPING THE HEALING PROCESS AND STOPPING THE [...] any questions or concerns please contact us: [facility] . Ask for the behavioral assistant data center solutions architect (after hours). surgery technician Clinic Hours: Mon-Fri 8:30 am to 4:30 pm. documented in this [id number] Instructions* Patient Instructions* April Lindsay DMD - [...] done to speak with an oral surgeon. [facility] [phone]. HELPING THE HEALING PROCESS AND STOPPING THE [...] any questions or concerns please contact us: [facility] . Ask for the behavioral assistant data center solutions architect (after hours). surgery technician Clinic Hours: Mon-Fri 8:30 am to 4:30 pm. documented in this [id number] NoteI was personally present for the atkins portions of the procedure. NAHEED Lesterhe [facility]07-01-2024 History of Present illness Narrative* Paige Matias DDS - 01/24/2024 10:19 AM EDT I was personally present for the atkins portions of the procedure. Paige Matias DDS * April Lindsay DMD - 01/11/2024 8:06 PM EDT OMFS PATIENT VISIT CHIEF COMPLAINT: Pain and Moody Teeth HISTORY OF PRESENT ILLNESS: Pt is [...] of HTN, Asthma, and Depression, presenting to [facility] clinic and requires removal of tooth #17 [...] note were not included. documented in this [id number] History of Present illness Narrative* April Lindsay DMD - 01/11/2024 8:06 PM EDT OMFS PATIENT VISIT CHIEF COMPLAINT: Pain and Moody Teeth HISTORY OF PRESENT ILLNESS: Pt is a 33yoF with pmhx of HTN, Asthma, and Depression, presenting to [facility] clinic from referral for eval/removal of #17. [...] RecordedPatient RepresentativeExplanationAdvance Directives and Living WillPower of Past Due Accounts Clerk Summary Purpose Family History No Family History Records FoundNo Family History Records FoundNo Family History Records FoundNo Family History Records FoundNo Family History Records FoundNo Family History Records Found Reason for Referral SpecialtyDiagnoses / ProceduresReferred By ContactReferred To ContactOral Surgery Diagnoses Tooth pain Procedures SURG EXTRACTION ERUPTED TOOTH Paige Matias, DDS [address] [place] [address] Referral IDStatusReasonStart DateExpiration DateVisits RequestedVisits [id number] Scheduling Instructions If your in-clinic procedure was [...] your procedure, you will be contacted with iam-km-azruzps costs or next steps. All self-pay payments [...] the procedure: You also MUST have a dumpster driver/escort >18yrs old present to take you [...] section and content) DATE CREATED AUTHOR 05/28/2019 [facility] DATE CREATED AUTHOR AUTHOR'S ORGANIZ ATION 01/01/2023 [facility] DATE CREATED AUTHOR AUTHOR'S ORGANIZ ATION 02/29/2024 [facility] DATE CREATED AUTHOR AUTHOR'S ORGANIZ ATION 05/06/2025 [facility] DATE CREATED AUTHOR AUTHOR'S ORGANIZ ATION 05/11/2025 [facility] DATE CREATED AUTHOR AUTHOR'S ORGANIZ ATION 05/30/2025 [facility] EPIC Reason for Visit (unrecogniz [...] content) Team MemberRelationshipSpecialtyStart DateEnd Date Rosibel Kern, INSPECTOR BALANCE BRIDGE [address] [facility] [place] [address] PCP - [facility]06/08/24Te MemberRelationshipSpecialtyStart Date End Date Rosibel Kern NP [address] [place] [address] PCP - [facility]06/08/24Te MemberRelationshipSpecialtyStart Date End Date Rosibel Kern INSPECTOR BALANCE BRIDGE [address] [facility] [place] [address] PCP - [facility]06/08/24Te MemberRelationshipSpecialtyStart Date End Date Rosibel Kern INSPECTOR BALANCE BRIDGE [address] [facility] [place] [address] PCP - [facility]06/08/24Te MemberRelationshipSpecialtyStart Date End Date Rosibel Kern, INSPECTOR BALANCE BRIDGE [address] [facility] [place] [address] PCP - [facility]06/08/24Te MemberRelationshipSpecialtyStart Date End Date Rosibel Kern INSPECTOR BALANCE BRIDGE [address] [facility] [place] [address] PCP - GeneralFamily Efceezyh78/14/24Team MemberRelationshipSpecialtyStart Date End Date Rosibel Kern, INSPECTOR BALANCE BRIDGE [address] [facility] [place] [address] PCP - GeneralFamily Syzxyexl29/14/24Team MemberRelationshipSpecialtyStart Date End Date Rosibel Kern, INSPECTOR BALANCE BRIDGE [address] [facility] [place] [address] PCP - GeneralFamily Gltrbxow74/14/24Team MemberRelationshipSpecialtyStart Date End Date Rosibel Kern, INSPECTOR BALANCE BRIDGE [address] [facility] [place] [address] PCP - GeneralFamily Ssmauqop61/14/24Team MemberRelationshipSpecialtyStart Date End Date Rosibel Kern, INSPECTOR BALANCE [address] [facility] [place] [address] PCP - GeneralFamily Dujtkvmr59/14/24Team MemberRelationshipSpecialtyStart Date End Date Rosibel Kern, INSPECTOR BALANCE BRIDGE [address] [facility] [place] [address] PCP - GeneralFamily Jwzjklrk61/14/24Team MemberRelationshipSpecialtyStart Date End Date Rosibel Kern, INSPECTOR BALANCE BRIDGE [address] [facility] [place] [address] PCP - GeneralFamily Flmuidvh88/14/24Team MemberRelationshipSpecialtyStart Date End Date Rosibel Kern, INSPECTOR BALANCE BRIDGE [address] [facility] [place] [address] [facility] - [facility]06/08/24Te MemberRelationshipSpecialtyStart Date End Date Rosibel Kern, INSPECTOR BALANCE BR[address]GE [address] [facility] [place] [address] [facility] - [facility]06/08/24Te MemberRelationshipSpecialtyStart Date End Date Rosibel Kern, INSPECTOR [address]ANCE [address] [facility] [place] [address] [facility]06/08/24Te MemberRelationshipSpecialtyStart Date End Date Rosibel Kern, INSPECTOR [address]ANCE [address] [facility] [place] [address] [facility] - [facility]06/08/24Te MemberRelationshipSpecialtyStart Date End Date Rosibel Kern, INSPECTOR BALANCE [address] [facility] [place] [address] [facility]06/08/24 FOR RECORDS PERTAINING TO PATIENTS WHO [...] BE BASED ON THE PRIMARY CLINICAL RECORDS. [facility]. provides no warranty or guarantee of the accuracy or completeness of information in this document.
--- NOTE | 2025-07-06 12:47 | ECG_ITS ---
[facility] Test Date: 2025-07-06 Pat Name: PATSY PENNINGTON Department: Room: - Gender: Female Direct Mail Coordinator: : 1990 Requested By: Order Number: [id number] Reading MD: YEN CHANG M.D. Measurements Intervals [place] Rate: 81 P: 42 TX: 159 QRS: 9 QRSD: 91 T: 25 QT: 366 QTc: 427 Interpretive Statements SINUS RHYTHM Normal ECG Compared to ECG 11/19/2022 13:03:20 No significant changes Electronically Signed On 07-06-2025 17:23:04 EST by YEN CHANG M.D.
== END 2025-07-06 12:39 | disposition home or self-care (01) ==
LOC: PST 12:39
PROVIDERS: Visit Provider Obstetrics & Gynecology
DX: Z01.810 Encounter for preprocedural cardiovascular examination (principal); N80.03 Adenomyosis of the uterus; N83.209 Unspecified ovarian cyst, unspecified side
CPT/HCPCS: 93005

== ENCOUNTER 2025-07-13 07:09 | Day surgery (SDC) | payer OTHER, SELFPAY ==
--- OUTSIDE RECORDS SUMMARY | 2015-11-05 08:27 | XMS_ITS | Continuity of Care Document ---
Author Organization [employer] [facility] Address [address] [place] [address] Phone Care Team Providers Care Housesmith Name Role Phone Higinio Perez MD Unavailable Unavailable Allergies, Adverse Reactions, Alerts Substance Reaction Status Criticality No Known Drug Intolerances Active N o Information Medications Medication Instructions Dosage Dose Quantity Effective Dates (start - stop) Status Indication Fill Status Comments Advair Diskus 250 mcg-50 mcg/dose powder for inhalation INHALE 1 PUFF BY INHALATION ROUTE 2 TIMES EVERY DAY IN THE MORNING AND EVENING APPROXIMATELY 12 HOURS APART 1 tablet 5 - Active Asthma Sprintec (28) 0.25 mg-35 mcg tablet take 1 tablet by oral route every day 1 tablet 4 - Active albuterol sulfate HFA 90 mcg/actuati on aerosol inhaler inhale 2 puff by inhalation route every 4 - 6 hours as needed 1 tablet 4 - Active Asthma Singulair 10 mg tablet take 1 tablet by oral route every day in the evening 1 tablet 3 - Active Asthma Problems Condition Type Effective Dates (start - stop) Diagnosed Date Clinical Status Comments Depressive disorder Problem (finding) - Active (qualifier value) Mapped from [facility] Chronic Conditions table on 10/20/2013, using an automated IMO mapping process executed by sa. The mapped diagnosis was DEPRESSION,300.4 , added by Rashmi Alvares CNP , with responsible provider Anna Garsia MD. Onset date 11/27/2010; last addressed on 06/12/2011. Asthma Problem (finding) - Active (qualifier value) Mapped from [facility] Chronic Conditions table on 10/20/2013, using an automated IMO mapping process executed by sa. The mapped diagnosis was Asthma,493.90, added by Rashmi Alvares CNP , with responsible provider Anna Garsia MD. Onset date 11/27/2010; last addressed on 09/29/2013. Anxiety Problem (finding) - Active (qualifier value) Mapped from [facility] Chronic Conditions table on 10/20/2013, using an automated IMO mapping process executed by . The mapped diagnosis was Anxiety,300.00, added by Rashmi Alvares CNP , with responsible provider Anna Garsia MD. Onset date 11/27/2010; last addressed on 11/11/2011. Advance Directives Directive Yes / No Effective Date File Name No Information Encounters Encounter Description Practice Location Reason(s) For Visit Diagnoses Date Provider Encounter Disposition [facility], [address] [place] [address], [place], [place], [id number] , tel:[phone] [facility] No Information 6 Chris Sylvester. [address] [place], [place], [id number], [place]. tel:[phone] [employer] [facility], [address] [place] [address], [place], [place], [address] , [place] tel:[phone] [facility] No Information 5 No Information [facility], [address] [place] [address], [place], [place], [address] , [place] tel:[phone] [facility] PAP test (chief complaint) Cervical cancer screeningOral contraceptive prescribedRou burke physicl lab examRoutine Medical ExamHigh risk sexual behavior 4 Christie LITO FAN BLADE TRUER-Emperatriz Rajan. [address] [facility] B, [place], [place], [address], [place]. tel:[phone] [phone] [facility], [address] [place] [address], [place], [place], [address] , [place] tel:[phone] [facility] burning on urination (chief complaint)c hronic conditions (chief complaint) AsthmaDyspare unia 4 Christie LITO Rajan. [address] [place] [address] [facility] B, [place], [place], [address], [place]. tel:[phone] [employer] [facility], [address] [place] [address] B, [place], [address] , [place] [phone] Timoteo Vaughn [facility] chronic conditions (chief complaint) Asthma 3- 3 Christie DNP FAN BLADE TRUER-C Mohini. [address], [place], [place], [address], [place]. tel:[phone] [employer] [facility], [address] [place] [address] B, [place], [place], [address] , [place] tel:[phone] Timoteo Vaughn [facility] irregular periods (chief complaint) Post - coital bleedingVagin al odor 3 No Information [facility] [employer] [facility], [address] [place] [address] B, [place], [place], [address] , [place] [phone] Timoteo Vaughn [facility] urinary frequency (chief complaint) Urinary frequency 3 Blickensderf er NURSE PRIVATE DUTY [place]. [facility], [place], [place], [address], [place]. tel:[phone] [facility], [address] [place] [address] B, [place], [place], [address] , [place] tel:[phone] Timoteo Vaughn [facility] burning on urination (chief complaint) Urinary tract infection 2 Christie DNP FAN BLADE TRUER-C Mohini. [address], [place], [place], [address], [place]. tel:[phone] [employer] [facility], [address] [place] [address] B, [place], [place], [address] , [place] [phone] Timoteo Vaughn [facility] preventive exam (chief complaint) Gynecological Examination 2 Blickensderf er NURSE PRIVATE DUTY [place]. [address], [place], [place], [address], [place]. tel:[phone] [facility] [employer] [facility], [address] [place] [address] B, [place], [place], [address] , [place] tel:[phone] [facility] chronic conditions (chief complaint)c hest pain (chief complaint)a llergies/ea r pain (chief complaint) AnxietyAsthma Epigastric painAllergic rhinitis 2 Blickensderf er NURSE PRIVATE DUTY [place]. [address] [facility] B, [place], [place], [address], . tel:[phone] [employer] [facility], [address] [place] [address] B, [place], [place], [address] , [place] tel:[phone] [facility] No Information 2 [facility] NURSE PRIVATE DUTY [place]. [address] [facility] B, [place], [place], [address], [place]. tel:[phone] [facility], [address] [place] [address] B, [place], [place], [address] , tel:[phone] [facility] chronic conditions (chief complaint) DEPRESSIONAnx iety 1 [facility] NURSE PRIVATE DUTY [place]. [address] [facility] B, [place], [place], [address], [place]. tel:[phone] [facility], [address] [place] [address] B, [place], [place], [address] , [place] tel:[phone] [facility] chronic conditions (chief complaint) AnxietyFatigu eDEPRESSION 1 Teressa Mak. [address], [address], [place]. tel:[phone] [facility], [address] [place] [address] B, [place], [place], [address] , [place] tel:[phone] [facility] anxiety (chief complaint) DEPRESSIONFat igue / Malaise 1 Teressa Mak. [address], [address], . tel:[phone] [employer] [facility], [address] [place] [address] B, [place], [place], [address] , [place] tel:[phone] [facility] PAP test (chief complaint) Gynecological Examination 1 Sun Castillo. [address], [place], [place], [address], [place]. tel:[phone] [facility] [employer] [facility], [address] [place] [address] [address], [place], [place], [address] , [place] tel:[phone] [facility] asthma (chief complaint) AsthmaAsthmaD EPRESSIONAnxi ety 1 Sun Castillo. [address], [place], [place], [address], [place]. tel:[phone] Family History Family Member Type Diagnosis Age [...] Vaccine Date Status Comments Tdap administered Source: [facility] unization Record Payers Payer name Insurance type Identifiers Authorization(s) [facility] ID: [id number] Name: Coverage Status Eligibility Check on: [id number] ship to Subscriber: selfPayer Address: [address] [address], [place], [place], [id number] Phone: [phone] [facility] CI Member ID:Subscriber ID:Group Name: Coverage Status Eligibility Check on: [id number] ship to Subscriber: selfPayer Address: [facility] [address], [place], [place], [id number] Phone: [phone] Social History Type Description Quantity Date Captured Comments Alcohol Use Details Unknown Caffeine Use Details Unknown Tobacco Use Status No Information Smoking Status No Information Sex Female Current Gender Female (finding) Chief Complaint And Reason For Visit No Information Plan Of Treatment Date Type Action Status Goal OARRS. Due on du e Goal Depression screening. Due on due Goal URINALYSIS NONAU TO W/O SCOPE. Due on due Goal Pap liquid based for cytology. Due on due Goal HPV, high+low-risk. Due on A due Goal Glucose. Due on due Goal Influenza vaccine. Due on Ap due Goal GOLD NIB GRINDER/Breast exam. Due on due Goal Breast exam. Due on 015 due Goal H&P. Due on due Goal Influenza vaccine. Due on due Goal Tdap due Goal HPV (). Due on 4 due Goal Breast exam. Due on 013 due Goal Td vaccine. Due on 14 due Goal HPV (). Due on 4 due Goal Tdap. Due on due Goal Influenza vaccine. Due on due Goal Breast exam. Due on 013 due Goal H&P. Due on due Future Order: Lab Order Pap Liqu id Based For Cytology ([id number]), Collected on: Ordered History Of Present Illness [...] partner. Does use condoms. Functional Status Date Description Comments No Information Instructions Date Instruction Additional Infor [...] screening see my plan Related to Cervi elevr cancer screening see my plan Related to Asthm a see my plan Related to Asthm a see plan details Related to Vagi nal odor Assessments Type Assessment Date No Information
--- OUTSIDE RECORDS SUMMARY | 2025-01-08 09:15 | XMS_ITS ---
Author Organization [facility] Address [address] [place] [id number] Care Team Providers Care Search Optimization Analyst Name Role Phone Angie Colbert Unavailable [phone] Janice Coleymichelle Unavailable [phone] REASON FOR VISIT Recall (A) (36) Social History Sex Assigned At : Social History Observation Description Sex Assigned At Female Encounters Encounter Location Date Provider Diagnosis [facility] [address] [place] [id number] 01/08/2025 Wil Coley Plan Of Treatment Next Appt Details Provider Name:Wil Coley , 08/14/2025 10:45:00 AM, [address] [place], [place], [id number], Progress Notes * Javid PENNINGTONStephanieOB:1989 (35 yo F)Acc No.[id number]:01/08/2025 Patient:Ayse Valdez :?Wil Coley DDSDOB:1990???Age:34 Y ???Sex:FemaleDate:01/08/2025Phone:[phone]:[address] [place] [id number] Subjective: * Chief Complaints: * Obinna pereira (A) (36) Billing Information: * Procedure Codes: * Electronic signature of Wil Coley DDS on 07/13/2025 at 07:12 AM ESTSign off status: Pending * Provider: Jacob Coley DDS Date: 0 01/08/2025 Generated for Printing/Faxing/eTransmitting on:?07/13/2025 07:12 AM EST
[2025-07-06 13:00] VITALS: BP 135/92; PULSE 86; TEMP 36.4; O2SAT 98; BMI 40.9
[2025-07-13] VITALS (16 sets, daily range): BP systolic 104–146; BP diastolic 79–99; PULSE 64–109; TEMP 36.4; O2SAT 89–100; BMI 41.7
--- OUTSIDE RECORDS SUMMARY | 2025-07-13 07:12 | XMS_ITS | Encounter Summary ---
Author Organization [facility] Address [address] [place] [address] Care Team Providers Care Portfolio Manager Name Role Phone Georgia Sage NP Primary Care Provider [phone] Encounter Details DateTypeDepartmentCare Team (Latest Contact Info)Xwmuaqqevna07/11/2025Orders Only [facility] [place] [facility] [address] [place] [address] Linda Polk MA Social History Tobacco UseTypesPacks/DayYears UsedDateSmoking Tobacco: NeverSmokeless Tobacco: NeverAlcohol UseStandard Drinks/WeekCommentsNot Currently0 (1 standard drink = 0.6 oz pure alcohol)CommentsNoSex and Gender InformationValueDate RecordedSex Assigned at BirthNot on fileLegal UglGqzxqf40/15/2023 11:18 PM EDT Gender IdentityNot on fileSexual OrientationNot on filedocumented as of this encounter Plan of Treatment Not on file documented as of this encounter Procedures Procedure NamePriorityDate/TimeAssociated DiagnosisCommentsHPV/PAP COTEST, VRHKJEJEFnadqoa93/24/2025 12:00 AM ESTdocumented in this encounter Results * HPV/PAP COTEST, EXTERNAL (06/18/2025 12:00 AM EST) Narrative Authorizing ProviderResult TypeResult StatusCorey Yfn DOLAB CYTOLOGY ORDERABLESFinal ResultPerforming OrganizationAddressCity/State/ZIP CodePhone Number EXTERNAL LAB documented in this encounter Visit Diagnoses Not on filedocumented in this encounter Care Teams Team MemberRelationshipSpecialtyStart DateEnd Date Georgia Sage, CHIEF AIRPORT GUIDE [address] [place] [address] PCP - GeneralFamily Erjmgokx46/14/24documented as of this encounter
--- OUTSIDE RECORDS SUMMARY | 2025-07-13 07:12 | XMS_ITS | Clinical Summary ---
Author Organization [facility] Address [address] [facility] [place] [address] Care Team Providers Care Gantry Rigger Name Role Phone Unavailable Primary Care Provider Unavailabl e Source Comments The following information is NOT included in Care Everywhere downloads:Psychiatric notes, ECG results, Cardiac Rehab notes, Pulmonary Function notes, data from SmartForms (includes but not limited toPregnancy data,audiograms, eye exams, pre-surgical evaluation notes, well-child exam data).[facility] Allergies No known active allergies [...] InformationValueDate RecordedSex Assigned at Not on fileLegal UcxPpjbgd58/02/2024 4:11 PM EDTGender IdentityNot on fileSexual OrientationNot on file Last Filed Vital Signs Vital SignReadingTime TakenCommentsBlood Zyqsycym557/8707 3:00 PM EDT Civpp906402/22/2024 3:00 PM EDTTemperature--Respiratory Rate--Oxygen Saturation-- Inhaled Oxygen Concentration--Mtrhqr542.4 kg (250 lb)01/11/2024 3:32 PM EDT Ayhdpu142.1 cm (5' 5 )01/11/2024 3:32 PM EDTBody Mass Index41.606 3:32 PM EDT Plan of Treatment Health MaintenanceDue DateLast DoneCommentsMammography (shared decision-making, age 35-39)1990Hepatitis C Ipzigqry79/11/2006Tdap Odwacxw4905/05/2006 Hepatitis A (HAV) Vaccine (optional start 19+ years)2007Hepatitis B (HBV) Vaccine (1 of 3 - 19+ 3-dose series)2007Pap Smear2009HPV Vaccine (optional start 27-45 years)2015COVID-19 Vaccine (1 - 2024- season) 2025Influenza Vaccine (#1)Shingles (RZV) Vaccine (1 of 2)2038HIV JhmnDibahkddh37/08/2020MammographyDiscontinuedPneumococcal Vaccine(s)Aged OutNo longer eligible based on patient's age to complete this topic Insurance * Guarantor: Gabriela Bass TypeRelation to PatientDate of BirthPhone Billing KmkwydsPpsueilphkozcJcfh1990 [address] [place] [address]
--- OUTSIDE RECORDS SUMMARY | 2025-07-13 07:12 | XMS_ITS | Encounter Summary ---
Author Organization [facility] Address [address] [place] [address] Care Team Providers Care Image Consultant Name Role Phone Georgia Sage NP Primary Care Provider [phone] Encounter Details DateTypeDepartmentCare Team (Latest Contact Info)Mxgwrmmdhuk86/12/2025linisync Result Encounter [facility] Unsolicited Mick Coulter, DO [address] [place], [place] [address] Social History Tobacco UseTypesPacks/DayYears UsedDateSmoking Tobacco: NeverSmokeless Tobacco: NeverAlcohol UseStandard Drinks/WeekCommentsNot Currently0 (1 standard drink = 0.6 oz pure alcohol)CommentsNoSex and Gender InformationValueDate RecordedSex Assigned at BirthNot on fileLegal YzmTqpggg22/15/2023 11:18 PM EDT Gender IdentityNot on fileSexual OrientationNot on filedocumented as of this encounter Plan of Treatment Not on file documented as of this encounter Procedures Procedure NamePriorityDate/TimeAssociated DiagnosisCommentsECG 12-LEAD07/06/2025 12:13 PM EST documented in this encounter Results * ECG 12-LEAD (07/06/2025 12:13 PM EST)Anatomical RegionLateralityModalityOther Specimen (Source)Anatomical Location / LateralityCollection Method / Volume Collection TimeReceived Time07/06/2025 12:13 PM EST Narrative 07/06/2025 5:23 PM EST [facility] ?[address] ? [place] [address] ? Electrocardiograph Report ? Signed ? Patient: ADITI,AYSE L ?MR#: [id number] ?? : 1990 ?Acct:[id number] ?? Age/Sex: 35 / F ?ADM Date: 12/12/25 ?? Loc: PST ? Attending Dr: Mick Coulter D.O. ? Ordering Physician: Mick Coulter D.O. ?? Date of Service: 07/06/25 ?? Procedure(s): ECG 12 lead ?? Accession Number(s): [id number] ? cc: ?[facility] ? Test Date: ?2025-07-06 ?? Pat Name: ? AYSE ADITI ?Department: ? Room: ? - ?? Gender: ? Female ? Captain Airline Pilot: ? : ?1990 ? Requested By: ?? Order Number: [id number] ?Reading MD: ?? YEN ??Vamsi CHANG ? Measurements ?? Intervals ?[place] ? Rate: ? 81 ? P: ?42 ?? UT: ? 159 ?QRS: ?9 ?? QRSD: ? 91 ? T: ?25 ?? QT: ? 366 ? QTc: ?427 ? Interpretive Statements ?? SINUS RHYTHM ?? Normal ECG ?? Compared to ECG 11/19/2022 13:03:20 ?? No significant changes ?? Electronically Signed On 07-06-2025 17:23:04 EST by YEN ??Vamsi CHANG ? Dictated By: ?YEN CHANG ? Signed By: ?12/12/25 1723 ? DD/ 1213 ? TD/TT: ? Surgical Services Asst: Procedure Note Radiology, Radiologist, MD - 07/06/2025 [place] [address] Electrocardiograph Report Signed Patient: AYSE PENNINGTON LMR#: [id number] : 1990Acct:[id number] Age/Sex: 35 / FADM Date: 07/06/25 [facility]: [facility] Attending Dr: Mick Coulter D.O. Ordering Physician: Mick Coulter D.O. Date of Service: 07/06/25 Procedure(s): ECG 12 lead Accession Number(s): [id number] cc: [facility] Test Date: 2025-07-06 Pat Name: AYSE PENNINGTON Department: Room: - Gender: Female Captain Airline Pilot: : 1990 Requested By: Order Number: [id number] Zafar MD: YEN CHANG M.D. Measurements Intervals [place] Rate: 81 P: 42 UT: 159 QRS: 9 QRSD: 91 T: 25 QT: 366 QTc: 427 Interpretive Statements SINUS RHYTHM Normal ECG Compared to ECG 11/19/2022 13:03:20 No significant changes Electronically Signed On 07-06-2025 17:23:04 EST by YEN CHANG M.D. Dictated By: YEN CHANG Signed By:07/06/25 1723 DD/ 1213 TD/TT: Surgical Services Asst: Authorizing ProviderResult TypeResult StatusCorey Yfn DOCLINISYNC IMAGINGFinal Result documented in this encounter Visit Diagnoses Not on filedocumented in this encounter Care Teams Team MemberRelationshipSpecialtyStart DateEnd Date Georgia Sage, COMPUTER PROJECT MANAGER [address] [place] [address] PCP - GeneralFamily Hwanybxr92/14/24documented as of this encounter
--- OUTSIDE RECORDS SUMMARY | 2025-07-13 07:12 | XMS_ITS | Patient Health Record ---
Author Organization [facility] [place] Address [address] [place] [address] Care Team Providers Care Umbrella Tipper Name Role Phone Georgia Nelson N.P. Primary Care Provide r Unavailable Allergies No Known Allergies Reason For Referral No Information Medications Medication SIG (Take, Route, Frequency, Duration) Notes Start Date End Date Status Adipex-P Not-TakingCymbaltaActivemetFORMIN HClActiveMounjaroNot-TakingSingulairActive DuleraActiveAbilifyNot-Taking Social History Tobacco Use: Social History Observation Description Date Details (start date - stop date) Never Smoker NA - NA Tobacco Use/Smoking Question Answer Notes Patient is a nonsmoker Plan Of Treatment No Information Insurance Providers Payer Name Payer Address Payer Phone Subscriber Number Group Number Insured Name Patient Relationship to Insured Coverage Start Date Coverage End Date [employer] [place] [employer] [address] [place] [address] [id number] Ayse Bass Self - patient is the insured Medical (General) History Medical History History ICD Code asthma hemorrhoidsSurgical History Surgery Date(Month/Year) section 09/2015 section 11/2020
--- OUTSIDE RECORDS SUMMARY | 2025-07-13 07:13 | XMS_ITS | Clinical Summary ---
Author Organization Ohmx tem Address [id number] [address] [place] [address] Care Team Providers Care Visual Merchandise Manager Name Role Phone Georgia Nelson APRN-ASSISTANT GOLF COURSE SUPERINTENDENT Primary Care P rovider Allergies Active AllergyReactionsCriticalityNoted EntdMzlqjekxQxnewzxdmtl37/27/2018 Adverse reaction of diarrhea, side effect and [...] ProblemNoted DateDiagnosed DateSusceptible to varicella (non-immune), currently jpeqxaan72/09/2020History of kdipfxd6905/03/2019Acute cystitis with ggrsfvmso61/01/2018Mild persistent mecrso4404/24/2016 Encounters DateTypeDepartmentCare TtacGsgfkrfevit38/15/2025 1:45 PM EDT - 05/09/2025 11:59 PM EDTHospital [facility]counter [facility] [address] [address] Cyst of ovary, unspecified laterality Discharge Disposition: Home05/09/20256560Eaciwp65/09/2025 3:57 PM EDT - 05/03/2025 11:59 PM EDTHospital Encounter [facility] [place] [facility] [address] [place] [phone] Hematuria, unspecified type Discharge Disposition: Home05/03/2025Travelfrom Last [...] file 12/20/2019Frequency of Binge DrinkingNot on file12/20/2019ChildcareAnswerDate QnqknomyQgjasyghjQypncpc83/12/2019EmploymentAnswerDate RecordedEmploymentUnknown 01/04/2019Hunger ScreeningAnswerDate RecordedWithin the past 12 months we worried whether our food would run out before we got money to buy more.Never True01/07/2024Within the past 12 months the food we bought just didn't last and we didn't have money to get more.Never True4Purpose - LifeAnswerDate RecordedPurpose and direction in pskqEuffcxf20/25/2021CommentsNoSex and Gender InformationValueDate RecordedSex Assigned at BirthNot on fileLegal Sex Psjamf5002/28/2015 12:12 PM EDTGender IdentityNot on fileSexual OrientationNot on file Last Filed Vital Signs Vital SignReadingTime TakenCommentsBlood Mafeirar832/35114 10:15 AM EDT Wtuue55048/14/2024 10:00 AM AOVBhdkvqbpbqb66.8 ??C (98.3 ??F)01/07/2024 8:56 AM EDTRespiratory Nuaj094701/07/2024 10:00 AM EDTOxygen Anahvrvfeg38%01/07/2024 10:15 AM EDTInhaled Oxygen Concentration--Ohxtzh992.4 kg (250 lb)01/07/2024 8:56 AM ASLVxnltw344.1 cm (5' 5 )01/07/2024 8:56 AM EDTBody Mass Index41.6001/07/2024 8:56 AM EDT Plan of Treatment Health MaintenanceDue DateLast DoneCommentsDepression Lwexzlaff00/11/2000 DTaP,Tdap and Td Vaccines (1 - Tdap)2007Pap Smear, 10/06/2018Adult BMI Oioasuyeb29Tobacco Mbqxaqjfn46/14/2025 01/07/2024Influenza Yytnqmc45 Medical Devices Not on file Procedures Procedure NamePriorityDate/TimeAssociated DiagnosisCommentsUS PELVIC WITH FYRTFEEUNKKFJzygwym88/15/2025 2:51 PM EDT Cyst of ovary, unspecified laterality CT ABDOMEN AND PELVIS WO HTWNZRXS27/09/2025 4:08 PM EDT Hematuria, unspecified type PAP LKOYYNnnodll64/14/2019 6:14 PM EDT Cervical smear, as part [...] adenomyosis. Recommend clinical correlation. Finalized by Lisa Ramíerz MD on 05/10/2025 2:50 PM Procedure Note [...] PM Authorizing ProviderResult TypeResult StatusAmy Elizabeth Beatty [facility] US ORDERABLESFinal Result * CT [...] 5:25 PM Authorizing ProviderResult TypeResult StatusGilmerhemanth Sanford ELECTRIC METER INSPECTOR-CNPIMG CT ORDERABLESFinal Result * Pap Smear (10/06/2018 6:14 PM EDT)Specimen (Source)Anatomical Location / LateralityCollection Method / VolumeCollection TimeReceived TimeCervical TP 10/06/2018 6:14 PM EDT10/06/2018 6:53 PM EDT Narrative COPATH - 10/12/2018 1:29 PM EDT [facility] ? [address] [place] [address] ? [place] [address] ? Gynecologic Cytology Consultation ? Patient Name: AYSE PENNINGTON : 1990 (Age: 28) Gender: F Taken: 10/06/2018 Reported: 10/12/2018 Physician(s): Claudia Still CNP ([phone]) Copy To: ?? Med. Rec.#: [id number] Acct: # [id number] Final Cytologic Interpretation Cervical (with or without endocervical) ThinPrep: Satisfactory for evaluation. NEGATIVE FOR INTRAEPITHELIAL LESION OR MALIGNANCY. Comment: This specimen has been sent for HPV testing. The results are in a separate report. jmerrill/10/12/2018 Interpretation performed at [facility], [address] [place] [address], License number: [id number]. Electronically Signed Out By ?KAYLA Shine (ASCP) Date of Last Menstrual Period: ? 09/30/2018 Other Clinical Conditions: Screening/Routine z01.419 Advanced Practice Rn exam wo/abn findings Source of Specimen ??Cervical (with or without endocervical) ThinPrep ? Thin Prep Pap (GIFT SHOP MANAGER) Fee Code(s): ?? G0145 The Pap test is a screening test with an inherent, but low, probability of error. The Pap test is primarily effective for the diagnosis and prevention of squamous cell carcinoma. Regular screening iscritical for prevention. ThinPrep liquid-based slides, which meet the Telesales Team Leader criteria for automated screening, have been screened by the TicketflyPrep Imaging System (as of 04/11/07) along with an additional manual rescreening by a field underwriter and, if indicated, by a pathologist.Claudia Still CNP 10/07/2018 Authorizing ProviderResult TypeResult StatusTrakay Still ELECTRIC METER INSPECTOR-[facility] PATHOLOGY/CYTOLOGY ORDERABLESFinal ResultPerforming OrganizationAddress City/State/ZIP CodePhone Number COPATH from Last 3 Months or Most Recently Relevant to Health Maintenance Insurance Care Teams Team MemberRelationshipSpecialtyStart DateEnd Date Georgia Nelson, ELECTRIC METER INSPECTOR-ASSISTANT GOLF COURSE SUPERINTENDENT [address] [place] [address] [facility]05/09/25
--- OUTSIDE RECORDS SUMMARY | 2025-07-13 07:13 | XMS_ITS | Clinical Summary ---
Author Organization [facility] Healthcare Address [address] [place] [address] Care Team Providers Care Shot Coat Tender Name Role Phone Georgia Sage NP Primary Care Provider [phone] Allergies Active AllergyReactionsCriticalityNoted HcjzIadczpkoTmexqvmzqsn79/27/2018 Adverse reaction of diarrhea, side effect and doesn't cure illness Medications MedicationSigDispense QuantityRefillsLast FilledStart DateEnd DateStatus metoprolol tartrate (Lopressor) 25 MG tablet Take 1 tablet by mouth in the morning and 1 tablet before bedtime.05/08/2024 Active Mometasone Furo-Formoterol Fum (Dulera) 50-5 MCG/ACT aerosol Inhale 50 mcg DailyActive promethazine (Phenergan) 25 MG tablet Indications:Pelvic pain in femaleTake 1 tablet (25 mg) by mouth every 6 (six) hours if needed for nausea or vomiting for up to 20 doses 20 tablet 5Active buPROPion XL (Wellbutrin XL) 150 MG 24 hr tablet Indications:Weight loss counseling, encounter forTAKE 1 TABLET BY MOUTH DAILY (DO NOT CRUSH CHEW OR SPLIT) 30 tablet 5Active metFORMIN XR (Glucophage-XR) 500 MG 24 hr tablet Indications:Weight loss counseling, encounter forTAKE 1 TABLET BY MOUTH EVERY MORNING AND TAKE 1 TABLET BY MOUTH EVERY NIGHT BEFORE BEDTIME *DO NOT CRUSH, CHEW OR SPLIT* 60 tablet 5Active buPROPion XL (Wellbutrin XL) 150 MG 24 hr tablet Indications:Weight loss counseling, encounter forTake 1 tablet (150 mg) by mouth Daily Do not crush, chew, or split. 30 tablet Discontinued metFORMIN XR (Glucophage-XR) 500 MG 24 hr tablet Indications:Weight loss counseling, encounter forTake 1 tablet (500 mg) by mouth in the morning and 1 tablet (500 mg) before bedtime. Do not crush, chew, or split.. 60 tablet Discontinued Encounters DateTypeDepartmentCare MufpYfgylqaixyw29/12/2025linisync Result Encounter [facility] External Department Unsolicited Mick Coulter, DO 07/05/2025[place] [address] Linda Polk MA 06/20/2025[place] [phone] Mick Coulter, Weight loss counseling, encounter for06/18/2025 1:50 [place] [phone] Mick Coulter DO Pre-op examination; Adenomyosis; Cyst of ovary, unspecified laterality; PCOS (polycystic ovarian syndrome); Well woman exam with routine gynecological exam06/18/2025linisync Result Encounter [facility] External Department Unsolicited Mick Coulter, DO 06/18/2025amboo [place] [phone] Mick Coulter, 05/29/2025 9:20 AM [place] [address] Lorene Beatty PA Pelvic pain in female (Primary Dx); Encounter for weight management; Follow-up encounter involving /04/2025amboo [place] [phone] Lorene Beatty PA 05/28/20253198Kugafo96/27/2025 9:50 AM EDTOffice Visit [facility] [address] [address] Mick Coulter DO Cyst of ovary, unspecified laterality; Adenomyosis; PCOS (polycystic ovarian syndrome)05/21/2025amboo flowsheet [facility] [address] [place] [address] Mick Coulter DO 05/17/20250799Goknza75/21/2025Telephone [facility] [address] [place] [address] Hayley Singh LPN 05/10/2025External Result Encounter [facility] [place] [facility] [address] [place] [address] Lorene Beatty PA 05/08/2025 9:20 AM EDTOffice Visit [facility] [address] [place] [address] Lorene Beatty PA Cyst of ovary, unspecified mnmyhfookc63/14/2025amboo flowsheet [facility] [place] [facility] [address] [place] [address] Lorene Beatty PA from Last 3 Months Social History Tobacco UseTypesPacks/DayYears UsedDateSmoking Tobacco: NeverSmokeless Tobacco: Never Tobacco Cessation:Counseling Given: Not Answered Alcohol UseStandard Drinks/WeekCommentsNot Currently0 (1 standard drink = 0.6 oz pure alcohol)CommentsNoSex and Gender InformationValueDate RecordedSex Assigned at BirthNot on fileLegal OqvEcfjbg37/15/2023 11:18 PM EDTGender IdentityNot on fileSexual OrientationNot on file Last Filed Vital Signs Vital SignReadingTime TakenCommentsBlood Eqfkwywp664/68/ 2:10 PM EST Pulse--Temperature--Respiratory Rate--Oxygen Saturation--Inhaled Oxygen Concentration--Pqkxwd270 kg (240 lb)06/18/2025 2:10 PM QMKHqehns039.6 cm (5' 4 ) 06/08/2024 10:29 AM ESTBody Mass Index41. 10:29 AM EST Plan of Treatment Not on file Procedures Procedure NamePriorityDate/TimeAssociated DiagnosisCommentsECG 12-LEAD07/06/2025 12:13 PM EST ALL GIFWLNSGSEEANYXCGNBFRAUuyyyvd73/24/2025 3:49 PM EST ALL FOLLICLE STIMULATING YKQVKUQHiyrglj89/24/2025 3:49 PM EST ALL LUTEINIZING YMTEQFSKpwxitp46/24/2025 3:49 PM EST ALL DHEA TQBHXIUFilibij84/24/2025 3:49 PM EST ALL THYROXINE (T4) TXANTliindq35/24/2025 3:49 PM EST TB[facility] PREG QUANT LAPKfxoarb51/24/2025 3:49 PM EST ALL THYROID STIM TFAUINTIkbkvtp92/24/2025 3:49 PM EST MLR HEMOGLOBIN M7TVlrohtc42/24/2025 3:49 PM EST ALL CBC WITH AUTO XDKGXjgwnxr62/24/2025 3:49 PM EST IGP,APTIMA HPV,AGE IELGWphttga96/24/2025 2:00 PM EST HPV/PAP COTEST, CDTKBTVZQefjiyt11/24/2025 12:00 AM ESTUS PELVIS TRANSVAGINAL 05/10/2025 2:51 PM EDT from Last 3 Months Results * ECG 12-LEAD (07/06/2025 12:13 PM EST)Anatomical RegionLateralityModalityOther Specimen (Source)Anatomical Location / LateralityCollection Method / Volume Collection TimeReceived Time07/06/2025 12:13 PM EST Narrative 07/06/2025 5:23 PM EST [facility] ?[address] ? [place] [address] ? Electrocardiograph Report ? Signed ? Patient: ADITI,AYSE L ?MR#: [id number] ?? : 1990 ?Acct:[id number] ?? Age/Sex: 35 / F ?ADM Date: /12/25 ?? Loc: PST ? Attending Dr: Mick Coulter D.O. ? Ordering Physician: Mick Coulter D.O. ?? Date of Service: 07/06/25 ?? Procedure(s): ECG 12 lead ?? Accession Number(s): [id number] ? cc: ?[facility] ? Test Date: ?2025-07-06 ?? Pat Name: ? AYSE ADITI ?Department: ? Room: ? - ?? Gender: ? Female ? Production Roustabout: ? : ?1990 ? Requested By: ?? Order Number: [id number] ?Reading MD: ?? YEN ??Vamsi CHANG ? Measurements ?? Intervals ?[place] ? Rate: ? 81 ? P: ?42 ?? IN: ? 159 ?QRS: ?9 ?? QRSD: ? 91 ? T: ?25 ?? QT: ? 366 ? QTc: ?427 ? Interpretive Statements ?? SINUS RHYTHM ?? Normal ECG ?? Compared to ECG 11/19/2022 13:03:20 ?? No significant changes ?? Electronically Signed On 07-06-2025 17:23:04 EST by YEN ??Vamsi CHANG ? Dictated By: ?YEN CHANG ? Signed By: ?07/06/25 1723 ? DD/ 1213 ? TD/TT: ? Senior Electrical Estimator: Procedure Note Radiology, Radiologist, - 07/06/2025 [place] [address] Electrocardiograph Report Signed Patient: AYSE PENNINGTON LMR#: [id number] : 1990Acct:[id number] Age/Sex: 35 / FADM Date: 07/06/25 Loc: PST Attending Dr: Mick Coulter D.O. Ordering Physician: Mick Coulter D.O. Date of Service: 07/06/25 Procedure(s): ECG 12 lead Accession Number(s): [id number] cc: [facility] Test Date: 2025-07-06 Pat Name: AYSE PENNINGTON Department: Room: - Gender: Female Production Roustabout: : 1990 Requested By: Order Number: [id number] Zafar MD: YEN CHANG M.D. Measurements Intervals [place] Rate: 81 P: 42 IN: 159 QRS: 9 QRSD: 91 T: 25 QT: 366 QTc: 427 Interpretive Statements SINUS RHYTHM Normal ECG Compared to ECG 11/19/2022 13:03:20 No significant changes Electronically Signed On 07-06-2025 17:23:04 EST by YEN CHANG M.D. Dictated By: YEN CHANG Signed By:07/06/25 1723 DD/ 1213 TD/TT: Senior Electrical Estimator: Authorizing ProviderResult TypeResult StatusCorey Yfncarlos eduardo HEATONISYNC IMAGINGFinal Result * TB[facility] PREG QUANT HCG (06/18/2025 3:49 [...] DOCLINISYNCFinal Result Performing OrganizationAddressCity/State/ZIP CodePhone Number CLINISYNC [facility] * MLR HEMOGLOBIN A1C (06/18/2025 3:49 PM EST)ComponentValueRef RangeTest Method Analysis TimePerformed AtPathologist SignatureGLYCOHEMOGLOBIN A1C5.44.5 - 6.2 %TBHComment: ADA RECOMMENDED LIMIT 4.0 - 6.0 ADA THERAPEUTIC TARGET < 7.0 ACTION SUGGESTED > 7.0 ESTIMATED AVERAGE ZSTREMG376np/dLTBHSpecimen (Source)Anatomical Location / LateralityCollection Method / VolumeCollection TimeReceived Time06/18/2025 3:49 PM EST06/18/2025 3:59 PM EST Narrative CLINISYNC - 06/18/2025 4:27 PM EST Authorizing ProviderResult TypeResult StatusCorey Yfn DOCLINISYNCFinal Result Performing OrganizationAddressty/State/[facility] CodePhone Number [facility] * ALL THYROXINE (T4) FREE (06/18/2025 3:49 PM EST)ComponentValueRef RangeTest MethodAnalysis TimePerformed AtPathologist SignatureFREE T40.810.76 - 1.46 ng/dLTBHSpecimen (Source)Anatomical Location / LateralityCollection Method / VolumeCollection TimeReceived Time06/18/2025 3:49 PM EST06/18/2025 3:59 PM EST Narrative CLINISYNC - 06/18/2025 5:03 PM EST Authorizing ProviderResult TypeResult StatusCorey Yfn DOCLINISYNCFinal Result Performing OrganizationAddDepartment of [facility]/State/ZIP CodePhone Number [facility] * ALL THYROID STIM HORMONE (06/18/2025 3:49 PM EST)ComponentValueRef RangeTest MethodAnalysis TimePerformed AtPathologist SignatureTHYROID STIMULATING HORMONE2.0740.358 - 3.740 uIU/mLTBHSpecimen (Source)Anatomical Location / LateralityCollection Method / VolumeCollection TimeReceived Time06/18/2025 3:49 PM EST06/18/2025 3:59 PM EST Narrative CLINISYGA - 06/18/2025 4:27 PM EST Authorizing ProviderResult TypeResult StatusCorey Yfn DOCLINISYNCFinal Result Performing OrganizationAddF[facility] CodePhone Number [facility] * ALL LUTEINIZING HORMONE (06/18/2025 3:49 PM EST)ComponentValueRef RangeTest MethodAnalysis TimePerformed AtPathologist SignatureLUTEINIZING HORMONE(LH)4.7 . mIU/mLTBHComment: ? Adult Female ?Range ?Follicular phase ?2.4 - ??12.6 ?Ovulation phase ?14.0 - ??95.6 ?Luteal phase ?1.0 - ??11.4 ?Postmenopausal ?7.7 - ??58.5 Specimen (Source)Anatomical Location / LateralityCollection Method / Volume Collection TimeReceived Time06/18/2025 3:49 PM EST06/18/2025 3:59 PM EST Narrative CLINISYNC - 06/20/2025 4:09 AM EST Authorizing ProviderResult TypeResult StatusCorey Yfn DOCLINISYNCFinal Result Performing OrganizationAddressCity/State/ZIP CodePhone Number CLINIS[facility]NC [facility] * ALL FOLLICLE STIMULATING HORMONE (06/18/2025 3:49 PM EST)ComponentValueRef RangeTest MethodAnalysis TimePerformed AtPathologist SignatureFSH4.3. mIU/mL TBHComment: ? Adult Female ? Range ?Follicular phase ?3.5 - ??12.5 ?Ovulation phase ? 4.7 - ??21.5 ?Luteal phase ?1.7 - ?? 7.7 ?Postmenopausal ? 25.8 - 134.8 Performed at: ??CB - [facility] [place] [address], [place] ??[id number] Windrower Operator: Keanu Alcazar PhD, Phone: ??[phone] Specimen (Source)Anatomical Location / LateralityCollection Method / Volume Collection TimeReceived Time06/18/2025 3:49 PM EST06/18/2025 3:59 PM EST Narrative CLINISYNC - 06/20/2025 4:09 AM EST Authorizing ProviderResult TypeResult StatusCorey Yfn DOCLINISYNCFinal Result Performing OrganizationAddressCity/State/ZIP CodePhone Number CLINISYNC TB * ALL DHEA SULFATE (06/18/2025 3:49 PM EST)ComponentValueRef RangeTest Method Analysis TimePerformed AtPathologist SignatureDHEA-AMSAYKB133.057.3 - 279.2 ug/dLTBHSpecimen (Source)Anatomical Location / LateralityCollection Method / VolumeCollection TimeReceived Time06/18/2025 3:49 PM EST06/18/2025 3:59 PM EST Narrative CLINISYNC - 06/20/2025 4:09 AM EST Authorizing ProviderResult TypeResult StatusCorey Yfn DOCLINISYNCFinal Result Performing OrganizationAddDepartment of [facility]phiaty/[facility] CodePhone Number CLINISYNC TB * ALL DEHYDROEPIANDROSTERONE (06/18/2025 3:49 PM EST)ComponentValueRef RangeTest MethodAnalysis TimePerformed AtPathologist SignatureDHEA, XEFOC99974 - 701 ng/dLTBHComment: This test was developed and its performance characteristics determined by [facility]. It has not been cleared or approved by the Food and Drug Administration. Performed at: ?? - [facility] ??[id number] Windrower Operator: Shan Ramos MD, Phone: ??[phone] Specimen (Source)Anatomical Location / LateralityCollection Method / Volume Collection TimeReceived Time06/18/2025 3:49 PM EST06/18/2025 3:59 PM EST Narrative CLINISYNC - 06/27/2025 10:07 PM EST Authorizing ProviderResult TypeResult StatusCorey Yfn DOCLINISYNCFinal Result Performing OrganizationAddDepartment of [facility]phiaty/State/ZIP CodePhone Number CLINISYNC TB * (ABNORMAL) ALL CBC WITH AUTO DIFF (06/18/2025 3:49 PM EST)ComponentValueRef RangeTest MethodAnalysis TimePerformed AtPathologist SignatureTB WBC8.74.0 - 11.0 10 3/uLTBHTBH RBC4.04(L)4.20 - 5.40 10 6/uLTBHTBH HGB12.712.0 - 16.0 g/dL TBHTBH HCT38.736.0 - 48.0 %TBHTBH MCV95.881.0 - 99.0 fLTBHTBH MCH31.426.7 - 34.0 pgTBHTBH MCHC32.829.9 - 35.2 g/dLTBHTBH RDW12.711.0 - 15.0 %TBHTBH FXB387 150 - 450 10 3/uLTBHTBH MPV8.8(L)9.5 - [...] DOCLINISYNCFinal Result Performing OrganizationAddressCity/State/ZIP CodePhone Number CLINISYNC [facility] * IGP,APTIMA HPV,AGE GDLN (06/18/2025 2:00 PM EST)ComponentValueRef RangeTest MethodAnalysis TimePerformed AtPathologist SignatureAGE GDLN ACOG TESTINGNote. TBHComment: ?? TESTS ? RESULT ??FLAG ??UNITS ?REF RANGE ??LAB ?? Clinician Provided Cytology Information ?? Source.............Cervix;Endocervix ?? No. of containers..01 ThinPrep Vial Age Algo ACOG Carmen... ??30-65 ? 01 ?FLAG LEGEND: ?L-Low Normal,H-High Normal,LL-Alert Low,HH-Alert High <-Panic Low,>-Panic High,A-Abnormal,AA-Critical Abnormal Performed at: 01 =G ?[facility] ?? [address] [place] ??[address] ?? Gabriella Chris MD, IGP, APTIMA HPV, RFX 16/18,45Note.TBHComment: ?? TESTS ? RESULT ??FLAG ??UNITS ?REF RANGE ??LAB DIAGNOSIS: ?02 ?? NEGATIVE FOR INTRAEPITHELIAL LESION OR MALIGNANCY. Specimen adequacy: ?02 ?? Satisfactory for evaluation. ??Endocervical and/or squamous metaplastic ?? cells (endocervical component) are present. Performed by: ? 02 ?? Clementina Mohan Ar Manager (ASCP) . ? 02 Note: ? Note ?02 ?? The Pap smear is a screening test designed to aid in the ?? detection of premalignant and malignant conditions of the ?? uterine cervix. ??It is not a diagnostic procedure and ?? should not be used as the sole means of detecting cervical ?? cancer. ??Both false-positive and false-negative reports do ?? occur. Test Methodology: ? Note ?02 ?? This liquid based ThinPrep(R) pap test was interpreted ?? using the Shaka(R) Genius(TM) Cervical Algorithm whole ?? slide imaging system. HPV Genotype Reflex ?? Note ?02 ?? Criteria not met, HPV Genotype not performed. ?FLAG LEGEND: ?L-Low Normal,H-High Normal,LL-Alert Low,HH-Alert High <-Panic Low,>-Panic High,A-Abnormal,AA-Critical Abnormal Performed at: 02 WB ?[facility] ?? [address] [place], [place] ??[address] ?? Gabriella Chris MD, HPV APTIMANegativeNegativeTBHComment: This nucleic acid amplification test detects fourteen high- risk HPV types (16,18,31,33,35,39,45,51,52,56,58,59,66,68) without differentiation. Performed at: ??=G - [facility] ??[id number] Windrower Operator: Gabriella Chris MD, Phone: ??[phone] Performed at: ??WB - [facility] ??[id number] Windrower Operator: Gabriella Chris MD, Phone: ??[phone] Specimen (Source)Anatomical Location / LateralityCollection Method / Volume Collection TimeReceived Time06/18/2025 2:00 PM EST06/18/2025 9:03 PM EST Narrative CLINISYNC - 06/20/2025 8:09 PM EST BRUSH-SPATULA CERVIX ENDOCERVIX Authorizing ProviderResult TypeResult StatusCorey Yfn DOLAB BLOOD ORDERABLES Final ResultPerforming OrganizationAddressCity/State/ZIP CodePhone Number [facility] * HPV/PAP COTEST, EXTERNAL (06/18/2025 12:00 AM EST) Narrative Authorizing ProviderResult TypeResult StatusCorey Yfn DOLAB CYTOLOGY ORDERABLESFinal ResultPerforming OrganizationAddressCity/State/ZIP CodePhone Number EXTERNAL LAB * US pelvis transvaginal (05/10/2025 2:51 PM EDT)Anatomical RegionLaterality ModalityPelvisUltrasoundSpecimen (Source)Anatomical Location / Laterality Collection Method / VolumeCollection TimeReceived Time05/10/2025 2:51 PM EDT Narrative 05/10/2025 2:50 PM EDT THIS EXAM WAS PERFORMED AT [facility] CLINICAL INFORMATION: Left ovarian cyst seen on [...] - 05/10/2025 THIS EXAM WAS PERFORMED AT [facility] CLINICAL INFORMATION: Left ovarian cyst seen on [...] 05/10/2025 2:50 PM Authorizing ProviderResult TypeResult StatusAmy Camilla PAIMG US PROCEDURESFinal Result from Last 3 Months Insurance Care Teams Team MemberRelationshipSpecialtyStart DateEnd Date Georgia Sage NP [address] [place] [address] [facility]06/08/24
--- OUTSIDE RECORDS SUMMARY | 2025-07-13 07:13 | XMS_ITS | Patient Health Record ---
Author Organization On [facility] vices Address [address], [place] [id number] Care Team Providers [employer] Finisher Name Role Phone Angie Colbert Unavailable [phone] ViancaWil Unavailable [phone] Allergies No Known Allergies Reason For Referral No Information Medications Medication SIG (Take, Route, Frequency, Duration) Notes Start Date End Date Status Wellbutrin ActivebuPROPion HCl ER (XL) 150 MG Tablet Extended Release 24 HourOral; Duration: 30 DaysActiveAzithromycin 250 MG TabletTake two tabs on day one and one tab daily for the next 4 days Orally; Duration: 5 days06/06/2024 Not-Taking/PRNDuleraNot-Taking/PRNDULoxetine HClNot-Taking/PRNAzithromycin 250 MG TabletTake two tabs on day one and one tab daily for the next 4 days Orally; Duration: 5 days06/08/2024Not-Taking/RVQKaeeewqurl31/01/2024Not-Taking/PRN Metoprolol-HCTZ ERActiveAdvair HFAActiveSingulair 5 MG Tablet Chewableas directed OrallyActive Social History Tobacco Use: Social History Observation Description Date Details (start date - stop date) Never Smoker NA - NA Sex Assigned At : Social History Observation Description Sex Assigned At Female Social History Tobacco Use:Social InfoQuestionAnswerNotesTobacco Control (Standard)Tobacco use: NonsmokerSection Notes: Nutrition counseling focusin g on a low sodium and low sugar diet discussed with the patient, as well as appropriate weekly exercise and increased activity as tolerated to work towards a more optimal body mass index for improved overall health. Nutrition counseling focusin g on a low sodium and low sugar diet discussed with the patient, as well as appropriate weekly exercise and increased activity as tolerated to work towards a more optimal body mass index for improved overall health. Nutrition counseling focusin g on a low sodium and low sugar diet discussed with the patient, as well as appropriate weekly exercise and increased activity as tolerated to work towards a more optimal body mass index for improved overall health. Problems Problem Type SNOMED Code ICD Code Onset Dates Problem Status W/U Status Risk Notes Problem Body mass index 40+ - morbidly obese (076968126) BMI 40.0-44.9, adult (Z68.41) ActiveconfirmedProblemObesity (413221841)Obesity (BMI 30-39.9) (E66.9)Active confirmedProblemObese class II (437448855420403)BMI 39.0-39.9,adult (Z68.39) Activeconfirmed Vital Signs Heart Rate 103 /min 03/14/2025 Height-cm165.1 cm03/14/2025lood pressure iqmplhldl68 mm Hg03/14/2025Weight-kg 108.86 kg03/14/20250644Jdhnix03 in03/14/2025lood pressure mm Hg 03/14/20255170Vpjczn318 lbs03/14/2025BMI39.93 kg/m203/14/2025 Encounters Encounter Location Date Provider Diagnosis [facility] [address] [place] [address] [id number] 10/31/2024 Wil Coley BMI 39.0-39.9,adul t Z68.39 ; Encounter for screening for dental disorders Z13.84 and Encounter for dental examination and cleaning with abnormal findings Z01.21 [facility] [address] [place] [address] [id number] 01/10/2025 Wil Coley Encounter for dent al examination and cleaning with abnormal findings Z01.21 ; Encounter for screening for dental disorders Z13.84 ; Dental mu-ism status Z98.811 ; 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 ; Caries of dentin K02.62 ; Dietary counseling Z71.3 ; Exercise counseling Z71.82 ; Obesity (BMI 30-39.9) E66.9 and Dental caries into dentine K02.62 [facility] [address] [place] [address] [id number] 03/14/2025 Wil Coley BMI 39.0-39.9,adul t Z68.39 and Caries of dentin K02.62 [facility] [address], [place] [id number] 10/26/2024 Wil Coley Assessments Encounter Date Diagnosis (ICD Code) Assessment Notes Treatment Notes Treatment Clinical Notes Section Notes 03/14/2025 BMI 39.0-39.9,adult (ICD-10 - Z6 8.39) 01/10/2025Encounter for dental examination and cleaning with abnormal findings (ICD-10 - Z01.21)01/10/2025Encounter for screening for dental disorders (ICD-10 - Z13.84)10/31/2024MI 39.0-39.9,adult (ICD-10 - Z68.39)10/31/2024Encounter for screening for dental disorders (ICD-10 - Z13.84)01/10/2025Dental mu-ism status (ICD-10 - Z98.811)03/14/2025aries of dentin (ICD-10 - K02.62)01/10/2025 Irreversible pulpitis (ICD-10 - K04.02)10/31/2024Encounter for dental examination and cleaning with abnormal findings (ICD-10 - Z01.21)01/10/2025 Caries of dentin (ICD-10 - K02.62)01/10/2025Dietary counseling (ICD-10 - Z71.3) 01/10/2025Exercise counseling (ICD-10 - Z71.82)01/10/2025Obesity (BMI 30-39.9) (ICD-10 - E66.9)01/10/2025Dental caries into dentine (ICD-10 - K02.62) Plan Of Treatment Next Appt Details Provider Name:Wil Coley , 08/14/2025 10:45:00 AM, [address], [place], [id number], Insurance Providers Payer Name Payer Address Payer Phone Subscriber Number Group Number Insured Name Patient Relationship to Insured Coverage Start Date Coverage End Date [employer] t [employer] [address] [place] [address] [id number] Ayse Bass Self - patient is the insured 2 DMedicaid [facility] after CaresourceDentaquest[address] [place], [place] [id number], EdsonGalileoelf - patient is the [id number] 2021 Medical (General) History Medical History History ICD Code Asthma High Blood PressureDepression/Anxiety
[2025-07-13 07:24] LABS: Hematocrit 38.4 % (36.0-48.0); Hemoglobin 12.7 g/dL (12.0-16.0); Immature Granulocytes Abs Auto 0.04 10^3/uL (0.00-0.03); Immature Granulocytes Pct Auto 0.4 % (0.0-0.5); Lymphocytes Absolute Auto 2.5 10^3/uL (1.2-3.8); Mean Corpuscular HGB Conc 33.1 g/dL (29.9-35.2); Mean Corpuscular Hemoglobin 31.8 pg (26.7-34.0); Mean Corpuscular Volume 96.0 fL (81.0-99.0); Platelet Count 383 10^3/uL (150-450); Red Blood Count 4.00 10^6/uL (4.20-5.40); White Blood Count 11.3 10^3/uL (4.0-11.0)
--- NOTE | 2025-07-13 10:12 | P.ON_ITS ---
Brief Operative Note Date of procedure: 07/13/25 Pre-op diagnosis general: pelvic pain, menorrhagia Post-op diagnosis: same as pre-op Procedure: NAME OF PROCEDURE: [ D&c hysteroscopy, diagnostic laparoscopy with lt ovarian cystotomy] PROCEDURE: The patient was taken back to the Operating Room where she was prepped and draped in normal sterile fashion after being placed under general anesthesia without difficulty. She was also placed in the dorsal lithotomy position. A weighted speculum was placed in the patient?s vagina. The anterior lip of the cervix was identified and grasped with a single tooth tenaculum. The patient?s uterus was then sounded roughly to [? 8] cm. The patient was then gently dilated using Hegar dilators. The hysteroscope was passed through the patient?s cervix into the uterus. Both ostia were identified. fluffy appearing endometrium. No gross evidence of malignancy, no gross evidence of polyps or fibroids. The myosure apparatus was placed through the scope, gentle currettage was performed until a gritty texture was noted. The hysteroscope was then removed from the uterus. The endometrial curettings were sent out to pathology. The single tooth tenaculum was then removed from the patient's anterior lip of the cervix where excellent hemostasis was noted. All instruments were removed from the patient?s vagina. A sponge stick was placed into the patient's vagina. Attention was turned to the patient's abdomen, where a small umbilical incision was made. The fascia was tented using Blu clamps and the fascia was entered sharply. Confirmation of intraabdominal placement of the 10 mm port was confirmed under direct visualization using a laparoscope. The patient's abdomen was then insufflated using CO2 gas with approximately 4 liters. A second port was placed left laterally, this was done under direct visualization with a 5 mm port. Survey of the patient's abdomen demonstrated normal liver and gallbladder. Survey of the patient's pelvic anatomy demonstrated normal appearing rt and lt ovary and tubes as well as normal appearing uterus. No endometrial implants could be noted, no evidence of any pelvic disease was seen, normal appearing pelvic cavity. All instruments were removed from the patient's abdomen. The patient's abdomen was deinsufflated of CO2 gas. The patient tolerated the procedure well. Sponge stick was removed from the patient's vagina. The patient's infraumbilical fascia was closed using #0 Vicryl on a GI needle. The patient's skin was closed laterally and infraumbilically using 4-0 Vicryl. The patient tolerated the procedure well. Sponge, lap and needle counts were correct x 2. The patient was taken to Recovery Room in stable condition. Anesthesia: YAAKOV Surgeon: Mick Coulter Replanting Machine Operator: Mohini Bonilla Estimated blood loss (mL): 5 Pathology: other (endometrial currettings) Condition: stable Disposition: PACU Urinary Catheter Management Urinary Catheter Management Urethral: Cath placed during this visit: no
[2025-07-13] MEDS: HYDROMORPHONE HCL 0.5 MG/0.5 ML SYRINGE IV ×2 (10:35→10:48)
[2025-07-13] MEDS: HYDROCODONE/ACET 5-325 MG TABLET 1 TAB PO (10:47)
[2025-07-13] MEDS: PROMETHAZINE HCL 25 MG/ML VIAL 12.5 MG IM (11:05)
--- NOTE | 2025-07-13 12:04 | PC.NURSE ---
1216: pt complains of nausea,pt given Emend at this time.
--- NOTE | 2025-07-13 12:54 | PC.NURSE ---
1245:pt voids without difficulty.
== END 2025-07-13 12:50 | disposition home or self-care (01) ==
LOC: SURGOUT 07:09
PROVIDERS: Visit Provider Obstetrics & Gynecology
PROC: (CPT 840; principal; 2025-07-13 08:30)
DX: R10.20 Pelvic and perineal pain unspecified side (principal); N80.03 Adenomyosis of the uterus; N83.202 Unspecified ovarian cyst, left side; N92.0 Excessive and frequent menstruation with regular cycle; E66.01 Morbid (severe) obesity due to excess calories; Z68.41 Body mass index [BMI] 40.0-44.9, adult; Z98.51 Tubal ligation status; J45.909 Unspecified asthma, uncomplicated; I10 Essential (primary) hypertension; K21.9 Gastro-esophageal reflux disease without esophagitis; F41.9 Anxiety disorder, unspecified; F32.A Depression, unspecified
CPT/HCPCS: 58558; 58662; 36415; 84702; 85025; J0131; J1100; J1171; J1453; J1885; J2250; J2405; J2550; J2704; J3010